=== PATIENT | female | born 1950 | race Caucasian/White ===

== ENCOUNTER 2019-01-24 13:46 | Outpatient (RCR) | payer MEDICARE, SELFPAY | END 2019-02-08 00:01 | LOC: WOUND 13:46 | PROVIDERS: Family Provider Family Medicine; Visit Provider Nurse Practitioner Family | DX: I87.2 Venous insufficiency (chronic) (peripheral) (principal); L97.822 Non-pressure chronic ulcer of other part of left lower leg with fat layer exposed; I96 Gangrene, not elsewhere classified; L85.3 Xerosis cutis | CPT/HCPCS: 11042; 87070; 87077; 87176; 87186 ×4; 87205; G0463 ==

== ENCOUNTER 2019-02-17 08:31 | Outpatient (CLI) | payer MEDICARE, SELFPAY ==
--- NOTE | 2019-02-17 08:40 | MM_ITS ---
WS: [id number] SCREENING DIGITAL MAMMOGRAM WITH CAD HISTORY: SCREENING COMPARISON: 05/07/2016 and 08/25/2007 Bilateral CC and MLO views submitted. Computer aided detection analyzed. Breast composition: The breasts are almost entirely fatty. No suspicious masses, microcalcifications or architectural distortion. MM/[place] [id number] IMPRESSION: BI-RADS: 1-Negative FOLLOW UP: 1 Year Follow-up
== END 2019-02-17 08:32 | disposition home or self-care (01) ==
LOC: RADSHAW 08:36
PROVIDERS: Family Provider Family Medicine; PCP Family Medicine; Visit Provider Family Medicine
DX: Z12.31 Encounter for screening mammogram for malignant neoplasm of breast (principal)
CPT/HCPCS: 77067

== ENCOUNTER 2019-02-23 08:41 | Outpatient (RCR) | payer MEDICARE, SELFPAY | END 2019-03-11 23:59 | disposition home or self-care (01) | LOC: WOUND 08:41 | PROVIDERS: Family Provider Family Medicine; PCP Family Medicine; Visit Provider Nurse Practitioner Family | DX: I87.2 Venous insufficiency (chronic) (peripheral) (principal); L97.822 Non-pressure chronic ulcer of other part of left lower leg with fat layer exposed | CPT/HCPCS: 99212; 99214; G0463 ==

== ENCOUNTER 2020-08-01 08:28 | Outpatient (CLI) | payer MEDICARE, SELFPAY | END 2020-08-01 08:29 | disposition home or self-care (01) | PROVIDERS: Family Provider Family Medicine; PCP Family Medicine; Visit Provider Thoracic Surgery (Cardiothoracic Vascular Surgery) | DX: L97.812 Non-pressure chronic ulcer of other part of right lower leg with fat layer exposed (principal); L97.822 Non-pressure chronic ulcer of other part of left lower leg with fat layer exposed | CPT/HCPCS: 11042; 11045; G0463 ==

== ENCOUNTER 2020-08-08 10:26 | Outpatient (CLI) | payer MEDICARE, SELFPAY | END 2020-08-08 10:27 | disposition home or self-care (01) | LOC: WOUND 10:27 | PROVIDERS: Family Provider Family Medicine; PCP Family Medicine; Visit Provider Thoracic Surgery (Cardiothoracic Vascular Surgery) | DX: L97.812 Non-pressure chronic ulcer of other part of right lower leg with fat layer exposed (principal); L97.822 Non-pressure chronic ulcer of other part of left lower leg with fat layer exposed | CPT/HCPCS: 11042; 11045 ==

== ENCOUNTER 2020-08-15 11:17 | Outpatient (CLI) | payer MEDICARE, SELFPAY | END 2020-08-15 11:18 | disposition home or self-care (01) | PROVIDERS: Family Provider Family Medicine; PCP Family Medicine; Visit Provider Nurse Practitioner Family | DX: L97.812 Non-pressure chronic ulcer of other part of right lower leg with fat layer exposed (principal); L97.822 Non-pressure chronic ulcer of other part of left lower leg with fat layer exposed | CPT/HCPCS: 11042; 11045 ==

== ENCOUNTER 2020-08-29 10:54 | Outpatient (CLI) | payer MEDICARE, SELFPAY | END 2020-08-29 10:55 | disposition home or self-care (01) | LOC: WOUND 10:55 | PROVIDERS: Family Provider Family Medicine; PCP Family Medicine; Visit Provider Thoracic Surgery (Cardiothoracic Vascular Surgery) | DX: L03.116 Cellulitis of left lower limb (principal); L03.115 Cellulitis of right lower limb | CPT/HCPCS: 97597 ==

== ENCOUNTER 2020-09-12 10:17 | Outpatient (CLI) | payer MEDICARE, SELFPAY | END 2020-09-12 10:18 | disposition home or self-care (01) | LOC: WOUND 10:21 | PROVIDERS: Family Provider Family Medicine; PCP Family Medicine; Visit Provider Thoracic Surgery (Cardiothoracic Vascular Surgery) | DX: Z09 Encounter for follow-up examination after completed treatment for conditions other than malignant neoplasm (principal); Z87.891 Personal history of nicotine dependence | CPT/HCPCS: 99212 ==

== ENCOUNTER 2020-09-25 10:34 | Outpatient (CLI) | payer MEDICARE, SELFPAY | END 2020-09-25 10:35 | disposition home or self-care (01) | LOC: WOUND 10:35 | PROVIDERS: Family Provider Family Medicine; PCP Family Medicine; Visit Provider Thoracic Surgery (Cardiothoracic Vascular Surgery) | DX: I87.2 Venous insufficiency (chronic) (peripheral) (principal); L97.812 Non-pressure chronic ulcer of other part of right lower leg with fat layer exposed; Z87.891 Personal history of nicotine dependence | CPT/HCPCS: G0463 ==

== ENCOUNTER 2020-10-02 13:01 | Outpatient (CLI) | payer MEDICARE, SELFPAY | END 2020-10-02 13:02 | disposition home or self-care (01) | LOC: WOUND 13:03 | PROVIDERS: Family Provider Family Medicine; PCP Family Medicine; Visit Provider Nurse Practitioner Family | DX: I96 Gangrene, not elsewhere classified (principal); L97.812 Non-pressure chronic ulcer of other part of right lower leg with fat layer exposed; Z87.891 Personal history of nicotine dependence | CPT/HCPCS: 87070; 87077; 87186; G0463 ==

== ENCOUNTER 2020-10-09 13:45 | Outpatient (CLI) | payer MEDICARE, SELFPAY | END 2020-10-09 13:46 | disposition home or self-care (01) | LOC: WOUND 13:47 | PROVIDERS: Family Provider Family Medicine; PCP Family Medicine; Visit Provider Thoracic Surgery (Cardiothoracic Vascular Surgery) | DX: I87.2 Venous insufficiency (chronic) (peripheral) (principal); L97.812 Non-pressure chronic ulcer of other part of right lower leg with fat layer exposed; Z87.891 Personal history of nicotine dependence | CPT/HCPCS: 11042; 11045 ==

== ENCOUNTER 2020-10-16 13:45 | Outpatient (RCR) | payer MEDICARE, SELFPAY | END 2020-11-08 23:59 | disposition home or self-care (01) | LOC: WOUND 13:45 | PROVIDERS: Family Provider Family Medicine; PCP Family Medicine; Visit Provider Emergency Medicine | DX: I87.2 Venous insufficiency (chronic) (peripheral) (principal); L97.812 Non-pressure chronic ulcer of other part of right lower leg with fat layer exposed; Z87.891 Personal history of nicotine dependence | CPT/HCPCS: 11042 ==

== ENCOUNTER 2020-10-24 10:18 | Outpatient (CLI) | payer MEDICARE, SELFPAY | END 2020-10-24 10:19 | disposition home or self-care (01) | LOC: WOUND 10:19 | PROVIDERS: Family Provider Family Medicine; PCP Family Medicine; Visit Provider Nurse Practitioner Family | DX: Z09 Encounter for follow-up examination after completed treatment for conditions other than malignant neoplasm (principal); Z87.891 Personal history of nicotine dependence | CPT/HCPCS: 99212 ==

== ENCOUNTER → 2021-05-07 11:56 | Outpatient (BNVA) | payer MEDICARE, SELFPAY | PROVIDERS: Family Provider Family Medicine; PCP Family Medicine; Visit Provider Emergency Medicine | DX: I87.2 Venous insufficiency (chronic) (peripheral) (principal); L97.222 Non-pressure chronic ulcer of left calf with fat layer exposed; L97.212 Non-pressure chronic ulcer of right calf with fat layer exposed | CPT/HCPCS: 87070; 87077; 87176; 87186; 87205; 99202 ==

== ENCOUNTER → 2021-05-14 13:53 | Outpatient (BNVA) | payer MEDICARE, SELFPAY | PROVIDERS: Family Provider Family Medicine; PCP Family Medicine; Visit Provider Emergency Medicine | DX: I87.2 Venous insufficiency (chronic) (peripheral) (principal); I96 Gangrene, not elsewhere classified; L97.812 Non-pressure chronic ulcer of other part of right lower leg with fat layer exposed; L97.822 Non-pressure chronic ulcer of other part of left lower leg with fat layer exposed; L97.522 Non-pressure chronic ulcer of other part of left foot with fat layer exposed; Z87.891 Personal history of nicotine dependence | CPT/HCPCS: 11042; 11045 ==

== ENCOUNTER → 2021-05-21 13:51 | Outpatient (BNVA) | payer MEDICARE, SELFPAY | PROVIDERS: Family Provider Family Medicine; PCP Family Medicine; Visit Provider Emergency Medicine | DX: I87.2 Venous insufficiency (chronic) (peripheral) (principal); I96 Gangrene, not elsewhere classified; L97.822 Non-pressure chronic ulcer of other part of left lower leg with fat layer exposed; Z87.891 Personal history of nicotine dependence; L97.522 Non-pressure chronic ulcer of other part of left foot with fat layer exposed; Z09 Encounter for follow-up examination after completed treatment for conditions other than malignant neoplasm | CPT/HCPCS: 11042; 11045; 99212 ==

== ENCOUNTER 2021-05-30 09:13 | Outpatient (CLI) | payer OTHER, SELFPAY ==
--- NOTE | 2021-05-30 09:38 | XR_ITS ---
WS: [id number] Exam: XR foot LT min 3V* [id number] Date/Time of Exam: 05/30/2021 10:11 AM Reason For Exam: NON PRESSURE CHRONIC ULCER No acute fracture or dislocation. Marked soft tissue swelling along the dorsum of the forefoot and fi rst 4 digits. No sign of obvious bone destruction. Degenerative changes in the midfoot joints and the IP joints. Degenerative change at the first MP joint. Calcaneal spurs. No radiopaque soft tissue for eign bodies. XR/XR foot LT min 3V* [id number] IMPRESSION: 1. No obvious fracture or bone destruction. 2. Marked soft tissue swelling over the dorsum of the forefoot as well as the f irst 4 digits. Degenerative changes.
--- NOTE | 2021-05-30 09:38 | USCV_ITS ---
Kay Perez Age: 70 Gender: F : 1950 Exam Date: 05/30/2021 10:19 Ordering Phys: Padmini Persaud DO Technologist: Justin Morales Exam Location: [facility] – [place] Indication: HISTORY: PROCEDURES: FINDINGS: There is no evidence of RIGHT deep vein thrombosis. No evidence of superficial thrombosis in the RIGHT saphenous system. No evidence of reflux was noted in the RIGHT deep venous system. No venous reflux noted in the RIGHT greater saphenous vein. No venous reflux noted in the RIGHT small saphenous vein. There is no evidence of LEFT deep vein thrombosis. No evidence of superficial thrombosis in the LEFT saphenous system. No evidence of reflux was noted in the LEFT deep venous system. No venous reflux noted in the LEFT greater saphenous vein. No venous reflux noted in the LEFT small saphenous vein. The veins were found to be easily compressible with spontaneous blood flow. Non pulsatile flow pattern. CONCLUSIONS No evidence of DVT in the above-mentioned identifiable veins. No significant venous reflux either in the deep or in the superficial veins, based on the above findings. Dr Andrew Gonzalez MD [facility] (Electronically Signed) Final Date: 31 May 2021 09:22 S
== END 2021-05-30 09:14 | disposition home or self-care (01) ==
LOC: RAD 09:21
PROVIDERS: Family Provider Family Medicine; PCP Family Medicine; Visit Provider Emergency Medicine
DX: L97.222 Non-pressure chronic ulcer of left calf with fat layer exposed (principal); L97.212 Non-pressure chronic ulcer of right calf with fat layer exposed
CPT/HCPCS: 73630; 93970

== ENCOUNTER 2021-06-05 09:53 | Outpatient (CLI) | payer OTHER, SELFPAY ==
--- NOTE | 2021-06-05 10:02 | USCV_ITS ---
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 Abnormal resting HERNANDEZ and TBI on the left side, suggesting severe peripheral artery disease, possibly involving the infrapopliteal vessels. 2. Abnormal resting TBI on the right side, suggestive of mild to moderate peripheral artery disease. Dr Andrew Gonzalez MD [facility] (Electronically Signed) Final Date: 09 Jun 2021 21:24 S
== END 2021-06-05 09:54 | disposition home or self-care (01) ==
LOC: RAD 09:55
PROVIDERS: Family Provider Family Medicine; PCP Family Medicine; Visit Provider Emergency Medicine
DX: L97.222 Non-pressure chronic ulcer of left calf with fat layer exposed (principal); L97.212 Non-pressure chronic ulcer of right calf with fat layer exposed
CPT/HCPCS: 93923

== ENCOUNTER → 2021-07-16 08:18 | Outpatient (BNVA) | payer MEDICARE, SELFPAY | PROVIDERS: Family Provider Family Medicine; PCP Family Medicine; Visit Provider Nurse Practitioner Family | DX: I87.2 Venous insufficiency (chronic) (peripheral) (principal); L97.812 Non-pressure chronic ulcer of other part of right lower leg with fat layer exposed; I96 Gangrene, not elsewhere classified; L97.522 Non-pressure chronic ulcer of other part of left foot with fat layer exposed; L97.821 Non-pressure chronic ulcer of other part of left lower leg limited to breakdown of skin; L97.811 Non-pressure chronic ulcer of other part of right lower leg limited to breakdown of skin | CPT/HCPCS: 11042; A6197 ==

== ENCOUNTER 2021-07-27 18:44 | Inpatient (IN) | payer MEDICARE, SELFPAY ==
[2021-07-27 18:49] VITALS: BP 157/76; PULSE 82; RESP 22; TEMP 37.3; O2SAT 94; BMI 60.9
--- NOTE | 2021-07-27 20:08 | USR_ITS ---
PROCEDURE INFORMATION: Exam: US Duplex Right Lower Extremity Veins, Limited Exam date and time: 07/27/2021 8:28 PM Age: 71 years old Clinical indication: Pain; Edema, localized; Lower extremity, right; Leg, lower; Additional info: Swelling, redness rle TECHNIQUE: Imaging protocol: Real-time Duplex ultrasound of the Right Lower Extremity with 2-D elizabeth scale, color Doppler flow and spectral waveform analysis with image documentation. Limited exam was focused on the right lower extremity veins. COMPARISON: No relevant prior studies available. FINDINGS: Right deep veins: Unremarkable. The common femoral, femoral, proximal profunda femoral, popliteal, posterior tibial and peroneal veins are patent without thrombus. Normal Doppler waveforms. Normal compressibility and/or augmentation response. Right superficial veins: Unremarkable. Saphenofemoral junction is patent without thrombus. Soft tissues: Unremarkable. US/[place] [id number] IMPRESSION: No sonographic evidence of deep vein thrombosis.
--- NOTE | 2021-07-27 20:08 | XRR_ITS ---
PROCEDURE INFORMATION: Exam: XR Chest Exam date and time: 07/27/2021 9:06 PM Age: 71 years old Clinical indication: Fever and shortness of breath; Additional info: SOB fever TECHNIQUE: Imaging protocol: Radiologic exam of the chest. Views: 1 view. COMPARISON: CR Chest 1 [place] [id number] 08/13/2017 9:40 AM FINDINGS: Lungs: Streaky opacities at the lung bases, likely secondary to atelectasis and/or scarring. No consolidation. Pleural spaces: Unremarkable. No pleural effusion. No pneumothorax. Heart/Mediastinum: Mild cardiomegaly. Vasculature: Senescent changes of the aorta. Bones/joints: No acute osseous abnormality. Degenerative changes. XR/XR chest 1V portable [id number] IMPRESSION: No acute radiographic findings.
--- NOTE | 2021-07-27 20:10 | ECG_ITS ---
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 Measurements Intervals [place] Rate: 91 P: 63 IA: 137 QRS: -37 QRSD: 104 T: 70 QT: 342 QTc: 422 Interpretive Statements SINUS RHYTHM LEFT AXIS DEVIATION [QRS AXIS < -30] POSSIBLE ANTERIOR MYOCARDIAL INFARCTION , OF INDETERMINATE AGE [30 ms Q WAVE IN V3/V4, OR R < 0.2 mV IN V4] Compared to ECG 11/27/2016 10:56:16 Left-axis deviation now present Ventricular premature complex(es) no longer present Myocardial infarct finding still present Electronically Signed On 07-28-2021 13:01:51 CDT by Nneka Freedman M.D. [id number]
--- NOTE | 2021-07-27 20:12 | W.ED.GENADLT ---
HPI - General Adult General: Chief complaint: General Medical Stated complaint: Leg pain/weakness/SOB Time Seen by Provider: 07/27/21 19:43 Source: patient and family History of Present Illness: 71-year-old female with a history of vascular insufficiency to her left lower extremities and morbid obesity. She presents with several complaints. She notes that she has had increasing leg swelling, with pain particularly on the right greater than the left. She has chronic vascular insufficiency with weeping wounds to these areas. She is treated for chronic fungal infection. She also complains of cough, diarrhea, and vomiting with fever. This is been going on 3 to 4 days as well Onset (ago): day(s) Location: lower extremity Radiation: non-radiation Quality: burning and stabbing Pain Consistency: constant Associated symptoms: Reports cough, dyspnea, fevers/chills, nausea, rash, short of breath and vomiting; Deny chest pain or headache(s) Review of Systems Const: Reports: fever(s), chills and body aches ENMT: Reports: throat pain Card: Denies: chest pain Resp: Reports: dyspnea GI: Reports: abdominal pain, nausea, vomiting and diarrhea Skin/Breast: Reports: rash, skin tenderness and skin swelling Neuro: Denies: headache(s) Physical Exam Const: GENERAL APPEARANCE: cooperative, in distress, ill appearing and frail appearing NUTRITIONAL APPEARANCE: obese morbidly obese HENMT: COMMON NORMALS: normocephalic, atraumatic and Normal external nose present HEAD & SCALP: normocephalic and atraumatic NOSE: Normal external nose present and Normal nares present Eye: COMMON NORMALS: Equal, round and reactive pupils present and EOMs intact bilaterally PUPIL: Yes Equal, round and reactive pupils present Neck/C-Spine: GENERAL: Yes trachea midline Chest: CHEST: Yes Symmetrical chest wall rise Resp: COMMON NORMALS: normal respiratory effort, No use of accessory muscles and clear to auscultation bilaterally AUSCULTATION: clear to auscultation bilaterally Cardio: COMMON NORMALS: regular rate and regular rhythm RATE: regular rate RHYTHM: regular rhythm GI: COMMON NORMALS: Normal to inspection, nondistended, normoactive bowel sounds present, Soft to palpation and non-tender PALPATION: Yes Soft to palpation Extremity: NARRATIVE EXTREMITY EXAM: Right leg greater than left leg edema. Chronic skin changes related to vascular insufficiency. Beefy erythema to right leg that is circumferential, with significant weeping and discharge. It is significantly tender, and warm. Neuro: AALIYAH COMA SCALE: document GCS findings Aaliyah coma scale eye opening: Spontaneous Aaliyah coma scale verbal response: Orientated [place] coma scale motor response: Obey commands Aaliyah coma scale total score: 15 Psych: COMMON NORMALS: mental status grossly normal Skin: NARRATIVE SKIN EXAM: See above Course Consultations: Consultation #1: darby Vital Signs: Vital signs: Vital Signs Temperature 99.2 F 07/27/21 18:49 Pulse Rate 90 07/28/21 00:22 Respiratory Rate 24 H 07/28/21 00:22 Blood Pressure 121/55 07/28/21 00:22 Pulse Oximetry 94 07/28/21 00:22 MDM - General Adult Medical Decision Making 71-year-old female with beefy red cellulitis and weeping to the right lower extremity. DVT ultrasound is negative. Her white blood cell count is 23.5. Her lactate is only 2. Creatinine 1.3. There was some concern over the possibility of gangrene/necrotizing fasciitis. CT reveals no gas in the soft tissues though. Her CRP is significantly elevated. She was given vancomycin after blood cultures here. She will require admission. She has been evaluated by hospitalist in the ER. Lab Data : 07/27/21 20:00 07/27/21 20:00 Radiology Impressions Chest X-Ray 07/27/21 20:08 IMPRESSION: No acute radiographic findings. Venous Duplex 07/27/21 20:08 IMPRESSION: No sonographic evidence of deep vein thrombosis. Femur CT 07/27/21 22:33 IMPRESSION: 1. Cellulitis changes of the right thigh. 2. Right inguinal and right pelvic sidewall reactive lymphadenopathy. Lower Extremity CT 07/27/21 22:33 IMPRESSION: Diffuse cellulitis changes. Laboratory Results WBC 23.5 10^3/uL (4.0-10.0) H 07/27/21 20:00 RBC 4.70 10^6/uL (4.1-5.3) 07/27/21 20:00 Hgb 13.1 g/dL (11.5-15.3) 07/27/21 20:00 Hct 40.3 % (37.0-47.0) 07/27/21 20:00 MCV 85.7 fl (81-99) 07/27/21 20:00 MCH 27.9 pg (28.0-34.0) L 07/27/21 20:00 MCHC 32.5 g/dL (30.0-36.0) 07/27/21 20:00 RDW 15.3 % (12.1-15.1) H 07/27/21 20:00 Plt Count 275 10^3/cmm (130-400) 07/27/21 20:00 MPV 10.4 fL (7.4-10.4) 07/27/21 20:00 Neut % (Auto) 78.4 % 07/27/21 20:00 Lymph % (Auto) 11.8 % 07/27/21 20:00 [place] % (Auto) 7.2 % 07/27/21 20:00 Eos % (Auto) 0.1 % 07/27/21 20:00 Baso % (Auto) 0.3 % 07/27/21 20:00 Neut # (Auto) 18.43 10^3/uL (1.8-7.7) H 07/27/21 20:00 Lymph # (Auto) 2.8 10^3/uL (0.8-4.8) 07/27/21 20:00 [place] # (Auto) 1.7 10^3/uL (0.2-0.9) H 07/27/21 20:00 Eos # (Auto) 0.0 10^3/uL (0.0-0.8) 07/27/21 20:00 Baso # (Auto) 0.1 10^3/uL (0.0-0.1) 07/27/21 20:00 Nucleated RBC % (auto) 0 % 07/27/21 20:00 Nucleated RBCs # 0.0 /100WBC 07/27/21 20:00 ESR 33 mm/hr (0-15) H 07/27/21 20:00 Sodium 133 mmol/L (136-145) L 07/27/21 20:00 Potassium 3.7 mmol/L (3.5-5.1) 07/27/21 20:00 Chloride 94 mmol/L (98-107) L 07/27/21 20:00 Carbon Dioxide 22 mmol/L (22-29) 07/27/21 20:00 Anion Gap 20.7 (5-19) H 07/27/21 20:00 BUN 34 mg/dL (8-23) H 07/27/21 20:00 Creatinine 1.3 mg/dL (0.5-0.9) H 07/27/21 20:00 GFR Calculation Not Reportable 07/27/21 20:00 Glucose 118 mg/dL (65-115) H 07/27/21 20:00 Calculated Osmolality 285 mOsm/kg (285-295) 07/27/21 20:00 Lactate 2.0 mmol/L (0.5-2.2) 07/27/21 20:30 Calcium 8.9 mg/dL (8.5-10.5) 07/27/21 20:00 Total Bilirubin 0.7 mg/dL (0.15-1.2) 07/27/21 20:00 AST 22 U/L (0-32) 07/27/21 20:00 ALT 19 U/L (0-33) 07/27/21 20:00 Alkaline Phosphatase 102 IU/L (35-105) 07/27/21 20:00 Creatine Kinase 104 U/L (26-192) 07/27/21 20:00 C-Reactive Protein 333.5 mg/L (0.0-4.9) H 07/27/21 20:00 NT-Pro-B Natriuret Pep 6040 pg/mL (0-125) H 07/27/21 20:00 Total Protein 7.5 g/dL (6.6-8.7) 07/27/21 20:00 Albumin 3.3 g/dL (3.5-5.2) L 07/27/21 20:00 Globulin 4.2 g/dL (1.3-4.6) 07/27/21 20:00 SARS-CoV-2 Ag (Rapid) Negative (Negative) 07/27/21 20:10 Discharge Plan Discharge Patient Disposition: Admitted As Inpatient Clinical Impression: Cellulitis Condition: Fair Prescriptions: No Action miconazole nitrate [Antifungal Cream (miconazole)] 2 % cream 1 applic topical BID Qty: 28 3RF fluconazole [Diflucan] 150 mg tablet 150 mg PO DAILY Qty: 18 0RF Rx Instructions: 1 tab po qd for 3 days (Wed thru Thu) for 6 weeks Referrals: Salvador,Pepper M, MD [Primary Care Provider] - Coding Level of Care Code ED Manne[employer] 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
[2021-07-27 20:27] LABS: Basophils # 0.1 10^3/uL (0.0-0.1); Basophils % 0.3 %; Eosinophils % 0.1 %; Hematocrit 40.3 % (37.0-47.0); Hemoglobin 13.1 g/dL (11.5-15.3); Lymphocytes # 2.8 10^3/uL (0.8-4.8); Lymphocytes % 11.8 %; Mean Corpuscular HGB Conc 32.5 g/dL (30.0-36.0); Mean Corpuscular Hemoglobin 27.9 pg (28.0-34.0); Mean Corpuscular Volume 85.7 fl (81-99); Mean Platelet Volume 10.4 fL (7.4-10.4); Monocytes # 1.7 10^3/uL (0.2-0.9); Monocytes % 7.2 %; Neutrophils # 18.43 10^3/uL (1.8-7.7); Neutrophils % 78.4 %; Nucleated Red Blood Cells % 0 %; Platelet Count 275 10^3/cmm (130-400); Red Cell Distribution Width 15.3 % (12.1-15.1); White Blood Count 23.5 10^3/uL (4.0-10.0)
[2021-07-27 20:30] VITALS: RESP 20
[2021-07-27] MEDS: ondansetron 2 mg/ML SDV 2 mL 4 MG IVP (20:30)
[2021-07-27] MEDS: morphine 4 mg/mL SDV 1 mL IVP (20:30)
[2021-07-27 21:04] LABS: Alanine Aminotransferase 19 U/L (0-33); Albumin Level 3.3 g/dL (3.5-5.2); Alkaline Phosphatase 102 IU/L (35-105); Anion Gap 20.7 (5-19); Aspartate Amino Transferase 22 U/L (0-32); Blood Urea Nitrogen 34 mg/dL (8-23); C Reactive Protein 333.5 mg/L (0.0-4.9); Calcium 8.9 mg/dL (8.5-10.5); Carbon Dioxide 22 mmol/L (22-29); Chloride 94 mmol/L (98-107); Creatine Phosphokinase 104 U/L (26-192); Globulin 4.2 g/dL (1.3-4.6); Glucose 118 mg/dL (65-115); NT Pro B Type Natriuretic Pept 6040 pg/mL (0-125); Osmolality Calculated 285 mOsm/kg (285-295); Potassium 3.7 mmol/L (3.5-5.1); Sodium 133 mmol/L (136-145); Total Bilirubin 0.7 mg/dL (0.15-1.2); Total Protein 7.5 g/dL (6.6-8.7)
[2021-07-27 21:15] LABS: Erythrocyte Sedimentation Rate 33 mm/hr (0-15)
[2021-07-27 21:22] VITALS: BP 140/65; PULSE 93; RESP 24; O2SAT 96
[2021-07-27 21:39] LABS: SARS Covid-2 Antigen Negative (Negative)
--- NOTE | 2021-07-27 22:33 | CTR_ITS ---
PROCEDURE INFORMATION: Exam: CT Right Lower Extremity Without Contrast; Lower Leg Exam date and time: 07/27/2021 11:04 PM Age: 71 years old Clinical indication: Edema; No, it is generalized; Patient HX: Weeping, swollen, scaling skin; Additional info: Pain, swelling rle TECHNIQUE: Imaging protocol: CT of the Right lower extremity without contrast was performed. Exam focused on the lower leg. Radiation optimization: All CT scans at this facility use at least one of these dose optimization techniques: automated exposure control; mA and/or kV adjustment per patient size (includes targeted exams where dose is matched to clinical indication); or iterative reconstruction. COMPARISON: [place] [id number] 07/27/2021 8:28 PM RADIATION DOSE METRICS: Total DLP (mGy-cm): 892.88 FINDINGS: Bones/joints: No fractures. No aggressive osteolytic bone lesion. Negative for acute periosteal bone reaction changes. Soft tissues: Diffuse soft tissue edema changes. Extensive skin thickening. Negative for soft tissue gas. No focal organized fluid collection. CT/CT lower leg RT wo con* [id number] IMPRESSION: Diffuse cellulitis changes.
--- NOTE | 2021-07-27 22:33 | CTR_ITS ---
PROCEDURE INFORMATION: Exam: CT Right Lower Extremity Without Contrast; Thigh Exam date and time: 07/27/2021 11:00 PM Age: 71 years old Clinical indication: Edema; No, it is generalized; Patient HX: Weeping, swollen and scaling of lower ext; Additional info: Swelling, pain rle TECHNIQUE: Imaging protocol: CT of the Right lower extremity without contrast was performed. Exam focused on the thigh. Radiation optimization: All CT scans at this facility use at least one of these dose optimization techniques: automated exposure control; mA and/or kV adjustment per patient size (includes targeted exams where dose is matched to clinical indication); or iterative reconstruction. 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 No acute fracture or dislocation. No aggressive osteolytic lesion. Soft tissues: Broad area of skin thickening of the anterior and medial proximal right thigh. Generalized subcutaneous soft tissue edema changes. Focal skin blister of the medial distal thigh. No soft tissue gas. Myofascial planes are unremarkable other than generalized muscular atrophy. Lymph nodes: Right inguinal lymphadenopathy. Right pelvic sidewall lymphadenopathy. Largest individual right distal inguinal lymph node measures 3.8 cm long axis by 2.[address]/CT femur RT wo con* [id number] IMPRESSION: 1. Cellulitis changes of the right thigh. 2. Right inguinal and right pelvic sidewall reactive lymphadenopathy.
[2021-07-27 22:35] VITALS: BP 124/76; PULSE 94; RESP 22; O2SAT 95
[2021-07-27] MEDS: vancomycin 1,250 MG/250 ML PIGGYBACK 250 MG IV (22:35)
[2021-07-28] VITALS (8 sets, daily range): BP systolic 108–134; BP diastolic 55–84; PULSE 78–90; RESP 17–24; TEMP 36.3–36.7; O2SAT 93–96
--- NOTE | 2021-07-28 02:11 | P.HP_ITS ---
Providers/Chief Complaint Admitting Physician: Cynthia Irizarry MD Primary Care Provider: Goes to [facility] Chief Complaint: Leg pain/weakness/sob History of Present Illness Kay Perez is a 71 year old female with longstanding history of lymphedema and lower extremity wounds. She has been followed at the wound care clinic off and on over time. Most recently she started going to the wound care clinic again at the end of April or the beginning of May this year. She has had bilateral lower extremity wounds necessitating management. The left lower extremity has been worse than the right lower extremity throughout the course of her treatment thus far. She has been on a few different courses of antibiotics including Bactrim and clindamycin and was ultimately also started on Diflucan for a fungal component. Most recent wound care note I have available is from July 16. At that time she was continuing the Diflucan and was switched to Derm alginate from Hydrofera Blue with lymphedema wraps being changed every other day rather than daily. She was also using Dry-Peter between her toes. She says she was doing okay at that point but then this past weekend she just started feeling sick. She had subjective fevers, nausea but no vomiting. She lost her appetite and quit eating. She also began having some loose stools and noted that she was having decreased urine output. Her daughter told her that she was delirious at times with the fever. Her fever broke after a couple of days but subsequent to this she began to have swelling in her right lower extremity. Over the last 2 to 3 days the size of the right lower extremity has about doubled that of the left lower extremity extending all the way up to her groin. At baseline the right lower extremity is always a bit larger than the left lower extremity but this is beyond what she has experienced before. The leg started oozing fluid a few days ago around the time it started swelling. The skin has become progressively more raw and hurting. It has gotten to the point that it is almost continuously dripping serous fluid on the floor. Because of this and the continued malaise she came to the emergency room for evaluation. She denies any trauma including any skin trauma related to wound care treatments left on too long or used inappropriately. No one else in the household has been sick. Mrs. Perez did have arterial Dopplers done within the past 2 months that showed probable severe peripheral artery disease on the left lower extremity and moderate disease on the right lower extremity. She has been referred to cardiology for consideration of options for intervention but has not yet had that appointment as it is scheduled for August 15. Review of Systems Const: Reports: fever(s), chills, body aches, change in appetite, fatigue and malaise ENMT: Reports: dry mouth; Denies: throat pain or nasal congestion Card: Reports: edema, swelling of feet/ankles, lightheadedness, dyspnea on exertion, orthopnea and leg pain with exertion; Denies: chest pain or palpitations Resp: Reports: dyspnea, productive cough and non-productive cough GI: Reports: nausea and diarrhea; Denies: abdominal pain, vomiting, constipation, hematochezia or melena : Reports: oliguria; Denies: dysuria, urinary frequency or hematuria Musc: Reports: extremity pain Skin/Breast: Reports: rash, erythema, skin pain, skin tenderness, skin swelling, sores, changes in skin color and other (Skin findings to the left foot are not new and are in fact improved) Neuro: Denies: headache(s) or frequent falls Petar/Lymph: Reports: other (but has had bleeing of the right leg this week from wounds); Denies: easy bruising or easy bleeding Medications/Allergies Home Medications Medication Instructions Recorded Confirmed Last Taken Type irbesartan 150 mg tablet 150 mg PO DAILY 07/28/21 07/28/21 07/27/21 08:00 History levothyroxine 25 mcg tablet 25 mcg PO DAILY 07/28/21 07/28/21 07/27/21 08:00 History Allergies Allergy/AdvReac Type Severity Reaction Status Date / Time amlodipine Allergy Unknown Unknown Verified 07/27/21 21:46 isosorbide Allergy Unknown Unknown Verified 07/27/21 22:25 cephalexin [From Keflex] Allergy ALGY-Hives Verified 07/27/21 18:52 PFSH Acute PFSH: Medical History (Updated 07/28/21 @ 07:32 by Cynthia Irizarry MD) Angina of effort Told that she had angina in her 30s but it resolved and has not been a recurrent problem BMI 60.0-69.9, adult 4 para 4 Hypothyroidism Lymphedema Peripheral arterial disease Surgical History (Updated 07/28/21 @ 06:59 by Cynthia Irizarry MD) History of hysterectomy Family History (Updated 07/28/21 @ 07:00 by Cynthia Irizarry MD) Grandfather CAD (coronary artery disease) Grandmother Stroke Father Alcoholism Social History (Updated 07/28/21 @ 07:00 by Cynthia Irizarry MD) Smoking and tobacco status: never smoked Alcohol intake: never Substance/Drug Use: never Household members: family Other PFS information: Supplemental [facility] Information: No known sleep apnea, no history of blood clots Vitals/I&O/Wt Last Vital Signs Temp 99.2 F 07/27/21 18:49 Pulse 90 07/28/21 00:22 Resp 24 H 07/28/21 00:22 BP 121/55 07/28/21 00:22 Pulse Ox 94 07/28/21 00:22 Weight last 48 hrs Weight 166.015 kg Physical Exam Narrative: Constitutional: Awake and alert, looks uncomfortable and like she does not feel well but able to provide history and facilitate position changes HEENT: Normocephalic, atraumatic, conjunctive a mildly injected, nasopharynx is clear, oropharynx with moist membranes Neck: Large but supple Respiratory: Clear to auscultation bilaterally no wheezes noted Cardiovascular: Regular rhythm, distant heart sounds Abdomen: Soft, obese, positive bowel sounds, nontender : Normal external genitalia, skin folds with only mild erythema more so on the left than the right Extremities: Lymphedema noted to both lower extremities. Currently right lower extremity is almost double the diameter of the left lower extremity. The skin from below the knee to the ankle is almost denuded and areas with moist weeping leon red skin covered in smaller regions of purulence underlying a thin layer of skin. In the posterior calf area there are 3 areas of ecchymotic appearance coinciding with where the cath might of been touching furniture. Skin architecture appears intact around these ecchymoses but the skin color is concerning. Erythema extends beyond the knee up to the top of the thigh not involving the actual groin itself. It does not cross the intertriginous area. Leg is much more erythematous medially and on the inner surface of the upper right thigh there is purulence below the skin surface. Skin is tender to touch and weeping so much that there is a continuous drip onto the floor of serous fluid. Smaller punctate areas of bright red blood are noted throughout the leg. Erythema and swelling extends to the foot and the toes. There is some yellow crusting also noted. This yellow crusting is also prominent on the left foot and much thicker. No weeping is appreciated to the left lower extremity though there is erythema and more notable chronic stasis changes. Chronic stasis changes not notable to the right lower extremity due to the acute findings. Skin: Other than findings noted to the extremities, patient's skin is dry. No erythema under the breast. She has erythema to the sacral area with 1 small region that is blanchable. There is a small mole about 1 cm in diameter on the right side. Neuro: Speech clear, face symmetric, moves all extremities, gait not assessed Psych: Normal affect Data : 07/27/21 20:00 07/27/21 20:00 Other Labs: Radiology Impressions Chest X-Ray 07/27/21 20:08 IMPRESSION: No acute radiographic findings. Venous Duplex 07/27/21 20:08 IMPRESSION: No sonographic evidence of deep vein thrombosis. Femur CT 07/27/21 22:33 IMPRESSION: 1. Cellulitis changes of the right thigh. 2. Right inguinal and right pelvic sidewall reactive lymphadenopathy. Lower Extremity CT 07/27/21 22:33 IMPRESSION: Diffuse cellulitis changes. Laboratory Results WBC 23.5 10^3/uL (4.0-10.0) H 07/27/21 20:00 RBC 4.70 10^6/uL (4.1-5.3) 07/27/21 20:00 Hgb 13.1 g/dL (11.5-15.3) 07/27/21 20:00 Hct 40.3 % (37.0-47.0) 07/27/21 20:00 MCV 85.7 fl (81-99) 07/27/21 20:00 MCH 27.9 pg (28.0-34.0) L 07/27/21 20:00 MCHC 32.5 g/dL (30.0-36.0) 07/27/21 20:00 RDW 15.3 % (12.1-15.1) H 07/27/21 20:00 Plt Count 275 10^3/cmm (130-400) 07/27/21 20:00 MPV 10.4 fL (7.4-10.4) 07/27/21 20:00 Neut % (Auto) 78.4 % 07/27/21 20:00 Lymph % (Auto) 11.8 % 07/27/21 20:00 [place] % (Auto) 7.2 % 07/27/21 20:00 Eos % (Auto) 0.1 % 07/27/21 20:00 Baso % (Auto) 0.3 % 07/27/21 20:00 Neut # (Auto) 18.43 10^3/uL (1.8-7.7) H 07/27/21 20:00 Lymph # (Auto) 2.8 10^3/uL (0.8-4.8) 07/27/21 20:00 [place] # (Auto) 1.7 10^3/uL (0.2-0.9) H 07/27/21 20:00 Eos # (Auto) 0.0 10^3/uL (0.0-0.8) 07/27/21 20:00 Baso # (Auto) 0.1 10^3/uL (0.0-0.1) 07/27/21 20:00 Nucleated RBC % (auto) 0 % 07/27/21 20:00 Nucleated RBCs # 0.0 /100WBC 07/27/21 20:00 ESR 33 mm/hr (0-15) H 07/27/21 20:00 Sodium 133 mmol/L (136-145) L 07/27/21 20:00 Potassium 3.7 mmol/L (3.5-5.1) 07/27/21 20:00 Chloride 94 mmol/L (98-107) L 07/27/21 20:00 Carbon Dioxide 22 mmol/L (22-29) 07/27/21 20:00 Anion Gap 20.7 (5-19) H 07/27/21 20:00 BUN 34 mg/dL (8-23) H 07/27/21 20:00 Creatinine 1.3 mg/dL (0.5-0.9) H 07/27/21 20:00 GFR Calculation Not Reportable 07/27/21 20:00 Glucose 118 mg/dL (65-115) H 07/27/21 20:00 Calculated Osmolality 285 mOsm/kg (285-295) 07/27/21 20:00 Lactate 2.0 mmol/L (0.5-2.2) 07/27/21 20:30 Calcium 8.9 mg/dL (8.5-10.5) 07/27/21 20:00 Total Bilirubin 0.7 mg/dL (0.15-1.2) 07/27/21 20:00 AST 22 U/L (0-32) 07/27/21 20:00 ALT 19 U/L (0-33) 07/27/21 20:00 Alkaline Phosphatase 102 IU/L (35-105) 07/27/21 20:00 Creatine Kinase 104 U/L (26-192) 07/27/21 20:00 C-Reactive Protein 333.5 mg/L (0.0-4.9) H 07/27/21 20:00 NT-Pro-B Natriuret Pep 6040 pg/mL (0-125) H 07/27/21 20:00 Total Protein 7.5 g/dL (6.6-8.7) 07/27/21 20:00 Albumin 3.3 g/dL (3.5-5.2) L 07/27/21 20:00 Globulin 4.2 g/dL (1.3-4.6) 07/27/21 20:00 SARS-CoV-2 Ag (Rapid) Negative (Negative) 07/27/21 20:10 Micro: Microbiology 07/27/21 20:30 Blood Culture - Preliminary Blood SPECIMEN COLLECTED 07/27/21 20:30 Blood Culture - Preliminary Blood SPECIMEN COLLECTED Other data: Arterial Dopplers Bilateral Lower Extremity 06/05/2021 FINDINGS ?Abnormal resting HERNANDEZ on the left side ?Supranormal resting HERNANDEZ on the right side ?Diminished resting TBI bilaterally, 0.48 on the right side and ?0.47 on the left side ?PVR waveforms showing loss of dicrotic notch bilaterally ?CONCLUSIONS ?1.? Abnormal resting HERNANDEZ and TBI on the left side, suggesting ?severe peripheral artery disease, possibly involving the ?infrapopliteal vessels. ?2.? Abnormal resting TBI on the right side, suggestive of mild ?to moderate peripheral artery disease. A&P Assessment and plan (1) Cellulitis: Right lower extremity Chronic lymphedema and stasis changes known but usually confined to below the knee. Current wounds are the worst that patient has ever experienced with erythema and edema extending to the groin. Reported rapid progression of edema, weeping wounds and erythema over the last couple of days. CT of the right lower extremity without contrast does not show any areas of gas formation Wbc 23,000 CRP 335 ESR 33 Lactic acid 2.0 Reports subjective fevers, afebrile here and stable vital signs Not currently meeting sepsis criteria but based on examination and history at very high risk of rapid clinical decline from her wounds in addition to having a limb threat with known PAD and extent of visibly compromised tissue Status: Acute Qualifiers: Site of cellulitis: extremity Site of cellulitis of extremity: lower extremity Laterality: right Qualified Code(s): L03.115 - Cellulitis of right lower limb (2) Lymphedema: Status: Chronic (3) Peripheral arterial disease: Status: Chronic (4) Hypothyroidism: Status: Chronic Qualifiers: Hypothyroidism type: acquired Qualified Code(s): E03.9 - Hypothyroidism, unspecified (5) BMI 60.0-69.9, adult: Status: Chronic Plan Nausea and diarrhea in a patient who has had several courses of antibiotics lately, concerning for possibility of C. difficile infection present on admission Blood sugar without a history of diabetes Inpatient admission Wound culture from 2 most prominent areas of right lower extremity Blood cultures have been collected Vancomycin and Levaquin Patient with cephalosporin allergy with urticaria Add Diflucan IV, has been on orally 3 days a week for couple of weeks Elevate extremity - patient does not do well trying to elevate her leg but explained to her importance of elevating the leg to facilitate wound healing and in a worse case scenario even trying to save her leg Bariatric bed and chair to facilitate patient compliance with extremity elevation Rodriguez catheter placement to assist with wound healing particularly for visibly purulent areas that are right near the groin IV diuresis monitoring volume response and renal function closely If does not have rapid response to IV antibiotics, elevation and diuresis, may require surgical debridement Had arterial Doppler of the lower extremities a couple of months ago demonstrating moderate disease on the right lower extremity and severe disease in the left lower extremity Venous Doppler of the right lower extremity this evening does not show evidence of DVT Probiotics Stool for C. difficile Pepcid for GI prophylaxis Lovenox for DVT prophylaxis monitoring for increased bleeding to the leg Stool softeners as needed Pain control We will repeat CRP to ensure downward trend Hold home irbesartan to minimize potential impact on blood pressures and renal function in the setting of known infection and need for diuresis Continue home levothyroxine Check TSH Check hemoglobin A1c Supportive care otherwise Findings, concerns and plans were discussed with patient and she was given an opportunity to ask questions Expect will probably be here for several days receiving IV antibiotics, wound care and close monitoring. Anticipate at discharge possibility for placement versus return home with home health. Will need continued wound care after discharge. Full code as per discussion with patient Attestations Medical Necessity Statement*: Anticipated stay greater than two midnights with extensive and potentially limb threatening acute cellulitis to the right lower extremity. Patient with known moderate to severe peripheral arterial disease, lymphedema and BMI greater than 60 as contributing factors. Plans are as indicated. Coding Level of Care Code Acute Handyperson for [facility] Diagnoses Cellulitis L03.115 Site of cellulitis: extremity Site of cellulitis of extremity: lower extremity Laterality: right Lymphedema I89.0 Peripheral arterial disease I73.9 Hypothyroidism E03.9 Hypothyroidism type: acquired BMI 60.0-69.9, adult Z68.44
[2021-07-28 04:28] LABS: Add Urine Microscopic? YES; Bilirubin Urine 1+ (Negative); Blood Urine Neg (Negative); Glucose Urine UA Norm (Normal); Ketones Urine Negative (Negative); Leukocyte Esterase Urine Negative (Negative); Nitrate Urine Negative (Negative); Protein Urine 1+ (Negative); Urine Appearance Hazy (CLEAR); Urine Color Yellow (Yellow); Urobilinogen Urine 1 mg/dL (Negative); pH Urine 5 (5-7)
[2021-07-28 04:29] LABS: RBC Urine 0-4 /hpf (0-2); Squamous Epithelial Cell Urine 15-25 /hpf (0-5); WBC Urine 0-4 /hpf (0-5)
[2021-07-28 04:30] LABS: Add Urine Culture? No; Amorphous Sediment Urine TRACE /hpf; Bacteria Urine TRACE /hpf; Coarse Granular Casts Urine 0-4 /lpf; Mucus Urine 2+ /hpf
--- NOTE | 2021-07-28 06:02 | PC.PHAR ---
Pharmacokinetic dosing service Date: 07/28/21 Time: 0600 Objective: Patient: Kay Perez Floor: 267-1 Age: 71 yo Serum creatinine: 1.3 mg/dL Height: 65.0 Inches Weight (kg): 166.015 Diagnosis: Relevant medical/social history: Cultures and sensitivities: Other labs: Assessment: IBW (kg): 57.00 Dosing wt(kg): 100.6 Estimated Creatinine clearance (ml/min): 35.2 CRCL method: Cockcroft and Gault using ibw(default). Drug selected: Vancomycin Loading dose (mg): 0 Vd (liters): 90.5 (factor used: 0.9 L/kg) Chris (hr-1): 0.034 Half life (hrs): 20.39 Recommended dose: 1500 mg Interval: 24 hrs Infusion time (hrs): 1.5 Predicted peak (mcg/mL): 29.0 Predicted trough (mcg/mL): 13.49 Adjusted body weight was selected for vancomycin dosing. To switch back, select the total body weight option above. Renal function is stable [ ] /unstable [ ] Recommendations: Give Vancomycin 1500 mg q 24 hrs with an expected Cpeak of 29.0 mcg/ml and an expected Ctrough of 13.49 mcg/ml Renal dosing of other antibiotics (review renal dosing of other medications and list guidelines here): Thank you for the consult, will continue to follow. Signature: Alejandra Sanches [facility]
[2021-07-28] MEDS: HYDROcodone-acetaminophen 5-325 mg Tablet 1 TAB PO ×2 (06:10→17:52)
[2021-07-28] MEDS: FUROsemide 10 mg/mL SDV 4mL 40 MG IVP (06:12)
[2021-07-28] MEDS: enoxaparin 40 mg/0.4 mL Syringe SUBCUT (06:12)
[2021-07-28] MEDS: levofloxacin-dextrose 5 % 750 MG/150 ML PREMIX 100 MG IV (06:22)
[2021-07-28 07:16] LABS: Basophils # 0.1 10^3/uL (0.0-0.1); Basophils % 0.4 %; Hematocrit 34.2 % (37.0-47.0); Hemoglobin 11.2 g/dL (11.5-15.3); Lymphocytes # 1.8 10^3/uL (0.8-4.8); Lymphocytes % 7.8 %; Mean Corpuscular HGB Conc 32.7 g/dL (30.0-36.0); Mean Corpuscular Hemoglobin 28.1 pg (28.0-34.0); Mean Corpuscular Volume 85.9 fl (81-99); Mean Platelet Volume 9.8 fL (7.4-10.4); Monocytes # 1.5 10^3/uL (0.2-0.9); Monocytes % 6.5 %; Neutrophils # 19.09 10^3/uL (1.8-7.7); Neutrophils % 83.9 %; Nucleated Red Blood Cells % 0 %; Platelet Count 211 10^3/cmm (130-400); Red Blood Count 3.98 10^6/uL (4.1-5.3); Red Cell Distribution Width 15.4 % (12.1-15.1); White Blood Count 22.8 10^3/uL (4.0-10.0)
[2021-07-28 07:40] LABS: INR 1.39 (0.8-1.2)
[2021-07-28 07:41] LABS: Partial Thromboplastin Time 31.2 SECONDS (23.9-36.7)
[2021-07-28 07:43] LABS: Blood Urea Nitrogen 42 mg/dL (8-23); Carbon Dioxide 23 mmol/L (22-29); Chloride 96 mmol/L (98-107); Creatinine Clr Calc Pharmacy 36.8986; Glucose 158 mg/dL (65-115); Osmolality Calculated 286 mOsm/kg (285-295); Phosphorus 3.9 mg/dL (2.5-4.5); Sodium 131 mmol/L (136-145); Thyroid Stimulating Hormone 3.92 uIU/mL (0.27-4.20)
[2021-07-28 08:14] LABS: Anion Gap 16.6 (5-19); Potassium 4.6 mmol/L (3.5-5.1)
[2021-07-28 08:15] LABS: Estmated Average Glucose 117; Hemoglobin A1C 5.7 % (4.0-6.0)
[2021-07-28] MEDS: levothyroxine 25 mcg Tablet PO (08:29)
[2021-07-28] MEDS: fluconazole premix 200 MG/100 ML PREMIX 100 MG IV (08:29)
[2021-07-28] MEDS: potassium chloride ER 20 mEq Tablet PO (08:29)
[2021-07-28] MEDS: docusate sodium 100 mg Capsule PO (08:29)
[2021-07-28] MEDS: lactobacillus 1 Tablet 1 TAB PO ×2 (08:29→17:51)
[2021-07-28] MEDS: acetaminophen 325 mg Tablet 650 MG PO (08:31)
[2021-07-28] MEDS: famotidine 20 mg Tablet PO ×2 (08:38→17:51)
--- NOTE | 2021-07-28 08:39 | USCV_ITS ---
Kay Perez Age: 71 Gender: F : 1950 Exam Date: 07/28/2021 09:50 Ordering Phys: Blayne Camacho MD Technologist: Alfonso Ackerman Exam Location: [facility] Indication: cellulitis RIGHT LEFT Brachial 130.00 mmHg Brachial 130.00 mmHg Pressure (mmHg) Waveform Pressure (mmHg) Waveform 130.00 FOOTBALL SCOUT 130.00 135.00 DPA 130.00 1.09 Ankle/Brachial Index 1.09 FINDINGS Resting HERNANDEZ 1.09 bilaterally CONCLUSIONS 1. Normal resting ABIs bilaterally No significant arterial obstruction based on the above findings Dr Andrew Gonzalez MD [facility] (Electronically Signed) Final Date: 30 July 2021 07:36 S
[2021-07-28] MEDS: ondansetron 2 mg/ML SDV 2 mL 4 MG IVP (13:15)
--- NOTE | 2021-07-28 14:07 | PM.PN ---
Subjective Subjective: Patient was seen this morning, she does not as she lives at home, with her 3 grandchildren, with her daughter, she normally can ambulate, she is normally seen by wound care, she tells me that she is start develop increased right lower extremity swelling, with weeping, no fevers Vitals/I&O/Wt Last Vital Signs Temp 97.8 F 07/28/21 12:00 Pulse 78 07/28/21 12:00 Resp 17 07/28/21 12:00 BP 109/56 07/28/21 12:00 Pulse Ox 94 07/28/21 12:00 07/27/21 07/28/21 07/28/21 22:59 06:59 14:59 Intake Total 250 / 250 590 / 590 Balance 250 / 250 590 / 590 Weight last 48 hrs Weight 155.809 kg Weight 166.015 kg Weight 166.015 kg Physical Exam Const: COMMON NORMALS: no acute distress and patient oriented x3 Resp: COMMON NORMALS: normal respiratory effort, No retractions, No use of accessory muscles and clear to auscultation bilaterally AUSCULTATION: clear to auscultation bilaterally Cardio: COMMON NORMALS: regular rate, regular rhythm, S1 normal heart sound present and S2 normal heart sound present RATE: regular rate RHYTHM: regular rhythm HEART SOUNDS: S1 normal heart sound present and S2 normal heart sound present GI: COMMON NORMALS: Normal to inspection, nondistended, normoactive bowel sounds present, Soft to palpation and non-tender PALPATION: Yes Soft to palpation Extremity: NARRATIVE EXTREMITY EXAM: Bilateral lower extremity, 2+ pitting edema Right lower extremity, weeping excoriations Right lower extremity, erythema extending up to mid paulino , Open excoriations superficial right lower extremity, at the level of the paulino Neuro: COMMON NORMALS: patient oriented x3 Psych: COMMON NORMALS: mental status grossly normal Urinary Catheter Management: Rodriguez: Cath Placed During This Visit: yes Reason for Continuing Indwelling Catheter: Acute Urinary Retention or Obstruction Urinary Catheter Date of Insertion: 07/28/21 Urinary Catheter Time of Insertion: 04:05 Data : 07/28/21 07:01 07/28/21 07:01 Micro: Microbiology 07/28/21 04:13 Gram Stain - Final Leg - #1 07/28/21 04:13 Gram Stain - Final Leg - Right 07/27/21 20:30 Blood Culture - Preliminary Blood SPECIMEN COLLECTED 07/27/21 20:30 Blood Culture - Preliminary Blood SPECIMEN COLLECTED A&P Assessment and plan (1) Cellulitis: Right lower extremity Chronic lymphedema and stasis changes known but usually confined to below the knee. Current wounds are the worst that patient has ever experienced with erythema and edema extending to the groin. Reported rapid progression of edema, weeping wounds and erythema over the last couple of days. CT of the right lower extremity without contrast does not show any areas of gas formation Wbc 23,000 CRP 335 ESR 33 Lactic acid 2.0 Reports subjective fevers, afebrile here and stable vital signs Not currently meeting sepsis criteria but based on examination and history at very high risk of rapid clinical decline from her wounds in addition to having a limb threat with known PAD and extent of visibly compromised tissue Status: Acute Qualifiers: Laterality: right Site of cellulitis: extremity Site of cellulitis of extremity: lower extremity Qualified Code(s): L03.115 - Cellulitis of right lower limb (2) Lymphedema: Status: Chronic (3) Peripheral arterial disease: Status: Chronic (4) Hypothyroidism: Status: Chronic Qualifiers: Hypothyroidism type: acquired Qualified Code(s): E03.9 - Hypothyroidism, unspecified (5) BMI 60.0-69.9, adult: Status: Chronic Plan Nausea and diarrhea in a patient who has had several courses of antibiotics lately, concerning for possibility of C. difficile infection present on admission Blood sugar without a history of diabetes Inpatient admission Wound culture from 2 most prominent areas of right lower extremity Blood cultures have been collected Vancomycin and Primaxin Add Diflucan IV, has been on orally 3 days a week for couple of weeks Elevate extremity - patient does not do well trying to elevate her leg but explained to her importance of elevating the leg to facilitate wound healing and in a worse case scenario even trying to save her leg Bariatric bed and chair to facilitate patient compliance with extremity elevation Rodriguez catheter placement to assist with wound healing particularly for visibly purulent areas that are right near the groin IV diuresis monitoring volume response and renal function closely If does not have rapid response to IV antibiotics, elevation and diuresis, may require surgical debridement Had arterial Doppler of the lower extremities a couple of months ago demonstrating moderate disease on the right lower extremity and severe disease in the left lower extremity, will do arterial ultrasound Venous Doppler of the right lower extremity this evening does not show evidence of DVT Probiotics Stool for C. difficile Pepcid for GI prophylaxis Lovenox for DVT prophylaxis monitoring for increased bleeding to the leg Stool softeners as needed Pain control We will repeat CRP to ensure downward trend Hold home irbesartan to minimize potential impact on blood pressures and renal function in the setting of known infection and need for diuresis Continue home levothyroxine Check TSH Check hemoglobin A1c Supportive care otherwise Findings, concerns and plans were discussed with patient and she was given an opportunity to ask questions Expect will probably be here for several days receiving IV antibiotics, wound care and close monitoring. Anticipate at discharge possibility for placement versus return home with home health. Will need continued wound care after discharge. Full code as per discussion with patient Attestations Medical Necessity Statement*: Patient requires health causation for lower extremity cellulitis, fluid overload, Coding Level of Care Code Acute [facility] [employer] [facility] Diagnoses Cellulitis L03.115 Laterality: right Site of cellulitis: extremity Site of cellulitis of extremity: lower extremity Lymphedema I89.0 Peripheral arterial disease I73.9 Hypothyroidism E03.9 Hypothyroidism type: acquired BMI 60.0-69.9, adult Z68.44
[2021-07-28] MEDS: nystatin powder 15 gm Btl 1 APPLIC TOPICAL (17:51)
[2021-07-28] MEDS: sennosides 8.6 mg Tablet 17.2 MG PO (20:33)
[2021-07-29] VITALS: BP 118/78; PULSE 77; RESP 18; TEMP 36.6; O2SAT 93
[2021-07-29 04:00] VITALS: BP 126/74; PULSE 73; RESP 19; TEMP 36.8; O2SAT 95
[2021-07-29] MEDS: enoxaparin 40 mg/0.4 mL Syringe SUBCUT (05:33)
[2021-07-29 06:15] LABS: Basophils # 0.1 10^3/uL (0.0-0.1); Basophils % 0.3 %; Eosinophils # 0.3 10^3/uL (0.0-0.8); Eosinophils % 1.4 %; Hematocrit 31.8 % (37.0-47.0); Hemoglobin 10.5 g/dL (11.5-15.3); Lymphocytes # 1.9 10^3/uL (0.8-4.8); Lymphocytes % 9.7 %; Mean Corpuscular Hemoglobin 28.2 pg (28.0-34.0); Mean Corpuscular Volume 85.5 fl (81-99); Mean Platelet Volume 9.7 fL (7.4-10.4); Monocytes # 0.9 10^3/uL (0.2-0.9); Monocytes % 4.8 %; Neutrophils # 15.84 10^3/uL (1.8-7.7); Neutrophils % 82.9 %; Nucleated Red Blood Cells % 0 %; Platelet Count 207 10^3/cmm (130-400); Red Blood Count 3.72 10^6/uL (4.1-5.3); Red Cell Distribution Width 15.5 % (12.1-15.1); White Blood Count 19.1 10^3/uL (4.0-10.0)
[2021-07-29 06:37] LABS: NT Pro B Type Natriuretic Pept 1779 pg/mL (0-125); Procalcitonin 2.34 ng/mL (0-0.5)
[2021-07-29 06:48] LABS: Anion Gap 15.1 (5-19); Blood Urea Nitrogen 52 mg/dL (8-23); C Reactive Protein 298.9 mg/L (0.0-4.9); Calcium 7.7 mg/dL (8.5-10.5); Carbon Dioxide 22 mmol/L (22-29); Chloride 100 mmol/L (98-107); Glucose 93 mg/dL (65-115); Osmolality Calculated 290 mOsm/kg (285-295); Potassium 4.1 mmol/L (3.5-5.1); Sodium 133 mmol/L (136-145)
[2021-07-29 06:56] LABS: Creatine Phosphokinase 885 U/L (26-192)
[2021-07-29 07:38] VITALS: BP 128/87; PULSE 82; RESP 18; TEMP 36.9; O2SAT 94
[2021-07-29] MEDS: levothyroxine 25 mcg Tablet PO (08:43)
[2021-07-29] MEDS: lactobacillus 1 Tablet 1 TAB PO ×2 (08:43→17:44)
[2021-07-29] MEDS: famotidine 20 mg Tablet PO ×2 (08:43→17:44)
[2021-07-29] MEDS: potassium chloride ER 20 mEq Tablet PO (08:43)
[2021-07-29] MEDS: docusate sodium 100 mg Capsule PO ×2 (08:43→17:44)
[2021-07-29] MEDS: nystatin powder 15 gm Btl 1 APPLIC TOPICAL ×2 (08:43→17:44)
[2021-07-29] MEDS: fluconazole premix 200 MG/100 ML PREMIX 100 MG IV (08:44)
[2021-07-29] MEDS: acetaminophen 325 mg Tablet 650 MG PO (08:44)
--- NOTE | 2021-07-29 11:18 | PC.CHAP ---
Pastoral Care Encounter/Spiritual Assessment Type of Contact [] Declined chart picker visit [] Patient/Family/Request visit [] Outpatient visit [] Follow-up visit [] Physician referral [] Code/Alert [x] Routine visit [] Staff referral [] Actively dying [] Patient sleeping [] Family support [] [] Out of room [] Palliative care [] [] Receiving care in room [] Pre-surgical visit [] Trauma [] Long length of stay [] ICU visit [] Other: Relational/Emotional Strength [x] Patient feels connected with others/family/visitors/staff [] Distress [] Loneliness/isolation [] Abandonment Spirituality of Patient [x] Person of Renetta [] Attends Spiritism of their Renetta [x] Believes in Prayer [] Reads Bible or Voodoo materials [] There are Spiritual issues to be addressed Registered Dietician Interventions [x] Prayer [x] Active listening [x] Non-anxious presence [] Spiritual/emotional support [] Crisis/trauma care [x] Spiritual counseling [] Bereavement support [] Provided bereavement packet [x] Provided Bible/devotional materials [] Provided toy/stuffed animal, coloring book to patient or family member [] Provided Communion [] Anointing/[place] [] Salvation [x] Completed spiritual assessment [] Other: Impact on Illness or Injury [] Angry [] Fearful [] Anxious [] Often cries [] Exhaustion [] Unable to work [] Unable to attend nondenominational [] Unable to walk/stand [] Unable to read [] Unable to drive [] Unable to eat/drink [] Unable to sleep [] Unable to be with family [] Patient intubated [] Other: Summary Time spent with patient 15 min
[2021-07-29 11:49] VITALS: BP 157/52; PULSE 82; RESP 18; TEMP 36.8; O2SAT 94
--- NOTE | 2021-07-29 14:05 | P.CONIM_ITS ---
Providers/Reason For Consult Consulting Physician/Specialty*: Mino Cano MD Reason for Consult*: Cellulitis of the right lower extremity with pustules Requesting Physician: Dr. Camacho Attending Physician: Blayne Camacho MD Primary Care Provider: Pepper Franco MD History of Present Illness History of Present Illness Ms. Kay Perez is a pleasant 71 year old female with history of chronic lower extremity wounds, has been followed up on at the wound care center. Patient was admitted to the hospitalist service yesterday as she has not been feeling well. As patient continued to have weakness and malaise was evaluated in the emergency department. Previous Doppler arterial studies were done back in June 30 and showed 1.? Abnormal resting HERNANDEZ and TBI on the left side, suggesting ?severe peripheral artery disease, possibly involving the ?infrapopliteal vessels. ?2.? Abnormal resting TBI on the right side, suggestive of mild ?to moderate peripheral artery disease. Venous duplex was done recently of the left and right lower extremities and showed no evidence of deep vein thrombosis. Lower extremity CT of the right leg showed diffuse cellulitic changes General surgery was consulted for further evaluation of lower extremity wounds Review of Systems General: Reports: 10 or more systems reviewed and unremarkable except in HPI and below Medications/Allergies Home Medications Medication Instructions Recorded Confirmed Last Taken Type irbesartan 150 mg tablet 150 mg PO DAILY 07/28/21 07/28/21 07/27/21 08:00 History levothyroxine 25 mcg tablet 25 mcg PO DAILY 07/28/21 07/28/21 07/27/21 08:00 History Allergies Allergy/AdvReac Type Severity Reaction Status Date / Time amlodipine Allergy Unknown Unknown Verified 07/29/21 16:56 isosorbide Allergy Unknown Unknown Verified 07/29/21 16:56 cephalexin [From Keflex] Allergy ALGY-Hives Verified 07/29/21 16:56 Current Medications Generic Name Dose Route Start Last Admin Trade Name Freq PRN Reason Stop Dose Admin Acetaminophen 650 mg 07/28/21 05:40 07/29/21 08:44 Acetaminophen 325 Mg Tablet PO 650 mg Q6H PRN Administration Mild/Mod Pain Or Temp >/= 101 Hydrocodone Bitart/Acetaminophen 1 tab 07/28/21 05:40 07/28/21 17:52 Hydrocodone-Acetaminophen 5-325 Mg Tablet PO 1 tab Q4H PRN Administration MODERATE TO SEVERE PAIN Docusate Sodium 100 mg 07/28/21 09:00 07/29/21 08:43 Docusate Sodium 100 Mg Capsule PO 100 mg BID NUNO Administration Enoxaparin Sodium 40 mg 07/28/21 06:00 07/29/21 05:33 Enoxaparin 40 Mg/0.4 Ml Syringe SUBCUT 40 mg Q24H NUNO Administration Famotidine 20 mg 07/28/21 09:00 07/29/21 08:43 Famotidine 20 Mg Tablet PO 20 mg BID NUNO Administration Furosemide 40 mg 07/28/21 06:00 07/28/21 06:12 Furosemide 10 Mg/Ml Sdv 4ml IVP 40 mg Q12H NUNO Administration Fluconazole 200 mg in 100 mls @ 100 mls/hr 07/28/21 08:00 07/29/21 10:08 Diflucan Premix IV Infused Q24H NUNO Infusion Vancomycin HCl 1,500 mg/ 250 mls @ 166.667 mls/hr 07/28/21 23:00 07/28/21 23:56 Sodium Chloride IV Infused Q24H NUNO Infusion Imipenem/Cilastatin Sodium 250 100 mls @ 200 mls/hr 07/28/21 12:00 07/29/21 13:52 mg/ Sodium Chloride IV Infused Q6H NUNO Infusion Lactobacillus Acidophilus 1 tab 07/28/21 09:00 07/29/21 08:43 Lactobacillus 1 Tablet PO 1 tab BID NUNO Administration Levothyroxine Sodium 25 mcg 07/28/21 09:00 07/29/21 08:43 Levothyroxine 25 Mcg Tablet PO 25 mcg DAILY NUNO Administration Nystatin 1 applic 07/28/21 18:00 07/29/21 08:43 Nystatin Powder 15 Gm Btl TOPICAL 1 applic BID NUNO Administration Ondansetron HCl 4 mg 07/28/21 05:40 07/28/21 13:15 Ondansetron 2 Mg/Ml Sdv 2 Ml IVP 4 mg Q8H PRN Administration vomiting, or N/V if npo Potassium Chloride 20 meq 07/28/21 09:00 07/29/21 08:43 Potassium Chloride Er 20 Meq Tablet PO 20 meq DAILY NUNO Administration Senna 17.2 mg 07/28/21 21:00 07/28/21 20:33 Sennosides 8.6 Mg Tablet PO 17.2 mg BEDTIME NUNO Administration PFSH Acute PFSH: Medical History Angina of effort Told that she had angina in her 30s but it resolved and has not been a recur rent problem BMI 60.0-69.9, adult 4 para 4 Hypothyroidism Lymphedema Peripheral arterial disease Surgical History History of hysterectomy Family History Grandfather CAD (coronary artery disease) Grandmother Stroke Father Alcoholism Social History Smoking and tobacco status: never smoked Alcohol intake: never Household members: family Vitals/I&O/Wt Last Vital Signs Temp 98.2 F 07/29/21 11:49 Pulse 82 07/29/21 11:49 Resp 18 07/29/21 11:49 BP 157/52 07/29/21 11:49 Pulse Ox 94 07/29/21 11:49 07/28/21 07/29/21 07/29/21 22:59 06:59 14:59 Intake Total 940 / 1530 450 / 1980 560 / 560 Output Total 250 / 250 450 / 700 Balance 690 / 1280 0 / 1280 560 / 560 Weight last 48 hrs Weight 345 lb 11.2 oz Weight 343 lb 8 oz Weight 366 lb Weight 366 lb Physical Exam Narrative: Patient is conscious alert oriented X3 No apparent distress BMI 57.5 Head and neck examination PERRLA no masses no cervical lymphadenopathy no jaundice Cardiac examination audible S1-S2 no murmurs no gallops no arrhythmias Chest is clear bilateral,abscence of Rhonchi or wheezes,no surgical emphysema Abdomen nontender nondistended soft no organomegaly guarding or rigidity/no signs of peritonitis Morbidly obese Presence of cellulitic changes of the right lower extremity. Right is more than the left Intact distal pulsation Presence of infected vesicles/pustules of the right lower extremity particularly on the chin and right heel Urinary Catheter Management: Rodriguez: Cath Placed During This Visit: yes Reason for Continuing Indwelling Catheter: Acute Urinary Retention or Obstruction Urinary Catheter Date of Insertion: 07/28/21 Urinary Catheter Time of Insertion: 04:05 Data : 07/29/21 06:00 07/29/21 06:00 Micro: Microbiology 07/27/21 20:30 Blood Culture - Preliminary Blood NEGATIVE TO DATE 07/27/21 20:30 Blood Culture - Preliminary Blood NEGATIVE TO DATE 07/28/21 04:13 Gram Stain - Final Leg - #1 07/28/21 04:13 Gram Stain - Final Leg - Right A&P Assessment and plan (1) Pustules determined by examination: After history taking physical examination and reviewing the chart and images with my personal interpretation. Patient will require debridement of right lower extremity wounds in the OR under anesthesia. Patient understands the potential risks, benefits, alternatives and indications and may require future surgical interventions. Informed consent per chart Assurance and education All questions have been answered and all concerns have been addressed to patient's satisfaction. Status: Acute Consult Attestations Medical Necessity Statement: Per admitting service Coding Level of Care Code Acute Air Control/Anti Air Warfare Officer for [facility] Diagnoses Pustules determined by examination L08.9
--- NOTE | 2021-07-29 14:07 | PM.PN ---
Subjective Subjective: Patient was seen this morning her daughter is at bedside, she tells me that normally she ambulates at home, she tells me that she does feel better, no fevers, no chills, no nausea, no vomiting she feels that her leg is getting better, the swelling is improving Vitals/I&O/Wt Last Vital Signs Temp 98.2 F 07/29/21 11:49 Pulse 82 07/29/21 11:49 Resp 18 07/29/21 11:49 BP 157/52 07/29/21 11:49 Pulse Ox 94 07/29/21 11:49 07/28/21 07/29/21 07/29/21 22:59 06:59 14:59 Intake Total 940 / 1530 450 / 1980 560 / 560 Output Total 250 / 250 450 / 700 Balance 690 / 1280 0 / 1280 560 / 560 Weight last 48 hrs Weight 156.807 kg Weight 155.809 kg Weight 166.015 kg Weight 166.015 kg Physical Exam Const: COMMON NORMALS: no acute distress and patient oriented x3 Resp: COMMON NORMALS: normal respiratory effort, No retractions, No use of accessory muscles and clear to auscultation bilaterally AUSCULTATION: clear to auscultation bilaterally Cardio: COMMON NORMALS: regular rate, regular rhythm, S1 normal heart sound present and S2 normal heart sound present RATE: regular rate RHYTHM: regular rhythm HEART SOUNDS: S1 normal heart sound present and S2 normal heart sound present GI: COMMON NORMALS: Normal to inspection, nondistended, normoactive bowel sounds present, Soft to palpation and non-tender PALPATION: Yes Soft to palpation Extremity: NARRATIVE EXTREMITY EXAM: Right lower extremity, extending to forefoot -Has multiple open excoriations, -Right heel -Right lateral paulino -Has 1+ pitting edema Neuro: COMMON NORMALS: patient oriented x3 Psych: COMMON NORMALS: mental status grossly normal Urinary Catheter Management: Rodriguez: Cath Placed During This Visit: yes Reason for Continuing Indwelling Catheter: Acute Urinary Retention or Obstruction Urinary Catheter Date of Insertion: 07/28/21 Urinary Catheter Time of Insertion: 04:05 Data : 07/29/21 06:00 07/29/21 06:00 Micro: Microbiology 07/27/21 20:30 Blood Culture - Preliminary Blood NEGATIVE TO DATE 07/27/21 20:30 Blood Culture - Preliminary Blood NEGATIVE TO DATE 07/28/21 04:13 Gram Stain - Final Leg - #1 07/28/21 04:13 Gram Stain - Final Leg - Right A&P Assessment and plan (1) Cellulitis: Right lower extremity Chronic lymphedema and stasis changes known but usually confined to below the knee. Current wounds are the worst that patient has ever experienced with erythema and edema extending to the groin. Reported rapid progression of edema, weeping wounds and erythema over the last couple of days. CT of the right lower extremity without contrast does not show any areas of gas formation Wbc 23,000 CRP 335 ESR 33 Lactic acid 2.0 Reports subjective fevers, afebrile here and stable vital signs Not currently meeting sepsis criteria but based on examination and history at very high risk of rapid clinical decline from her wounds in addition to having a limb threat with known PAD and extent of visibly compromised tissue Status: Acute Qualifiers: Laterality: right Site of cellulitis: extremity Site of cellulitis of extremity: lower extremity Qualified Code(s): L03.115 - Cellulitis of right lower limb (2) Lymphedema: Status: Chronic (3) Peripheral arterial disease: Status: Chronic (4) Hypothyroidism: Status: Chronic Qualifiers: Hypothyroidism type: acquired Qualified Code(s): E03.9 - Hypothyroidism, unspecified (5) BMI 60.0-69.9, adult: Status: Chronic Plan Nausea and diarrhea in a patient who has had several courses of antibiotics lately, concerning for possibility of C. difficile infection present on admission Blood sugar without a history of diabetes Inpatient admission Wound culture from 2 most prominent areas of right lower extremity Blood cultures have been collected Vancomycin and Primaxin Add Diflucan IV, has been on orally 3 days a week for couple of weeks Elevate extremity - patient does not do well trying to elevate her leg but explained to her importance of elevating the leg to facilitate wound healing and in a worse case scenario even trying to save her leg Bariatric bed and chair to facilitate patient compliance with extremity elevation Given patient's morbid obesity, dependent edema, I think she would benefit from a hospital bed and a bedside commode Rodriguez catheter placement to assist with wound healing particularly for visibly purulent areas that are right near the groin Hold diuresis for now, creatinine 2.1 If does not have rapid response to IV antibiotics, elevation and diuresis, consult surgery for possible surgical debridement Had arterial Doppler of the lower extremities a couple of months ago demonstrating moderate disease on the right lower extremity and severe disease in the left lower extremity, will do arterial ultrasound Venous Doppler of the right lower extremity this evening does not show evidence of DVT Probiotics Stool for C. difficile Pepcid for GI prophylaxis Lovenox for DVT prophylaxis monitoring for increased bleeding to the leg Stool softeners as needed Pain control We will repeat CRP to ensure downward trend Hold home irbesartan to minimize potential impact on blood pressures and renal function in the setting of known infection and need for diuresis Continue home levothyroxine Check TSH 3.92 Check hemoglobin A1c 5.7 Supportive care otherwise Findings, concerns and plans were discussed with patient and she was given an opportunity to ask questions Expect will probably be here for several days receiving IV antibiotics, wound care and close monitoring. Anticipate at discharge possibility for placement versus return home with home health. Will need continued wound care after discharge. Full code as per discussion with patient Attestations Medical Necessity Statement*: Patient requires hospitalization patient requires hospitalization, right lower extremity cellulitis Coding Level of Care Code Acute Environmental Monitoring Technician for A[facility] Diagnoses Cellulitis L03.115 Laterality: right Site of cellulitis: extremity Site of cellulitis of extremity: lower extremity Lymphedema I89.0 Peripheral arterial disease I73.9 Hypothyroidism E03.9 Hypothyroidism type: acquired BMI 60.0-69.9, adult Z68.44
[2021-07-29 15:39] VITALS: BP 116/49; PULSE 82; RESP 16; TEMP 36.8; O2SAT 96
[2021-07-29] MEDS: HYDROcodone-acetaminophen 5-325 mg Tablet 1 TAB PO (17:45)
[2021-07-29 20:00] VITALS: BP 96/59; PULSE 77; RESP 17; TEMP 36.8; O2SAT 97
[2021-07-29] MEDS: sennosides 8.6 mg Tablet 17.2 MG PO (21:11)
[2021-07-30] VITALS (15 sets, daily range): BP systolic 98–152; BP diastolic 51–78; PULSE 72–118; RESP 16–22; TEMP 36.4–37.3; O2SAT 90–98
[2021-07-30] MEDS: enoxaparin 40 mg/0.4 mL Syringe SUBCUT (06:04)
[2021-07-30 07:52] LABS: Lactate (Lactic Acid level) 0.9 mmol/L (0.5-2.2)
[2021-07-30 07:56] LABS: NT Pro B Type Natriuretic Pept 1484 pg/mL (0-125); Procalcitonin 1.21 ng/mL (0-0.5)
[2021-07-30 08:31] LABS: Creatine Phosphokinase 337 U/L (26-192)
[2021-07-30 08:32] LABS: Phosphorus 3.9 mg/dL (2.5-4.5)
[2021-07-30] MEDS: fluconazole premix 200 MG/100 ML PREMIX 100 MG IV (08:43)
[2021-07-30] MEDS: nystatin powder 15 gm Btl 1 APPLIC TOPICAL ×2 (08:49→17:29)
--- NOTE | 2021-07-30 09:04 | PC.NURSE ---
Patient leaving for surgery
--- NOTE | 2021-07-30 09:15 | P.PN_ITS ---
Subjective Subjective: Patient overall is about the same Ankle-brachial index was done on 07/28/2021 report comes back; Normal resting ABIs bilaterally ?No significant arterial obstruction based on the above findings Medications: Reviewed: Yes Vitals/I&O/Wt Last Vital Signs Temp 97.7 F 07/30/21 08:00 Pulse 72 07/30/21 08:00 Resp 18 07/30/21 08:00 BP 144/74 07/30/21 08:00 Pulse Ox 91 07/30/21 08:00 07/29/21 07/30/21 07/30/21 22:59 06:59 14:59 Intake Total 700 / 1260 350 / 1610 100 / 100 Output Total 1150 / 1150 900 / 2050 Balance -450 / 110 -550 / -440 100 / 100 Weight last 48 hrs Weight 346 lb 3.2 oz Weight 345 lb 11.2 oz Physical Exam Narrative: Patient is conscious alert oriented X3 No apparent distress BMI 57.6 Head and neck examination PERRLA no masses no cervical lymphadenopathy no jaundice Stable right lower extremity exam Urinary Catheter Management: Rodriguez: Cath Placed During This Visit: yes Reason for Continuing Indwelling Catheter: Acute Urinary Retention or Obstruction Urinary Catheter Date of Insertion: 07/28/21 Urinary Catheter Time of Insertion: 04:05 Data : 07/29/21 06:00 07/29/21 06:00 Micro: Microbiology 07/28/21 04:13 Gram Stain - Final Leg - #1 Wound Culture - Preliminary Gram Negative Rods Gram Negative Rods#2 07/28/21 04:13 Gram Stain - Final Leg - Right A&P Assessment and plan (1) Pustules determined by examination: After history taking physical examination and reviewing the chart and images with my personal interpretation. Patient will require debridement of right lower extremity wounds in the OR under anesthesia. Patient understands the potential risks, benefits, alternatives and indications and may require future surgical interventions. Informed consent per chart Assurance and education All questions have been answered and all concerns have been addressed to patient's satisfaction. Status: Acute Attestations Medical Necessity Statement*: Per admitting service Coding Level of Care Code Acute Sales And Marketing Coordinator for [facility] [employer] Diagnoses Pustules determined by examination L08.9
[2021-07-30] MEDS: sodium chloride 0.9% 1,000 ML 30 ML IV (09:52)
[2021-07-30] MEDS: acetaminophen 1,000 MG/100 ML PIGGYBACK 400 MG IV (09:52)
--- NOTE | 2021-07-30 10:07 | ANES.PREANE2 ---
Pre-Anesthetic Assessment Height/Weight: Height 1.65 m Weight 157.034 kg Temp Pulse Resp BP Pulse Ox 99.2 F 75 18 136/57 93 07/30/21 09:29 07/30/21 09:29 07/30/21 09:29 07/30/21 09:29 07/30/21 09:29 Preop Diagnosis: Right lower extremity pustules Operation Date: 07/30/21 10:25 Proposed Procedures p debridement right lower extremity wounds(Right) - Mino Cano MD Familial anesthetic complications: None Was Beta Rosie taken within 24 hours: N/A Was Clonidine taken within 24 hours: N/A Last intake: Intake Last Liquid Date 07/29/21 Last Liquid Time 22:00 Last Solid Date 07/29/21 Last Solid Time 17:00 Social No alcohol and No tobacco Exam alert, oriented x 3, clear to auscultation bilaterally and regular rate & rhythm Airway Submandibular: within normal limits Cervical ROM: within normal limits Mallampati: Class II Dentition: chipped and false (uppers) Comments: Comments: poor lower dentition CV/HEM Coronary Artery Disease and Peripheral Vascular Disease Chronic Renal Insufficiency Metabolic Morbid Obesity and Thyroid Disease Anesthetic Plan ASA status: 3 Anesthesia: MAC Medications/Allergies Home Medications Medication Instructions Recorded Confirmed Last Taken Type irbesartan 150 mg tablet 150 mg PO DAILY 07/28/21 07/28/21 07/27/21 08:00 History levothyroxine 25 mcg tablet 25 mcg PO DAILY 07/28/21 07/28/21 07/27/21 08:00 History Allergies Allergy/AdvReac Type Severity Reaction Status Date / Time amlodipine Allergy Unknown Unknown Verified 07/29/21 16:56 isosorbide Allergy Unknown Unknown Verified 07/29/21 16:56 cephalexin [From Keflex] Allergy ALGY-Hives Verified 07/29/21 16:56 Current Medications Generic Name Dose Route Start Last Admin Trade Name Freq PRN Reason Stop Dose Admin Acetaminophen 650 mg 07/28/21 05:40 07/29/21 08:44 Acetaminophen 325 Mg Tablet PO 650 mg Q6H PRN Administration Mild/Mod Pain Or Temp >/= 101 Hydrocodone Bitart/Acetaminophen 1 tab 07/28/21 05:40 07/29/21 17:45 Hydrocodone-Acetaminophen 5-325 Mg Tablet PO 1 tab Q4H PRN Administration MODERATE TO SEVERE PAIN Docusate Sodium 100 mg 07/28/21 09:00 07/30/21 08:49 Docusate Sodium 100 Mg Capsule PO Not Given BID NUNO Enoxaparin Sodium 40 mg 07/28/21 06:00 07/30/21 06:04 Enoxaparin 40 Mg/0.4 Ml Syringe SUBCUT 40 mg Q24H NUNO Administration Famotidine 20 mg 07/28/21 09:00 07/30/21 08:49 Famotidine 20 Mg Tablet PO Not Given BID NUNO Furosemide 40 mg 07/28/21 06:00 07/28/21 06:12 Furosemide 10 Mg/Ml Sdv 4ml IVP 40 mg Q12H NUNO Administration Fluconazole 200 mg in 100 mls @ 100 mls/hr 07/28/21 08:00 07/30/21 08:43 Diflucan Premix IV 100 mls/hr Q24H NUNO Administration Vancomycin HCl 1,500 mg/ 250 mls @ 166.667 mls/hr 07/28/21 23:00 07/30/21 00:04 Sodium Chloride IV Infused Q24H NUNO Infusion Imipenem/Cilastatin Sodium 250 100 mls @ 200 mls/hr 07/28/21 12:00 07/30/21 07:00 mg/ Sodium Chloride IV Infused Q6H NUNO Infusion Sodium Chloride 1,000 mls @ 30 mls/hr 07/30/21 09:45 07/30/21 09:52 Sodium Chloride 0.9% IV 07/31/21 09:44 30 mls/hr .Q24H NUNO Administration Lactobacillus Acidophilus 1 tab 07/28/21 09:00 07/30/21 08:49 Lactobacillus 1 Tablet PO Not Given BID NUNO Levothyroxine Sodium 25 mcg 07/28/21 09:00 07/30/21 08:49 Levothyroxine 25 Mcg Tablet PO Not Given DAILY NUNO Nystatin 1 applic 07/28/21 18:00 07/30/21 08:49 Nystatin Powder 15 Gm Btl TOPICAL 1 applic BID NUNO Administration Ondansetron HCl 4 mg 07/28/21 05:40 07/28/21 13:15 Ondansetron 2 Mg/Ml Sdv 2 Ml IVP 4 mg Q8H PRN Administration vomiting, or N/V if npo Potassium Chloride 20 meq 07/28/21 09:00 07/30/21 09:01 Potassium Chloride Er 20 Meq Tablet PO Not Given DAILY NUNO Senna 17.2 mg 07/28/21 21:00 07/29/21 21:11 Sennosides 8.6 Mg Tablet PO 17.2 mg BEDTIME NUNO Administration [facility] Anesthesia Medical History Angina of effort Told that she had angina in her 30s but it resolved and has not been a recurrent problem BMI 60.0-69.9, adult 4 para 4 Hypothyroidism Lymphedema Peripheral arterial disease Surgical History History of hysterectomy Family History Grandfather CAD (coronary artery disease) Grandmother Stroke Father Alcoholism Social History Smoking and tobacco status: never smoked Alcohol intake: never Household members: family Supplemental [facility] Information No known sleep apnea, no history of blood clots Data Anesthesia : 07/29/21 06:00 07/29/21 06:00 Short CBC 07/29/21 Range/Units 06:00 WBC 19.1 H (4.0-10.0) 10^3/uL Hgb 10.5 L (11.5-15.3) g/dL Hct 31.8 L (37.0-47.0) % MCV 85.5 (81-99) fl Plt Count 207 (130-400) 10^3/cmm Neut % (Auto) 82.9 % Neut # (Auto) 15.84 H (1.8-7.7) 10^3/uL BMP 07/29/21 06:00 Sodium 133 L Potassium 4.1 Chloride 100 Carbon Dioxide 22 BUN 52 H Creatinine 2.0 H Glucose 93 Calcium 7.7 L Cardiac Enzymes 07/29/21 07/30/21 Range/Units 06:00 06:55 Creatine Kinase 885 H* 337 H* (26-192) U/L NT-Pro-B Natriuret Pep 1779 H 1484 H (0-125) pg/mL Coags 07/29/21 06:00 C-Reactive Protein 298.9 H Microbiology 07/28/21 04:13 Gram Stain - Final Leg - #1 Wound Culture - Preliminary Gram Negative Rods Gram Negative Rods#2 07/28/21 04:13 Gram Stain - Final Leg - Right Cardiac Studies: No Data to Display
--- NOTE | 2021-07-30 11:47 | PM.OP ---
Operative Report Date of procedure: July 30, 2021 Pre-op diagnosis: Preop Diagnosis Right lower extremity pustules Post-op diagnosis: same Procedure done: Sharp and excisional debridement of right lower extremity wounds Surgeon: Mino Cano MD Ambulatory Nurse: Surgical fernanda Ewing and Giovanny Allen nursing Toshia Anesthesia: MAC (COMMUNICATIONS INTERN Gorge Tripp and COMMUNICATIONS INTERN student Bubba) Estimated blood loss (mL): 5 Procedure: After identifying the patient holding area, the right lower extremity was marked before the procedure by myself, patient was then taken to the operative suite, was placed in supine position, patient was already on therapy at IV antibiotics,IV propofol was infused by the anesthesia provider, prep and drape of the wound region of the right lower extremity was done under the usual sterile technique. Time-out was done verifying the patient's name/date of /planned procedure and destination after the procedure, all were in agreement.Started by excising the unhealthy necrotic indurated tissues of the wound and infected blisters located on the right heel and the lateral and posterior aspect of the right leg. incision was created at the skin level and went all the way down to the dermal layer and fatty component wound was excised including unhealthy tissues. Sharp debridement was then achieved. Wound measurement of right heel region; Pre Debridement measurements; 11 x 6 x 0.1 Post-debridement measurement; 12 x 7 x 0.2 Right leg region wound Pre-debridement measurement 28 x 18 cm by point 1 cm Postdebridement measurements 30 x 20 cm x 0.3 Irrigation of the wound was done with warm saline using 3 L of pulse of followed by appropriate hemostasis, Xeroform was applied followed by Kerlix, ABDs, and Papo wraps Patient tolerated the procedure well, count of instruments, needles and sponges were completed at the end of the procedure. Patient was then taken to the recovery area in stable condition. I was present for the whole entire procedure.
--- NOTE | 2021-07-30 12:03 | PC.NURSE ---
Patient back from OR. Patient had debridement to her left lower leg
--- NOTE | 2021-07-30 12:33 | PC.OT ---
OT reviewed patient chart. Patient was in surgery for debridement at this time. Will attempt OT evaluation at later time. Dany Padilla OTR/L
--- NOTE | 2021-07-30 14:19 | ANE.PACU2 ---
Inpatient post-anesthesia follow up: Airway intact: Yes Vital signs: Temperature 98.0 F Pulse Rate 78 Respiratory Rate 16 Blood Pressure 113/73 Pulse Oximetry 94 Oxygen Delivery Me thod Room Air Oxygen Flow Rate 6 Fraction of Inspir ed Oxygen Hydration adequate: Yes Nausea and vomiting: No Pain level: 2 Mental status: Baseline
[2021-07-30] MEDS: HYDROcodone-acetaminophen 5-325 mg Tablet 1 TAB PO (15:53)
[2021-07-30] MEDS: docusate sodium 100 mg Capsule PO (17:27)
[2021-07-30] MEDS: famotidine 20 mg Tablet PO (17:27)
[2021-07-30] MEDS: lactobacillus 1 Tablet 1 TAB PO (17:27)
[2021-07-30] MEDS: FUROsemide 10 mg/mL SDV 4mL 40 MG IVP (17:29)
--- NOTE | 2021-07-30 20:28 | PM.PN ---
Subjective Subjective: She is doing well after debridement. Discussed with her results of the culture, including MRSA, Pseudomonas, Citrobacter. Considered antibiotic options. Unfortunately it appears that although we can give an oral medication for MRSA, he otherwise need to consider placement of midline catheter for completion of IV therapy for the remaining organisms. Vitals/I&O/Wt Last Vital Signs Temp 99.1 F 07/30/21 20:00 Pulse 76 07/30/21 20:00 Resp 18 07/30/21 20:00 BP 138/73 07/30/21 20:00 Pulse Ox 94 07/30/21 20:00 07/30/21 07/30/21 07/30/21 06:59 14:59 22:59 Intake Total 350 / 1610 1299 / 1299 100 / 1399 Output Total 900 / 2050 5 / 5 Balance -550 / -440 1294 / 1294 100 / 1394 Weight last 48 hrs Weight 157.034 kg Weight 156.807 kg Physical Exam Const: COMMON NORMALS: alert GENERAL APPEARANCE: cooperative NUTRITIONAL APPEARANCE: obese morbidly obese ORIENTATION/CONSCIOUSNESS: Yes awake HENMT: COMMON NORMALS: normocephalic, EAC's normal, Normal external nose present and moist oral mucous membranes HEAD & SCALP: normocephalic NOSE: Normal external nose present EXTERNAL AUDITORY CANAL: EAC's normal Neck/C-Spine: COMMON NORMALS: no meningeal signs Chest: CHEST: Yes Symmetrical chest wall rise Resp: COMMON NORMALS: clear to auscultation bilaterally AUSCULTATION: clear to auscultation bilaterally Cardio: COMMON NORMALS: regular rate, regular rhythm and No murmurs present (Cardio) RATE: regular rate RHYTHM: regular rhythm GI: COMMON NORMALS: Normal to inspection, nondistended, normoactive bowel sounds present, Soft to palpation and non-tender PALPATION: Yes Soft to palpation Extremity: OTHER: BL venous stasis changes Neuro: COMMON NORMALS: moves all extremities SENSORIUM/ORIENTATION: Yes alert MENINGEAL SIGNS: Yes no meningeal signs Psych: COMMON NORMALS: mental status grossly normal Skin: COMMON NORMALS: no wounds RASHES: no rashes OTHER: RLE in fresh post-op dressing. LLE dry large scales lower paulino, L foot. No erythema. Urinary Catheter Management: Rodriguez: Cath Placed During This Visit: yes Reason for Continuing Indwelling Catheter: Required Immobilization for Trauma or Surgery or Anesthesia Urinary Catheter Date of Insertion: 07/28/21 Urinary Catheter Time of Insertion: 04:05 Data : 07/29/21 06:00 07/29/21 06:00 Micro: Microbiology 07/28/21 04:13 Gram Stain - Final Leg - #1 Wound Culture - Preliminary Pseudomonas aeruginosa Citrobacter Freundii Complex Methicillin Resis Staph Aureus Enterococcus species 07/28/21 04:13 Gram Stain - Final Leg - Right Wound Culture - Preliminary Methicillin Resis Staph Aureus Pseudomonas aeruginosa Citrobacter Freundii Complex A&P Assessment and plan (1) Cellulitis: S/p debridement today. Will need follow-up with wound care clinic. Discussed with results of culture, with MRSA, Pseudomonas but also Citrobacter growing with multiple resistances. However, does appear to be sensitive to aztreonam. We will switch over. Infractured likely be able to use aztreonam IM. Right lower extremity Chronic lymphedema and stasis changes known but usually confined to below the knee. Current wounds are the worst that patient has ever experienced with erythema and edema extending to the groin. Reported rapid progression of edema, weeping wounds and erythema over the last couple of days. CT of the right lower extremity without contrast does not show any areas of gas formation Continue IV diuretics for now. Status: Acute Qualifiers: Laterality: right Site of cellulitis: extremity Site of cellulitis of extremity: lower extremity Qualified Code(s): L03.115 - Cellulitis of right lower limb (2) Lymphedema: Status: Chronic (3) Peripheral arterial disease: Status: Chronic (4) Hypothyroidism: Status: Chronic Qualifiers: Hypothyroidism type: acquired Qualified Code(s): E03.9 - Hypothyroidism, unspecified (5) BMI 60.0-69.9, adult: Status: Chronic Plan Nausea and diarrhea in a patient who has had several courses of antibiotics lately, concerning for possibility of C. difficile infection present on admission. C. difficile not collected. Blood sugar without a history of diabetes, hemoglobin A1c 5.7 Attestations Medical Necessity Statement*: Continue admission for assessment and management of lower extremity cellulitis, wounds, multidrug-resistant infection, disposition planning and arrangements. Coding Level of Care Code Acute Medical Laboratory Assistant for [facility] Diagnoses Cellulitis L03.115 Laterality: right Site of cellulitis: extremity Site of cellulitis of extremity: lower extremity Lymphedema I89.0 Peripheral arterial disease I73.9 Hypothyroidism E03.9 Hypothyroidism type: acquired BMI 60.0-69.9, adult Z68.44
[2021-07-30] MEDS: sennosides 8.6 mg Tablet 17.2 MG PO (20:43)
[2021-07-30 22:06] LABS: Vancomycin Trough 13.9 ug/mL (10-15)
[2021-07-31 04:00] VITALS: BP 154/65; PULSE 76; RESP 18; TEMP 36.8; O2SAT 94
[2021-07-31] MEDS: enoxaparin 40 mg/0.4 mL Syringe SUBCUT (06:02)
[2021-07-31 06:11] LABS: Basophils # 0.1 10^3/uL (0.0-0.1); Basophils % 0.3 %; Eosinophils # 0.2 10^3/uL (0.0-0.8); Eosinophils % 1.4 %; Hematocrit 32.4 % (37.0-47.0); Hemoglobin 10.6 g/dL (11.5-15.3); Lymphocytes # 2.2 10^3/uL (0.8-4.8); Lymphocytes % 14.2 %; Mean Corpuscular HGB Conc 32.7 g/dL (30.0-36.0); Mean Corpuscular Volume 85.7 fl (81-99); Mean Platelet Volume 9.4 fL (7.4-10.4); Monocytes # 1.2 10^3/uL (0.2-0.9); Monocytes % 7.6 %; Neutrophils # 11.69 10^3/uL (1.8-7.7); Neutrophils % 75.2 %; Nucleated Red Blood Cells % 0 %; Platelet Count 283 10^3/cmm (130-400); Red Blood Count 3.78 10^6/uL (4.1-5.3); Red Cell Distribution Width 15.7 % (12.1-15.1); White Blood Count 15.6 10^3/uL (4.0-10.0)
[2021-07-31] MEDS: FUROsemide 10 mg/mL SDV 4mL 40 MG IVP (06:16)
[2021-07-31 06:28] LABS: Lactate (Lactic Acid level) 0.8 mmol/L (0.5-2.2)
[2021-07-31 06:39] LABS: NT Pro B Type Natriuretic Pept 3460 pg/mL (0-125); Procalcitonin 0.59 ng/mL (0-0.5)
[2021-07-31 06:49] LABS: Blood Urea Nitrogen 29 mg/dL (8-23); Calcium 7.9 mg/dL (8.5-10.5); Carbon Dioxide 24 mmol/L (22-29); Chloride 101 mmol/L (98-107); Creatine Phosphokinase 127 U/L (26-192); Glucose 104 mg/dL (65-115); Osmolality Calculated 282 mOsm/kg (285-295); Phosphorus 3.3 mg/dL (2.5-4.5); Sodium 133 mmol/L (136-145)
[2021-07-31 07:18] LABS: Anion Gap 12.7 (5-19); Potassium 4.7 mmol/L (3.5-5.1)
[2021-07-31 07:37] LABS: Glucose Point of Care 125 mg/dL (70-110)
[2021-07-31 08:00] VITALS: BP 137/55; PULSE 76; RESP 18; TEMP 36.7; O2SAT 92
[2021-07-31 08:29] LABS: Glucose Point of Care 128 mg/dL (70-110)
[2021-07-31] MEDS: fluconazole premix 200 MG/100 ML PREMIX 100 MG IV (09:08)
[2021-07-31] MEDS: docusate sodium 100 mg Capsule PO (09:09)
[2021-07-31] MEDS: potassium chloride ER 20 mEq Tablet PO (09:09)
[2021-07-31] MEDS: lactobacillus 1 Tablet 1 TAB PO (09:09)
[2021-07-31] MEDS: nystatin powder 15 gm Btl 1 APPLIC TOPICAL (09:09)
[2021-07-31] MEDS: famotidine 20 mg Tablet PO (09:09)
[2021-07-31] MEDS: levothyroxine 25 mcg Tablet PO (09:09)
[2021-07-31 12:00] VITALS: BP 121/55; PULSE 73; RESP 18; TEMP 36.6; O2SAT 94
[2021-07-31] MEDS: HYDROcodone-acetaminophen 5-325 mg Tablet 1 TAB PO (13:40)
--- NOTE | 2021-07-31 15:45 | P.DS_ITS ---
Discharge Providers Date of Admission: 07/28/21 03:00 Date of Discharge: July 31, 2021 Attending Provider at Admission: Cynthia Irizarry MD Attending Provider at Discharge: Reggie Church Primary Care Provider: Pepper Franco MD Diagnoses at Discharge Discharge Diagnosis (1) Cellulitis: Status: Acute Qualifiers: Laterality: right Site of cellulitis: extremity Site of cellulitis of extremity: lower extremity Qualified Code(s): L03.115 - Cellulitis of right lower limb (2) Lymphedema: Status: Chronic (3) Peripheral arterial disease: Status: Chronic (4) Hypothyroidism: Status: Chronic Qualifiers: Hypothyroidism type: acquired Qualified Code(s): E03.9 - Hypothyroidism, unspecified (5) BMI 60.0-69.9, adult: Status: Chronic Reason for Visit Reason for Visit: Leg pain/weakness/sob Hospital Course Hospital Course Pleasant 71-year-old lady with morbid obesity, chronic right lower extremity edema, stasis, ulcerations, following with wound care clinic, presented after not feeling well, on admission with leukocytosis, tachycardia, sepsis, right lower extremity cellulitis on right paulino, right heel wounds with purulence, treated in the hospital with vancomycin, Primaxin. Received diuretic due to low er extremity edema. Wound cultures obtained, growing MRSA, Pseudomonas, Citrobacter, resistant to multiple antibiotics. Underwent sharp and excisional debridement of right lower extremity. She will complete antibiotic course with linezolid, as well as IM aztreonam for the MDRO infection. She is to continue dressing changes and follow-up with care clinic. With abnormal HERNANDEZ and TBI, suggestion of peripheral arterial disease as well, she states she is also in process of arrangement for follow-up regarding peripheral arterial disease. Presentation with some nausea and diarrhea, stool studies have been requested, but without recurrence, have not been collected. Physical Exam Const: COMMON NORMALS: alert GENERAL APPEARANCE: cooperative NUTRITIONAL APPEARANCE: obese morbidly obese ORIENTATION/CONSCIOUSNESS: Yes awake HENMT: COMMON NORMALS: normocephalic, EAC's normal, Normal external nose present and moist oral mucous membranes HEAD & SCALP: normocephalic NOSE: Normal external nose present EXTERNAL AUDITORY CANAL: EAC's normal Neck/C-Spine: COMMON NORMALS: no meningeal signs Chest: CHEST: Yes Symmetrical chest wall rise Resp: COMMON NORMALS: clear to auscultation bilaterally AUSCULTATION: clear to auscultation bilaterally Cardio: COMMON NORMALS: regular rate, regular rhythm and No murmurs present (Cardio) RATE: regular rate RHYTHM: regular rhythm GI: COMMON NORMALS: Normal to inspection, nondistended, normoactive bowel sounds present, Soft to palpation and non-tender PALPATION: Yes Soft to palpation Extremity: OTHER: BL venous stasis changes Neuro: COMMON NORMALS: moves all extremities SENSORIUM/ORIENTATION: Yes alert MENINGEAL SIGNS: Yes no meningeal signs Psych: COMMON NORMALS: mental status grossly normal Skin: COMMON NORMALS: no wounds RASHES: no rashes OTHER: RLE stent in place, no bleeding or oozing. Decreasing swelling. No extension of erythema distally or proximally. LLE dry large scales lower paulino, L foot. No erythema. Urinary Catheter Management: Rodriguez: Cath Placed During This Visit: yes Reason for Continuing Indwelling Catheter: Acute Urinary Retention or Obstruction Urinary Catheter Date of Insertion: 07/28/21 Urinary Catheter Time of Insertion: 04:05 Discharge Data Studies Completed and Pending Completed Studies During Hospitalization Category Date Time Status CT femur RT wo con* [id number] Urgent Cat Scan 07/27/21 22:[address] lower leg RT wo con* [id number] Urgent Cat Scan 07/27/21 22:33 Completed XR chest 1V portable [id number] Urgent Exams 07/27/21 20:08 Completed CV ankle brachial index [id number] Routine Ultrasound 07/28/21 08:39 Completed US venous duplex lower extremity RT [CV venous duplex Ultrasound 07/27/21 20:[place] [id number]] Urgent Pending at discharge Category Date Time Status Basic Metabolic Panel AM LABS Lab 08/01/21 04:00 Ordered Basic Metabolic Panel AM LABS Lab 08/02/21 04:00 Ordered Blood Culture Stat Lab 07/27/21 20:30 Results Clostridioides Difficile PCR Routine Lab 07/28/21 06:29 Ordered Complete Blood Count w/Auto AM LABS Lab 08/01/21 04:00 Ordered Complete Blood Count w/Auto AM LABS Lab 08/02/21 04:00 Ordered Radiology Impressions Chest X-Ray 07/27/21 20:08 IMPRESSION: No acute radiographic findings. Venous Duplex 07/27/21 20:08 IMPRESSION: No sonographic evidence of deep vein thrombosis. Femur CT 07/27/21 22:33 IMPRESSION: 1. Cellulitis changes of the right thigh. 2. Right inguinal and right pelvic sidewall reactive lymphadenopathy. Lower Extremity CT 07/27/21 22:33 IMPRESSION: Diffuse cellulitis changes. Laboratory Results WBC 15.6 10^3/uL (4.0-10.0) H 07/31/21 06:05 RBC 3.78 10^6/uL (4.1-5.3) L 07/31/21 06:05 Hgb 10.6 g/dL (11.5-15.3) L 07/31/21 06:05 Hct 32.4 % (37.0-47.0) L 07/31/21 06:05 MCV 85.7 fl (81-99) 07/31/21 06:05 MCH 28.0 pg (28.0-34.0) 07/31/21 06:05 MCHC 32.7 g/dL (30.0-36.0) 07/31/21 06:05 RDW 15.7 % (12.1-15.1) H 07/31/21 06:05 Plt Count 283 10^3/cmm (130-400) 07/31/21 06:05 MPV 9.4 fL (7.4-10.4) 07/31/21 06:05 Neut % (Auto) 75.2 % 07/31/21 06:05 Lymph % (Auto) 14.2 % 07/31/21 06:05 [place] % (Auto) 7.6 % 07/31/21 06:05 Eos % (Auto) 1.4 % 07/31/21 06:05 Baso % (Auto) 0.3 % 07/31/21 06:05 Neut # (Auto) 11.69 10^3/uL (1.8-7.7) H 07/31/21 06:05 Lymph # (Auto) 2.2 10^3/uL (0.8-4.8) 07/31/21 06:05 [place] # (Auto) 1.2 10^3/uL (0.2-0.9) H 07/31/21 06:05 Eos # (Auto) 0.2 10^3/uL (0.0-0.8) 07/31/21 06:05 Baso # (Auto) 0.1 10^3/uL (0.0-0.1) 07/31/21 06:05 Nucleated RBC % (auto) 0 % 07/31/21 06:05 Nucleated RBCs # 0.0 /100WBC 07/31/21 06:05 ESR 33 mm/hr (0-15) H 07/27/21 20:00 PT 17.40 SECONDS (12.1-14.9) H 07/28/21 07:01 INR 1.39 (0.8-1.2) H 07/28/21 07:01 APTT 31.2 SECONDS (23.9-36.7) 07/28/21 07:01 Sodium 133 mmol/L (136-145) L 07/31/21 06:05 Potassium 4.7 mmol/L (3.5-5.1) 07/31/21 06:05 Chloride 101 mmol/L (98-107) 07/31/21 06:05 Carbon Dioxide 24 mmol/L (22-29) 07/31/21 06:05 Anion Gap 12.7 (5-19) 07/31/21 06:05 BUN 29 mg/dL (8-23) H 07/31/21 06:05 Creatinine 0.9 mg/dL (0.5-0.9) 07/31/21 06:05 GFR Calculation Not Reportable 07/31/21 06:05 Glucose 104 mg/dL (65-115) 07/31/21 06:05 POC Glucose 128 mg/dL (70-110) H 07/31/21 08:12 Estimat Average Glucose 117 07/28/21 07:01 Hemoglobin A1c 5.7 % (4.0-6.0) 07/28/21 07:01 Calculated Osmolality 282 mOsm/kg (285-295) L 07/31/21 06:05 Lactate 0.8 mmol/L (0.5-2.2) 07/31/21 06:05 Calcium 7.9 mg/dL (8.5-10.5) L 07/31/21 06:05 Phosphorus 3.3 mg/dL (2.5-4.5) 07/31/21 06:05 Magnesium 2.0 mg/dL (1.7-2.3) 07/28/21 07:01 Total Bilirubin 0.7 mg/dL (0.15-1.2) 07/27/21 20:00 AST 22 U/L (0-32) 07/27/21 20:00 ALT 19 U/L (0-33) 07/27/21 20:00 Alkaline Phosphatase 102 IU/L (35-105) 07/27/21 20:00 Creatine Kinase 127 U/L (26-192) 07/31/21 06:05 C-Reactive Protein 298.9 mg/L (0.0-4.9) H 07/29/21 06:00 NT-Pro-B Natriuret Pep 3460 pg/mL (0-125) H 07/31/21 06:05 Total Protein 7.5 g/dL (6.6-8.7) 07/27/21 20:00 Albumin 3.3 g/dL (3.5-5.2) L 07/27/21 20:00 Globulin 4.2 g/dL (1.3-4.6) 07/27/21 20:00 Procalcitonin 0.59 ng/mL (0-0.5) H 07/31/21 06:05 TSH 3.92 uIU/mL (0.27-4.20) 07/28/21 07:01 Urine Color Yellow (Yellow) 07/28/21 04:13 Urine Appearance Hazy (CLEAR) A 07/28/21 04:13 Urine pH 5 (5-7) 07/28/21 04:13 Ur Specific [place] 1.020 (1.005-1.030) 07/28/21 04:13 Urine Protein 1+ (Negative) H 07/28/21 04:13 Urine Glucose (UA) Norm (Normal) 07/28/21 04:13 Urine Ketones Negative (Negative) 07/28/21 04:13 Urine Blood Neg (Negative) 07/28/21 04:13 Urine Nitrate Negative (Negative) 07/28/21 04:13 Urine Bilirubin 1+ (Negative) H 07/28/21 04:13 Urine Urobilinogen 1 mg/dL (Negative) H 07/28/21 04:13 Ur Leukocyte Esterase Negative (Negative) 07/28/21 04:13 Urine RBC 0-4 /hpf (0-2) H 07/28/21 04:13 Urine WBC 0-4 /hpf (0-5) H 07/28/21 04:13 Ur Squamous Epith Cells 15-25 /hpf (0-5) H 07/28/21 04:13 Amorphous Sediment Trace /hpf 07/28/21 04:13 Urine Bacteria Trace /hpf (NONE) 07/28/21 04:13 Coarse Granular Casts 0-4 /lpf H 07/28/21 04:13 Urine Mucus 2+ /hpf 07/28/21 04:13 Vancomycin Trough 13.9 ug/mL (10-15) 07/30/21 21:37 SARS-CoV-2 Ag (Rapid) Negative (Negative) 07/27/21 20:10 Vitals Last Vital Signs Temp 97.9 F 07/31/21 12:00 Pulse 73 07/31/21 12:00 Resp 18 07/31/21 12:00 BP 121/55 07/31/21 12:00 Pulse Ox 94 07/31/21 12:00 Discharge Plan Discharge Patient Disposition: Home Condition: Stable Prescriptions: New Nystop 100,000 unit/gram Powder 1 applic topical BID 14 Days Qty: 30 0RF linezolid 600 mg tablet 600 mg PO BID 7 Days Qty: 14 0RF aztreonam 1 gram recon soln 1 g IM Q12H 6 Days Qty: 12 0RF Continued levothyroxine 25 mcg tablet 25 mcg PO DAILY 0RF irbesartan 150 mg tablet 150 mg PO DAILY 0RF Discharge Orders: Discharge Order (Routine); Ordered 07/31/21 Ordered By: Reggie Church Referrals: Wound Care [Provider Group] - 08/06/21 2:45 pm (Wound care appointment August 06 at 2:45. [phone]) Pepper Franco MD [Primary Care Provider] - 08/05/21 11:00 am (Appointment will be with Dr. Flynn) Discharge Diet: Cardiac Discharge Activity: Increase activity as tolerated and As per PT/OT instructions Patient Instructions: Nystatin (On the skin), Aztreonam (By injection), Linezolid (By mouth), MRSA, Cellulitis (GEN), How to Give an Intramuscular Injection (GEN) Activity Restrictions/Additional Instructions: Continue wound care: Application of Xeroform daily on the denuded area of the skin followed by Jacy Costa and Papo wrap. Follow up with wound care clinic. Discharge Attestations Time Spent in Discharge Care*: greater than 30 min Quality Metrics Clinical Quality Measures [ No reported AMI, CVA or VTE this stay] Coding Level of Care Code Acute Chg FW PR note Diagnoses Cellulitis L03.115 Laterality: right Site of cellulitis: extremity Site of cellulitis of extremity: lower extremity Lymphedema I89.0 Peripheral arterial disease I73.9 Hypothyroidism E03.9 Hypothyroidism type: acquired BMI 60.0-69.9, adult Z68.44
--- NOTE | 2021-07-31 15:56 | PC.SOCIAL ---
IMM update IMM updated with patient. Copy Pg 2 provided. Initialled, dated, timed, and placed in chart.
[2021-07-31 16:00] VITALS: BP 124/52; PULSE 70; RESP 16; TEMP 36.7; O2SAT 92
[2021-07-31 21:27] LABS: Glucose Point of Care 124 mg/dL (70-110)
== END 2021-07-31 18:11 | disposition home or self-care (01) | DRG 571 ==
LOC: ER 07-28 02:35 → MEDSURG 07-28 04:15
PROVIDERS: Family Medicine; Surgery; Admitting Provider Hospitalist; Emergency Provider Emergency Medicine; PCP Family Medicine; Visit Provider Internal Medicine
PROC: 0JBN0ZZ Excision of Right Lower Leg Subcutaneous Tissue and Fascia, Open Approach (ICD-10-PCS; principal; 2021-07-30 10:25)
DX: L03.115 Cellulitis of right lower limb (principal); Z16.30 Resistance to unspecified antimicrobial drugs; Z68.44 Body mass index [BMI] 60.0-69.9, adult; E66.01 Morbid (severe) obesity due to excess calories; E03.9 Hypothyroidism, unspecified; I73.9 Peripheral vascular disease, unspecified; B95.62 Methicillin resistant Staphylococcus aureus infection as the cause of diseases classified elsewhere; B96.5 Pseudomonas (aeruginosa) (mallei) (pseudomallei) as the cause of diseases classified elsewhere
CPT/HCPCS: 36415; 36416; 51702; 71045; 73700; 80048; 80053; 80202; 81001; 82550; 82962; 83036; 83605; 83735; 83880; 84100; 84145; 84443; 85025; 85610; 85651; 85730; 86140; 87040; 87070; 87075; 87077; 87186; 87205; 87426; 93005; 93922; 93971; 96365; 96372; 96375; 97116; 97162; 97167; 97530; 99285; J0743; J1450; J1650; J1940; J1956; J2270; J2405; J2704; J3010; J3370; J3490; J7030; J7050

== ENCOUNTER → 2021-08-06 14:28 | Outpatient (BNVA) | payer MEDICARE, SELFPAY | PROVIDERS: PCP Family Medicine; Visit Provider Nurse Practitioner Family | DX: I96 Gangrene, not elsewhere classified (principal); I87.2 Venous insufficiency (chronic) (peripheral); L97.822 Non-pressure chronic ulcer of other part of left lower leg with fat layer exposed; Z09 Encounter for follow-up examination after completed treatment for conditions other than malignant neoplasm; L97.811 Non-pressure chronic ulcer of other part of right lower leg limited to breakdown of skin | CPT/HCPCS: 97597 ==

== ENCOUNTER → 2021-08-15 14:00 | Outpatient (BNVA) | payer MEDICARE, SELFPAY | PROVIDERS: PCP Family Medicine; Visit Provider Internal Medicine | DX: I73.9 Peripheral vascular disease, unspecified (principal); I89.0 Lymphedema, not elsewhere classified | CPT/HCPCS: 99204 ==

== ENCOUNTER 2021-08-19 11:02 | Outpatient (CLI) | payer MEDICARE, SELFPAY ==
--- NOTE | 2021-08-19 11:45 | USCV_ITS ---
Kay Perez Age: 71 Gender: F : 1950 Exam Date: 08/19/2021 11:49 Ordering Phys: Eduardo Flynn MD Technologist: Allie Maciel Exam Location: [facility] [place] Indication: EDEMA, SOB BP: 116 / 70 HR: 75 Rhythm: Sinus Technical Quality: Fair MEASUREMENTS (Male / Female) Normal Values 2D ECHO LV Diastolic Diameter PLAX 4.3 cm 4.2 - 5.9 / 3.9 - 5.3 cm LV Systolic Diameter PLAX 2.9 cm IVS Diastolic Thickness 1.2 cm 0.6 - 1.0 / 0.6 - 0.9 cm IVS Systolic Thickness 1.6 cm LVPW Diastolic Thickness 1.9 cm 0.6 - 1.0 / 0.6 - 0.9 cm LVPW Systolic Thickness 2.7 cm LV Ejection Fraction 2D Teich 63.6 % LV Ejection Fraction MOD 2C 52.1 % LV Ejection Fraction 2C AL 51.0 % LA Diameter 3.8 cm LA Width 4.8 cm LA Height 5.6 cm RA Width 3.9 cm RA Height 5.5 cm IVC Diameter 1.9 cm M-MODE MV E Point Septal Separation 1.1 cm DOPPLER AV Peak Velocity 152.0 cm/s LVOT Peak Velocity 78.0 cm/s MV Peak Velocity 81.0 cm/s MV Area PHT 3.7 cm squared Mitral E to A Ratio 1.1 MV E' Velocity 52.0 cm/s Mitral E to MV E' Ratio 9.9 Mitral E to LV E' Lateral Ratio 9.9 Mitral E to LV E' Septal Ratio 9.9 TR Peak Velocity 227.0 cm/s TR Peak Gradient 20.6 mmHg Right Atrial Pressure 3.0 mmHg Pulmonary Artery Systolic Pressu 23.6 mmHg PV Peak Velocity 114.0 cm/s RV Acceleration Time 0.1 s FINDINGS Left Ventricle Technically limited quality echocardiogram because of poor ultrasonic windows. Grossly LV systolic function is normal. Regional wall motion abnormalities cannot be assessed because of poor ultrasonic windows. Right Ventricle Grossly normal in size and function Right Atrium Not well-visualized Left Atrium Dilated Mitral Valve Grossly normal Aortic Valve Grossly normal. No significant stenosis Tricuspid Valve Trace tricuspid regurgitation. Insufficient TR jet to calculate RVSP. Pulmonic Valve Not visualized Pericardium Grossly normal Aorta Grossly normal IVC CONCLUSIONS Technically limited quality echocardiogram because of ultrasonic windows. Grossly LV systolic function is normal. Regional wall motion abnormalities cannot be assessed because of poor ultrasonic windows Left atrial enlargement Trace tricuspid regurgitation Accurate comparison with prior echocardiogram from 2013 cannot be done because of poor ultrasonic windows Riki Yuan MD (Electronically Signed) Final Date: 31 August 2021 23:28 S
== END 2021-08-19 11:03 | disposition home or self-care (01) ==
LOC: RAD 11:02
PROVIDERS: PCP Family Medicine; Visit Provider Family Medicine
DX: R60.9 Edema, unspecified (principal); D64.9 Anemia, unspecified
CPT/HCPCS: 93306

== ENCOUNTER → 2021-08-20 10:34 | Outpatient (BNVA) | payer MEDICARE, SELFPAY | PROVIDERS: PCP Family Medicine; Visit Provider Nurse Practitioner Family | DX: I87.2 Venous insufficiency (chronic) (peripheral) (principal); L97.812 Non-pressure chronic ulcer of other part of right lower leg with fat layer exposed; L97.811 Non-pressure chronic ulcer of other part of right lower leg limited to breakdown of skin; I89.0 Lymphedema, not elsewhere classified | CPT/HCPCS: 11042 ==

== ENCOUNTER → 2021-08-27 09:05 | Outpatient (BNVA) | payer MEDICARE, SELFPAY | PROVIDERS: PCP Family Medicine; Visit Provider Nurse Practitioner Family | DX: Z09 Encounter for follow-up examination after completed treatment for conditions other than malignant neoplasm (principal) | CPT/HCPCS: 99212 ==

== ENCOUNTER 2021-10-08 11:05 | Outpatient (CLI) | payer MEDICARE, SELFPAY ==
--- NOTE | 2021-10-08 12:00 | CT_ITS ---
WS: [id number] CT ANGIOGRAPHY OF THE ABDOMINAL AORTA WITH RUNOFF TO THE ANKLES HISTORY: Peripheral arterial disease TECHNIQUE: Arterial injection is performed during imaging to evaluate the aorta and runoff vessels to the ankles. MIP and volume rendering imaging has also been performed. All images are reviewed. All C T scans at [facility] use at least one of these dose optimization techniques: automated exposu re control; mA and/or kV adjustment per patient size (includes targeted exams where dose is matched t o clinical indication); or iterative reconstruction. Contrast: Omnipaque 350; 95 mL IV. DLP: 4761.21 mGy.cm COMPARISON: None available. This examination is nondiagnostic for lower extremity arteries due to body habitus. Unable to bolus t rack due to body habitus. Abdominal aorta: Mild atherosclerotic disease throughout the aorta. No occlusion. No aneurysm. Origin of the celiac axis and SMA are patent. RIGHT lower extremity arterial system: Very mild atherosclerotic changes within the RIGHT common, int ernal and external iliac arteries with no occlusions. Beginning at the level of the femoral artery an d SFA the opacification of the arteries becomes limited. Scattered intimal thickening throughout the SFA. LEFT lower extremity just system: Atherosclerotic plaque continues into the LEFT common, external and internal iliac arteries. Poor opacification of the arteries. Limited opacification of the femoral ar sonia and the SFA. There is scattered plaque throughout the SFA. Otherwise very poor evaluation of the arteries throughout the lower extremities. Cannot exclude a sig nificant stenosis or occlusions. 3 mm nodule at the RIGHT lung base. Heart size is normal. Low-attenuation 3.3 x 4.2 cm mass adjacent to the RIGHT atrium is probably a pericardial cyst. Liver, gallbladder and spleen are negative. No pa ncreatic mass. No adrenal mass. Small retroperitoneal lymph nodes. Aortocaval lymph node measures 14 mm short axis diameter. There ar e numerous the additional iliac chain lymph nodes. Larger lymph nodes begin along the distal RIGHT il iac chain measuring up to 17 mm. Distal RIGHT external iliac chain lymph node measures 28 mm. Smaller inguinal lymph nodes greatest on the RIGHT. Larger lymph node along the superior medial RIGHT femur measures 17 mm. No GI tract obstruction. No acute inflammatory process. Prior hysterectomy. Reconstructed images of the bones are very limited. Diffuse soft tissue edema surrounding the lower extremities greater below the knees. This is darryl spring CT/CT angio abd aorta runof [id number] IMPRESSION: 1. Very limited evaluation of the lower extremity arterial system due to body habitus and difficulty following the bolus. 2. Mild atherosclerotic plaque within the aorta with extension through the com mon iliac arteries and the superficial femoral arteries. Cannot exclude occlusi ons or thromboses on this examination. 3. Numerous but only mildly enlarged retroperitoneal, pelvic and RIGHT inguina l lymph nodes. These all may be reactive. Could be a response to a cellulitis o r infection of the RIGHT lower extremity. These may be reactive but early neopl astic change is not excluded. There are no additional masses or visceral organ abnormality identified. 4. Pericardial cyst. 5. Indeterminate 3 mm nodule RIGHT lung base.
[2021-10-08 12:21] LABS: Blood Urea Nitrogen 14 mg/dL (8-23)
== END 2021-10-08 11:06 | disposition home or self-care (01) ==
PROVIDERS: PCP Family Medicine; Visit Provider Internal Medicine
DX: I73.9 Peripheral vascular disease, unspecified (principal); R91.1 Solitary pulmonary nodule; Q24.8 Other specified congenital malformations of heart; I70.0 Atherosclerosis of aorta
CPT/HCPCS: 75635; 82565; 84520; Q9967

== ENCOUNTER 2021-11-08 09:05 | Inpatient (IN) | payer MEDICARE, SELFPAY ==
[2021-11-08] VITALS (10 sets, daily range): BP systolic 155–205; BP diastolic 65–129; PULSE 74–101; RESP 16–24; TEMP 36.6–36.9; O2SAT 92–98; BMI 60.0
--- NOTE | 2021-11-08 09:42 | ED_ITS ---
HPI - COVID General: Chief Complaint: Shortness of Breath/Dyspnea Stated Complaint: COVID +/ SOB Time Seen by Provider: 11/08/21 09:11 Source: patient Mode of arrival: EMS Triage information: Has fever, cough or shortness of breath . Exposure to COVID + person last 14 days History of Present Illness: 71-year-old female presents to the emergency room with complaints of shortness of breath. Around 5 to 6 days ago she was exposed to COVID by her daughter who tested positive she tested positive earlier today at a local clinic was noted to have O2 sats in the lower 80s and EMS was called she was given nebulizer in route and is now satting in the upper 90s on 4 L by nasal cannula she normally does not use oxygen. MD complaint: known COVID positive Prior covid testing: yes, results known Prior testing date: 11/08/21 COVID 19 common symptoms: positive fever(s), chills, cough, non-productive cough, dyspnea, fatigue, body aches, headache(s), nasal congestion, nausea and vomiting COVID 19 other sytmptoms: positive pleuritic pain and requiring oxygen; negative chest pain Pertinent comorbid conditions: hypertension and obesity Treatment prior to arrival: none COVID Results: SARS-CoV-2 Antigen (Rapid) Negative (Negative) 07/27/21 20:10 Review of Systems Const: Reports: fever(s), chills, body aches, fatigue and malaise ENMT: Reports: nasal congestion Card: Denies: chest pain, edema, dyspnea on exertion or orthopnea Resp: Reports: dyspnea and non-productive cough GI: Reports: nausea and vomiting : Denies: flank pain, difficulty voiding, dysuria, urinary frequency or urinary urgency Skin/Breast: Denies: rash or pruritus Neuro: Reports: headache(s) PFSH ED PFSH: Medical History Angina of effort Told that she had angina in her 30s but it resolved and has not been a recurrent problem BMI 60.0-69.9, adult 4 para 4 Hypertension Hypothyroidism Lymphedema Obesity Peripheral arterial disease Surgical History History of hysterectomy Family History Grandfather CAD (coronary artery disease) Grandmother Stroke Father Alcoholism Social History Smoking and tobacco status: former smoker Alcohol intake: never Household members: family Physical Exam Const: GENERAL APPEARANCE: cooperative ORIENTATION/CONSCIOUSNESS: Yes awake, Yes oriented to person, Yes oriented to place and Yes oriented to time HENMT: COMMON NORMALS: normocephalic, atraumatic, hearing grossly normal bilaterally, external ears normal, EAC's normal, TM's normal bilaterally, Normal nasal mucous membranes and turbinates present, moist oral mucous membranes and oropharynx normal HEAD & SCALP: normocephalic and atraumatic NOSE: Normal nasal mucous membranes and turbinates present EXTERNAL EAR: Yes external ears normal EXTERNAL AUDITORY CANAL: EAC's normal TYMPANIC MEMBRANE: TM's normal bilaterally Eye: COMMON NORMALS: Equal, round and reactive pupils present, EOMs intact bilaterally, conjunctivae normal and no scleral icterus CONJUNCTIVA: Yes conjunctivae normal PUPIL: Yes Equal, round and reactive pupils present Neck/C-Spine: COMMON NORMALS: full ROM, no lymphadenopathy, supple and no JVD Resp: COMMON NORMALS: normal respiratory effort, No retractions, No use of accessory muscles and clear to auscultation bilaterally AUSCULTATION: clear to auscultation bilaterally Cardio: COMMON NORMALS: no JVD, regular rate, regular rhythm and No murmurs present (Cardio) RATE: regular rate RHYTHM: regular rhythm GI: COMMON NORMALS: Soft to palpation and No hepatosplenomegaly present AUSCULTATION: Yes normoactive bowel sounds PALPATION: Yes Soft to palpation, No Tenderness to palpation present (GI), No Guarding due to palpation present (GI) and Yes No hepatosplenomegaly present Extremity: COMMON NORMALS: normal to inspection, capillary refill normal, no clubbing, cyanosis or edema, no calf tenderness and no pedal edema Neuro: SENSORIUM/ORIENTATION: Yes oriented to person, Yes oriented to place and Yes oriented to time Skin: COMMON NORMALS: no rashes or lesions noted GENERAL SKIN EXAM: no rashes or lesions noted Course Vital Signs: Vital signs: Vital Signs Temperature 98.1 F 11/12/21 17:31 Pulse Rate 65 11/12/21 17:31 Respiratory Rate 17 11/12/21 17:31 Blood Pressure 158/62 11/12/21 17:31 Pulse Oximetry 92 11/12/21 17:31 Oxygen Delivery Me thod 11/12/21 11:40 Oxygen Flow Rate 1.5 11/12/21 08:00 MDM - COVID Medical Decision Making COVID-positive with a 4 L oxygen requirement. Will admit discussed with hospitalist orders written Medical Records I reviewed the patient's medical records. Lab Data I reviewed the patient's lab results. : 11/12/21 04:17 11/12/21 04:17 Radiology Impressions Chest X-Ray 11/08/21 12:22 IMPRESSION: 1. Mild groundglass infiltrate in the right base suspicious for pneumonia. 2. Mild cardiac enlargement unchanged. Chest CTA 11/11/21 12:33 IMPRESSION: 1. No evidence of pulmonary embolus. 2. Slight subsegmental atelectasis in the lung bases. 3. No focal pneumonia or pleural fluid. 4. Cardiomegaly with small RIGHT cardiophrenic angle pericardial cyst. 5. Small esophageal hiatal hernia. Laboratory Results WBC 4.0 10^3/uL (4.0-10.0) 11/09/21 05:07 RBC 3.69 10^6/uL (4.1-5.3) L 11/09/21 05:07 Hgb 10.2 g/dL (11.5-15.3) L 11/09/21 05:07 Hct 34.2 % (37.0-47.0) L 11/09/21 05:07 MCV 92.7 fl (81-99) 11/09/21 05:07 MCH 27.6 pg (28.0-34.0) L 11/09/21 05:07 MCHC 29.8 g/dL (30.0-36.0) L 11/09/21 05:07 RDW 15.0 % (12.1-15.1) 11/09/21 05:07 Plt Count 136 10^3/cmm (130-400) 11/09/21 05:07 MPV 9.8 fL (7.4-10.4) 11/09/21 05:07 Neut % (Auto) 49.2 % 11/09/21 05:07 Lymph % (Auto) 30.4 % 11/09/21 05:07 [place] % (Auto) 19.8 % 11/09/21 05:07 Eos % (Auto) 0.0 % 11/09/21 05:07 Baso % (Auto) 0.3 % 11/09/21 05:07 Neut # (Auto) 1.96 10^3/uL (1.8-7.7) 11/09/21 05:07 Lymph # (Auto) 1.2 10^3/uL (0.8-4.8) 11/09/21 05:07 [place] # (Auto) 0.8 10^3/uL (0.2-0.9) 11/09/21 05:07 Eos # (Auto) 0.0 10^3/uL (0.0-0.8) 11/09/21 05:07 Baso # (Auto) 0.0 10^3/uL (0.0-0.1) 11/09/21 05:07 Nucleated RBC % (auto) 0 % 11/09/21 05:07 Nucleated RBCs # 0.0 /100WBC 11/09/21 05:07 D-Dimer 0.95 ug/mIFEU (0-0.59) H 11/09/21 12:49 Specimen Type Arterial 11/08/21 09:30 Sample Site Radial, right 11/08/21 09:30 ABG pH 7.42 (7.35-7.45) 11/08/21 09:30 ABG pCO2 40.6 mmHg (35-45) 11/08/21 09:30 ABG pO2 121.0 mmHg (80.0-100.0) H 11/08/21 09:30 ABG HCO3 26.1 mmol/L (22-26) H 11/08/21 09:30 ABG O2 Saturation 99.8 11/08/21 09:30 ABG Base Excess 1.4 mmol/L (-2.0-2.0) 11/08/21 09:30 Karan Test Pos 11/08/21 09:30 A-a O2 Gradient 11.1 mmHg (5-10) H 11/08/21 09:30 Hematocrit 34.9 % (37-47) L 11/08/21 09:30 Hgb O2 Saturation 97.4 % (95-100) 11/08/21 09:30 Carboxyhemoglobin 1.7 %THgb (0.4-20.1) 11/08/21 09:30 Methemoglobin 0.7 % (0.4-1.5) 11/08/21 09:30 Total Hemoglobin 11.4 g/dL (12-16) L 11/08/21 09:30 Sodium 140.0 mmol/L (131-143) 11/08/21 09:30 Potassium 3.5 mmol/L (3.5-5.0) 11/08/21 09:30 Glucose 98.0 mg/dL (70-115) 11/08/21 09:30 Ionized Calcium 1.1 mmol/L (1.1-1.4) 11/08/21 09:30 O2 Delivery Device Nc 11/08/21 09:30 O2 Liters/Min 4.0 % 11/08/21 09:30 FiO2 36.0 % 11/08/21 09:30 Silk Screen Etcher ID Gd 11/08/21 09:30 Sodium 138 mmol/L (136-145) 11/09/21 05:07 Potassium 3.2 mmol/L (3.5-5.1) L 11/09/21 05:07 Chloride 100 mmol/L (98-107) 11/09/21 05:07 Carbon Dioxide 25 mmol/L (22-29) 11/09/21 05:07 Anion Gap 16.2 (5-19) 11/09/21 05:07 BUN 17 mg/dL (8-23) 11/09/21 05:07 Creatinine 0.9 mg/dL (0.5-0.9) 11/09/21 05:07 GFR Calculation Not Reportable 11/09/21 05:07 Glucose 120 mg/dL (65-115) H 11/09/21 05:07 Calculated Osmolality 289 mOsm/kg (285-295) 11/09/21 05:07 Calcium 8.4 mg/dL (8.5-10.5) L 11/09/21 05:07 Magnesium 1.8 mg/dL (1.7-2.3) 11/09/21 05:07 Total Bilirubin 0.3 mg/dL (0.15-1.2) 11/09/21 05:07 AST 13 U/L (0-32) 11/09/21 05:07 ALT 7 U/L (0-33) 11/09/21 05:07 Alkaline Phosphatase 54 U/L (35-105) 11/09/21 05:07 Troponin T Gen 5 ng/L 23 ng/L (0-10) H 11/08/21 09:50 C-Reactive Protein 69.5 mg/L (0.0-4.9) H 11/09/21 05:07 NT-Pro-B Natriuret Pep 8062 pg/mL (0-125) H 11/08/21 09:50 Total Protein 6.8 g/dL (6.6-8.7) 11/09/21 05:07 Albumin 3.0 g/dL (3.5-5.2) L 11/09/21 05:07 Globulin 3.8 g/dL (1.3-4.6) 11/09/21 05:07 Procalcitonin 0.08 ng/mL (0-0.5) 11/08/21 09:50 Urine Color Yellow (Yellow) 11/08/21 22:30 Urine Appearance Clear (CLEAR) 11/08/21 22:30 Urine pH 5.0 (5-7) 11/08/21 22:30 Ur Specific [place] 1.020 (1.005-1.030) 11/08/21 22:30 Urine Protein Negative (Negative) 11/08/21 22:30 Urine Glucose (UA) Negative (Normal) 11/08/21 22:30 Urine Ketones Negative (Negative) 11/08/21 22:30 Urine Blood Negative (Negative) 11/08/21 22:30 Urine Nitrate Positive 11/08/21 22:30 Urine Bilirubin Negative (Negative) 11/08/21 22:30 Urine Urobilinogen 0.2 mg/dL (Negative) 11/08/21 22:30 Ur Leukocyte Esterase 1+ (Negative) A 11/08/21 22:30 Urine RBC 0-4 /hpf (0-2) H 11/08/21 22:30 Urine WBC 25-40 /hpf (0-5) H 11/08/21 22:30 Ur Squamous Epith Cells 5-10 /hpf (0-5) H 11/08/21 22:30 Amorphous Sediment Not Reportable 11/08/21 22:30 Urine Bacteria 4+ /hpf (NONE) H 11/08/21 22:30 SARS-CoV-2 Antigen (Rapid) Negative (Negative) 07/27/21 20:10 Discharge Plan Discharge Patient Disposition: Admitted As Inpatient Admit Provider: Kian Mtz Clinical Impression: COVID-19 Condition: Stable Discharge Diet: Cardiac Discharge Activity: Resume usual activity Coding Level of Care Code ED Monitoring Coordinator for Alyse Espinosa
--- NOTE | 2021-11-08 09:43 | ECG_ITS ---
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 Measurements Intervals [place] Rate: 84 P: 67 TN: 146 QRS: -38 QRSD: 100 T: 57 QT: 373 QTc: 442 Interpretive Statements SINUS RHYTHM WITH OCCASIONAL VENTRICULAR PREMATURE COMPLEXES LEFT AXIS DEVIATION [QRS AXIS < -30] POSSIBLE ANTERIOR MYOCARDIAL INFARCTION , PROBABLY OLD [30 ms Q WAVE IN V3/V4, OR R < 0.2 mV IN V4] INTERPRETATION BASED ON A DEFAULT AGE OF 40 YEARS Compared to ECG 07/27/2021 19:11:01 Ventricular premature complex(es) now present Myocardial infarct finding still present Electronically Signed On 11-08-2021 19:07:04 CDT by Andrew Gonzalez M.D. [id number]
[2021-11-08 09:48] LABS: ABG PCO2 40.6 mmHg (35-45); ABG PH Result 7.42 (7.35-7.45); Alveolar-Arterial Oxygen Gradi 11.1 mmHg (5-10); Arterial Blood Gas Hematocrit 34.9 % (37-47); Base Excess ABG 1.4 mmol/L (-2.0-2.0); Blood Gas Allen Test Pos; Blood Gas Operator Identificat GD; Blood Gas Sample Site Radial, right; Blood Gas Sample Type Arterial; Carboxyhemoglobin 1.7 %THgb (0.4-20.1); HCO3 ABG 26.1 mmol/L (22-26); HGB O2 Sat 97.4 % (95-100); Ionized Calcium Level - ABG 1.1 mmol/L (1.1-1.4); Methemoglobin 0.7 % (0.4-1.5); Oxygen Device NC; Oxygen Saturation ABG 99.8; Potassium Level - ABG 3.5 mmol/L (3.5-5.0); Total Hemoglobin 11.4 g/dL (12-16)
[2021-11-08 10:12] LABS: Basophils % 0.5 %; Eosinophils % 0.2 %; Hematocrit 37.6 % (37.0-47.0); Hemoglobin 11.3 g/dL (11.5-15.3); Lymphocytes % 24.9 %; Mean Corpuscular HGB Conc 30.1 g/dL (30.0-36.0); Mean Corpuscular Hemoglobin 27.7 pg (28.0-34.0); Mean Corpuscular Volume 92.2 fl (81-99); Mean Platelet Volume 9.1 fL (7.4-10.4); Monocytes # 0.6 10^3/uL (0.2-0.9); Monocytes % 14.2 %; Nucleated Red Blood Cells % 0 %; Platelet Count 131 10^3/cmm (130-400); Red Blood Count 4.08 10^6/uL (4.1-5.3)
[2021-11-08 10:27] LABS: D Dimer 1.32 ug/mIFEU (0-0.59)
[2021-11-08] MEDS: dexamethasone 10 mg/mL INJ 6 MG IVP (10:33)
[2021-11-08 10:44] LABS: Alanine Aminotransferase 8 U/L (0-33); Albumin Level 3.5 g/dL (3.5-5.2); Alkaline Phosphatase 65 U/L (35-105); Anion Gap 12.9 (5-19); Aspartate Amino Transferase 14 U/L (0-32); Blood Urea Nitrogen 12 mg/dL (8-23); Calcium 8.6 mg/dL (8.5-10.5); Carbon Dioxide 28 mmol/L (22-29); Chloride 102 mmol/L (98-107); Globulin 4.1 g/dL (1.3-4.6); Glucose 97 mg/dL (65-115); Osmolality Calculated 288 mOsm/kg (285-295); Potassium 3.9 mmol/L (3.5-5.1); Sodium 139 mmol/L (136-145); Total Bilirubin 0.5 mg/dL (0.15-1.2); Total Protein 7.6 g/dL (6.6-8.7)
[2021-11-08 10:51] LABS: Procalcitonin 0.08 ng/mL (0-0.5)
--- NOTE | 2021-11-08 11:09 | USCV_ITS ---
Kay Perez Age: 71 Gender: F : 1950 Exam Date: 11/08/2021 11:33 Ordering Phys: Kian Mtz MD Technologist: LORY Exam Location: [facility] [place] Indication: ELEVAT D DIMER HISTORY: Lower extremity swelling. PROCEDURES: Venous duplex imaging was performed in bilateral lower extremities. The following venous structures were evaluated: common femoral vein, profunda vein, proximal portion of the greater saphenous vein, superficial femoral vein, and the popliteal vein. FINDINGS: No evidence of DVT seen in any vessel visualized at this time. Examination was technically limited due to body habitus. Bilat. PTV and Peroneal V not seen due to bandages CONCLUSIONS No DVT bilateral lower extremities. Limited exam due to body habitus and bandages. Dr. Yesi Krishnan DO (Electronically Signed) Final Date: 08 November 2021 12:00 S
[2021-11-08] MEDS: remdesivir 200 MG in sodium chloride 0.9% (100 ml) 60 ML 100 MG IV (11:14)
--- NOTE | 2021-11-08 11:18 | PM.HP ---
Providers/Chief Complaint Primary Care Provider: Eduardo Flynn MD Chief Complaint: COVID +/ SOB History of Present Illness Kay Perez is a 71 year old female presenting to the emergency department via her primary care provider's office. She has been ill for the last 2 days with wheezing, cough, headache, chills. No documented fever. She had recently been exposed to her daughter with COVID 5 to 6 days ago. Upon arriving at her primary care provider's office her oxygen level was found to be low. She had a rapid test positive for COVID. She denies any nausea, or vomiting. She did have chest discomfort, that seem to be pleuritic in quality recently but this was 5 days ago. She states it went away over several hours. She denies any blood in her stool, black or tarry stools, severe reflux. She does report significant wheezing, whenever she exerts herself. This predates her illness with COVID. Review of Systems General: Reports: 10 or more systems reviewed and unremarkable except in HPI and below Const: Reports: chills, fatigue and malaise; Denies: fever(s) Eyes: Denies: change in vision ENMT: Reports: nasal congestion Card: Reports: chest pain Resp: Reports: dyspnea, non-productive cough and wheezing GI: Denies: abdominal pain : Denies: flank pain Musc: Denies: neck pain Skin/Breast: Denies: rash Neuro: Reports: headache(s) Psych: Denies: anxiety or depression Endo: Denies: polyuria Petar/Lymph: Denies: easy bruising All/Imm: Denies: urticaria Medications/Allergies Home Medications Medication Instructions Recorded Confirmed Last Taken Type irbesartan 150 mg tablet 150 mg PO DAILY 07/28/21 11/08/21 08/02/21 History levothyroxine 25 mcg tablet 25 mcg PO DAILY 07/28/21 11/08/21 08/02/21 History gentamicin 0.1 % topical ointment 1 applic topical BID #30 grams 08/06/21 11/08/21 Unknown Rx paroxetine HCl 10 mg tablet 10 mg PO DAILY 11/08/21 11/08/21 Unknown History Allergies Allergy/AdvReac Type Severity Reaction Status Date / Time amlodipine Allergy Unknown Unknown Verified 11/08/21 10:01 isosorbide Allergy Unknown Unknown Verified 11/08/21 10:01 cephalexin [From Keflex] Allergy ALGY-Hives Verified 11/08/21 10:01 PFSH Acute PFSH: Medical History (Updated 11/08/21 @ 12:25 by Kian Mtz MD) Angina of effort Told that she had angina in her 30s but it resolved and has not been a recurrent problem BMI 60.0-69.9, adult 4 para 4 Hypertension Hypothyroidism Lymphedema Obesity Peripheral arterial disease Surgical History History of hysterectomy Family History Grandfather CAD (coronary artery disease) Grandmother Stroke Father Alcoholism Social History Smoking and tobacco status: former smoker Alcohol intake: never Household members: family Vitals/I&O/Wt Last Vital Signs Temp 98.4 F 11/08/21 09:05 Pulse 90 11/08/21 09:05 Resp 24 H 11/08/21 09:05 BP 205/129 11/08/21 09:05 Pulse Ox 98 11/08/21 09:05 O2 Del Method 11/08/21 09:05 O2 Flow Rate 4 11/08/21 09:05 Weight last 48 hrs Weight 158.757 kg Physical Exam Narrative: General exam demonstrates a white female, with mild respiratory distress with increased work of breathing and tachypnea with audible wheezing HEENT: Atraumatic and normocephalic. Pupils equally round. Oropharynx clear. Neck is supple no lymphadenopathy or thyromegaly Cardiovascular regular rate and rhythm without murmur Lungs bilateral expiratory wheezes. Abdomen is soft nontender positive bowel sounds. No obvious organomegaly. Obese. exam deferred Extremities no cyanosis clubbing. Lymphedema/edema is noted bilaterally at least 2+. Skin no rash Neuro no obvious focal deficits. Data : 11/08/21 09:50 11/08/21 09:50 Other Labs: Dimer is 1.32 ABG on 4 L demonstrated a pH of 7.42, PCO2 40, PO2 of 121. While I was in the room I was able to wean down her oxygen requirement to 1 L, but with this saturation was only 93%. Attempts to wean this off were met with an oxygen saturation less than 90. LFTs are normal CRP 61 Troponin level is ordered and pending Procalcitonin level 0.08 Calcium 8.6 Blood cultures were collected I have ordered a CTA of the chest considering her elevated dimer and prior history of chest pain. She cannot lie flat currently. We will arrange for chest x-ray. Await lower extremity venous duplex. Repeat dimer tomorrow. Maintain on Lovenox 40 mg subcu every 12 hours currently. As patient improves could consider CTA later or VQ scan. EKG demonstrates sinus rhythm, left axis deviation, 1 PVC, poor R wave progression Previous echocardiogram August was difficult to interpret, but appeared to have grossly normal systolic function. Micro: Microbiology 11/08/21 10:00 Blood Culture - Preliminary Blood SPECIMEN COLLECTED 11/08/21 09:50 Blood Culture - Preliminary Blood SPECIMEN COLLECTED A&P Assessment and plan (1) COVID: Patient has had symptoms for 2 days. She tested positive for COVID today. She is requiring oxygen, 4 L on arrival to the emergency department but 1 to 2 L currently. Placed on remdesivir Placed on dexamethasone CRP, dimer tomorrow Avoid over hydrating. Lasix 40 mg IV x1 Check BNP, troponin Lovenox for DVT prophylaxis 40 mg every 12 hours Incentive spirometry, Acapella (2) Hypoxia: Titrate oxygen as tolerated (3) Wheezing: She has pre-existing history of wheezing with exertion Dexamethasone as noted for COVID DuoNeb every 4 hours Budesonide twice daily (4) Chest pain: Check troponin, BNP Note recent echo was done, EF grossly normal but difficult study As dimer is elevated checking venous duplex. I think pulmonary embolism is not likely but will repeat dimer tomorrow. She was not able to lay flat for CTA. We will follow clinically if this needs reordered as patient improves or VQ scan is needed Plan Multiple other medical problems as outlined in past medical history Full code Lovenox will suffice for DVT prophylaxis Pepcid for GI prophylaxis Attestations Medical Necessity Statement*: Will need greater than 2 midnight stay for evaluation and treatment of Covid 19 pneumonia with hypoxia. 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
[2021-11-08 11:28] LABS: C Reactive Protein 61.7 mg/L (0.0-4.9)
--- NOTE | 2021-11-08 12:22 | XR_ITS ---
WS: [id number] Exam: XR chest 1V portable [id number] Date/Time of Exam: 11/08/2021 12:22 PM Reason For Exam: dyspnea, wheezing Comparison 07/27/2021. Mild groundglass infiltrates seen in the right base suspicious for pneumonia. Remaining lung [place] a re clear. Mild cardiac enlargement unchanged. No pleural effusions. The mediastinum is normal in cont our. Regional bony structures are intact. XR/XR chest 1V portable [id number] IMPRESSION: 1. Mild groundglass infiltrate in the right base suspicious for pneumonia. 2. Mild cardiac enlargement unchanged.
[2021-11-08] MEDS: FUROsemide 10 mg/mL SDV 4mL 40 MG IVP (12:44)
[2021-11-08 12:53] LABS: Troponin T (5th) Once 23 ng/L (0-10)
[2021-11-08 13:02] LABS: NT Pro B Type Natriuretic Pept 8062 pg/mL (0-125)
[2021-11-08] MEDS: enoxaparin 40 mg/0.4 mL Syringe SUBCUT (14:47)
[2021-11-08] MEDS: famotidine 20 mg Tablet PO (17:49)
[2021-11-08] MEDS: budesonide 0.5 mg/2 mL Neb INHALATION (21:28)
[2021-11-08] MEDS: ipratropium-albuterol 3 mL Neb INHALATION (21:28)
[2021-11-08 22:45] LABS: Bilirubin Urine Negative (Negative); Blood Urine Negative (Negative); Glucose Urine UA Negative (Normal); Ketones Urine Negative (Negative); Leukocyte Esterase Urine 1+ (Negative); Nitrate Urine Positive; Protein Urine Negative (Negative); Urine Appearance Clear (CLEAR); Urine Color Yellow (Yellow); Urobilinogen Urine 0.2 mg/dL (Negative)
[2021-11-08 23:02] LABS: Add Urine Microscopic? YES
[2021-11-08 23:03] LABS: Add Urine Culture? Yes; Bacteria Urine 4+ /hpf; RBC Urine 0-4 /hpf (0-2); WBC Urine 25-40 /hpf (0-5)
[2021-11-09] VITALS (13 sets, daily range): BP systolic 132–163; BP diastolic 67–76; PULSE 68–82; RESP 15–22; TEMP 36.4–36.8; O2SAT 94–97
[2021-11-09] MEDS: FUROsemide 10 mg/mL SDV 4mL 40 MG IVP ×2 (00:06→13:35)
[2021-11-09] MEDS: ipratropium-albuterol 3 mL Neb INHALATION ×6 (00:53→20:31)
[2021-11-09] MEDS: enoxaparin 40 mg/0.4 mL Syringe SUBCUT ×2 (02:56→15:01)
[2021-11-09 05:45] LABS: Basophils % 0.3 %; Hematocrit 34.2 % (37.0-47.0); Hemoglobin 10.2 g/dL (11.5-15.3); Lymphocytes # 1.2 10^3/uL (0.8-4.8); Lymphocytes % 30.4 %; Mean Corpuscular HGB Conc 29.8 g/dL (30.0-36.0); Mean Corpuscular Hemoglobin 27.6 pg (28.0-34.0); Mean Corpuscular Volume 92.7 fl (81-99); Mean Platelet Volume 9.8 fL (7.4-10.4); Monocytes # 0.8 10^3/uL (0.2-0.9); Monocytes % 19.8 %; Neutrophils # 1.96 10^3/uL (1.8-7.7); Neutrophils % 49.2 %; Nucleated Red Blood Cells % 0 %; Platelet Count 136 10^3/cmm (130-400); Red Blood Count 3.69 10^6/uL (4.1-5.3)
[2021-11-09 06:06] LABS: Alanine Aminotransferase 7 U/L (0-33); Alkaline Phosphatase 54 U/L (35-105); Anion Gap 16.2 (5-19); Aspartate Amino Transferase 13 U/L (0-32); Blood Urea Nitrogen 17 mg/dL (8-23); C Reactive Protein 69.5 mg/L (0.0-4.9); Calcium 8.4 mg/dL (8.5-10.5); Carbon Dioxide 25 mmol/L (22-29); Chloride 100 mmol/L (98-107); Globulin 3.8 g/dL (1.3-4.6); Glucose 120 mg/dL (65-115); Magnesium 1.8 mg/dL (1.7-2.3); Osmolality Calculated 289 mOsm/kg (285-295); Potassium 3.2 mmol/L (3.5-5.1); Sodium 138 mmol/L (136-145); Total Bilirubin 0.3 mg/dL (0.15-1.2); Total Protein 6.8 g/dL (6.6-8.7)
[2021-11-09] MEDS: remdesivir 100 MG in sodium chloride 0.9% (100 ml) 80 ML IV (07:04)
[2021-11-09] MEDS: budesonide 0.5 mg/2 mL Neb INHALATION ×2 (08:02→20:31)
[2021-11-09] MEDS: ciprofloxacin 500 mg Tablet PO ×2 (10:07→21:13)
[2021-11-09] MEDS: famotidine 20 mg Tablet PO ×2 (10:07→21:13)
[2021-11-09] MEDS: levothyroxine 25 mcg Tablet PO (10:08)
[2021-11-09] MEDS: losartan 50 mg Tablet PO (10:08)
[2021-11-09] MEDS: PARoxetine 20 mg Tablet 10 MG PO (10:08)
[2021-11-09] MEDS: dexamethasone 10 mg/mL INJ 6 MG IVP (10:09)
[2021-11-09 13:21] LABS: D Dimer 0.95 ug/mIFEU (0-0.59)
[2021-11-09] MEDS: fluticasone nasal spray 16gm Btl 2 SPRAY NASAL (14:58)
[2021-11-09] MEDS: guaiFENesin-dextromethorphan UDC 10 mL PO (14:59)
--- NOTE | 2021-11-09 15:53 | PM.PN ---
Subjective Subjective: She has been having cough, feels her sinuses are acting up as well, feels congested, with nasal drainage. Having difficulty laying back. Still cannot lay back needing to have head of bed up to sitting/at most semireclined position. Vitals/I&O/Wt Last Vital Signs Temp 98.1 F 11/09/21 15:11 Pulse 77 11/09/21 15:26 Resp 16 11/09/21 15:26 BP 159/72 11/09/21 15:11 Pulse Ox 96 11/09/21 15:26 O2 Del Method 11/09/21 15:26 O2 Flow Rate 2 11/09/21 15:26 11/09/21 11/09/21 11/09/21 06:59 14:59 22:59 Intake Total 600 / 1250 1420 / 1420 Output Total 1700 / 1700 2600 / 2600 Balance -1100 / -450 1420 / 1420 -2600 / -1180 Weight last 48 hrs Weight 161.343 kg Weight 162.471 kg Weight 158.757 kg Physical Exam Narrative: Sitting up in bed Const: COMMON NORMALS: patient oriented x3 and alert GENERAL APPEARANCE: cooperative NUTRITIONAL APPEARANCE: obese morbidly obese ORIENTATION/CONSCIOUSNESS: Yes awake OTHER: Nasal voice HENMT: COMMON NORMALS: oropharynx normal Neck/C-Spine: COMMON NORMALS: no JVD Resp: COMMON NORMALS: normal respiratory effort AUSCULTATION: diminished lung sounds Cardio: COMMON NORMALS: no JVD, regular rhythm, S1 normal heart sound present, S2 normal heart sound present and No murmurs present (Cardio) RHYTHM: regular rhythm HEART SOUNDS: S1 normal heart sound present and S2 normal heart sound present GI: COMMON NORMALS: Normal to inspection, nondistended, normoactive bowel sounds present, Soft to palpation and non-tender PALPATION: Yes Soft to palpation Extremity: COMMON NORMALS: no joint enlargement GENERAL: Yes edema (3+) OTHER: Compression wraps Neuro: COMMON NORMALS: patient oriented x3 and moves all extremities SENSORIUM/ORIENTATION: Yes alert Skin: COMMON NORMALS: no rashes or lesions noted GENERAL SKIN EXAM: no rashes or lesions noted Urinary Catheter Management: Rodriguez: Cath Placed During This Visit: no Reason for Continuing Indwelling Catheter: Accurate Measurement of Urinary Output in Critically Ill Patients Data : 11/09/21 05:07 11/09/21 05:07 Micro: Microbiology 11/08/21 10:00 Blood Culture - Preliminary Blood NEGATIVE TO DATE 11/08/21 09:50 Blood Culture - Preliminary Blood A&P Assessment and plan (1) Orthopnea: Severe orthopnea, suspect decompensated diastolic congestive heart failure, with significant lower extremity edema. True EF unknown, grossly normal systolic function on TTE in August 2021. Technically very limited study without other details. Noted left atrial enlargement. Trace TVR. Continue diuresis. Monitor I&O. Oxygen support. (2) Wheezing: Acute bronchitis, reactive airways with COVID-19 infection. She is very uncomfortable, easily dyspneic. Unable to lay back, limited functionally with dyspnea. Continue Decadron, scheduled nebs. Inhaled steroid. Add antitussives. Decongestant. (3) COVID: Continue Decadron, remdesivir Patient has had symptoms for 2 days prior to admit. Hypoxia showing some gradual improvement. Elevated D-dimer. Continue Lovenox VT prophylaxis. Could not lie down for CTA with severe orthopnea. Continue Lasix. Add antitussive, decongestant. Incentive spirometry, Acapella (4) Hypoxia: Titrate oxygen as tolerated (5) Chest pain: Check troponin, BNP Note recent echo was done, EF grossly normal but difficult study As dimer is elevated checking venous duplex. Venous duplex without DVT although limited due to body habitus. Could not lie down for CTA. Continues on prophylactic Lovenox. D-dimer does appear to be decreasing. (6) UTI (urinary tract infection): Ciprofloxacin. Follow-up urine culture. Plan Multiple other medical problems as outlined in past medical history Attestations Medical Necessity Statement*: Continue admission for management of severe COVID-19 suspected decompensated diastolic congestive heart failure, bronchitis, UTI. 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
[2021-11-09 16:10] LABS: Bacillus cereus group Not Detected (NOT DETECT); Bacillus subtillis group Not Detected (NOT DETECT); Corynebacterium Not Detected (NOT DETECT); Cutibacterium acnes (P.acnes) Not Detected (NOT DETECT); Enterococcus Not Detected (NOT DETECT); Enterococcus faecalis Not Detected (NOT DETECT); Enterococcus faecium Not Detected (NOT DETECT); Lactobacillus species Not Detected (NOT DETECT); Listeria Not Detected (NOT DETECT); Listeria monocytogenes Not Detected (NOT DETECT); Micrococcus Not Detected (NOT DETECT); Pan Candida Not Detected (NOT DETECT); Pan Gram-Negative Not Detected (NOT DETECT); Staphylococcus epidermidis Detected (NOT DETECT); Staphylococcus lugdunensis Not Detected (NOT DETECT); Staphylococcus species Detected (NOT DETECT); Streptococcus agalactiae Not Detected (NOT DETECT); Streptococcus anginosus group Not Detected (NOT DETECT); Streptococcus pneumoniae Not Detected (NOT DETECT); Streptococcus pyogenes Not Detected (NOT DETECT); Streptococcus species Not Detected (NOT DETECT); mecA Detected (NOT DETECT); mecC Not Detected (NOT DETECT)
[2021-11-10] VITALS (14 sets, daily range): BP systolic 146–174; BP diastolic 54–74; PULSE 68–82; RESP 15–23; TEMP 36.5–36.8; O2SAT 15–99
[2021-11-10] MEDS: ipratropium-albuterol 3 mL Neb INHALATION ×6 (00:11→20:21)
[2021-11-10] MEDS: FUROsemide 10 mg/mL SDV 4mL 40 MG IVP ×2 (00:25→13:30)
[2021-11-10] MEDS: guaiFENesin-dextromethorphan UDC 10 mL PO (00:37)
[2021-11-10] MEDS: enoxaparin 40 mg/0.4 mL Syringe SUBCUT ×2 (03:15→15:13)
[2021-11-10 04:23] LABS: Basophils % 0.2 %; Hematocrit 32.7 % (37.0-47.0); Hemoglobin 10.1 g/dL (11.5-15.3); Lymphocytes # 1.4 10^3/uL (0.8-4.8); Lymphocytes % 28.2 %; Mean Corpuscular HGB Conc 30.9 g/dL (30.0-36.0); Mean Corpuscular Hemoglobin 28.1 pg (28.0-34.0); Mean Corpuscular Volume 90.8 fl (81-99); Mean Platelet Volume 9.7 fL (7.4-10.4); Monocytes # 0.6 10^3/uL (0.2-0.9); Monocytes % 12.2 %; Neutrophils # 2.92 10^3/uL (1.8-7.7); Neutrophils % 59.2 %; Nucleated Red Blood Cells % 0 %; Platelet Count 154 10^3/cmm (130-400); White Blood Count 4.9 10^3/uL (4.0-10.0)
[2021-11-10 04:37] LABS: D Dimer 1.02 ug/mIFEU (0-0.59)
[2021-11-10 04:50] LABS: Alanine Aminotransferase 8 U/L (0-33); Albumin Level 3.3 g/dL (3.5-5.2); Alkaline Phosphatase 50 U/L (35-105); Anion Gap 14.9 (5-19); Aspartate Amino Transferase 14 U/L (0-32); Blood Urea Nitrogen 21 mg/dL (8-23); Calcium 8.3 mg/dL (8.5-10.5); Carbon Dioxide 30 mmol/L (22-29); Chloride 103 mmol/L (98-107); Globulin 3.4 g/dL (1.3-4.6); Glucose 125 mg/dL (65-115); Osmolality Calculated 302 mOsm/kg (285-295); Potassium 3.9 mmol/L (3.5-5.1); Sodium 144 mmol/L (136-145); Total Bilirubin 0.3 mg/dL (0.15-1.2); Total Protein 6.7 g/dL (6.6-8.7)
[2021-11-10] MEDS: remdesivir 100 MG in sodium chloride 0.9% (100 ml) 80 ML IV (06:00)
[2021-11-10] MEDS: budesonide 0.5 mg/2 mL Neb INHALATION ×2 (08:09→20:20)
[2021-11-10] MEDS: dexamethasone 10 mg/mL INJ 6 MG IVP (09:53)
[2021-11-10] MEDS: famotidine 20 mg Tablet PO ×2 (09:55→17:51)
[2021-11-10] MEDS: PARoxetine 20 mg Tablet 10 MG PO (09:55)
[2021-11-10] MEDS: levothyroxine 25 mcg Tablet PO (09:55)
[2021-11-10] MEDS: ciprofloxacin 500 mg Tablet PO ×2 (09:58→21:21)
[2021-11-10] MEDS: losartan 50 mg Tablet PO (09:58)
--- NOTE | 2021-11-10 15:42 | P.PN_ITS ---
Subjective Subjective: She still gets easily dyspneic, coughs, sinuses slightly better, but still congested, running. Lower extremity edema improving. Still cannot lie flat. No vomiting. Vitals/I&O/Wt Last Vital Signs Temp 98.3 F 11/10/21 12:27 Pulse 72 11/10/21 15:40 Resp 16 11/10/21 15:34 BP 160/70 11/10/21 12:27 Pulse Ox 96 11/10/21 15:34 O2 Del Method 11/10/21 15:34 O2 Flow Rate 1.5 11/10/21 15:34 11/10/21 11/10/21 11/10/21 06:59 14:59 22:59 Intake Total 360 / 360 Balance 360 / 360 Weight last 48 hrs Weight 161.343 kg Physical Exam Narrative: Sitting up in bed Const: COMMON NORMALS: patient oriented x3 and alert GENERAL APPEARANCE: cooperative and ill appearing NUTRITIONAL APPEARANCE: obese morbidly obese ORIENTATION/CONSCIOUSNESS: Yes awake OTHER: Nasal voice, coughing, sneezing. HENMT: COMMON NORMALS: oropharynx normal Neck/C-Spine: COMMON NORMALS: no JVD Resp: AUSCULTATION: wheezes and diminished lung sounds Cardio: COMMON NORMALS: no JVD, regular rhythm, S1 normal heart sound present, S2 normal heart sound present and No murmurs present (Cardio) RHYTHM: regular rhythm HEART SOUNDS: S1 normal heart sound present and S2 normal heart sound present GI: COMMON NORMALS: Normal to inspection, nondistended, normoactive bowel sounds present, Soft to palpation and non-tender PALPATION: Yes Soft to palpation Extremity: COMMON NORMALS: no joint enlargement GENERAL: Yes edema (Improving edema, not as tense. Currently down to 2+.) OTHER: Compression wraps Neuro: COMMON NORMALS: patient oriented x3 and moves all extremities SENSORIUM/ORIENTATION: Yes alert Skin: COMMON NORMALS: no rashes or lesions noted GENERAL SKIN EXAM: no rashes or lesions noted Urinary Catheter Management: Rodriguez: Cath Placed During This Visit: no Reason for Continuing Indwelling Catheter: Other Data : 11/10/21 04:10 11/10/21 04:10 Micro: Microbiology 11/08/21 09:50 Blood Culture - Preliminary Blood 11/08/21 22:30 Urine Culture - Preliminary Urine,Clean Catch Gram Negative Rods A&P Assessment and plan (1) Orthopnea: Still significant orthopnea, although lower extremity edema appears to be improving. She is in negative balance, producing good amount of urine. Still cannot lie down flat for CTA. Continue IV diuretics, I&O monitoring, monitor weights. Severe orthopnea, suspect decompensated diastolic congestive heart failure, with significant lower extremity edema. True EF unknown, grossly normal systolic function on TTE in August 2021. Technically very limited study without other details. Noted left atrial enlargement. Trace TVR. Continue diuresis. Monitor I&O. Oxygen support. (2) Wheezing: Improving. Acute bronchitis, reactive airways with COVID-19 infection. She is v miracle uncomfortable, easily dyspneic. Unable to lay back, limited functionally with dyspnea. Continue Decadron, scheduled nebs. Inhaled steroid. Add antitussives. Decongestant. (3) COVID: Continue Decadron, remdesivir Patient has had symptoms for 2 days prior to admit. Hypoxia showing some gradual improvement. Elevated D-dimer. Continue Lovenox VT prophylaxis. Could not lie down for CTA with severe orthopnea. Continue Lasix. Add antitussive, decongestant. Incentive spirometry, Acapella (4) Hypoxia: Titrate oxygen as tolerated (5) Chest pain: Check troponin, BNP Note recent echo was done, EF grossly normal but difficult study As dimer is elevated checking venous duplex. Venous duplex without DVT although limited due to body habitus. Could not lie down for CTA. Continues on prophylactic Lovenox. D-dimer does appear to be decreasing. (6) UTI (urinary tract infection): Ciprofloxacin. Follow-up urine culture. So far neuro gram-negative rods. Plan Multiple other medical problems as outlined in past medical history Attestations Medical Necessity Statement*: Continue admission for assessment of management of acute diastolic CHF, severe COVID-19, bronchitis, UTI. Coding Level of Care Code Acute Tray Filler for [facility] Diagnoses Orthopnea R06.01 Wheezing R06.2 COVID U07.1 Hypoxia R09.02 Chest pain R07.9 UTI (urinary tract infection) N39.0
[2021-11-11] VITALS (19 sets, daily range): BP systolic 145–181; BP diastolic 69–84; PULSE 65–94; RESP 16–20; TEMP 36.5–36.8; O2SAT 90–98
[2021-11-11] MEDS: FUROsemide 10 mg/mL SDV 4mL 40 MG IVP ×3 (00:05→23:32)
[2021-11-11] MEDS: ipratropium-albuterol 3 mL Neb INHALATION ×6 (00:26→20:27)
[2021-11-11 02:20] LABS: Basophils % 0.2 %; Hematocrit 35.4 % (37.0-47.0); Hemoglobin 10.6 g/dL (11.5-15.3); Lymphocytes # 1.7 10^3/uL (0.8-4.8); Lymphocytes % 30.6 %; Mean Corpuscular HGB Conc 29.9 g/dL (30.0-36.0); Mean Corpuscular Hemoglobin 27.4 pg (28.0-34.0); Mean Corpuscular Volume 91.5 fl (81-99); Mean Platelet Volume 9.7 fL (7.4-10.4); Monocytes # 0.6 10^3/uL (0.2-0.9); Monocytes % 10.9 %; Neutrophils % 57.9 %; Nucleated Red Blood Cells % 0 %; Platelet Count 165 10^3/cmm (130-400); Red Blood Count 3.87 10^6/uL (4.1-5.3); Red Cell Distribution Width 15.1 % (12.1-15.1); White Blood Count 5.7 10^3/uL (4.0-10.0)
[2021-11-11 02:40] LABS: Alanine Aminotransferase 9 U/L (0-33); Albumin Level 3.3 g/dL (3.5-5.2); Alkaline Phosphatase 55 U/L (35-105); Anion Gap 14.9 (5-19); Aspartate Amino Transferase 16 U/L (0-32); Blood Urea Nitrogen 28 mg/dL (8-23); Calcium 8.4 mg/dL (8.5-10.5); Carbon Dioxide 30 mmol/L (22-29); Chloride 100 mmol/L (98-107); Globulin 3.8 g/dL (1.3-4.6); Glucose 162 mg/dL (65-115); Magnesium 1.7 mg/dL (1.7-2.3); Osmolality Calculated 301 mOsm/kg (285-295); Potassium 3.9 mmol/L (3.5-5.1); Sodium 141 mmol/L (136-145); Total Bilirubin 0.2 mg/dL (0.15-1.2); Total Protein 7.1 g/dL (6.6-8.7)
[2021-11-11] MEDS: enoxaparin 40 mg/0.4 mL Syringe SUBCUT ×2 (02:53→16:08)
[2021-11-11] MEDS: remdesivir 100 MG in sodium chloride 0.9% (100 ml) 80 ML IV (05:21)
[2021-11-11] MEDS: budesonide 0.5 mg/2 mL Neb INHALATION ×2 (08:17→20:27)
[2021-11-11] MEDS: PARoxetine 20 mg Tablet 10 MG PO (09:27)
[2021-11-11] MEDS: levothyroxine 25 mcg Tablet PO (09:29)
[2021-11-11] MEDS: ciprofloxacin 500 mg Tablet PO ×2 (09:29→21:11)
[2021-11-11] MEDS: famotidine 20 mg Tablet PO ×2 (09:30→17:59)
[2021-11-11] MEDS: losartan 50 mg Tablet PO (09:30)
[2021-11-11] MEDS: dexamethasone 10 mg/mL INJ 6 MG IVP (09:30)
--- NOTE | 2021-11-11 12:33 | CT_ITS ---
WS: [id number] CTA OF THE CHEST WITH PULMONARY EMBOLISM PROTOCOL TECHNIQUE: High-resolution contrast enhanced CTA of the chest with coronal and sagittal reformatted i mages with pulmonary embolism protocol. MIP images are also reviewed. CLINICAL INFORMATION: sob COMPARISON: None. DLP: 521.[address] scans at [facility] use at least one of these dose optimization techniques: automated e xposure control; mA and/or kV adjustment per patient size (includes targeted exams where dose is matc hed to clinical indication); or iterative reconstruction. FINDINGS: Proximal main pulmonary arteries are normal. Segmental and subsegmental pulmonary arteries appear pat ent. No evidence of pulmonary embolus. Moderate chronic emphysematous changes. No focal consolidation. Slight subsegmental atelectasis in th e lung bases. Cardiomegaly. Pericardial cyst. Pericardial cyst measures 3.7 x 3.3 cm along the RIGHT cardiophrenic angle. Mild thoracic kyphosis. Anterior hypertrophic changes thoracic spine. Small esophageal hiatal hernia. No axillary lymphadenopathy. Adrenal glands are normal. Fatty atrophy of the pancreas. CT/CT angio chest PE protcl [id number] IMPRESSION: 1. No evidence of pulmonary embolus. 2. Slight subsegmental atelectasis in the lung bases. 3. No focal pneumonia or pleural fluid. 4. Cardiomegaly with small RIGHT cardiophrenic angle pericardial cyst. 5. Small esophageal hiatal hernia.
--- NOTE | 2021-11-11 13:54 | P.PN_ITS ---
Subjective Subjective: Patient was seen this morning, she sitting up in a chair, she tells me she feels a lot better, still having a cough, she thinks that she can lie down for the CT of the chest that we have ordered, overall she does feel better, currently on room air, Vitals/I&O/Wt Last Vital Signs Temp 98.3 F 11/11/21 12:00 Pulse 71 11/11/21 12:00 Resp 18 11/11/21 11:22 BP 173/84 11/11/21 12:00 Pulse Ox 91 11/11/21 12:00 O2 Del Method 11/11/21 12:00 O2 Flow Rate 1.5 11/10/21 21:00 11/10/21 11/11/21 11/11/21 22:59 06:59 14:59 Intake Total 440 / 1140 1030 / 2170 236 / 236 Output Total 3900 / 3900 Balance 440 / 1140 -2870 / -1730 236 / 236 Weight last 48 hrs Weight 1562.626 kg Physical Exam Const: COMMON NORMALS: no acute distress and patient oriented x3 Resp: COMMON NORMALS: normal respiratory effort, No retractions, No use of accessory muscles and clear to auscultation bilaterally AUSCULTATION: clear to auscultation bilaterally Cardio: COMMON NORMALS: regular rate, regular rhythm, S1 normal heart sound present and S2 normal heart sound present RATE: regular rate RHYTHM: regular rhythm HEART SOUNDS: S1 normal heart sound present and S2 normal heart sound present GI: COMMON NORMALS: Normal to inspection, nondistended, normoactive bowel sounds present and non-tender Extremity: NARRATIVE EXTREMITY EXAM: 1+ pitting edema Neuro: COMMON NORMALS: patient oriented x3 Psych: COMMON NORMALS: mental status grossly normal Urinary Catheter Management: Rodriguez: Cath Placed During This Visit: yes Reason for Continuing Indwelling Catheter: Accurate Measurement of Urinary Output in Critically Ill Patients Urinary Catheter Date of Insertion: 12/08/21 Urinary Catheter Time of Insertion: 20:30 Data : 11/11/21 02:01 11/11/21 02:01 Micro: Microbiology 11/08/21 09:50 Blood Culture - Preliminary Blood A&P Assessment and plan (1) Orthopnea: Orthopnea resolving, although lower extremity edema appears to be improving. She is in negative balance, producing good amount of urine. Still cannot lie down flat for CTA. Continue IV diuretics, I&O monitoring, monitor weights. Severe orthopnea, suspect decompensated diastolic congestive heart failure, with significant lower extremity edema. True EF unknown, grossly normal systolic function on TTE in August 2021. Technically very limited study without other details. Noted left atrial enlargement. Trace TVR. Continue diuresis. Monitor I&O. Oxygen support. (2) Wheezing: Improving. Acute bronchitis, reactive airways with COVID-19 infection. She is very uncomfortable, easily dyspneic. Unable to lay back, limited functionally with dyspnea. Continue Decadron, scheduled nebs. Inhaled steroid. Add antitussives. Decongestant. (3) COVID: Continue Decadron, remdesivir Patient has had symptoms for 2 days prior to admit. Hypoxia showing some gradual improvement. Elevated D-dimer. Continue Lovenox VT prophylaxis. Plan on CT angiogram today continue Lasix. Add antitussive, decongestant. Incentive spirometry, Acapella (4) Hypoxia: Titrate oxygen as tolerated (5) Chest pain: Check troponin, BNP Note recent echo was done, EF grossly normal but difficult study As dimer is elevated checking venous duplex. Venous duplex without DVT although limited due to body habitus. Could not lie down for CTA. Continues on prophylactic Lovenox. D-dimer does appear to be decreasing. (6) UTI (urinary tract infection): Ciprofloxacin. Follow-up urine culture. So far neuro gram-negative rods. Plan Multiple other medical problems as outlined in past medical history Attestations Medical Necessity Statement*: Patient requires hospitalization for COVID-19, pyelonephritis edema, fluid overload Coding Level of Care Code Acute Patient Care Manager for [facility] Fwd Diagnoses Orthopnea R06.01 Wheezing R06.2 COVID U07.1 Hypoxia R09.02 Chest pain R07.9 UTI (urinary tract infection) N39.0
[2021-11-11] MEDS: iohexol 350 mg/mL 100 mL Btl IV (15:36)
[2021-11-11] MEDS: magnesium sulfate premix 4 GM/100 ML PREMIX IV (16:11)
[2021-11-12] VITALS (8 sets, daily range): BP systolic 147–162; BP diastolic 62–72; PULSE 63–84; RESP 16–19; TEMP 36.6–36.7; O2SAT 92–95
[2021-11-12] MEDS: ipratropium-albuterol 3 mL Neb INHALATION ×2 (00:01→08:18)
[2021-11-12] MEDS: enoxaparin 40 mg/0.4 mL Syringe SUBCUT (02:36)
[2021-11-12 05:06] LABS: Basophils % 0.2 %; Hematocrit 34.6 % (37.0-47.0); Hemoglobin 10.3 g/dL (11.5-15.3); Lymphocytes # 2.4 10^3/uL (0.8-4.8); Lymphocytes % 37.6 %; Mean Corpuscular HGB Conc 29.8 g/dL (30.0-36.0); Mean Corpuscular Hemoglobin 27.2 pg (28.0-34.0); Mean Corpuscular Volume 91.3 fl (81-99); Mean Platelet Volume 9.7 fL (7.4-10.4); Monocytes # 0.7 10^3/uL (0.2-0.9); Monocytes % 10.4 %; Neutrophils # 3.22 10^3/uL (1.8-7.7); Neutrophils % 51.3 %; Nucleated Red Blood Cells % 0 %; Platelet Count 177 10^3/cmm (130-400); Red Blood Count 3.79 10^6/uL (4.1-5.3); White Blood Count 6.3 10^3/uL (4.0-10.0)
[2021-11-12 05:15] LABS: D Dimer 1.06 ug/mIFEU (0-0.59)
[2021-11-12 05:26] LABS: Alanine Aminotransferase 16 U/L (0-33); Albumin Level 3.7 g/dL (3.5-5.2); Alkaline Phosphatase 52 U/L (35-105); Anion Gap 13.5 (5-19); Aspartate Amino Transferase 22 U/L (0-32); Blood Urea Nitrogen 28 mg/dL (8-23); C Reactive Protein 17.1 mg/L (0.0-4.9); Calcium 8.4 mg/dL (8.5-10.5); Carbon Dioxide 34 mmol/L (22-29); Chloride 97 mmol/L (98-107); Globulin 2.9 g/dL (1.3-4.6); Glucose 151 mg/dL (65-115); Magnesium 2.1 mg/dL (1.7-2.3); Osmolality Calculated 300 mOsm/kg (285-295); Potassium 3.5 mmol/L (3.5-5.1); Sodium 141 mmol/L (136-145); Total Bilirubin 0.2 mg/dL (0.15-1.2); Total Protein 6.6 g/dL (6.6-8.7)
[2021-11-12] MEDS: remdesivir 100 MG in sodium chloride 0.9% (100 ml) 80 ML IV (05:39)
[2021-11-12] MEDS: budesonide 0.5 mg/2 mL Neb INHALATION (08:18)
[2021-11-12] MEDS: levothyroxine 25 mcg Tablet PO (10:20)
[2021-11-12] MEDS: losartan 50 mg Tablet PO (10:20)
[2021-11-12] MEDS: famotidine 20 mg Tablet PO (10:21)
[2021-11-12] MEDS: PARoxetine 20 mg Tablet 10 MG PO (10:21)
[2021-11-12] MEDS: dexamethasone 10 mg/mL INJ 6 MG IVP (10:22)
[2021-11-12] MEDS: ciprofloxacin 500 mg Tablet PO (10:25)
--- NOTE | 2021-11-12 12:26 | P.DS_ITS ---
Discharge Providers Date of Admission: 11/09/21 16:03 Date of Discharge: November 12, 2021 Attending Provider at Admission: Kian Mtz MD Attending Provider at Discharge: Blayne Camacho MD Primary Care Provider: Eduardo Flynn MD Diagnoses at Discharge Discharge Diagnosis (1) Orthopnea: Status: Acute (2) Wheezing: Status: Acute (3) COVID: Status: Acute (4) Hypoxia: Status: Acute (5) Chest pain: Status: Acute (6) UTI (urinary tract infection): Status: Acute Reason for Visit Reason for Visit: COVID +/ SOB Hospital Course Hospital Course This is a 71-year-old female with a past medical history of obesity, hypothyroidism, hypertension who presents to [facility] due to shortness of breath, lower extremity edema Patient was admitted to [facility] for COVID-19 pneumonia, with fluid overload, likely diastolic CHF, with bilateral extremity edema. She also was found to have UTI. She received remdesivir therapy steroid therapy nebulizer therapy, antibiotic therapy, and diuretic therapy during her hospitalization. She was diuresed over 8 L, clinically improved, onto room air, ambulatory without any significant symptomatology. For COVID-19 pneumonia, she clinically improved, to room air, discharged on albuterol, Advair. In terms of her hypercoagulability prophylaxis, she did not have any evidence of DVT or PE on imaging. However given her obesity, she is at increased risk of hypercoagulability events, after discussing the risks and benefits of anticoagulation, after shared decision-making, decision was made to hold off on anticoagulation for the time being. She was agreeable to aspirin 81 mg once daily, advised to continue to remain ambulatory and monitor for symptoms of hypercoagulability events and if so go to the emergency room. Continue to self isolate, socially distance, facemask, handwashing, for at least 21 days from symptom onset For fluid overload, discharged on Lasix 40 mg once daily with potassium replacement therapy. She is also to follow-up with cardiology as outpatient follow-up with primary care provider for recheck kidney function in 1 week. Patient was advised if she develops further lower extremity edema or shortness of breath, she can increase her Lasix to 40 twice daily with potassium 10 mg twice daily for 3 days, to hopefully prevent readmission, however if she continues to have lower extremity edema and shortness of breath to come back to the emergency room. Try to limit fluid intake between 1 to 2 L. UTI discharged on Cipro for 2 remaining days Physical Exam Const: COMMON NORMALS: no acute distress and patient oriented x3 Resp: COMMON NORMALS: normal respiratory effort, No retractions, No use of accessory muscles and clear to auscultation bilaterally AUSCULTATION: clear to auscultation bilaterally Cardio: COMMON NORMALS: regular rate, regular rhythm, S1 normal heart sound present and S2 normal heart sound present RATE: regular rate RHYTHM: r egular rhythm HEART SOUNDS: S1 normal heart sound present and S2 normal heart sound present GI: COMMON NORMALS: Normal to inspection, nondistended, normoactive bowel sounds present and non-tender Extremity: COMMON NORMALS: no pedal edema Neuro: COMMON NORMALS: patient oriented x3 Psych: COMMON NORMALS: mental status grossly normal Urinary Catheter Management: Rodriguez: Cath Placed During This Visit: yes Reason for Continuing Indwelling Catheter: Other Urinary Catheter Date of Insertion: 12/08/21 Urinary Catheter Time of Insertion: 20:30 Discharge Data Studies Completed and Pending Completed Studies During Hospitalization Category Date Time Status CT angio chest PE protcl [id number] Routine Cat Scan 11/11/21 12:33 Completed XR chest 1V portable [id number] Stat Exams 11/08/21 12:22 Completed US venous duplex lower extremity bilat [CV venous Ultrasound 11/08/21 11:09 [place] [id number]] Routine Pending at discharge Category Date Time Status Blood Culture Stat Lab 11/08/21 10:00 Results Blood Culture Stat Lab 11/12/21 09:20 Results C Reactive Protein AM LABS Lab 11/13/21 04:00 Ordered C Reactive Protein AM LABS Lab 11/14/21 04:00 Ordered Magnesium AM LABS Lab 11/13/21 04:00 Ordered Magnesium AM LABS Lab 11/14/21 04:00 Ordered Radiology Impressions Chest X-Ray 11/08/21 12:22 IMPRESSION: 1. Mild groundglass infiltrate in the right base suspicious for pneumonia. 2. Mild cardiac enlargement unchanged. Chest CTA 11/11/21 12:33 IMPRESSION: 1. No evidence of pulmonary embolus. 2. Slight subsegmental atelectasis in the lung bases. 3. No focal pneumonia or pleural fluid. 4. Cardiomegaly with small RIGHT cardiophrenic angle pericardial cyst. 5. Small esophageal hiatal hernia. Laboratory Results WBC 6.3 10^3/uL (4.0-10.0) 11/12/21 04:17 RBC 3.79 10^6/uL (4.1-5.3) L 11/12/21 04:17 Hgb 10.3 g/dL (11.5-15.3) L 11/12/21 04:17 Hct 34.6 % (37.0-47.0) L 11/12/21 04:17 MCV 91.3 fl (81-99) 11/12/21 04:17 MCH 27.2 pg (28.0-34.0) L 11/12/21 04:17 MCHC 29.8 g/dL (30.0-36.0) L 11/12/21 04:17 RDW 15.0 % (12.1-15.1) 11/12/21 04:17 Plt Count 177 10^3/cmm (130-400) 11/12/21 04:17 MPV 9.7 fL (7.4-10.4) 11/12/21 04:17 Neut % (Auto) 51.3 % 11/12/21 04:17 Lymph % (Auto) 37.6 % 11/12/21 04:17 [place] % (Auto) 10.4 % 11/12/21 04:17 Eos % (Auto) 0.0 % 11/12/21 04:17 Baso % (Auto) 0.2 % 11/12/21 04:17 Neut # (Auto) 3.22 10^3/uL (1.8-7.7) 11/12/21 04:17 Lymph # (Auto) 2.4 10^3/uL (0.8-4.8) 11/12/21 04:17 [place] # (Auto) 0.7 10^3/uL (0.2-0.9) 11/12/21 04:17 Eos # (Auto) 0.0 10^3/uL (0.0-0.8) 11/12/21 04:17 Baso # (Auto) 0.0 10^3/uL (0.0-0.1) 11/12/21 04:17 Nucleated RBC % (auto) 0 % 11/12/21 04:17 Nucleated RBCs # 0.0 /100WBC 11/12/21 04:17 D-Dimer 1.06 ug/mIFEU (0-0.59) H 11/12/21 04:17 Specimen Type Arterial 11/08/21 09:30 Sample Site Radial, right 11/08/21 09:30 ABG pH 7.42 (7.35-7.45) 11/08/21 09:30 ABG pCO2 40.6 mmHg (35-45) 11/08/21 09:30 ABG pO2 121.0 mmHg (80.0-100.0) H 11/08/21 09:30 ABG HCO3 26.1 mmol/L (22-26) H 11/08/21 09:30 ABG O2 Saturation 99.8 11/08/21 09:30 ABG Base Excess 1.4 mmol/L (-2.0-2.0) 11/08/21 09:30 Karan Test Pos 11/08/21 09:30 A-a O2 Gradient 11.1 mmHg (5-10) H 11/08/21 09:30 Hematocrit 34.9 % (37-47) L 11/08/21 09:30 Hgb O2 Saturation 97.4 % (95-100) 11/08/21 09:30 Carboxyhemoglobin 1.7 %THgb (0.4-20.1) 11/08/21 09:30 Methemoglobin 0.7 % (0.4-1.5) 11/08/21 09:30 Total Hemoglobin 11.4 g/dL (12-16) L 11/08/21 09:30 Sodium 140.0 mmol/L (131-143) 11/08/21 09:30 Potassium 3.5 mmol/L (3.5-5.0) 11/08/21 09:30 Glucose 98.0 mg/dL (70-115) 11/08/21 09:30 Ionized Calcium 1.1 mmol/L (1.1-1.4) 11/08/21 09:30 O2 Delivery Device Nc 11/08/21 09:30 O2 Liters/Min 4.0 % 11/08/21 09:30 FiO2 36.0 % 11/08/21 09:30 [employer] Grader ID Gd 11/08/21 09:30 Sodium 141 mmol/L (136-145) 11/12/21 04:17 Potassium 3.5 mmol/L (3.5-5.1) 11/12/21 04:17 Chloride 97 mmol/L (98-107) L 11/12/21 04:17 Carbon Dioxide 34 mmol/L (22-29) H 11/12/21 04:17 Anion Gap 13.5 (5-19) 11/12/21 04:17 BUN 28 mg/dL (8-23) H 11/12/21 04:17 Creatinine 1.0 mg/dL (0.5-0.9) H 11/12/21 04:17 GFR Calculation Not Reportable 11/12/21 04:17 Glucose 151 mg/dL (65-115) H 11/12/21 04:17 Calculated Osmolality 300 mOsm/kg (285-295) H 11/12/21 04:17 Calcium 8.4 mg/dL (8.5-10.5) L 11/12/21 04:17 Magnesium 2.1 mg/dL (1.7-2.3) 11/12/21 04:17 Total Bilirubin 0.2 mg/dL (0.15-1.2) 11/12/21 04:17 AST 22 U/L (0-32) 11/12/21 04:17 ALT 16 U/L (0-33) 11/12/21 04:17 Alkaline Phosphatase 52 U/L (35-105) 11/12/21 04:17 Troponin T Gen 5 ng/L 23 ng/L (0-10) H 11/08/21 09:50 C-Reactive Protein 17.1 mg/L (0.0-4.9) H 11/12/21 04:17 NT-Pro-B Natriuret Pep 8062 pg/mL (0-125) H 11/08/21 09:50 Total Protein 6.6 g/dL (6.6-8.7) 11/12/21 04:17 Albumin 3.7 g/dL (3.5-5.2) 11/12/21 04:17 Globulin 2.9 g/dL (1.3-4.6) 11/12/21 04:17 Procalcitonin 0.08 ng/mL (0-0.5) 11/08/21 09:50 Urine Color Yellow (Yellow) 11/08/21 22:30 Urine Appearance Clear (CLEAR) 11/08/21 22:30 Urine pH 5.0 (5-7) 11/08/21 22:30 Ur Specific [place] 1.020 (1.005-1.030) 11/08/21 22:30 Urine Protein Negative (Negative) 11/08/21 22:30 Urine Glucose (UA) Negative (Normal) 11/08/21 22:30 Urine Ketones Negative (Negative) 11/08/21 22:30 Urine Blood Negative (Negative) 11/08/21 22:30 Urine Nitrate Positive 11/08/21 22:30 Urine Bilirubin Negative (Negative) 11/08/21 22: Urine Urobilinogen 0.2 mg/dL (Negative) 11/08/21 22:30 Ur Leukocyte Esterase 1+ (Negative) A 11/08/21 22:30 Urine RBC 0-4 /hpf (0-2) H 11/08/21 22:30 Urine WBC 25-40 /hpf (0-5) H 11/08/21 22:30 Ur Squamous Epith Cells 5-10 /hpf (0-5) H 11/08/21 22:30 Amorphous Sediment Not Reportable 11/08/21 22: Urine Bacteria 4+ /hpf (NONE) H 11/08/21 22:30 Vitals Last Vital Signs Temp 98.1 F 11/12/21 11:40 Pulse 65 11/12/21 11:40 Resp 17 11/12/21 11:40 BP 158/62 11/12/21 11:40 Pulse Ox 92 11/12/21 11:40 O2 Del Method 11/12/21 11:40 O2 Flow Rate 1.5 11/10/21 21:00 Discharge Plan Discharge Patient Disposition: Home Condition: Stable Prescriptions: New ciprofloxacin HCl 500 mg Tablet 500 mg PO BID@0900,2100 2 Days Qty: 4 0RF potassium chloride [Klor-Con 10] 10 mEq tablet extended release 10 meq PO DAILY 30 Days Qty: 30 0RF albuterol sulfate 90 mcg/actuation HFA aerosol inhaler 1 inh inhalation Q6H PRN (Reason: shortness of breath or wheezing) Qty: 8.5 0RF benzonatate 100 mg capsule 100 mg PO TID PRN (Reason: cough) 7 Days Qty: 21 0RF fluticasone propion-salmeterol [Advair Diskus] 100-50 mcg/dose blister with device 1 inh inhalation BID Qty: 60 0RF furosemide [Lasix] 40 mg tablet 40 mg PO DAILY 30 Days Qty: 30 0RF aspirin 81 mg capsule 81 mg PO DAILY 30 Days Qty: 30 0RF Continued gentamicin 0.1 % ointment 1 applic topical BID Qty: 30 0RF paroxetine HCl 10 mg Tablet 10 mg PO DAILY levothyroxine 25 mcg tablet 25 mcg PO DAILY irbesartan 150 mg tablet 150 mg PO DAILY Discharge Orders: Discharge Order (Routine); Ordered 11/12/21 Ordered By: Blayne Camacho Referrals: Eduardo Flynn MD [Primary Care Provider] - Nneka Freedman MD [Physician] - 6 Weeks ([facility]) Discharge Diet: Cardiac Discharge Activity: Resume usual activity Patient Instructions: Opioid Safety Activity Restrictions/Additional Instructions: - For your COVID-19 pneumonia, continue to self isolate, socially distance, facemask, hand wash -You are at increased risk of developing blood clots, please continue to ambulate, if you develop calf pain or calf swelling or sudden onset shortness of breath or bloody cough go to the emergency room -Follow-up with your primary care provider in 1 week -Take Lasix as prescribed 40 mg once daily with potassium -If you develop worsening shortness of breath or lower extremity swelling you can increase Lasix 40 mg twice daily for 3 days with potassium replacement 10 mEq p.o. twice daily, but if you continue to feel shortness of breath go to the emergency room or see primary care -Take antibiotics for UTI Discharge Attestations Time Spent in Discharge Care*: less than 30 min Quality Metrics Clinical Quality Measures [ No reported AMI, CVA or VTE this stay] Coding Level of Care Code Acute Chg FW DC note Diagnoses Orthopnea R06.01 Wheezing R06.2 COVID U07.1 Hypoxia R09.02 Chest pain R07.9 UTI (urinary tract infection) N39.0
[2021-11-12] MEDS: FUROsemide 10 mg/mL SDV 4mL 40 MG IVP (13:15)
--- NOTE | 2021-11-12 17:30 | PC.NURSE ---
Discussed discharge with patient along with follow up appointments and new medications. Verbalized understanding
== END 2021-11-12 15:30 | disposition home or self-care (01) | DRG 177 ==
LOC: ER 09:45 → MEDSURG 14:56
PROVIDERS: Internal Medicine; Admitting Provider Internal Medicine; Emergency Provider Family Medicine; PCP Family Medicine; Visit Provider Family Medicine
DX: U07.1 COVID-19 (principal); I50.33 Acute on chronic diastolic (congestive) heart failure; J12.82 Pneumonia due to coronavirus disease 2019; N39.0 Urinary tract infection, site not specified; Z68.43 Body mass index [BMI] 50.0-59.9, adult; B96.20 Unspecified Escherichia coli [E. coli] as the cause of diseases classified elsewhere; E66.9 Obesity, unspecified; I11.0 Hypertensive heart disease with heart failure; E03.9 Hypothyroidism, unspecified; I73.9 Peripheral vascular disease, unspecified; Z87.891 Personal history of nicotine dependence; J20.9 Acute bronchitis, unspecified
CPT/HCPCS: 36415; 36600; 51702; 71045; 71275; 80051; 80053; 81001; 82330; 82805; 83735; 83880; 84145; 84484; 85025; 85378; 86140; 87040; 87077; 87086; 87150; 87186; 87205; 93005; 93970; 94640; 96365; 96372; 96375; 99285; G0378; J1100; J1650; J1940; J3475; J7626; Q9967

== ENCOUNTER 2021-12-30 12:19 | Outpatient (CLI) | payer MEDICARE, SELFPAY ==
--- NOTE | 2021-12-30 13:12 | MM_ITS ---
WS: [id number] BILATERAL 3D TOMOSYNTHESIS DIGITAL SCREENING MAMMOGRAPHY WITH CAD CLINICAL INFORMATION: SCREENING HISTORY: Screening mammogram. No current complaints. COMPARISON: February 17, 2019 TECHNIQUE: Bilateral CC and MLO views. FINDINGS: Scattered fibroglandular densities bilaterally. No suspicious focal mass, asymmetry, calcifications, or architectural distortion. No evidence of malignancy. MM/[place] [id number] IMPRESSION: BI-RADS: 1-Negative FOLLOW UP: 1 Year Follow-up Recommend return to annual screening mammography.
== END 2021-12-30 12:20 | disposition home or self-care (01) ==
LOC: RAD 12:19
PROVIDERS: PCP Family Medicine; Visit Provider Family Medicine
DX: Z12.31 Encounter for screening mammogram for malignant neoplasm of breast (principal)
CPT/HCPCS: 77063; 77067

== ENCOUNTER → 2022-01-15 13:49 | Outpatient (BNVA) | payer MEDICARE, SELFPAY | PROVIDERS: PCP Family Medicine; Visit Provider Thoracic Surgery (Cardiothoracic Vascular Surgery) | DX: I96 Gangrene, not elsewhere classified (principal); L97.522 Non-pressure chronic ulcer of other part of left foot with fat layer exposed; I87.2 Venous insufficiency (chronic) (peripheral); L97.822 Non-pressure chronic ulcer of other part of left lower leg with fat layer exposed | CPT/HCPCS: 97597; 99213; A6212 ×2 ==

== ENCOUNTER → 2022-01-22 14:30 | Outpatient (BNVA) | payer MEDICARE, SELFPAY | PROVIDERS: PCP Family Medicine; Visit Provider Thoracic Surgery (Cardiothoracic Vascular Surgery) | DX: Z09 Encounter for follow-up examination after completed treatment for conditions other than malignant neoplasm (principal); I96 Gangrene, not elsewhere classified; I89.0 Lymphedema, not elsewhere classified; L97.822 Non-pressure chronic ulcer of other part of left lower leg with fat layer exposed | CPT/HCPCS: 11042; A6252 ==

== ENCOUNTER → 2022-01-24 08:06 | Outpatient (BNVA) | payer MEDICARE, SELFPAY | PROVIDERS: PCP Family Medicine; Visit Provider Surgery | DX: L97.822 Non-pressure chronic ulcer of other part of left lower leg with fat layer exposed (principal) | CPT/HCPCS: 29581; A6252 ==

== ENCOUNTER → 2022-01-29 13:12 | Outpatient (BNVA) | payer MEDICARE, SELFPAY | PROVIDERS: PCP Family Medicine; Visit Provider Thoracic Surgery (Cardiothoracic Vascular Surgery) | DX: I89.0 Lymphedema, not elsewhere classified (principal); L97.822 Non-pressure chronic ulcer of other part of left lower leg with fat layer exposed | CPT/HCPCS: 97597; A6252 ==

== ENCOUNTER → 2022-02-05 13:35 | Outpatient (BNVA) | payer MEDICARE, SELFPAY | PROVIDERS: PCP Family Medicine; Visit Provider Surgery | DX: I89.0 Lymphedema, not elsewhere classified (principal); L97.822 Non-pressure chronic ulcer of other part of left lower leg with fat layer exposed | CPT/HCPCS: 11042; A6252 ==

== ENCOUNTER → 2022-02-12 14:35 | Outpatient (BNVA) | payer MEDICARE, SELFPAY | PROVIDERS: PCP Family Medicine; Visit Provider Thoracic Surgery (Cardiothoracic Vascular Surgery) | DX: I89.0 Lymphedema, not elsewhere classified (principal); L97.822 Non-pressure chronic ulcer of other part of left lower leg with fat layer exposed | CPT/HCPCS: 11042; A6021; A6253 ==

== ENCOUNTER → 2022-02-14 11:10 | Outpatient (BNVA) | payer MEDICARE, SELFPAY | PROVIDERS: PCP Family Medicine; Visit Provider Internal Medicine | DX: I73.9 Peripheral vascular disease, unspecified (principal); I89.0 Lymphedema, not elsewhere classified; I10 Essential (primary) hypertension; Z87.891 Personal history of nicotine dependence | CPT/HCPCS: 99214 ==

== ENCOUNTER → 2022-02-19 16:17 | Outpatient (BNVA) | payer MEDICARE, SELFPAY | PROVIDERS: PCP Family Medicine; Visit Provider Thoracic Surgery (Cardiothoracic Vascular Surgery) | DX: I89.0 Lymphedema, not elsewhere classified (principal); I96 Gangrene, not elsewhere classified; L97.822 Non-pressure chronic ulcer of other part of left lower leg with fat layer exposed | CPT/HCPCS: 11042; 97597; A6021; A6252 ==

== ENCOUNTER → 2022-02-26 15:49 | Outpatient (BNVA) | payer MEDICARE, SELFPAY | PROVIDERS: PCP Family Medicine; Visit Provider Thoracic Surgery (Cardiothoracic Vascular Surgery) | DX: I89.0 Lymphedema, not elsewhere classified (principal); I87.2 Venous insufficiency (chronic) (peripheral); L97.822 Non-pressure chronic ulcer of other part of left lower leg with fat layer exposed | CPT/HCPCS: 11042; 11045; 97597; A6252 ==

== ENCOUNTER → 2022-03-07 15:38 | Outpatient (BNVA) | payer MEDICARE, SELFPAY | PROVIDERS: PCP Family Medicine; Visit Provider Thoracic Surgery (Cardiothoracic Vascular Surgery) | DX: I89.0 Lymphedema, not elsewhere classified (principal); I87.2 Venous insufficiency (chronic) (peripheral); I96 Gangrene, not elsewhere classified; L97.822 Non-pressure chronic ulcer of other part of left lower leg with fat layer exposed | CPT/HCPCS: 97597; 97598; A6252 ==

== ENCOUNTER → 2022-03-14 15:04 | Outpatient (BNVA) | payer MEDICARE, SELFPAY | PROVIDERS: PCP Family Medicine; Visit Provider Thoracic Surgery (Cardiothoracic Vascular Surgery) | DX: I89.0 Lymphedema, not elsewhere classified (principal); I87.2 Venous insufficiency (chronic) (peripheral); L97.822 Non-pressure chronic ulcer of other part of left lower leg with fat layer exposed | CPT/HCPCS: 11042; 11045; 97597; A6021 ==

== ENCOUNTER → 2022-03-21 14:55 | Outpatient (BNVA) | payer MEDICARE, SELFPAY | PROVIDERS: PCP Family Medicine; Visit Provider Thoracic Surgery (Cardiothoracic Vascular Surgery) | DX: I96 Gangrene, not elsewhere classified (principal); I87.2 Venous insufficiency (chronic) (peripheral); L97.822 Non-pressure chronic ulcer of other part of left lower leg with fat layer exposed; Z09 Encounter for follow-up examination after completed treatment for conditions other than malignant neoplasm | CPT/HCPCS: 97597; A6021 ==

== ENCOUNTER → 2022-03-28 14:46 | Outpatient (BNVA) | payer MEDICARE, SELFPAY | PROVIDERS: PCP Family Medicine; Visit Provider Thoracic Surgery (Cardiothoracic Vascular Surgery) | DX: I96 Gangrene, not elsewhere classified (principal); I87.2 Venous insufficiency (chronic) (peripheral); L97.822 Non-pressure chronic ulcer of other part of left lower leg with fat layer exposed; L89.892 Pressure ulcer of other site, stage 2 | CPT/HCPCS: 97597; 97598; A6021; A6253 ==

== ENCOUNTER → 2022-03-31 16:28 | Outpatient (BNVA) | payer MEDICARE, SELFPAY | PROVIDERS: PCP Family Medicine; Visit Provider Thoracic Surgery (Cardiothoracic Vascular Surgery) | DX: I96 Gangrene, not elsewhere classified (principal); I87.2 Venous insufficiency (chronic) (peripheral); L97.822 Non-pressure chronic ulcer of other part of left lower leg with fat layer exposed; L89.892 Pressure ulcer of other site, stage 2 | CPT/HCPCS: 29581; A6021; A6252 ==

== ENCOUNTER → 2022-04-04 16:29 | Outpatient (BNVA) | payer MEDICARE, SELFPAY | PROVIDERS: PCP Family Medicine; Visit Provider Thoracic Surgery (Cardiothoracic Vascular Surgery) | DX: I96 Gangrene, not elsewhere classified (principal); I87.2 Venous insufficiency (chronic) (peripheral); L97.822 Non-pressure chronic ulcer of other part of left lower leg with fat layer exposed; L89.892 Pressure ulcer of other site, stage 2 | CPT/HCPCS: 97597; 97598; A6021 ==

== ENCOUNTER → 2022-04-18 15:54 | Outpatient (BNVA) | payer SELFPAY | PROVIDERS: PCP Family Medicine; Visit Provider Thoracic Surgery (Cardiothoracic Vascular Surgery) | DX: I96 Gangrene, not elsewhere classified (principal); I87.2 Venous insufficiency (chronic) (peripheral); L97.822 Non-pressure chronic ulcer of other part of left lower leg with fat layer exposed; L89.892 Pressure ulcer of other site, stage 2 | CPT/HCPCS: 97597; 97598; A6251; A6252 ==

== ENCOUNTER → 2022-04-21 17:02 | Outpatient (BNVA) | payer MEDICARE, SELFPAY | PROVIDERS: PCP Family Medicine; Visit Provider Thoracic Surgery (Cardiothoracic Vascular Surgery) | DX: I96 Gangrene, not elsewhere classified (principal); I87.2 Venous insufficiency (chronic) (peripheral); L89.892 Pressure ulcer of other site, stage 2; L97.822 Non-pressure chronic ulcer of other part of left lower leg with fat layer exposed | CPT/HCPCS: 29581; A6252 ==

== ENCOUNTER → 2022-04-25 15:47 | Outpatient (BNVA) | payer MEDICARE, SELFPAY | PROVIDERS: PCP Family Medicine; Visit Provider Nurse Practitioner Family | DX: I87.2 Venous insufficiency (chronic) (peripheral) (principal); I96 Gangrene, not elsewhere classified; L97.822 Non-pressure chronic ulcer of other part of left lower leg with fat layer exposed; L89.892 Pressure ulcer of other site, stage 2 | CPT/HCPCS: 97597; 97598; A6252; A6253 ==

== ENCOUNTER → 2022-05-02 15:02 | Outpatient (BNVA) | payer MEDICARE, SELFPAY | PROVIDERS: PCP Family Medicine; Visit Provider Nurse Practitioner Family | DX: I96 Gangrene, not elsewhere classified (principal); I87.2 Venous insufficiency (chronic) (peripheral); L97.822 Non-pressure chronic ulcer of other part of left lower leg with fat layer exposed; L89.892 Pressure ulcer of other site, stage 2 | CPT/HCPCS: 97597; 97598; A6252; A6253 ==

== ENCOUNTER → 2022-05-08 15:05 | Outpatient (BNVA) | payer MEDICARE, SELFPAY | PROVIDERS: PCP Family Medicine; Visit Provider Nurse Practitioner Family | DX: I96 Gangrene, not elsewhere classified (principal); I87.2 Venous insufficiency (chronic) (peripheral); L97.822 Non-pressure chronic ulcer of other part of left lower leg with fat layer exposed; L89.892 Pressure ulcer of other site, stage 2 | CPT/HCPCS: 11042; 97597; 97598; A6252; A6253 ==

== ENCOUNTER → 2022-05-12 14:50 | Outpatient (BNVA) | payer MEDICARE, SELFPAY | PROVIDERS: PCP Family Medicine; Visit Provider Thoracic Surgery (Cardiothoracic Vascular Surgery) | DX: I96 Gangrene, not elsewhere classified (principal); I87.2 Venous insufficiency (chronic) (peripheral); L97.822 Non-pressure chronic ulcer of other part of left lower leg with fat layer exposed; L89.892 Pressure ulcer of other site, stage 2 | CPT/HCPCS: 29581; A6210; A6252 ==

== ENCOUNTER → 2022-05-15 14:10 | Outpatient (BNVA) | payer MEDICARE, SELFPAY | PROVIDERS: PCP Family Medicine; Visit Provider Nurse Practitioner Family | DX: I96 Gangrene, not elsewhere classified (principal); I87.2 Venous insufficiency (chronic) (peripheral); L97.822 Non-pressure chronic ulcer of other part of left lower leg with fat layer exposed; L89.892 Pressure ulcer of other site, stage 2 | CPT/HCPCS: 97597; 97598; A6210; A6252; A6253 ==

== ENCOUNTER → 2022-05-22 13:55 | Outpatient (BNVA) | payer MEDICARE, SELFPAY | PROVIDERS: PCP Family Medicine; Visit Provider Nurse Practitioner Family | DX: I96 Gangrene, not elsewhere classified (principal); I87.2 Venous insufficiency (chronic) (peripheral); L97.822 Non-pressure chronic ulcer of other part of left lower leg with fat layer exposed; L89.892 Pressure ulcer of other site, stage 2; Z09 Encounter for follow-up examination after completed treatment for conditions other than malignant neoplasm | CPT/HCPCS: 97597; 97598; A6210; A6252; A6253 ==

== ENCOUNTER → 2022-05-29 13:49 | Outpatient (BNVA) | payer MEDICARE, SELFPAY | PROVIDERS: PCP Family Medicine; Visit Provider Nurse Practitioner Family | DX: I96 Gangrene, not elsewhere classified (principal); I87.2 Venous insufficiency (chronic) (peripheral); L97.822 Non-pressure chronic ulcer of other part of left lower leg with fat layer exposed; L89.892 Pressure ulcer of other site, stage 2 | CPT/HCPCS: 97597; 97598; A6210; A6252; A6253 ==

== ENCOUNTER → 2022-06-05 10:15 | Outpatient (BNVA) | payer MEDICARE, SELFPAY | PROVIDERS: PCP Family Medicine; Visit Provider Nurse Practitioner Family | DX: I96 Gangrene, not elsewhere classified (principal); I87.2 Venous insufficiency (chronic) (peripheral); L97.822 Non-pressure chronic ulcer of other part of left lower leg with fat layer exposed; L89.892 Pressure ulcer of other site, stage 2 | CPT/HCPCS: 97597; 97598; A6210; A6252; A6253 ==

== ENCOUNTER → 2022-06-12 10:08 | Outpatient (BNVA) | payer MEDICARE, SELFPAY | PROVIDERS: PCP Family Medicine; Visit Provider Nurse Practitioner Family | DX: I87.2 Venous insufficiency (chronic) (peripheral) (principal); L97.822 Non-pressure chronic ulcer of other part of left lower leg with fat layer exposed; L89.892 Pressure ulcer of other site, stage 2; L97.322 Non-pressure chronic ulcer of left ankle with fat layer exposed | CPT/HCPCS: 97597; 97598; A6210; A6252 ==

== ENCOUNTER → 2022-06-19 09:01 | Outpatient (BNVA) | payer MEDICARE, SELFPAY | PROVIDERS: PCP Family Medicine; Visit Provider Nurse Practitioner Family | DX: I96 Gangrene, not elsewhere classified (principal); L89.892 Pressure ulcer of other site, stage 2; L89.891 Pressure ulcer of other site, stage 1; L89.522 Pressure ulcer of left ankle, stage 2 | CPT/HCPCS: 97597; 97598; A6210; A6253 ==

== ENCOUNTER → 2022-06-26 08:56 | Outpatient (BNVA) | payer MEDICARE, SELFPAY | PROVIDERS: PCP Family Medicine; Visit Provider Nurse Practitioner Family | DX: I87.2 Venous insufficiency (chronic) (peripheral) (principal); L97.821 Non-pressure chronic ulcer of other part of left lower leg limited to breakdown of skin | CPT/HCPCS: 97597; A6210; A6253 ==

== ENCOUNTER → 2022-07-03 09:53 | Outpatient (BNVA) | payer MEDICARE, SELFPAY | PROVIDERS: PCP Family Medicine; Visit Provider Nurse Practitioner Family | DX: I87.2 Venous insufficiency (chronic) (peripheral) (principal); I96 Gangrene, not elsewhere classified; L97.822 Non-pressure chronic ulcer of other part of left lower leg with fat layer exposed | CPT/HCPCS: 97597; A6210 ==

== ENCOUNTER → 2022-07-10 12:51 | Outpatient (BNVA) | payer MEDICARE, SELFPAY | PROVIDERS: PCP Family Medicine; Visit Provider Nurse Practitioner Family | DX: I87.2 Venous insufficiency (chronic) (peripheral) (principal); L97.822 Non-pressure chronic ulcer of other part of left lower leg with fat layer exposed | CPT/HCPCS: 97597; A6210 ==

== ENCOUNTER → 2022-07-22 16:02 | Outpatient (BNVA) | payer MEDICARE, SELFPAY | PROVIDERS: PCP Family Medicine; Visit Provider Nurse Practitioner Family | DX: I96 Gangrene, not elsewhere classified (principal); I87.2 Venous insufficiency (chronic) (peripheral); L97.822 Non-pressure chronic ulcer of other part of left lower leg with fat layer exposed; L97.812 Non-pressure chronic ulcer of other part of right lower leg with fat layer exposed | CPT/HCPCS: 97597; A6210; A6212 ==

== ENCOUNTER → 2022-07-29 14:54 | Outpatient (BNVA) | payer MEDICARE, SELFPAY | PROVIDERS: PCP Family Medicine; Visit Provider Nurse Practitioner Family | DX: I96 Gangrene, not elsewhere classified (principal); I87.2 Venous insufficiency (chronic) (peripheral); L97.822 Non-pressure chronic ulcer of other part of left lower leg with fat layer exposed; L97.812 Non-pressure chronic ulcer of other part of right lower leg with fat layer exposed | CPT/HCPCS: 97597; A6210; A6213 ==

== ENCOUNTER → 2022-08-05 15:40 | Outpatient (BNVA) | payer MEDICARE, SELFPAY | PROVIDERS: PCP Family Medicine; Visit Provider Nurse Practitioner Family | DX: Z09 Encounter for follow-up examination after completed treatment for conditions other than malignant neoplasm (principal) | CPT/HCPCS: 99212 ==

== ENCOUNTER → 2022-11-24 11:02 | Outpatient (BNVA) | payer MEDICARE, SELFPAY | PROVIDERS: PCP Family Medicine; Visit Provider Nurse Practitioner Family | DX: I10 Essential (primary) hypertension (principal); I73.9 Peripheral vascular disease, unspecified; Z87.891 Personal history of nicotine dependence | CPT/HCPCS: 99213 ==

== ENCOUNTER → 2023-08-25 13:00 | Outpatient (BNVA) | payer MEDICARE, SELFPAY | PROVIDERS: PCP Family Medicine; Visit Provider Internal Medicine | DX: I73.9 Peripheral vascular disease, unspecified (principal); I89.0 Lymphedema, not elsewhere classified; I10 Essential (primary) hypertension; Z87.891 Personal history of nicotine dependence | CPT/HCPCS: 99214 ==

== ENCOUNTER → 2024-01-27 13:10 | Outpatient (BNVA) | payer MEDICARE, SELFPAY | PROVIDERS: PCP Family Medicine; Visit Provider Thoracic Surgery (Cardiothoracic Vascular Surgery) | DX: I96 Gangrene, not elsewhere classified (principal); L97.821 Non-pressure chronic ulcer of other part of left lower leg limited to breakdown of skin; L97.811 Non-pressure chronic ulcer of other part of right lower leg limited to breakdown of skin; L97.512 Non-pressure chronic ulcer of other part of right foot with fat layer exposed; I89.0 Lymphedema, not elsewhere classified; L03.115 Cellulitis of right lower limb; L03.116 Cellulitis of left lower limb | CPT/HCPCS: 11042; 97597; 97598; 99213 ==

== ENCOUNTER 2024-02-16 15:55 | Inpatient (IN) | payer MEDICARE, SELFPAY ==
[2024-02-16] VITALS (9 sets, daily range): BP systolic 106–118; BP diastolic 39–53; PULSE 52–104; RESP 18–22; TEMP 36.7; O2SAT 95–100; BMI 58.3
--- NOTE | 2024-02-16 17:38 | XRR_ITS ---
PROCEDURE INFORMATION: Exam: XR Left Tibia and Fibula Exam date and time: 02/16/2024 5:41 PM Age: 73 years old Clinical indication: Condition or disease; Other: Cellulitis; Additional info: Extensive cellulitis TECHNIQUE: Imaging protocol: Radiologic exam of the left tibia and fibula. Views: 2 views. COMPARISON: CT angio abd aorta runof [id number] 10/08/2021 12:08 PM FINDINGS: Bones/joints: No evidence of acute osseous erosion, fracture or subluxation. Tibia and fibula are intact. Soft tissues: Marked diffuse soft tissue edema with soft tissue ulceration of the volar and lateral aspect of the mid left lower extremity. XR/XR tibia fibula LT 2V [id number] IMPRESSION: 1. Marked diffuse soft tissue edema with soft tissue ulceration of the volar and lateral aspect of the mid left lower extremity. 2. Tibia and fibula are intact.
--- NOTE | 2024-02-16 17:40 | ED_ITS ---
HPI - Extremity Problem 2 General: Chief complaint: Extremity Problem,Nontraumatic Stated complaint: dr varela Time Seen by Provider: 02/16/24 16:28 Source: patient and family Mode of arrival: wheelchair Limitations: no limitations History of Present Illness: Patient is a 73-year-old female with past medical history of morbid obesity, peripheral artery disease, as well as hypertension presenting to the emergency department with bilateral lower extremity wounds, left worse than right. Patient referred by wound care, she did seen there for general wound care due to chronic ulcerated lesions, they have gotten severely worse recently, the left has started draining purulence copiously and has become more edematous. Patient denies being diabetic. She states she recently voluntarily stopped taking antibiotic due to how they were making her feel. She denies any fevers, but states overall she does feel more ill. She is not having any nausea vomiting diarrhea, abdominal pain, or other symptoms to indicate systemic illness. She uses a wheelchair, does not ambulate. She states she has been dealing with these lesions for years, they have specifically gotten worse over the past few weeks. MD Complaint: extremity pain and extremity swelling Onset (ago): year(s) Pain Consistency: constant Location: left, right and lower extremity Quality: sharp and constant Radiation: proximal Relieving factors: nothing Exacerbating factors: weight bearing and palpation Associated symptoms: Deny chest pain, fever(s) or rash Related Data Home Medications Medication Instructions Recorded Confirmed irbesartan 150 mg tablet 150 mg PO DAILY 07/28/21 08/25/23 levothyroxine 25 mcg tablet 25 mcg PO DAILY 07/28/21 08/25/23 paroxetine HCl 10 mg tablet 10 mg PO DAILY 11/08/21 08/25/23 furosemide 40 mg tablet (Lasix) 40 mg PO DAILY 02/14/22 08/25/23 potassium chloride 10 mEq 10 meq PO DAILY 11/24/22 08/25/23 capsule,extended release Previous Rx's Medication Instructions Recorded albuterol sulfate 90 mcg/actuation 1 inh inhalation Q6H PRN shortness 11/12/21 aerosol inhaler of breath or wheezing #8.5 grams Allergies Allergy/AdvReac Type Severity Reaction Status Date / Time amlodipine Allergy Unknown Unknown Verified 02/16/24 16:08 isosorbide Allergy Unknown Unknown Verified 02/16/24 16:08 cephalexin [From Keflex] Allergy ALGY-Hives Verified 02/16/24 16:08 Review of Systems 2 General: Reports: 10 or more systems reviewed and unremarkable except in HPI and below Const: Reports: malaise; Denies: fever(s) or chills Card: Denies: chest pain Resp: Denies: dyspnea GI: Denies: abdominal pain, nausea, vomiting or diarrhea Musc: Reports: extremity pain and extremity swelling; Denies: joint pain or joint swelling Skin/Breast: Reports: erythema, skin pain, skin tenderness, changing lesions, non-healing lesions and lesions; Denies: rash Neuro: Denies: headache(s) PFSH ED 2 PFSH: Medical History Obesity Hypertension 4 para 4 Angina of effort Told that she had angina in her 30s but it resolved and has not been a recurrent problem Hypothyroidism Peripheral arterial disease Lymphedema BMI 60.0-69.9, adult Surgical History History of hysterectomy Family History Grandfather CAD (coronary artery disease) Grandmother Stroke Father Alcoholism Social History Smoking and tobacco/nicotine status: former use of tobacco/nicotine Alcohol intake: never Substance/Drug Use: never Household members: family Physical Exam 2 Const: COMMON NORMALS: patient oriented x3, no limitations, alert and well nourished NUTRITIONAL APPEARANCE: obese morbidly obese OTHER: Appears uncomfortable secondary to pain HENMT: COMMON NORMALS: normocephalic and atraumatic HEAD & SCALP: n ormocephalic and atraumatic Neck/C-Spine: COMMON NORMALS: full ROM, no lymphadenopathy, supple and no meningeal signs Resp: COMMON NORMALS: normal respiratory effort, No use of accessory muscles and clear to auscultation bilaterally AUSCULTATION: clear to auscultation bilaterally Cardio: COMMON NORMALS: regular rate and regular rhythm RATE: regular rate RHYTHM: regular rhythm Extremity: NARRATIVE EXTREMITY EXAM: Bilateral lower extremities are edematous, left worse than right. There is severe amount of erythema and purulent drainage to the left lower extremity. This involves the distal half of the paulino and extends down into the foot. Erythema does not go past the knee joint. Severe diffuse tenderness to palpation. Cannot palpate pulses secondary to her swelling. Very foul odor noted. Her right lower extremity appears edematous with more chronic lesions, though there is a new ulcerating lesion to the dorsum of the foot. I again pulses are difficult to palpate secondary to body habitus. Neuro: COMMON NORMALS: patient oriented x3, moves all extremities, no focal motor deficits and no sensory deficits noted SENSORIUM/ORIENTATION: Yes alert MENINGEAL SIGNS: Yes no meningeal signs Skin: NARRATIVE SKIN EXAM: See extremity exam. Course 2 Vital Signs: Vital signs: Vital Signs Temperature 98.1 F 02/16/24 16:05 Pulse Rate 52 L 02/16/24 16:05 Respiratory Rate 22 H 02/16/24 18:27 Blood Pressure 106/53 02/16/24 16:05 Pulse Oximetry 96 02/16/24 18:27 Oxygen Delivery Me thod Room Air 02/16/24 16:05 MDM - Extremity (Nontraumatic) Medical Decision Making This patient is a 20+ year history of lymphedema and has been seeing wound care for chronic cellulitis/ulcerations. Was referred by wound care here due to her left lower extremity being severely diffusely erythematous below the knee, as well as having purulence. On exam very foul odor noted along with the redness and drainage of pus. Also evidence of some granulation tissue. Started her on an IV with some fluids and Rocephin. Labs were obtained, unremarkable white count or lactic CRP was mildly elevated at 80. Wound culture obtained, blood cultures obtained. Has not been running fevers, just had been feeling sick. Initially x-ray obtained showing marked soft tissue edema, no signs of an osteomyelitis. CT ordered at this time to rule out any necrotizing fasciitis, she has no history of diabetes I do not suspect this finding. She recently was on Levaquin but stated that she stopped this because of how it made her feel. Spoke with hospitalist, Dr Yoon, who agrees to admit the patient to medicine for IV antibiotics pending that surgery can debride this if need be. Spoke with Dr. Melissa, states this may best be served with her outpatient wound care doctor for debridement, though he can debride in the hospital if need be. Will rule out necrotizing fasciitis with a CT, admit to medicine for IV antibiotics. Lab Data 02/16/24 18:20 02/16/24 18:51 Radiology Impressions Tibia/Fibula X-Ray 02/16/24 17:38 IMPRESSION: 1. Marked diffuse soft tissue edema with soft tissue ulceration of the volar and lateral aspect of the mid left lower extremity. 2. Tibia and fibula are intact. Laboratory Results WBC 10.42 10^3/uL (3.29-11.43) 02/16/24 18:20 RBC 4.65 10^6/uL (3.85-5.65) 02/16/24 18:20 Hgb 12.40 g/dL (11.27-16.99) 02/16/24 18:20 Hct 40.3 % (36-47) 02/16/24 18:20 MCV 86.7 fl (85-98) 02/16/24 18:20 MCH 26.7 pg (27-33) L 02/16/24 18:20 MCHC 30.8 g/dL (30-55) 02/16/24 18:20 RDW 15.2 % (12.1-15.1) H 02/16/24 18:20 Plt Count 325 10^3/cmm (157-399) 02/16/24 18:20 MPV 9.0 fL (7.4-10.4) 02/16/24 18:20 Neut % (Auto) 62.0 % 02/16/24 18:20 Lymph % (Auto) 24.2 % 02/16/24 18:20 [place] % (Auto) 11.5 % 02/16/24 18:20 Eos % (Auto) 1.2 % 02/16/24 18:20 Baso % (Auto) 0.7 % 02/16/24 18:20 Neut # (Auto) 6.47 10^3/uL (1.8-7.7) 02/16/24 18:20 Lymph # (Auto) 2.5 10^3/uL (0.8-4.8) 02/16/24 18:20 [place] # (Auto) 1.2 10^3/uL (0.2-0.9) H 02/16/24 18:20 Eos # (Auto) 0.1 10^3/uL (0.0-0.8) 02/16/24 18:20 Baso # (Auto) 0.1 10^3/uL (0.0-0.1) 02/16/24 18:20 Nucleated RBC % (auto) 0 % 02/16/24 18:20 Nucleated RBCs # 0.0 /100WBC 02/16/24 18:20 ESR 33 mm/hr (0-15) H 02/16/24 18:20 Sodium 137 mmol/L (136-145) 02/16/24 18:51 Potassium 5.1 mmol/L (3.5-5.1) 02/16/24 18:51 Chloride 104 mmol/L (98-107) 02/16/24 18:51 Carbon Dioxide 23 mmol/L (22-29) 02/16/24 18:51 Anion Gap 15.1 (5-19) 02/16/24 18:51 BUN 35 mg/dL (8-23) H 02/16/24 18:51 Creatinine 1.4 mg/dL (0.5-0.9) H 02/16/24 18:51 GFR Calculation Not Reportable 02/16/24 18:51 Glucose 106 mg/dL (65-115) 02/16/24 18:51 Calculated Osmolality 292 mOsm/kg (285-295) 02/16/24 18:51 Lactic Acid 1.5 mmol/L (0.5-2.2) 02/16/24 18:20 Calcium 8.8 mg/dL (8.5-10.5) 02/16/24 18:51 Total Bilirubin 0.3 mg/dL (0.15-1.2) 02/16/24 18:51 AST 27 U/L (0-32) 02/16/24 18:51 ALT 15 U/L (0-33) 02/16/24 18:51 Alkaline Phosphatase 75 U/L (35-105) 02/16/24 18:51 C-Reactive Protein 80.2 mg/L (0.0-4.9) H 02/16/24 18:51 Total Protein 7.5 g/dL (6.6-8.7) 02/16/24 18:51 Albumin 3.3 g/dL (3.5-5.2) L 02/16/24 18:51 Globulin 4.2 g/dL (1.3-4.6) 02/16/24 18:51 All radiology interpretation(s) finalized by discharge Discharge Plan Discharge Patient Disposition: Admitted As Inpatient Clinical Impression: Cellulitis of left lower extremity Condition: Stable Coding Level of Care Code ED Hospital Receiving Clerk for Alyse Espinosa
[2024-02-16] MEDS: HYDROmorphone 1 mg/mL INJ 1 mL IVP (18:27)
[2024-02-16] MEDS: sodium chloride 0.9% 1,000 ML 999 ML IV (18:27)
[2024-02-16 18:33] LABS: Basophils # 0.1 10^3/uL (0.0-0.1); Basophils % 0.7 %; Eosinophils # 0.1 10^3/uL (0.0-0.8); Eosinophils % 1.2 %; Hematocrit 40.3 % (36-47); Lymphocytes # 2.5 10^3/uL (0.8-4.8); Lymphocytes % 24.2 %; Mean Corpuscular HGB Conc 30.8 g/dL (30-55); Mean Corpuscular Hemoglobin 26.7 pg (27-33); Mean Corpuscular Volume 86.7 fl (85-98); Monocytes # 1.2 10^3/uL (0.2-0.9); Monocytes % 11.5 %; Neutrophils # 6.47 10^3/uL (1.8-7.7); Nucleated Red Blood Cells % 0 %; Platelet Count 325 10^3/cmm (157-399); Red Blood Count 4.65 10^6/uL (3.85-5.65); Red Cell Distribution Width 15.2 % (12.1-15.1); White Blood Count 10.42 10^3/uL (3.29-11.43)
[2024-02-16 18:39] LABS: Erythrocyte Sedimentation Rate 33 mm/hr (0-15)
[2024-02-16 18:48] LABS: Lactic Sepsis W/Reflex 1.5 mmol/L (0.5-2.2)
[2024-02-16 19:33] LABS: Alanine Aminotransferase 15 U/L (0-33); Albumin Level 3.3 g/dL (3.5-5.2); Alkaline Phosphatase 75 U/L (35-105); Anion Gap 15.1 (5-19); Aspartate Amino Transferase 27 U/L (0-32); Blood Urea Nitrogen 35 mg/dL (8-23); C Reactive Protein 80.2 mg/L (0.0-4.9); Calcium 8.8 mg/dL (8.5-10.5); Carbon Dioxide 23 mmol/L (22-29); Chloride 104 mmol/L (98-107); Creatinine Clr Calc Pharmacy 52.5984; Globulin 4.2 g/dL (1.3-4.6); Glucose 106 mg/dL (65-115); Osmolality Calculated 292 mOsm/kg (285-295); Potassium 5.1 mmol/L (3.5-5.1); Sodium 137 mmol/L (136-145); Total Bilirubin 0.3 mg/dL (0.15-1.2); Total Protein 7.5 g/dL (6.6-8.7)
--- NOTE | 2024-02-16 19:42 | CTR_ITS ---
PROCEDURE INFORMATION: Exam: CTA Abdominal Aorta and Bilateral Lower Extremities (Run-off) With Contrast Exam date and time: 02/16/2024 9:57 PM Age: 73 years old Clinical indication: Other: Swellin edema; Additional info: Left lower extremity pain and swelling TECHNIQUE: Imaging protocol: Computed tomographic angiography of the of the abdominal aorta, pelvis and bilateral lower extremities with contrast. 3D rendering (Not supervised by radiologist): MIP and/or 3D reconstructed images were created by the technologist. Radiation optimization: All CT scans at this facility use at least one of these dose optimization techniques: automated exposure control; mA and/or kV adjustment per patient size (includes targeted exams where dose is matched to clinical indication); or iterative reconstruction. Contrast material: OMNI 350; Contrast volume: 150 ml; Contrast route: INTRAVENOUS (IV); COMPARISON: CT angio abd aorta runof [id number] 10/08/2021 12:08 PM RADIATION DOSE METRICS: Total DLP (mGy-cm): 3465.86 FINDINGS: Aorta: Scattered calcific plaque involves the abdominal aorta. The abdominal aorta is free of aneurysm and dissection. Celiac trunk and mesenteric arteries: The celiac trunk is widely patent. The proximal mesenteric arteries are widely patent. Renal arteries: The renal arteries are widely patent. Right iliac arteries: No occlusion or significant stenosis. Right femoral/popliteal arteries: The right common femoral, superficial femoral and popliteal arteries are widely patent. Right infrapopliteal arteries: Evaluation of the right lower extremity runoff vessels is compromised by venous contamination. Suspected single-vessel runoff on the right via the posterior tibial artery. Left iliac arteries: No occlusion or significant stenosis. Left femoral/popliteal arteries: The left common femoral, superficial femoral and popliteal arteries are widely patent. Left infrapopliteal arteries: Evaluation of the left lower extremity runoff vessels is compromised by venous contamination. Suspected two-vessel runoff on the left via the anterior tibial and posterior tibial arteries. Liver: No mass. Gallbladder and biliary ducts: Unremarkable. No calcified stones. No ductal dilation. Pancreas: Unremarkable. No mass. No ductal dilation. Spleen: Normal. No splenomegaly. Adrenal glands: Normal. No mass. Kidneys and ureters: Normal. No mass. Stomach and bowel: Unremarkable. No obstruction. No mucosal thickening. Appendix: No evidence of appendicitis. Urinary bladder: Unremarkable. No mass. Reproductive: The uterus is surgically absent. Intraperitoneal space: Unremarkable. No free air. No significant fluid collection. Lymph nodes: Mildly enlarged retroperitoneal lymph nodes present. The largest measures 1.5 cm in short axis along the right iliac chain. Etiology not discerned on this study. Bones/joints: No acute fracture. No dislocation. Degenerative changes involve the bilateral hips and knees. Soft tissues: There is markedly abnormal skin thickening and inflammation involving the lateral left leg. No organized fluid collection. Other findings: This examination is severely limited by patient body habitus causing quantum mottle. And venous contamination. [place] [id number] IMPRESSION: 1. Limited examination secondary to patient body habitus causing quantum mottle and venous contamination. 2. Atherosclerosis without significant aortoiliac occlusive disease. 3. No hemodynamically significant stenosis above the knee. Suspected single-vessel runoff on the right and two-vessel runoff on the left. 4. Abnormal eccentric edema and skin thickening involving the left lateral leg. No underlying acute bony abnormality organized fluid collection.
--- NOTE | 2024-02-16 19:42 | P.HP_ITS ---
Providers/Chief Complaint 2 Primary Care Provider: Eduardo Flynn MD Chief Complaint: referal History of Present Illness Kay Perez is a 73 year old female with chronic history of lymphedema, venous's dermatitis, lost to follow-up with wound care for at least a year recently started going to wound care clinic was sent to our hospital for evaluation of left leg wound. Patient is stating that her wound of left leg started with a blister which has gotten worse to the point now it is oozing and saturating her dressing in a few hours, she has not noticed any vomiting, fever, shortness of breath or chest pain, she is not diabetic, not endorsing rigors chills or fever. She was put on Levaquin outpatient. Patient is stating that despite her high BMI and debilitating conditions she is fairly active uses a walker for ambulation. She is compliant with her medications, does not smoke or drink alcohol. Her left leg pictures were sent to the surgeon before admission, he will evaluate the patient in the morning, we are requesting CTA lower extremity however on clinical exam there is no sign of acute limb ischemia she does have necrotic tissue and purulent cellulitis Review of Systems 2 Const: Reports: fever(s) and chills Eyes: Denies: change in vision Card: Denies: chest pain Resp: Denies: dyspnea Skin/Breast: Reports: rash, pruritus, erythema, skin tenderness, skin swelling, sores, new lesions and changing lesions Medications/Allergies Home Medications Medication Instructions Recorded Confirmed Last Taken Type irbesartan 150 mg tablet 150 mg PO DAILY 07/28/21 08/25/23 08/02/21 History levothyroxine 25 mcg tablet 25 mcg PO DAILY 07/28/21 08/25/23 08/02/21 History paroxetine HCl 10 mg tablet 10 mg PO DAILY 11/08/21 08/25/23 Unknown History albuterol sulfate 90 mcg/actuation 1 inh inhalation Q6H PRN shortness 11/12/21 08/25/23 Unknown Rx aerosol inhaler of breath or wheezing #8.5 grams furosemide 40 mg tablet (Lasix) 40 mg PO DAILY 02/14/22 08/25/23 Unknown History potassium chloride 10 mEq 10 meq PO DAILY 11/24/22 08/25/23 Unknown History capsule,extended release Allergies Allergy/AdvReac Type Severity Reaction Status Date / Time amlodipine Allergy Unknown Unknown Verified 02/16/24 16:08 isosorbide Allergy Unknown Unknown Verified 02/16/24 16:08 cephalexin [From Keflex] Allergy ALGY-Hives Verified 02/16/24 16:08 PFSH Acute 2 PFSH: Medical History Obesity Hypertension 4 para 4 Angina of effort Told that she had angina in her 30s but it resolved and has not been a recurrent problem Hypothyroidism Peripheral arterial disease Lymphedema BMI 60.0-69.9, adult Surgical History History of hysterectomy Family History Grandfather CAD (coronary artery disease) Grandmother Stroke Father Alcoholism Social History Smoking and tobacco/nicotine status: former use of tobacco/nicotine Alcohol intake: never Substance/Drug Use: never Household members: family Vitals/I&O/Wt Last Vital Signs Temp 98.1 F 02/16/24 16:05 Pulse 52 L 02/16/24 16:05 Resp 22 H 02/16/24 18:27 BP 106/53 02/16/24 16:05 Pulse Ox 96 02/16/24 18:27 O2 Del Method Room Air 02/16/24 16:05 Weight last 48 hrs Weight 154.221 kg Physical Exam 2 Narrative: Morbidly obese female Currently on room air Hemodynamic stable Distended abdomen Abdominal pannus Lower extremity lymphedema Dry skin Left leg with necrotic tissue, circumferential cellulitis, I do not see any sign of acute limb ischemia or vascular compromise Purulent cellulitis Skin maceration, cellulitis extending from ankle to her knee S1, S2 Nonfocal neuroexam Data 02/16/24 18:20 02/16/24 18:51 Micro: Microbiology 02/16/24 18:51 Blood Culture - Preliminary Blood SPECIMEN COLLECTED 02/16/24 18:20 Blood Culture - Preliminary Blood SPECIMEN COLLECTED A&P Assessment and plan (1) Wet gangrene: (2) Cellulitis: (3) Hypertension: (4) Peripheral arterial disease: (5) Lymphedema: (6) KELSEY (acute kidney injury): Plan Purulent cellulitis left leg with underlying lymphedema Will request CT chest lower extremity with contrast Clinically does not have signs of necrotizing fasciitis Start vancomycin and Zosyn Patient is not diabetic Check A1c level N.p.o. after midnight General surgery consulted for debridement Will keep her wound open She will need extensive debridement, washout Check CRP and ESR Does not smoke or drink alcohol Uses a walker at home Peripheral arterial disease Previous workup showed aorta with runoff 2021 mild atherosclerotic plaque within the aorta with extension through the common iliac arteries and the superficial femoral arteries. Numerous but only mildly enlarged retroperitoneal, pelvic and RIGHT inguinal lymph nodes. These all may be reactive. Could be a response to a cellulitis or infection of the RIGHT lower extremity. Unremarkable HERNANDEZ 2021 Nausea with 1 episode of emesis: Patient started vomiting after getting Dilaudid which could be the side effect however she does have history of hiatal hernia KELSEY: Likely related to use of irbesartan Patient not endorsing signs of UTI No vomiting at home N.p.o. after midnight Can start IV fluid hydration in the morning DVT prophylaxis heparin Dr. Melissa consulted from the ER Check D-dimer to rule out thromboembolic disease Patient uses a walker to ambulate at home Attestations 2 Medical Necessity Statement*: More than 2 midnights anticipated Diagnoses Wet gangrene I96 Cellulitis L03.90 Hypertension I10 Peripheral arterial disease I73.9 Lymphedema I89.0 KELSEY (acute kidney injury) N17.9
[2024-02-16] MEDS: ondansetron 2 mg/ML SDV 2 mL 8 MG IVP (19:47)
--- NOTE | 2024-02-16 20:33 | PHA.VACGOAL ---
Vancomycin Goal - Goal Vancomycin Goal:: 10-15 mg/L Vancomycin Indication:: SSTI - Therapy Current therapy:: Pip/Tazo Day of therpy:: Day []of [] . Actual body weight (kg): 340 lb - Data Labs: WBC 10.42 10^3/uL (3.29-11.43) 02/16/24 18:20 RBC 4.65 10^6/uL (3.85-5.65) 02/16/24 18:20 Hgb 12.40 g/dL (11.27-16.99) 02/16/24 18:20 Hct 40.3 % (36-47) 02/16/24 18:20 MCV 86.7 fl (85-98) 02/16/24 18:20 MCH 26.7 pg (27-33) L 02/16/24 18:20 MCHC 30.8 g/dL (30-55) 02/16/24 18:20 RDW 15.2 % (12.1-15.1) H 02/16/24 18:20 Sodium 137 mmol/L (136-145) 02/16/24 18:51 Potassium 5.1 mmol/L (3.5-5.1) 02/16/24 18:51 Chloride 104 mmol/L (98-107) 02/16/24 18:51 Carbon Dioxide 23 mmol/L (22-29) 02/16/24 18:51 Anion Gap 15.1 (5-19) 02/16/24 18:51 BUN 35 mg/dL (8-23) H 02/16/24 18:51 Creatinine 1.4 mg/dL (0.5-0.9) H 02/16/24 18:51 GFR Calculation Not Reportable 02/16/24 18:51 Last dialysis session:: N/A Treatment plan:: new consult Regimen:: LOADING DOSE 2500 MG ONCE PER DOSING PROTOCOL MAINTENANCE DOSE 1250 MG Q12H Follow up:: WILL CONTINUE TO MONITOR AND FOLLOW UP DAILY
[2024-02-16 20:55] LABS: Estmated Average Glucose 126
[2024-02-16] MEDS: iohexol 350 mg/mL 500 mL Btl (per mL) IV (22:00)
[2024-02-16] MEDS: cefTRIAXone 1,000 mg SDV 1000 MG IVP (22:39)
[2024-02-16] MEDS: heparin 5,000 unit/mL INJ 1 mL 5000 UNIT SUBCUT (23:23)
[2024-02-16] MEDS: morphine IR 15 mg Tablet PO (23:51)
[2024-02-17] VITALS (22 sets, daily range): BP systolic 94–134; BP diastolic 44–76; PULSE 79–121; RESP 15–19; TEMP 36.3–37.1; O2SAT 90–98
[2024-02-17] MEDS: piperacillin-tazobactam 3.375 GM in sodium chloride 0.9% (plus) 50 ML IV ×3 (02:16→17:22)
--- NOTE | 2024-02-17 07:58 | P.CONIM_ITS ---
Providers/Reason For Consult 2 Consulting Physician/Specialty*: Dr. Melissa general surgery Reason for Consult*: Bilateral lower extremity chronic wound Attending Physician: Blayne Camacho MD Primary Care Provider: Eduardo Flynn MD History of Present Illness History of Present Illness Kay Perez is a 73 year old female whom surgery was consulted for bilateral chronic wounds. Patient used to follow-up with Dr. Quiroz in the wound care clinic. She improved significantly and stopped following up with wound care clinic. Patient is known to have venous stasis and lymphedema. Patient is obese and has chronic wounds with portions that are open. She is being treated also for cellulitis. No fevers. No white count. Medications/Allergies Home Medications Medication Instructions Recorded Confirmed Last Taken Type irbesartan 150 mg tablet 150 mg PO DAILY 07/28/21 02/16/24 02/14/24 History levothyroxine 25 mcg tablet 25 mcg PO DAILY 07/28/21 02/16/24 02/14/24 History paroxetine HCl 10 mg tablet 10 mg PO DAILY 11/08/21 02/16/24 02/14/24 History albuterol sulfate 90 mcg/actuation 1 inh inhalation Q6H PRN shortness 11/12/21 02/16/24 Unknown Rx aerosol inhaler of breath or wheezing #8.5 grams furosemide 40 mg tablet (Lasix) 40 mg PO DAILY 02/14/22 02/16/24 02/14/24 History potassium chloride 10 mEq 10 meq PO DAILY 11/24/22 02/16/24 02/14/24 History capsule,extended release Allergies Allergy/AdvReac Type Severity Reaction Status Date / Time amlodipine Allergy Unknown Unknown Verified 02/16/24 16:08 isosorbide Allergy Unknown Unknown Verified 02/16/24 16:08 cephalexin [From Keflex] Allergy ALGY-Hives Verified 02/16/24 16:08 Current Medications Generic Name Dose Route Start Last Admin Trade Name Freq PRN Reason Stop Dose Admin Heparin Sodium (Porcine) 5,000 unit 02/16/24 19:45 02/16/24 23:23 Heparin 5,000 Unit/Ml Inj 1 Ml SUBCUT 5,000 unit Q12H NUNO Administration Piperacillin Sod/Tazobactam 50 mls @ 12.5 mls/hr 02/16/24 20:00 02/17/24 06:21 Sod 3.375 gm/ Sodium Chloride IV Infused Q8H NUNO Infusion Morphine Sulfate 15 mg 02/16/24 19:43 02/16/24 23:51 Morphine Ir 15 Mg Tablet PO 15 mg Q6H PRN Administration MODERATE PAIN PFSH Acute 2 PFSH: Medical History Obesity Hypertension 4 para 4 Angina of effort Told that she had angina in her 30s but it resolved and has not been a recurrent problem Hypothyroidism Peripheral arterial disease Lymphedema BMI 60.0-69.9, adult Surgical History History of hysterectomy Family History Grandfather CAD (coronary artery disease) Grandmother Stroke Father Alcoholism Social History Smoking and tobacco/nicotine status: former use of tobacco/nicotine Alcohol intake: never Substance/Drug Use: never Household members: family Vitals/I&O/Wt Last Vital Signs Temp 97.8 F 02/17/24 04:00 Pulse 93 02/17/24 04:00 Resp 19 H 02/17/24 04:00 BP 120/63 02/17/24 04:00 Pulse Ox 97 02/17/24 04:00 O2 Del Method Room Air 02/17/24 04:00 02/16/24 02/17/24 02/17/24 22:59 06:59 14:59 Intake Total 1000 / 1000 550 / 1550 Balance 1000 / 1000 550 / 1550 Weight last 48 hrs Weight 323 lb 1.6 oz Weight 325 lb 6 oz Weight 340 lb Physical Exam 2 Narrative: Chest: Unlabored breathing room air. No lymphadenopathy. Heart: Regular rate and rhythm. Abdomen: Soft, nontender, nondistended. No masses or lymphadenopathy. Obese Bilateral lower extremity wounds with portions that are open. Chronic lymphedema and venous stasis. Data 02/17/24 08:53 02/17/24 08:53 Micro: Microbiology 02/16/24 18:51 Blood Culture - Preliminary Blood SPECIMEN COLLECTED 02/16/24 18:20 Blood Culture - Preliminary Blood SPECIMEN COLLECTED A&P Assessment and plan (1) Cellulitis: (2) Lymphedema: Plan 73-year-old female who presents with bilateral lower extremity chronic wounds and cellulitis. Being treated for cellulitis. Will take to OR for debridement of wounds. Patient ultimately needs Unna boots which are done as outpatient in wound care clinic. Coding Level of Care Code 24705 Diagnoses Cellulitis L03.90 Lymphedema I89.0 Time Spent (min) 30
[2024-02-17 09:02] LABS: Basophils # 0.1 10^3/uL (0.0-0.1); Basophils % 0.7 %; Eosinophils # 0.1 10^3/uL (0.0-0.8); Eosinophils % 1.8 %; Hematocrit 35.2 % (36-47); Lymphocytes % 26.2 %; Mean Corpuscular HGB Conc 30.4 g/dL (30-55); Mean Corpuscular Hemoglobin 27.3 pg (27-33); Mean Corpuscular Volume 89.8 fl (85-98); Mean Platelet Volume 8.5 fL (7.4-10.4); Monocytes # 1.1 10^3/uL (0.2-0.9); Monocytes % 14.9 %; Neutrophils # 4.28 10^3/uL (1.8-7.7); Neutrophils % 56.1 %; Nucleated Red Blood Cells % 0 %; Platelet Count 224 10^3/cmm (157-399); Red Blood Count 3.92 10^6/uL (3.85-5.65); Red Cell Distribution Width 15.5 % (12.1-15.1); White Blood Count 7.63 10^3/uL (3.29-11.43)
[2024-02-17 09:18] LABS: Anion Gap 15.7 (5-19); Blood Urea Nitrogen 33 mg/dL (8-23); C Reactive Protein 113.2 mg/L (0.0-4.9); Calcium 8.3 mg/dL (8.5-10.5); Carbon Dioxide 23 mmol/L (22-29); Chloride 104 mmol/L (98-107); Creatinine Clr Calc Pharmacy 54.8068; Glucose 94 mg/dL (65-115); Magnesium 1.9 mg/dL (1.7-2.3); Osmolality Calculated 293 mOsm/kg (285-295); Potassium 4.7 mmol/L (3.5-5.1); Sodium 138 mmol/L (136-145)
[2024-02-17] MEDS: ipratropium-albuterol 3 mL Neb INHALATION (09:29)
[2024-02-17] MEDS: FUROsemide 40 mg Tablet PO (09:32)
[2024-02-17] MEDS: heparin 5,000 unit/mL INJ 1 mL 5000 UNIT SUBCUT ×2 (09:32→20:10)
[2024-02-17] MEDS: sennosides-docusate Tablet 1 TAB PO (09:32)
[2024-02-17] MEDS: levothyroxine 25 mcg Tablet PO (09:32)
[2024-02-17] MEDS: vancomycin 1,250 MG/250 ML PIGGYBACK 166.67 MG IV (09:33)
--- NOTE | 2024-02-17 12:58 | P.ANESASSM_ITS ---
Pre-Anesthetic Assessment Height/Weight: Height 1.63 m Weight 146.556 kg Temp Pulse Resp BP Pulse Ox O2 Del Method 97.8 F 121 H 17 122/67 98 Room Air 02/17/24 12:00 02/17/24 12:00 02/17/24 12:00 02/17/24 12:00 02/17/24 12:00 02/17/24 12:00 Operation Date: 02/17/24 13:40 Proposed Procedures p Debridement-Bilateral lower extremities(Bilateral) - Kenneth Melissa MD Familial anesthetic complications: none Was Beta Rosie taken within 24 hours: N/A Was Clonidine taken within 24 hours: N/A Social No alcohol and No tobacco Exam alert, oriented x 3, clear to auscultation bilaterally and regular rate & rhythm Airway Submandibular: within normal limits Cervical ROM: within normal limits Mallampati: Class II Dentition: chipped CV/HEM Hypertension and Peripheral Vascular Disease Lymphedema Chronic Renal Insufficiency Metabolic Morbid Obesity and Thyroid Disease Anesthetic Plan ASA status: 3 Anesthesia: Choice Medications/Allergies Home Medications Medication Instructions Recorded Confirmed Last Taken Type irbesartan 150 mg tablet 150 mg PO DAILY 07/28/21 02/16/24 02/14/24 History levothyroxine 25 mcg tablet 25 mcg PO DAILY 07/28/21 02/16/24 02/14/24 History paroxetine HCl 10 mg tablet 10 mg PO DAILY 11/08/21 02/16/24 02/14/24 History albuterol sulfate 90 mcg/actuation 1 inh inhalation Q6H PRN shortness 11/12/21 02/16/24 Unknown Rx aerosol inhaler of breath or wheezing #8.5 grams furosemide 40 mg tablet (Lasix) 40 mg PO DAILY 02/14/22 02/16/24 02/14/24 History potassium chloride 10 mEq 10 meq PO DAILY 11/24/22 02/16/24 02/14/24 History capsule,extended release Allergies Allergy/AdvReac Type Severity Reaction Status Date / Time amlodipine Allergy Unknown Unknown Verified 02/16/24 16:08 isosorbide Allergy Unknown Unknown Verified 02/16/24 16:08 cephalexin [From Keflex] Allergy ALGY-Hives Verified 02/16/24 16:08 Current Medications Generic Name Dose Route Start Last Admin Trade Name Freq PRN Reason Stop Dose Admin Albuterol/Ipratropium 3 ml 02/16/24 19:43 02/17/24 09:29 Ipratropium-Albuterol 3 Ml Neb INHALATION 3 ml Q6H PRN Administration SHORTNESS OF BREATH Furosemide 40 mg 02/17/24 09:00 02/17/24 09:32 Furosemide 40 Mg Tablet PO 40 mg DAILY NUNO Administration Heparin Sodium (Porcine) 5,000 unit 02/16/24 19:45 02/17/24 09:32 Heparin 5,000 Unit/Ml Inj 1 Ml SUBCUT 5,000 unit Q12H NUNO Administration Piperacillin Sod/Tazobactam 50 mls @ 12.5 mls/hr 02/16/24 20:00 02/17/24 11:20 Sod 3.375 gm/ Sodium Chloride IV 12.5 mls/hr Q8H NUNO Administration Vancomycin HCl 1,250 mg in 250 mls @ 166.667 mls/hr 02/17/24 09:00 02/17/24 11:22 Vancocin IV Infused Q12H NUNO Infusion Levothyroxine Sodium 25 mcg 02/17/24 09:00 02/17/24 09:32 Levothyroxine 25 Mcg Tablet PO 25 mcg DAILY NUNO Administration Morphine Sulfate 15 mg 02/16/24 19:43 02/16/24 23:51 Morphine Ir 15 Mg Tablet PO 15 mg Q6H PRN Administration MODERATE PAIN Senna/Docusate Sodium 1 tab 02/17/24 09:00 02/17/24 09:32 Sennosides-Docusate Tablet PO 1 tab DAILY NUNO Administration PFSH Anesthesia Medical History Obesity Hypertension 4 para 4 Angina of effort Told that she had angina in her 30s but it resolved and has not been a recurrent problem Hypothyroidism Peripheral arterial disease Lymphedema BMI 60.0-69.9, adult Surgical History History of hysterectomy Family History Grandfather CAD (coronary artery disease) Grandmother Stroke Father Alcoholism Social History Smoking and tobacco/nicotine status: former use of tobacco/nicotine Alcohol intake: never Substance/Drug Use: never Household members: family Data Anesthesia 02/17/24 08:53 02/17/24 08:53 Short CBC 02/16/24 02/17/24 Range/Units 18:20 08:53 WBC 10.42 7.63 (3.29-11.43) 10^3/uL Hgb 12.40 10.70 L (11.27-16.99) g/dL Hct 40.3 35.2 L (36-47) % MCV 86.7 89.8 (85-98) fl Plt Count 325 224 D (157-399) 10^3/cmm Neut % (Auto) 62.0 56.1 % Neut # (Auto) 6.47 4.28 (1.8-7.7) 10^3/uL BMP 02/16/24 02/16/24 02/17/24 18:20 18:51 08:53 Sodium Cancelled 137 138 Potassium Cancelled 5.1 4.7 Chloride Cancelled 104 104 Carbon Dioxide Cancelled 23 23 BUN Cancelled 35 H 33 H Creatinine Cancelled 1.4 H 1.3 H Glucose Cancelled 106 94 Calcium Cancelled 8.8 8.3 L Liver Function 02/16/24 02/16/24 Range/Units 18:20 18:51 Total Bilirubin Cancelled 0.3 AST Cancelled 27 ALT Cancelled 15 Alkaline Phosphatase Cancelled 75 Albumin Cancelled 3.3 L Coags 02/16/24 02/16/24 02/17/24 18:20 18:51 08:53 ESR 33 H C-Reactive Protein Cancelled 80.2 H 113.2 H Microbiology 02/16/24 18:38 Gram Stain - Final Leg - Left Wound Culture - Preliminary Gram Negative Rods 02/16/24 18:51 Blood Culture - Preliminary Blood SPECIMEN COLLECTED 02/16/24 18:20 Blood Culture - Preliminary Blood SPECIMEN COLLECTED Cardiac Studies: 2 Echocardiogram 08/19/21
[2024-02-17] MEDS: sodium chloride 0.9% 1,000 ML 30 ML IV (13:28)
--- NOTE | 2024-02-17 13:53 | PM.OP ---
Operative Report Date of procedure: February 17, 2024 Pre-op diagnosis: Lymphedema Post-op diagnosis: same Post-op findings: Circumferential left lower extremity chronic wound secondary to lymphedema and venous stasis. Area debrided is 350 cm? deepest layer dermis. Right lower extremity with a posterior chronic wound 32 cm? debrided down to dermis. Procedure done: Bilateral lower extremity chronic wounds debridement down to dermis. Total area of 382 cm?. Implants: N/A Specimens removed/disposition: N/A Pathology: none sent Surgeon: Kenneth Melissa MD Shingle Trimmer: N/A Anesthesia: MAC Estimated blood loss (mL): 40 Complications: N/A Findings: Circumferential left lower extremity chronic wound secondary to lymphedema and venous stasis. Area debrided is 350 cm? deepest layer dermis. Right lower extremity with a posterior chronic wound 32 cm? debrided down to dermis. Condition: stable Disposition: floor Brief History: 73-year-old female known to wound clinic for bilateral lower extremity chronic wounds secondary to lymphedema and chronic venous stasis. Patient admitted with cellulitis. Discussed risk and benefits and patient agreed to proceed with bilateral lower extremity debridement. Procedure: Patient was brought into the operative room table she was laid supine. MAC was induced. Schedule antibiotics were administered. Bilateral lower extremities were prepped and draped in usual sterile fashion using Betadine. On the left lower extremity patient has a circumferential chronic wound of approximately 350 cm? which were debrided sharply using a 10 blade down to dermis. I was able to obtain a healthy wound base. I then proceeded to debride the right lower extremity wound on the posterior aspect. 32 cm? of chronic wound base debrided sharply using a 10 blade down to dermis. Total area of debridement was 382 cm?. I then achieved adequate hemostasis. I applied Santyl and dressed bilateral lower extremities with Kerlix and an Papo wrap. The patient woke up without any complications and was transferred to PACU.
[2024-02-17] MEDS: collagenase oint 30 gm 50 APPLIC TOPICAL (13:56)
--- NOTE | 2024-02-17 14:32 | ANE.PACU2 ---
Inpatient post-anesthesia follow up: Airway intact: Yes Vital signs: Temperature 97.5 F Pulse Rate 93 Respiratory Rate 16 Blood Pressure 94/58 Pulse Oximetry 94 Oxygen Delivery Me thod Room Air Oxygen Flow Rate Fraction of Inspir ed Oxygen Hydration adequate: Yes Nausea and vomiting: No Pain level: 2 Mental status: Baseline
[2024-02-17] MEDS: ondansetron 2 mg/ML SDV 2 mL 4 MG IVP (14:44)
--- NOTE | 2024-02-17 15:36 | P.PN_ITS ---
Subjective 2 Subjective: Patient tells me that she lives at home, with her daughter, she typically can ambulate with a walker she says recently she has been only ambulating a few feet she was driving, she tells that her daughter helps her around the home, she had a fall a few months ago, denies any fevers, no chills Vitals/I&O/Wt Last Vital Signs Temp 97.7 F 02/17/24 14:40 Pulse 92 02/17/24 14:40 Resp 15 02/17/24 14:40 BP 106/63 02/17/24 14:40 Pulse Ox 93 02/17/24 14:40 O2 Del Method Room Air 02/17/24 14:40 02/17/24 02/17/24 02/17/24 06:59 14:59 22:59 Intake Total 550 / 1550 360 / 360 Output Total 2 / 2 Balance 550 / 1550 358 / 358 Weight last 48 hrs Weight 146.556 kg Weight 147.588 kg Weight 154.221 kg Physical Exam 2 Const: COMMON NORMALS: no acute distress and patient oriented x3 Resp: COMMON NORMALS: normal respiratory effort, No retractions, No use of accessory muscles and clear to auscultation bilaterally AUSCULTATION: clear to auscultation bilaterally Cardio: COMMON NORMALS: regular rate, regular rhythm, S1 normal heart sound present and S2 normal heart sound present RATE: regular rate RHYTHM: r egular rhythm HEART SOUNDS: S1 normal heart sound present and S2 normal heart sound present GI: COMMON NORMALS: Normal to inspection, nondistended, normoactive bowel sounds present and non-tender Extremity: OTHER: Bilateral lower extremity, multiple open wounds, lymphedema, 1+ pitting edema Neuro: COMMON NORMALS: patient oriented x3 Psych: COMMON NORMALS: mental status grossly normal Data 02/17/24 08:53 02/17/24 08:53 Micro: Microbiology 02/16/24 18:38 Gram Stain - Final Leg - Left Wound Culture - Preliminary Gram Negative Rods 02/16/24 18:51 Blood Culture - Preliminary Blood SPECIMEN COLLECTED 02/16/24 18:20 Blood Culture - Preliminary Blood SPECIMEN COLLECTED A&P Assessment and plan (1) Wet gangrene: (2) Cellulitis: (3) Hypertension: (4) Peripheral arterial disease: (5) Lymphedema: (6) KELSEY (acute kidney injury): Plan Purulent cellulitis left leg with underlying lymphedema Continue vancomycin Continue Zosyn Plan for surgical debridement today Continue dressing changes PT OT Peripheral arterial disease Previous workup showed aorta with runoff 2021 mild atherosclerotic plaque within the aorta with extension through the common iliac arteries and the superficial femoral arteries. Numerous but only mildly enlarged retroperitoneal, pelvic and RIGHT inguinal lymph nodes. These all may be reactive. Could be a response to a cellulitis or infection of the RIGHT lower extremity. Unremarkable HERNANDEZ 2021 KELSEY: Likely related to use of irbesartan Patient not endorsing signs of UTI No vomiting at home N.p.o. DVT prophylaxis heparin Dr. Melissa consulted from the ER Patient uses a walker to ambulate at home Attestations 2 Medical Necessity Statement*: Patient requires hospitalization for purulent cellulitis of the left leg with underlying lymphedema required IV antibiotics, debridement Diagnoses Wet gangrene I96 Cellulitis L03.90 Hypertension I10 Peripheral arterial disease I73.9 Lymphedema I89.0 KELSEY (acute kidney injury) N17.9
[2024-02-17] MEDS: vancomycin 1,250 MG/250 ML PIGGYBACK 250 MG IV (20:25)
[2024-02-18] VITALS (8 sets, daily range): BP systolic 107–153; BP diastolic 53–73; PULSE 74–88; RESP 16–18; TEMP 36.7–37.2; O2SAT 92–95
[2024-02-18] MEDS: piperacillin-tazobactam 3.375 GM in sodium chloride 0.9% (plus) 50 ML IV ×3 (01:18→17:29)
[2024-02-18 05:41] LABS: Basophils % 0.2 %; Hematocrit 30.5 % (36-47); Lymphocytes # 1.2 10^3/uL (0.8-4.8); Lymphocytes % 17.8 %; Mean Corpuscular HGB Conc 29.2 g/dL (30-55); Mean Corpuscular Hemoglobin 26.6 pg (27-33); Mean Corpuscular Volume 91.3 fl (85-98); Mean Platelet Volume 9.1 fL (7.4-10.4); Monocytes # 0.5 10^3/uL (0.2-0.9); Monocytes % 8.1 %; Neutrophils # 4.84 10^3/uL (1.8-7.7); Neutrophils % 73.6 %; Nucleated Red Blood Cells % 0 %; Platelet Count 209 10^3/cmm (157-399); Red Blood Count 3.34 10^6/uL (3.85-5.65); Red Cell Distribution Width 15.8 % (12.1-15.1); White Blood Count 6.57 10^3/uL (3.29-11.43)
[2024-02-18 06:08] LABS: Alanine Aminotransferase 18 U/L (0-33); Albumin Level 2.4 g/dL (3.5-5.2); Alkaline Phosphatase 68 U/L (35-105); Anion Gap 15.7 (5-19); Aspartate Amino Transferase 36 U/L (0-32); Blood Urea Nitrogen 34 mg/dL (8-23); Calcium 7.9 mg/dL (8.5-10.5); Carbon Dioxide 20 mmol/L (22-29); Chloride 108 mmol/L (98-107); Creatinine Clr Calc Pharmacy 47.6405; Globulin 3.2 g/dL (1.3-4.6); Glucose 151 mg/dL (65-115); Osmolality Calculated 299 mOsm/kg (285-295); Phosphorus 4.1 mg/dL (2.5-4.5); Potassium 4.7 mmol/L (3.5-5.1); Sodium 139 mmol/L (136-145); Total Bilirubin 0.2 mg/dL (0.15-1.2); Total Protein 5.6 g/dL (6.6-8.7)
[2024-02-18 06:51] LABS: NT Pro B Type Natriuretic Pept 4833 pg/mL (0-125); Procalcitonin 0.17 ng/mL (0-0.5)
[2024-02-18] MEDS: FUROsemide 40 mg Tablet PO (09:22)
[2024-02-18] MEDS: levothyroxine 25 mcg Tablet PO (09:22)
[2024-02-18] MEDS: sennosides-docusate Tablet 1 TAB PO (09:22)
[2024-02-18] MEDS: heparin 5,000 unit/mL INJ 1 mL 5000 UNIT SUBCUT ×2 (09:22→20:26)
[2024-02-18] MEDS: PARoxetine 20 mg Tablet 10 MG PO (09:23)
[2024-02-18] MEDS: vancomycin 1,250 MG/250 ML PIGGYBACK 166.67 MG IV (09:23)
[2024-02-18 12:29] LABS: Basophils % 0.1 %; Eosinophils % 0.1 %; Hematocrit 29.9 % (36-47); Lymphocytes # 1.5 10^3/uL (0.8-4.8); Lymphocytes % 18.4 %; Mean Corpuscular HGB Conc 30.4 g/dL (30-55); Mean Corpuscular Hemoglobin 26.6 pg (27-33); Mean Corpuscular Volume 87.4 fl (85-98); Monocytes # 0.7 10^3/uL (0.2-0.9); Monocytes % 8.8 %; Neutrophils # 5.85 10^3/uL (1.8-7.7); Neutrophils % 72.1 %; Nucleated Red Blood Cells % 0 %; Platelet Count 202 10^3/cmm (157-399); Red Blood Count 3.42 10^6/uL (3.85-5.65); Red Cell Distribution Width 15.8 % (12.1-15.1); White Blood Count 8.11 10^3/uL (3.29-11.43)
[2024-02-18 12:46] LABS: Alanine Aminotransferase 19 U/L (0-33); Albumin Level 2.4 g/dL (3.5-5.2); Alkaline Phosphatase 65 U/L (35-105); Anion Gap 16.3 (5-19); Aspartate Amino Transferase 44 U/L (0-32); Blood Urea Nitrogen 35 mg/dL (8-23); Calcium 7.7 mg/dL (8.5-10.5); Carbon Dioxide 19 mmol/L (22-29); Chloride 108 mmol/L (98-107); Creatinine Clr Calc Pharmacy 51.0434; Globulin 3.2 g/dL (1.3-4.6); Glucose 142 mg/dL (65-115); Osmolality Calculated 298 mOsm/kg (285-295); Potassium 4.3 mmol/L (3.5-5.1); Sodium 139 mmol/L (136-145); Total Bilirubin 0.2 mg/dL (0.15-1.2); Total Protein 5.6 g/dL (6.6-8.7)
[2024-02-18] MEDS: morphine IR 15 mg Tablet PO (13:39)
--- NOTE | 2024-02-18 14:34 | P.PN_ITS ---
Subjective 2 Subjective: Pain under control Dressings clean Vitals/I&O/Wt Last Vital Signs Temp 98.4 F 02/18/24 11:53 Pulse 78 02/18/24 11:53 Resp 18 02/18/24 13:39 BP 107/53 02/18/24 11:53 Pulse Ox 94 02/18/24 11:53 O2 Del Method Room Air 02/18/24 11:53 02/17/24 02/18/24 02/18/24 22:59 06:59 14:59 Intake Total 860 / 1220 1290 / 2510 730 / 730 Balance 860 / 1218 1290 / 2508 730 / 730 Weight last 48 hrs Weight 324 lb 9.6 oz Weight 323 lb 1.6 oz Weight 325 lb 6 oz Weight 340 lb Physical Exam 2 Narrative: Chest: Unlabored breathing room air. No lymphadenopathy. Heart: Regular rate and rhythm. Abdomen: Soft, nontender, nondistended. No masses or lymphadenopathy. Bilateral lower extremities dressings are clean. Nursing is waiting for Santyl to do dressing changes. Data 02/18/24 12:22 02/18/24 12:22 Micro: Microbiology 02/16/24 18:38 Gram Stain - Final Leg - Left Wound Culture - Preliminary Gram Negative Rods Gram Negative Rods#2 02/16/24 18:51 Blood Culture - Preliminary Blood NEGATIVE TO DATE 02/16/24 18:20 Blood Culture - Preliminary Blood NEGATIVE TO DATE A&P Assessment and plan (1) Cellulitis: Plan 73-year-old female who presented with cellulitis and bilateral lower extremity chronic wounds secondary to lymphedema. Debrided wounds yesterday. Recommend daily dressing changes. Apply Santyl to open wounds dressed with Kerlix and Papo wrap's. Patient needs close follow-up with wound care. Attestations 2 Medical Necessity Statement*: N/A Coding Level of Care Code 03902 Diagnoses Cellulitis L03.90 Time Spent (min) 30
[2024-02-18] MEDS: collagenase oint 30 gm 1 APPLIC TOPICAL (15:36)
--- NOTE | 2024-02-18 16:52 | P.PN_ITS ---
Subjective 2 Subjective: Patient was seen this morning, she complains of bilateral lower extremity pain, no fevers, chills, no cough Vitals/I&O/Wt Last Vital Signs Temp 98.1 F 02/18/24 15:54 Pulse 88 02/18/24 15:54 Resp 17 02/18/24 15:54 BP 153/70 02/18/24 15:54 Pulse Ox 92 02/18/24 15:54 O2 Del Method Room Air 02/18/24 15:54 02/18/24 02/18/24 02/18/24 06:59 14:59 22:59 Intake Total 1290 / 2510 730 / 730 50 / 780 Balance 1290 / 2508 730 / 730 50 / 780 Weight last 48 hrs Weight 147.236 kg Weight 146.556 kg Weight 147.588 kg Physical Exam 2 Const: COMMON NORMALS: no acute distress and patient oriented x3 Resp: COMMON NORMALS: normal respiratory effort, No retractions, No use of accessory muscles and clear to auscultation bilaterally AUSCULTATION: clear to auscultation bilaterally Cardio: COMMON NORMALS: regular rate, regular rhythm, S1 normal heart sound present and S2 normal heart sound present RATE: regular rate RHYTHM: r egular rhythm HEART SOUNDS: S1 normal heart sound present and S2 normal heart sound present GI: COMMON NORMALS: Normal to inspection, nondistended, normoactive bowel sounds present and non-tender OTHER: Morbidly obese abdomen Extremity: OTHER: 1+ edema, bilateral extremities wrapped Neuro: COMMON NORMALS: patient oriented x3 Psych: COMMON NORMALS: mental status grossly normal Data 02/18/24 12:22 02/18/24 12:22 Micro: Microbiology 02/16/24 18:38 Gram Stain - Final Leg - Left Wound Culture - Preliminary Gram Negative Rods Gram Negative Rods#2 02/16/24 18:51 Blood Culture - Preliminary Blood NEGATIVE TO DATE 02/16/24 18:20 Blood Culture - Preliminary Blood NEGATIVE TO DATE A&P Assessment and plan (1) Wet gangrene: (2) Cellulitis: (3) Hypertension: (4) Peripheral arterial disease: (5) Lymphedema: (6) KELSEY (acute kidney injury): Plan Purulent cellulitis left leg with underlying lymphedema Status post debridement by Dr. Melissa Continue vancomycin Continue Zosyn Follow wound cultures Continue dressing changes PT OT Peripheral arterial disease Previous workup showed aorta with runoff 2021 mild atherosclerotic plaque within the aorta with extension through the common iliac arteries and the superficial femoral arteries. Numerous but only mildly enlarged retroperitoneal, pelvic and RIGHT inguinal lymph nodes. These all may be reactive. Could be a response to a cellulitis or infection of the RIGHT lower extremity. Unremarkable HERNANDEZ 2021 KELSEY: Likely related to use of irbesartan Patient not endorsing signs of UTI No vomiting at home 1+ pitting edema, creatinine is up to 1.5, continue p.o. Lasix monitor creatinine this afternoon KELSEY, monitor Acute anemia, repeat CBC this afternoon . DVT prophylaxis heparin Dr. Melissa consulted from the ER Patient uses a walker to ambulate at home Attestations 2 Medical Necessity Statement*: Patient requires hospitalization for cellulitis bilateral lower extremity with edema Diagnoses Wet gangrene I96 Cellulitis L03.90 Hypertension I10 Peripheral arterial disease I73.9 Lymphedema I89.0 KELSEY (acute kidney injury) N17.9
[2024-02-18 20:41] LABS: Vancomycin Trough 34.1 ug/mL (10-15)
--- NOTE | 2024-02-18 20:41 | PC.NURSE ---
Vanc Trough: Pt's vanc trough is 34.1. Alfonso from pharmacy called this nurse and said to hold pt's 2100 dose and he would adjust the dose for the 0900 admin on 02/18.
[2024-02-19] VITALS (7 sets, daily range): BP systolic 120–162; BP diastolic 51–66; PULSE 47–88; RESP 16–18; TEMP 36.7–36.9; O2SAT 92–95
[2024-02-19] MEDS: piperacillin-tazobactam 3.375 GM in sodium chloride 0.9% (plus) 50 ML IV (01:02)
[2024-02-19 04:58] LABS: Basophils # 0.1 10^3/uL (0.0-0.1); Basophils % 0.8 %; Eosinophils # 0.1 10^3/uL (0.0-0.8); Hematocrit 30.4 % (36-47); Lymphocytes # 2.1 10^3/uL (0.8-4.8); Lymphocytes % 35.3 %; Mean Corpuscular HGB Conc 30.3 g/dL (30-55); Mean Corpuscular Hemoglobin 27.5 pg (27-33); Monocytes # 0.7 10^3/uL (0.2-0.9); Monocytes % 11.4 %; Neutrophils # 2.99 10^3/uL (1.8-7.7); Neutrophils % 50.2 %; Nucleated Red Blood Cells % 0 %; Platelet Count 198 10^3/cmm (157-399); Red Blood Count 3.34 10^6/uL (3.85-5.65); Red Cell Distribution Width 15.9 % (12.1-15.1); White Blood Count 5.97 10^3/uL (3.29-11.43)
[2024-02-19 05:28] LABS: Alanine Aminotransferase 22 U/L (0-33); Albumin Level 2.4 g/dL (3.5-5.2); Alkaline Phosphatase 68 U/L (35-105); Anion Gap 15.3 (5-19); Aspartate Amino Transferase 51 U/L (0-32); Blood Urea Nitrogen 32 mg/dL (8-23); Calcium 7.9 mg/dL (8.5-10.5); Carbon Dioxide 21 mmol/L (22-29); Chloride 110 mmol/L (98-107); Globulin 3.3 g/dL (1.3-4.6); Glucose 104 mg/dL (65-115); Osmolality Calculated 301 mOsm/kg (285-295); Potassium 4.3 mmol/L (3.5-5.1); Sodium 142 mmol/L (136-145); Total Bilirubin 0.2 mg/dL (0.15-1.2); Total Protein 5.7 g/dL (6.6-8.7)
[2024-02-19 05:33] LABS: Vancomycin Random 22.9 ug/mL (20.0-40.0)
[2024-02-19 05:34] LABS: NT Pro B Type Natriuretic Pept 5158 pg/mL (0-125)
[2024-02-19] MEDS: levothyroxine 25 mcg Tablet PO (08:08)
[2024-02-19] MEDS: sennosides-docusate Tablet 1 TAB PO (08:08)
[2024-02-19] MEDS: vancomycin 1,750 MG/350 ML PIGGYBACK 175 MG IV (08:08)
[2024-02-19] MEDS: heparin 5,000 unit/mL INJ 1 mL 5000 UNIT SUBCUT ×2 (08:08→19:39)
[2024-02-19] MEDS: FUROsemide 40 mg Tablet PO (08:08)
[2024-02-19] MEDS: PARoxetine 20 mg Tablet 10 MG PO (08:09)
[2024-02-19] MEDS: ciprofloxacin 500 mg Tablet PO (09:44)
[2024-02-19] MEDS: doxycycline 100 mg Tablet PO (09:44)
[2024-02-19] MEDS: morphine IR 15 mg Tablet PO (09:52)
[2024-02-19] MEDS: pantoprazole 40 mg SDV IVP ×2 (11:24→22:04)
[2024-02-19] MEDS: collagenase oint 30 gm 1 APPLIC TOPICAL (11:28)
--- NOTE | 2024-02-19 12:31 | PC.SOCIAL ---
IMM Update pg 2 of IMM Updated and reviewed w/ patient. Copy provided and copy dated, initialed and placed in chart.
[2024-02-19] MEDS: oxyCODONE 5 mg IR Tab/Cap PO (12:47)
--- NOTE | 2024-02-19 17:08 | P.PN_ITS ---
Subjective 2 Subjective: Patient was seen this morning, she tells me that the morphine makes her nauseous, denies any fevers, no chills, Vitals/I&O/Wt Last Vital Signs Temp 98.1 F 02/19/24 15:56 Pulse 81 02/19/24 15:56 Resp 17 02/19/24 15:56 BP 130/51 02/19/24 15:56 Pulse Ox 93 02/19/24 15:56 O2 Del Method Room Air 02/19/24 15:56 02/19/24 02/19/24 02/19/24 06:59 14:59 22:59 Intake Total 290 / 1360 765.833 / 765.833 Balance 290 / 1360 765.833 / 765.833 Weight last 48 hrs Weight 150.275 kg Weight 147.236 kg Physical Exam 2 Const: COMMON NORMALS: no acute distress and patient oriented x3 Resp: COMMON NORMALS: normal respiratory effort, No retractions, No use of accessory muscles and clear to auscultation bilaterally AUSCULTATION: clear to auscultation bilaterally Cardio: COMMON NORMALS: regular rate, regular rhythm, S1 normal heart sound present and S2 normal heart sound present RATE: regular rate RHYTHM: r egular rhythm HEART SOUNDS: S1 normal heart sound present and S2 normal heart sound present GI: COMMON NORMALS: Normal to inspection, nondistended, normoactive bowel sounds present and non-tender Extremity: COMMON NORMALS: no pedal edema NARRATIVE EXTREMITY EXAM: Bilateral lower extremities wrapped Neuro: COMMON NORMALS: patient oriented x3 Psych: COMMON NORMALS: mental status grossly normal Data 02/19/24 04:46 02/19/24 04:46 Micro: Microbiology 02/16/24 18:38 Gram Stain - Final Leg - Left Wound Culture - Final Citrobacter murliniae Providencia rettgeri Staphylococcus aureus A&P Assessment and plan (1) Wet gangrene: (2) Cellulitis: (3) Hypertension: (4) Peripheral arterial disease: (5) Lymphedema: (6) KELSEY (acute kidney injury): Plan Purulent cellulitis left leg with underlying lymphedema Status post debridement by Dr. Melissa Escalate off IV antibiotics to p.o. Bactrim Follow wound cultures Continue dressing changes PT OT Peripheral arterial disease Previous workup showed aorta with runoff 2021 mild atherosclerotic plaque within the aorta with extension through the common iliac arteries and the superficial femoral arteries. Numerous but only mildly enlarged retroperitoneal, pelvic and RIGHT inguinal lymph nodes. These all may be reactive. Could be a response to a cellulitis or infection of the RIGHT lower extremity. Unremarkable HERNANDEZ 2021 KELSEY: Likely related to use of irbesartan Patient not endorsing signs of UTI No vomiting at home 1+ pitting edema, creatinine is up to 1.5, continue p.o. Lasix monitor creatinine this afternoon KELSEY, monitor Acute anemia, repeat CBC this afternoon Deconditioning, requiring PT OT DVT prophylaxis heparin Dr. Melissa consulted from the ER Patient uses a walker to ambulate at home Attestations 2 Medical Necessity Statement*: Patient requires hospitalization for purulent cellulitis bilateral extremities status post debridement Diagnoses Wet gangrene I96 Cellulitis L03.90 Hypertension I10 Peripheral arterial disease I73.9 Lymphedema I89.0 KELSEY (acute kidney injury) N17.9
[2024-02-19] MEDS: sulfamethoxazole-trimeth DS 160-800 mg Tablet 1 TAB PO (18:17)
[2024-02-19] MEDS: calcium carbonate 500 mg Chew Tablet PO (18:18)
[2024-02-19] MEDS: ondansetron 2 mg/ML SDV 2 mL 4 MG IVP (18:18)
[2024-02-20] VITALS (8 sets, daily range): BP systolic 121–156; BP diastolic 55–74; PULSE 40–72; RESP 16–18; TEMP 36.6–37.2; O2SAT 91–98
[2024-02-20 04:05] LABS: Basophils # 0.1 10^3/uL (0.0-0.1); Basophils % 0.9 %; Eosinophils # 0.2 10^3/uL (0.0-0.8); Eosinophils % 3.5 %; Hematocrit 31.3 % (36-47); Lymphocytes # 2.1 10^3/uL (0.8-4.8); Lymphocytes % 37.4 %; Mean Corpuscular HGB Conc 29.7 g/dL (30-55); Monocytes # 0.6 10^3/uL (0.2-0.9); Monocytes % 10.6 %; Neutrophils # 2.68 10^3/uL (1.8-7.7); Neutrophils % 47.2 %; Nucleated Red Blood Cells % 0 %; Platelet Count 202 10^3/cmm (157-399); Red Blood Count 3.44 10^6/uL (3.85-5.65); White Blood Count 5.67 10^3/uL (3.29-11.43)
[2024-02-20 04:19] LABS: Alanine Aminotransferase 20 U/L (0-33); Albumin Level 2.6 g/dL (3.5-5.2); Alkaline Phosphatase 59 U/L (35-105); Anion Gap 16.2 (5-19); Aspartate Amino Transferase 37 U/L (0-32); Blood Urea Nitrogen 27 mg/dL (8-23); Calcium 7.6 mg/dL (8.5-10.5); Carbon Dioxide 24 mmol/L (22-29); Chloride 107 mmol/L (98-107); Globulin 2.5 g/dL (1.3-4.6); Glucose 83 mg/dL (65-115); Osmolality Calculated 300 mOsm/kg (285-295); Potassium 4.2 mmol/L (3.5-5.1); Sodium 143 mmol/L (136-145); Total Bilirubin 0.2 mg/dL (0.15-1.2); Total Protein 5.1 g/dL (6.6-8.7)
[2024-02-20 04:31] LABS: NT Pro B Type Natriuretic Pept 6076 pg/mL (0-125)
[2024-02-20] MEDS: PARoxetine 20 mg Tablet 10 MG PO (08:29)
[2024-02-20] MEDS: levothyroxine 25 mcg Tablet PO (08:29)
[2024-02-20] MEDS: sulfamethoxazole-trimeth DS 160-800 mg Tablet 1 TAB PO ×2 (08:29→17:02)
[2024-02-20] MEDS: heparin 5,000 unit/mL INJ 1 mL 5000 UNIT SUBCUT ×2 (08:29→21:09)
[2024-02-20] MEDS: FUROsemide 40 mg Tablet PO (08:29)
[2024-02-20] MEDS: collagenase oint 30 gm 1 APPLIC TOPICAL (08:30)
[2024-02-20] MEDS: pantoprazole 40 mg SDV IVP ×2 (10:03→21:08)
[2024-02-20] MEDS: metOLazone 5 MG Tablet PO (10:03)
[2024-02-20] MEDS: potassium chloride ER 20 mEq Tablet PO (10:03)
--- NOTE | 2024-02-20 15:17 | P.PN_ITS ---
Subjective 2 Subjective: Patient was seen this morning, she denies any fevers, no chills, no cough her pain is more under control no nausea with the oxycodone, her tightness of her legs has improved, discussed increasing diuresis as her BNP is elevated, has increased lower extremity edema Vitals/I&O/Wt Last Vital Signs Temp 97.8 F 02/20/24 13:15 Pulse 40 L 02/20/24 13:15 Resp 18 02/20/24 13:15 BP 123/58 02/20/24 13:15 Pulse Ox 94 02/20/24 13:15 O2 Del Method Room Air 02/20/24 13:15 02/20/24 02/20/24 02/20/24 06:59 14:59 22:59 Intake Total 960 / 960 Balance 960 / 960 Weight last 48 hrs Weight 149.232 kg Weight 150.275 kg Physical Exam 2 Const: COMMON NORMALS: no acute distress and patient oriented x3 Resp: COMMON NORMALS: normal respiratory effort, No retractions, No use of accessory muscles and clear to auscultation bilaterally AUSCULTATION: clear to auscultation bilaterally Cardio: COMMON NORMALS: regular rate, regular rhythm, S1 normal heart sound present and S2 normal heart sound present RATE: regular rate RHYTHM: r egular rhythm HEART SOUNDS: S1 normal heart sound present and S2 normal heart sound present GI: COMMON NORMALS: Normal to inspection, nondistended, normoactive bowel sounds present and non-tender Extremity: NARRATIVE EXTREMITY EXAM: 1+ edema bilateral extremities, bilatera l lower extremities wrapped Neuro: COMMON NORMALS: patient oriented x3 Psych: COMMON NORMALS: mental status grossly normal Data 02/20/24 03:20 02/20/24 03:20 Micro: Microbiology 02/16/24 18:38 Gram Stain - Final Leg - Left Wound Culture - Final Citrobacter murliniae Providencia rettgeri Staphylococcus aureus A&P Assessment and plan (1) Wet gangrene: (2) Cellulitis: (3) Hypertension: (4) Peripheral arterial disease: (5) Lymphedema: (6) KELSEY (acute kidney injury): Plan Purulent cellulitis left leg with underlying lymphedema Status post debridement by Dr. Melissa De-escalate off IV antibiotics to p.o. Bactrim Follow wound cultures Continue dressing changes PT OT Bilateral extremity edema, has received 40 of p.o. Lasix with metolazone, 1 dose IV Lasix this evening Peripheral arterial disease Previous workup showed aorta with runoff 2021 mild atherosclerotic plaque within the aorta with extension through the common iliac arteries and the superficial femoral arteries. Numerous but only mildly enlarged retroperitoneal, pelvic and RIGHT inguinal lymph nodes. These all may be reactive. Could be a response to a cellulitis or infection of the RIGHT lower extremity. Unremarkable HERNANDEZ 2021 KELSEY: Resolving Patient not endorsing signs of UTI No vomiting at home KELSEY, monitor Acute anemia, monitor Deconditioning, requiring PT OT, placement to halfway facility DVT prophylaxis heparin Dr. Melissa consulted from the ER Patient uses a walker to ambulate at home Attestations 2 Medical Necessity Statement*: Patient requires hospitalization for fluid overload, lower extreme edema requiring IV Lasix Diagnoses Wet gangrene I96 Cellulitis L03.90 Hypertension I10 Peripheral arterial disease I73.9 Lymphedema I89.0 KELSEY (acute kidney injury) N17.9
[2024-02-20] MEDS: FUROsemide 10 mg/mL SDV 4mL 40 MG IVP (17:02)
[2024-02-20] MEDS: oxyCODONE 5 mg IR Tab/Cap PO (21:09)
[2024-02-21] VITALS (7 sets, daily range): BP systolic 116–173; BP diastolic 50–81; PULSE 51–96; RESP 16–18; TEMP 36.8–37.2; O2SAT 91–97
[2024-02-21 05:54] LABS: Basophils % 0.6 %; Eosinophils # 0.2 10^3/uL (0.0-0.8); Hematocrit 30.8 % (36-47); Lymphocytes # 1.6 10^3/uL (0.8-4.8); Lymphocytes % 25.8 %; Mean Corpuscular HGB Conc 30.8 g/dL (30-55); Mean Corpuscular Hemoglobin 27.5 pg (27-33); Monocytes # 0.6 10^3/uL (0.2-0.9); Monocytes % 9.2 %; Neutrophils # 3.84 10^3/uL (1.8-7.7); Neutrophils % 60.9 %; Nucleated Red Blood Cells % 0 %; Platelet Count 180 10^3/cmm (157-399); Red Blood Count 3.46 10^6/uL (3.85-5.65); Red Cell Distribution Width 15.9 % (12.1-15.1); White Blood Count 6.31 10^3/uL (3.29-11.43)
[2024-02-21 06:14] LABS: Alanine Aminotransferase 23 U/L (0-33); Albumin Level 2.4 g/dL (3.5-5.2); Alkaline Phosphatase 65 U/L (35-105); Anion Gap 13.7 (5-19); Aspartate Amino Transferase 28 U/L (0-32); Blood Urea Nitrogen 25 mg/dL (8-23); Carbon Dioxide 23 mmol/L (22-29); Chloride 107 mmol/L (98-107); Creatinine Clr Calc Pharmacy 47.5558; Glucose 86 mg/dL (65-115); Osmolality Calculated 294 mOsm/kg (285-295); Potassium 3.7 mmol/L (3.5-5.1); Sodium 140 mmol/L (136-145); Total Bilirubin 0.2 mg/dL (0.15-1.2); Total Protein 5.4 g/dL (6.6-8.7)
[2024-02-21] MEDS: sulfamethoxazole-trimeth DS 160-800 mg Tablet 1 TAB PO ×2 (09:28→18:42)
[2024-02-21] MEDS: levothyroxine 25 mcg Tablet PO (09:28)
[2024-02-21] MEDS: PARoxetine 20 mg Tablet 10 MG PO (09:28)
[2024-02-21] MEDS: heparin 5,000 unit/mL INJ 1 mL 5000 UNIT SUBCUT ×2 (09:28→21:07)
[2024-02-21] MEDS: collagenase oint 30 gm 1 APPLIC TOPICAL (09:29)
[2024-02-21] MEDS: FUROsemide 10 mg/mL SDV 4mL 40 MG IVP ×2 (09:37→15:59)
[2024-02-21] MEDS: potassium chloride ER 20 mEq Tablet 40 MEQ PO (09:37)
[2024-02-21 10:02] LABS: NT Pro B Type Natriuretic Pept 9667 pg/mL (0-125)
[2024-02-21] MEDS: pantoprazole DR 40 mg Tablet PO ×2 (10:24→21:07)
--- NOTE | 2024-02-21 15:19 | P.PN_ITS ---
Subjective 2 Subjective: Patient was seen this morning, she tells her that she is breathing better, her edema is improving, discussed continuing diuresis today, will give her Lasix twice twice daily as she received yesterday, Vitals/I&O/Wt Last Vital Signs Temp 98.2 F 02/21/24 12:00 Pulse 72 02/21/24 12:00 Resp 17 02/21/24 12:00 BP 158/81 02/21/24 12:00 Pulse Ox 97 02/21/24 12:00 O2 Del Method Room Air 02/21/24 12:00 02/21/24 02/21/24 02/21/24 06:59 14:59 22:59 Intake Total 240 / 1680 500 / 500 Balance 240 / 1680 500 / 500 Weight last 48 hrs Weight 146.828 kg Weight 149.232 kg Physical Exam 2 Const: COMMON NORMALS: no acute distress and patient oriented x3 Resp: COMMON NORMALS: normal respiratory effort, No retractions, No use of accessory muscles and clear to auscultation bilaterally AUSCULTATION: clear to auscultation bilaterally Cardio: COMMON NORMALS: regular rate, regular rhythm, S1 normal heart sound present and S2 normal heart sound present RATE: regular rate RHYTHM: r egular rhythm HEART SOUNDS: S1 normal heart sound present and S2 normal heart sound present GI: COMMON NORMALS: Normal to inspection, nondistended, normoactive bowel sounds present and non-tender Extremity: NARRATIVE EXTREMITY EXAM: 1+ pitting edema, bilateral extremities wrapped Neuro: COMMON NORMALS: patient oriented x3 Psych: COMMON NORMALS: mental status grossly normal Data 02/21/24 05:38 02/21/24 05:38 A&P Assessment and plan (1) Wet gangrene: (2) Cellulitis: (3) Hypertension: (4) Peripheral arterial disease: (5) Lymphedema: (6) KELSEY (acute kidney injury): (7) CHF exacerbation: Plan Purulent cellulitis left leg with underlying lymphedema Status post debridement by Dr. Melissa De-escalate off IV antibiotics to p.o. Bactrim Follow wound cultures Continue dressing changes PT OT CHF exacerbation, diastolic, BNP 9000, 1+ pitting edema, bilateral extremity edema, continue Lasix 40 IV twice daily Peripheral arterial disease Previous workup showed aorta with runoff 2021 mild atherosclerotic plaque within the aorta with extension through the common iliac arteries and the superficial femoral arteries. Numerous but only mildly enlarged retroperitoneal, pelvic and RIGHT inguinal lymph nodes. These all may be reactive. Could be a response to a cellulitis or infection of the RIGHT lower extremity. Unremarkable HERNANDEZ 2021 KELSEY: Resolving Patient not endorsing signs of UTI No vomiting at home KELSEY, monitor Acute anemia, monitor Deconditioning, requiring PT OT, [facility] DVT prophylaxis heparin Dr. Melissa consulted from the ER Patient uses a walker to ambulate at home Attestations 2 Medical Necessity Statement*: Patient requires hospitalization for CHF exacerbation, requiring IV diuresis Diagnoses Wet gangrene I96 Cellulitis L03.90 Hypertension I10 Peripheral arterial disease I73.9 Lymphedema I89.0 KELSEY (acute kidney injury) N17.9 CHF exacerbation I50.9
[2024-02-22] VITALS (7 sets, daily range): BP systolic 127–153; BP diastolic 51–80; PULSE 57–98; RESP 17–18; TEMP 36.7–37.1; O2SAT 92–97
[2024-02-22 05:12] LABS: Basophils # 0.1 10^3/uL (0.0-0.1); Basophils % 0.7 %; Eosinophils # 0.2 10^3/uL (0.0-0.8); Eosinophils % 3.1 %; Hematocrit 33.7 % (36-47); Lymphocytes # 1.8 10^3/uL (0.8-4.8); Lymphocytes % 24.4 %; Mean Corpuscular HGB Conc 28.8 g/dL (30-55); Mean Corpuscular Hemoglobin 27.1 pg (27-33); Mean Corpuscular Volume 94.1 fl (85-98); Monocytes # 0.7 10^3/uL (0.2-0.9); Monocytes % 9.1 %; Neutrophils # 4.47 10^3/uL (1.8-7.7); Neutrophils % 62.4 %; Nucleated Red Blood Cells % 0 %; Platelet Count 188 10^3/cmm (157-399); Red Blood Count 3.58 10^6/uL (3.85-5.65); Red Cell Distribution Width 15.7 % (12.1-15.1); White Blood Count 7.16 10^3/uL (3.29-11.43)
[2024-02-22 05:37] LABS: Alanine Aminotransferase 20 U/L (0-33); Albumin Level 2.3 g/dL (3.5-5.2); Alkaline Phosphatase 60 U/L (35-105); Anion Gap 14.5 (5-19); Aspartate Amino Transferase 20 U/L (0-32); Blood Urea Nitrogen 23 mg/dL (8-23); Calcium 7.9 mg/dL (8.5-10.5); Carbon Dioxide 22 mmol/L (22-29); Chloride 104 mmol/L (98-107); Creatinine Clr Calc Pharmacy 44.5658; Globulin 3.3 g/dL (1.3-4.6); Glucose 92 mg/dL (65-115); Osmolality Calculated 287 mOsm/kg (285-295); Potassium 3.5 mmol/L (3.5-5.1); Sodium 137 mmol/L (136-145); Total Bilirubin 0.2 mg/dL (0.15-1.2); Total Protein 5.6 g/dL (6.6-8.7)
[2024-02-22] MEDS: sennosides-docusate Tablet 1 TAB PO (08:28)
[2024-02-22] MEDS: PARoxetine 20 mg Tablet 10 MG PO (08:28)
[2024-02-22] MEDS: levothyroxine 25 mcg Tablet PO (08:29)
[2024-02-22] MEDS: heparin 5,000 unit/mL INJ 1 mL 5000 UNIT SUBCUT ×2 (08:29→21:42)
[2024-02-22] MEDS: potassium chloride ER 20 mEq Tablet PO (08:31)
[2024-02-22] MEDS: collagenase oint 30 gm 1 APPLIC TOPICAL (08:31)
[2024-02-22] MEDS: FUROsemide 40 mg Tablet PO (08:31)
[2024-02-22] MEDS: sulfamethoxazole-trimeth DS 160-800 mg Tablet 1 TAB PO ×2 (08:32→17:27)
[2024-02-22] MEDS: pantoprazole DR 40 mg Tablet PO ×2 (09:08→21:43)
--- NOTE | 2024-02-22 14:20 | P.PN_ITS ---
Subjective 2 Subjective: Patient was seen this morning, she is feeling better, her lower extremity edema is improving, no fevers, no chills, no nausea, no vomiting Vitals/I&O/Wt Last Vital Signs Temp 98.3 F 02/22/24 11:34 Pulse 58 L 02/22/24 11:34 Resp 17 02/22/24 11:34 BP 147/54 02/22/24 11:34 Pulse Ox 93 02/22/24 11:34 O2 Del Method Room Air 02/22/24 11:34 02/21/24 02/22/24 02/22/24 22:59 06:59 14:59 Intake Total 802 / 1302 360 / 1662 960 / 960 Balance 802 / 1302 360 / 1662 960 / 960 Weight last 48 hrs Weight 146.737 kg Weight 146.828 kg Physical Exam 2 Const: COMMON NORMALS: no acute distress and patient oriented x3 Resp: COMMON NORMALS: normal respiratory effort, No retractions, No use of accessory muscles and clear to auscultation bilaterally AUSCULTATION: clear to auscultation bilaterally Cardio: COMMON NORMALS: regular rate, regular rhythm, S1 normal heart sound present and S2 normal heart sound present RATE: regular rate RHYTHM: r egular rhythm HEART SOUNDS: S1 normal heart sound present and S2 normal heart sound present GI: COMMON NORMALS: Normal to inspection, nondistended, normoactive bowel sounds present and non-tender Extremity: COMMON NORMALS: no pedal edema Neuro: COMMON NORMALS: patient oriented x3 Psych: COMMON NORMALS: mental status grossly normal Data 02/22/24 05:04 02/22/24 05:04 Micro: Microbiology 02/16/24 18:51 Blood Culture - Final Blood NO GROWTH AFTER 5 DAYS 02/16/24 18:20 Blood Culture - Final Blood NO GROWTH AFTER 5 DAYS A&P Assessment and plan (1) Wet gangrene: (2) Cellulitis: (3) Hypertension: (4) Peripheral arterial disease: (5) Lymphedema: (6) KELSEY (acute kidney injury): (7) CHF exacerbation: Plan Purulent cellulitis left leg with underlying lymphedema Status post debridement by Dr. Melissa De-escalate off IV antibiotics to p.o. Bactrim Follow wound cultures Continue dressing changes PT OT CHF exacerbation, diastolic, BNP 9000, 1+ pitting edema, bilateral extremity edema, continue Lasix 40 IV twice daily Peripheral arterial disease Previous workup showed aorta with runoff 2021 mild atherosclerotic plaque within the aorta with extension through the common iliac arteries and the superficial femoral arteries. Numerous but only mildly enlarged retroperitoneal, pelvic and RIGHT inguinal lymph nodes. These all may be reactive. Could be a response to a cellulitis or infection of the RIGHT lower extremity. Unremarkable HERNANDEZ 2021 KELSEY: Resolving Patient not endorsing signs of UTI No vomiting at home KELSEY, monitor Acute anemia, monitor Deconditioning, requiring PT OT, placement to [facility] facility DVT prophylaxis heparin Dr. Melissa consulted from the ER Patient uses a walker to ambulate at home Attestations 2 Medical Necessity Statement*: Patient requires hospitalization for fluid overload requiring diuresis Diagnoses Wet gangrene I96 Cellulitis L03.90 Hypertension I10 Peripheral arterial disease I73.9 Lymphedema I89.0 KELSEY (acute kidney injury) N17.9 CHF exacerbation I50.9
[2024-02-22] MEDS: calcium carbonate 500 mg Chew Tablet PO (15:10)
[2024-02-23] VITALS (9 sets, daily range): BP systolic 133–179; BP diastolic 50–65; PULSE 55–94; RESP 17–20; TEMP 36.8–37; O2SAT 91–95
--- NOTE | 2024-02-23 01:25 | PC.NURSE ---
patient has open debridment to bilateral lower extremeties. all sites cleansed with saline and telfa and santil cream applied, then wrapped with curlex and mary bandage. all beds of wounds are pink and red, drainage yellowish color, has no odor or other signs of infection. patient tolerated well
[2024-02-23 06:12] LABS: Basophils % 0.5 %; Eosinophils # 0.3 10^3/uL (0.0-0.8); Eosinophils % 3.6 %; Hematocrit 31.5 % (36-47); Lymphocytes # 1.9 10^3/uL (0.8-4.8); Lymphocytes % 25.6 %; Mean Corpuscular HGB Conc 29.8 g/dL (30-55); Mean Corpuscular Hemoglobin 26.9 pg (27-33); Mean Platelet Volume 8.9 fL (7.4-10.4); Monocytes # 0.7 10^3/uL (0.2-0.9); Monocytes % 9.4 %; Neutrophils # 4.48 10^3/uL (1.8-7.7); Neutrophils % 60.6 %; Nucleated Red Blood Cells % 0 %; Platelet Count 188 10^3/cmm (157-399); Red Cell Distribution Width 16.2 % (12.1-15.1); White Blood Count 7.41 10^3/uL (3.29-11.43)
[2024-02-23 06:33] LABS: Alanine Aminotransferase 17 U/L (0-33); Albumin Level 2.3 g/dL (3.5-5.2); Alkaline Phosphatase 58 U/L (35-105); Anion Gap 12.7 (5-19); Aspartate Amino Transferase 18 U/L (0-32); Blood Urea Nitrogen 22 mg/dL (8-23); Carbon Dioxide 23 mmol/L (22-29); Chloride 104 mmol/L (98-107); Creatinine Clr Calc Pharmacy 44.5923; Globulin 3.2 g/dL (1.3-4.6); Glucose 91 mg/dL (65-115); Osmolality Calculated 285 mOsm/kg (285-295); Potassium 3.7 mmol/L (3.5-5.1); Sodium 136 mmol/L (136-145); Total Bilirubin 0.2 mg/dL (0.15-1.2); Total Protein 5.5 g/dL (6.6-8.7)
[2024-02-23] MEDS: sulfamethoxazole-trimeth DS 160-800 mg Tablet 1 TAB PO ×2 (09:17→17:11)
[2024-02-23] MEDS: pantoprazole DR 40 mg Tablet PO ×2 (09:18→21:20)
[2024-02-23] MEDS: sennosides-docusate Tablet 1 TAB PO (09:18)
[2024-02-23] MEDS: heparin 5,000 unit/mL INJ 1 mL 5000 UNIT SUBCUT ×2 (09:18→21:20)
[2024-02-23] MEDS: PARoxetine 20 mg Tablet 10 MG PO (09:18)
[2024-02-23] MEDS: levothyroxine 25 mcg Tablet PO (09:18)
[2024-02-23] MEDS: potassium chloride ER 20 mEq Tablet PO (09:18)
[2024-02-23] MEDS: FUROsemide 40 mg Tablet PO (09:18)
--- NOTE | 2024-02-23 11:07 | PM.DCS ---
Discharge Providers Date of Admission: 02/16/24 19:43 Date of Discharge: February 23, 2024 Attending Provider at Admission: Rasheeda Yoon MD Attending Provider at Discharge: Blayne Camacho MD Primary Care Provider: Eduardo Flynn MD Diagnoses at Discharge Discharge Diagnosis (1) Wet gangrene: Status: Acute (2) Cellulitis: Status: Acute (3) Hypertension: Status: Acute (4) Peripheral arterial disease: Status: Acute (5) Lymphedema: Status: Acute (6) KELSEY (acute kidney injury): Status: Acute (7) CHF exacerbation: Status: Acute Reason for Visit Reason for Visit: dr referal Discharge Data Studies Completed and Pending Completed Studies During Hospitalization Category Date Time Status CTA lower extremity bilateral [place] [id number]] Cat Scan 02/16/24 19:42 Completed Stat XR tibia fibula LT 2V [id number] Stat Exams 02/16/24 17:38 Completed Radiology Impressions Tibia/Fibula X-Ray 02/16/24 17:38 IMPRESSION: 1. Marked diffuse soft tissue edema with soft tissue ulceration of the volar and lateral aspect of the mid left lower extremity. 2. Tibia and fibula are intact. Lower Extremity CTA 02/16/24 19:42 IMPRESSION: 1. Limited examination secondary to patient body habitus causing quantum mottle and venous contamination. 2. Atherosclerosis without significant aortoiliac occlusive disease. 3. No hemodynamically significant stenosis above the knee. Suspected single-vessel runoff on the right and two-vessel runoff on the left. 4. Abnormal eccentric edema and skin thickening involving the left lateral leg. No underlying acute bony abnormality organized fluid collection. Laboratory Results WBC 7.41 10^3/uL (3.29-11.43) 02/23/24 05:35 RBC 3.50 10^6/uL (3.85-5.65) L 02/23/24 05:35 Hgb 9.40 g/dL (11.27-16.99) L 02/23/24 05:35 Hct 31.5 % (36-47) L 02/23/24 05:35 MCV 90.0 fl (85-98) 02/23/24 05:35 MCH 26.9 pg (27-33) L 02/23/24 05:35 MCHC 29.8 g/dL (30-55) L 02/23/24 05:35 RDW 16.2 % (12.1-15.1) H 02/23/24 05:35 Plt Count 188 10^3/cmm (157-399) 02/23/24 05:35 MPV 8.9 fL (7.4-10.4) 02/23/24 05:35 Neut % (Auto) 60.6 % 02/23/24 05:35 Lymph % (Auto) 25.6 % 02/23/24 05:35 Greenlee % (Auto) 9.4 % 02/23/24 05:35 Eos % (Auto) 3.6 % 02/23/24 05:35 Baso % (Auto) 0.5 % 02/23/24 05:35 Neut # (Auto) 4.48 10^3/uL (1.8-7.7) 02/23/24 05:35 Lymph # (Auto) 1.9 10^3/uL (0.8-4.8) 02/23/24 05:35 Greenlee # (Auto) 0.7 10^3/uL (0.2-0.9) 02/23/24 05:35 Eos # (Auto) 0.3 10^3/uL (0.0-0.8) 02/23/24 05:35 Baso # (Auto) 0.0 10^3/uL (0.0-0.1) 02/23/24 05:35 Nucleated RBC % (auto) 0 % 02/23/24 05:35 Nucleated RBCs # 0.0 /100WBC 02/23/24 05:35 ESR 33 mm/hr (0-15) H 02/16/24 18:20 Sodium 136 mmol/L (136-145) 02/23/24 05:35 Potassium 3.7 mmol/L (3.5-5.1) 02/23/24 05:35 Chloride 104 mmol/L (98-107) 02/23/24 05:35 Carbon Dioxide 23 mmol/L (22-29) 02/23/24 05:35 Anion Gap 12.7 (5-19) 02/23/24 05:35 BUN 22 mg/dL (8-23) 02/23/24 05:35 Creatinine 1.6 mg/dL (0.5-0.9) H 02/23/24 05:35 GFR Calculation Not Reportable 02/23/24 05:35 Glucose 91 mg/dL (65-115) 02/23/24 05:35 Estimat Average Glucose 126 02/16/24 18:20 Hemoglobin A1c 6.0 % (4.0-6.0) 02/16/24 18:20 Calculated Osmolality 285 mOsm/kg (285-295) 02/23/24 05:35 Lactic Acid 1.5 mmol/L (0.5-2.2) 02/16/24 18:20 Calcium 8.0 mg/dL (8.5-10.5) L 02/23/24 05:35 Phosphorus 4.1 mg/dL (2.5-4.5) 02/18/24 05:04 Magnesium 2.0 mg/dL (1.7-2.3) 02/18/24 05:04 Total Bilirubin 0.2 mg/dL (0.15-1.2) 02/23/24 05:35 AST 18 U/L (0-32) 02/23/24 05:35 ALT 17 U/L (0-33) 02/23/24 05:35 Alkaline Phosphatase 58 U/L (35-105) 02/23/24 05:35 C-Reactive Protein 144.0 mg/L (0.0-4.9) H 02/18/24 05:04 NT-Pro-B Natriuret Pep 9667 pg/mL (0-125) H 02/21/24 05:38 Total Protein 5.5 g/dL (6.6-8.7) L 02/23/24 05:35 Albumin 2.3 g/dL (3.5-5.2) L 02/23/24 05:35 Globulin 3.2 g/dL (1.3-4.6) 02/23/24 05:35 Procalcitonin 0.17 ng/mL (0-0.5) 02/18/24 05:04 Vancomycin Trough 34.1 ug/mL (10-15) H* 02/18/24 19:47 Random Vancomycin 22.9 ug/mL (20.0-40.0) 02/19/24 04:46 Vitals Last Vital Signs Temp 98.3 F 02/23/24 08:04 Pulse 55 L 02/23/24 08:04 Resp 18 02/23/24 08:04 BP 133/57 02/23/24 08:04 Pulse Ox 92 02/23/24 08:04 O2 Del Method Room Air 02/23/24 08:04 Discharge Plan Discharge Patient Disposition: Home Condition: Stable Prescriptions: New sulfamethoxazole-trimethoprim 800-160 mg Tablet 1 tab PO BID 5 Days Qty: 10 0RF potassium chloride [Klor-Con M20] 20 mEq Tablet,Er Particles/Crystals 20 meq PO DAILY 30 Days Qty: 30 0RF Continued furosemide [Lasix] 40 mg tablet 40 mg PO DAILY potassium chloride 10 mEq capsule, extended release 10 meq PO DAILY paroxetine HCl 10 mg Tablet 10 mg PO DAILY albuterol sulfate 90 mcg/actuation HFA aerosol inhaler 1 inh inhalation Q6H PRN (Reason: shortness of breath or wheezing) Qty: 8.5 0RF levothyroxine 25 mcg tablet 25 mcg PO DAILY Discontinued irbesartan 150 mg tablet 150 mg PO DAILY Discharge Orders: Discharge Order (Routine); Ordered 02/23/24 Ordered By: Blayne Camacho Referrals: Edurado Flynn MD [Primary Care Provider] - [facility], [Staff Physician] - 1 week Discharge Diet: Cardiac Discharge Activity: Resume usual activity Patient Instructions: Acute Wound Care (DC), Opioid Safety, Post Anesthesia Care Activity Restrictions/Additional Instructions: -take antibiotics for next 5 days -daily dressing changes, Apply Santyl to open wounds dressed with Kerlix and Papo wrap's. Coding Level of Care Code Acute Code for Chg Fwd Diagnoses Wet gangrene I96 Cellulitis L03.90 Hypertension I10 Peripheral arterial disease I73.9 Lymphedema I89.0 KELSEY (acute kidney injury) N17.9 CHF exacerbation I50.9
--- NOTE | 2024-02-23 15:05 | P.PN_ITS ---
Subjective 2 Subjective: Patient was seen this morning, denies any fevers, no chills, no cough, no abdominal pain, her edema is improving Vitals/I&O/Wt Last Vital Signs Temp 98.4 F 02/23/24 12:08 Pulse 78 02/23/24 12:08 Resp 17 02/23/24 12:08 BP 139/64 02/23/24 12:08 Pulse Ox 95 02/23/24 12:08 O2 Del Method Room Air 02/23/24 12:08 02/23/24 02/23/24 02/23/24 06:59 14:59 22:59 Intake Total 840 / 840 Balance 840 / 840 Weight last 48 hrs Weight 146.873 kg Weight 146.737 kg Physical Exam 2 Const: COMMON NORMALS: no acute distress and patient oriented x3 Resp: COMMON NORMALS: normal respiratory effort, No retractions, No use of accessory muscles and clear to auscultation bilaterally AUSCULTATION: clear to auscultation bilaterally Cardio: COMMON NORMALS: regular rate, regular rhythm, S1 normal heart sound present and S2 normal heart sound present RATE: regular rate RHYTHM: r egular rhythm HEART SOUNDS: S1 normal heart sound present and S2 normal heart sound present GI: COMMON NORMALS: Normal to inspection, nondistended, normoactive bowel sounds present and non-tender Extremity: COMMON NORMALS: no pedal edema NARRATIVE EXTREMITY EXAM: Lower extremity wrapped Neuro: COMMON NORMALS: patient oriented x3 Psych: COMMON NORMALS: mental status grossly normal Data 02/23/24 05:35 02/23/24 05:35 A&P Assessment and plan (1) Wet gangrene: (2) Cellulitis: (3) Hypertension: (4) Peripheral arterial disease: (5) Lymphedema: (6) KELSEY (acute kidney injury): (7) CHF exacerbation: Plan Purulent cellulitis left leg with underlying lymphedema Status post debridement by Dr. Melissa De-escalate off IV antibiotics to p.o. Bactrim Follow wound cultures Continue dressing changes PT OT CHF exacerbation, transition to p.o. Lasix Peripheral arterial disease Previous workup showed aorta with runoff 2021 mild atherosclerotic plaque within the aorta with extension through the common iliac arteries and the superficial femoral arteries. Numerous but only mildly enlarged retroperitoneal, pelvic and RIGHT inguinal lymph nodes. These all may be reactive. Could be a response to a cellulitis or infection of the RIGHT lower extremity. Unremarkable HERNANDEZ 2021 KELSEY: Resolving Patient not endorsing signs of UTI No vomiting at home KELSEY, monitor Acute anemia, monitor Deconditioning, requiring PT OT, placement to [facility] facility DVT prophylaxis heparin Dr. Melissa consulted from the ER Patient uses a walker to ambulate at home Attestations 2 Medical Necessity Statement*: Patient requires hospitalization for cellulitis, CHF, awaiting [facility] placement Diagnoses Wet gangrene I96 Cellulitis L03.90 Hypertension I10 Peripheral arterial disease I73.9 Lymphedema I89.0 KELSEY (acute kidney injury) N17.9 CHF exacerbation I50.9
[2024-02-23] MEDS: collagenase oint 30 gm 1 APPLIC TOPICAL (22:15)
[2024-02-23] MEDS: oxyCODONE 5 mg IR Tab/Cap PO (22:49)
[2024-02-24] VITALS (7 sets, daily range): BP systolic 125–149; BP diastolic 45–71; PULSE 42–74; RESP 15–19; TEMP 36.6–37.1; O2SAT 91–98
[2024-02-24] MEDS: sulfamethoxazole-trimeth DS 160-800 mg Tablet 1 TAB PO ×2 (08:18→16:56)
[2024-02-24] MEDS: sennosides-docusate Tablet 1 TAB PO (08:18)
[2024-02-24] MEDS: levothyroxine 25 mcg Tablet PO (08:18)
[2024-02-24] MEDS: potassium chloride ER 20 mEq Tablet PO (08:18)
[2024-02-24] MEDS: PARoxetine 20 mg Tablet 10 MG PO (08:18)
[2024-02-24] MEDS: FUROsemide 40 mg Tablet PO (08:18)
[2024-02-24] MEDS: collagenase oint 30 gm 1 APPLIC TOPICAL (08:19)
[2024-02-24] MEDS: pantoprazole DR 40 mg Tablet PO (08:19)
[2024-02-24] MEDS: heparin 5,000 unit/mL INJ 1 mL 5000 UNIT SUBCUT (08:19)
--- NOTE | 2024-02-24 13:07 | PC.OT ---
OT TREATMENT ATTEMPTED. PATIENT STATES THAT SHE HAS DONE A LOT OF THERAPY (PT) THIS MORNING AND THAT SHE IS VERY TIRED. REQUEST TO REST AT THIS TIME
--- NOTE | 2024-02-24 13:37 | P.PN_ITS ---
Subjective 2 Subjective: Patient was seen this morning, she is sitting up to the side of the chair, family members at bedside Vitals/I&O/Wt Last Vital Signs Temp 97.9 F 02/24/24 11:19 Pulse 50 L 02/24/24 11:19 Resp 17 02/24/24 11:19 BP 136/47 02/24/24 11:19 Pulse Ox 94 02/24/24 11:19 O2 Del Method Room Air 02/24/24 11:19 02/23/24 02/24/24 02/24/24 22:59 06:59 14:59 Intake Total 960 / 1800 240 / 2040 1440 / 1440 Balance 960 / 1800 240 / 2040 1440 / 1440 Weight last 48 hrs Weight 146.919 kg Weight 146.873 kg Physical Exam 2 Const: COMMON NORMALS: no acute distress and patient oriented x3 Resp: COMMON NORMALS: normal respiratory effort, No retractions, No use of accessory muscles and clear to auscultation bilaterally AUSCULTATION: clear to auscultation bilaterally Cardio: COMMON NORMALS: regular rate, regular rhythm, S1 normal heart sound present and S2 normal heart sound present RATE: regular rate RHYTHM: r egular rhythm HEART SOUNDS: S1 normal heart sound present and S2 normal heart sound present GI: COMMON NORMALS: Normal to inspection, nondistended, normoactive bowel sounds present and non-tender Extremity: COMMON NORMALS: no pedal edema NARRATIVE EXTREMITY EXAM: Bilateral lower extremities wrapped Neuro: COMMON NORMALS: patient oriented x3 Psych: COMMON NORMALS: mental status grossly normal Data 02/23/24 05:35 02/23/24 05:35 A&P Assessment and plan (1) Wet gangrene: (2) Cellulitis: (3) Hypertension: (4) Peripheral arterial disease: (5) Lymphedema: (6) KELSEY (acute kidney injury): (7) CHF exacerbation: Plan Purulent cellulitis left leg with underlying lymphedema Status post debridement by Dr. Melissa On p.o. Bactrim Follow wound cultures Continue dressing changes PT OT CHF exacerbation, transition to p.o. Lasix Peripheral arterial disease Previous workup showed aorta with runoff 2021 mild atherosclerotic plaque within the aorta with extension through the common iliac arteries and the superficial femoral arteries. Numerous but only mildly enlarged retroperitoneal, pelvic and RIGHT inguinal lymph nodes. These all may be reactive. Could be a response to a cellulitis or infection of the RIGHT lower extremity. Unremarkable HERNANDEZ 2021 KELSEY: Resolving Patient not endorsing signs of UTI No vomiting at home KELSEY, monitor Acute anemia, monitor Deconditioning, requiring PT OT, placement to [facility] facility DVT prophylaxis heparin Dr. Melissa consulted from the ER Patient uses a walker to ambulate at home Attestations 2 Medical Necessity Statement*: Patient requires hospitalization for cellulitis Diagnoses Wet gangrene I96 Cellulitis L03.90 Hypertension I10 Peripheral arterial disease I73.9 Lymphedema I89.0 KELSEY (acute kidney injury) N17.9 CHF exacerbation I50.9
--- NOTE | 2024-02-24 16:16 | PM.DCS ---
Discharge Providers Date of Admission: 02/16/24 19:43 Date of Discharge: February 24, 2024 Attending Provider at Admission: Rasheeda Yoon MD Attending Provider at Discharge: Blayne Camacho MD Primary Care Provider: Eduardo Flynn MD Diagnoses at Discharge Discharge Diagnosis (1) Wet gangrene: Status: Resolved (2) Cellulitis: Status: Resolved (3) Hypertension: Status: Acute (4) Peripheral arterial disease: Status: Acute (5) Lymphedema: Status: Acute (6) KELSEY (acute kidney injury): Status: Resolved (7) CHF exacerbation: Status: Resolved Reason for Visit Reason for Visit: dr varela Hospital Course Hospital Course This is a 73-year-old female with past medical history of venous stasis dermatitis, lymphedema, who presents to [facility] for bilateral extremity wounds Patient presented to [facility] for purulent cellulitis of bilateral lower extremities, requiring debridement, managed on IV antibiotics, discharged to long term facility on p.o. antibiotics, with daily wound care During hospitalization she had CHF exacerbation, requiring IV Lasix, discharged on p.o. Lasix For her peripheral arterial disease, follow-up with primary care as outpatient CT/CT angio [facility] [id number] IMPRESSION: 1. Limited examination secondary to patient body habitus causing quantum mottle and venous contamination. 2. Atherosclerosis without significant aortoiliac occlusive disease. 3. No hemodynamically significant stenosis above the knee. Suspected single-vessel runoff on the right and two-vessel runoff on the left. 4. Abnormal eccentric edema and skin thickening involving the left lateral leg. No underlying acute bony abnormality organized fluid collection. KELSEY on CKD, creatinine on discharge 1.6 monitor creatinine as outpatient Physical Exam Const: COMMON NORMALS: no acute distress and patient oriented x3 Resp: COMMON NORMALS: normal respiratory effort, No retractions, No use of accessory muscles and clear to auscultation bilaterally AUSCULTATION: clear to auscultation bilaterally Cardio: COMMON NORMALS: regular rate, regular rhythm, S1 normal heart sound present and S2 normal heart sound present RATE: regular rate RHYTHM: regular rhythm HEART SOUNDS: S1 normal heart sound present and S2 normal heart sound present GI: COMMON NORMALS: Normal to inspection, nondistended, normoactive bowel sounds present and non-tender Extremity: COMMON NORMALS: no pedal edema Neuro: COMMON NORMALS: patient oriented x3 Psych: COMMON NORMALS: mental status grossly normal Discharge Data Studies Completed and Pending Completed Studies During Hospitalization Category Date Time Status CTA lower extremity bilateral [[place] [id number]] Cat Scan 02/16/24 19:42 Completed Stat XR tibia fibula LT 2V [id number] Stat Exams 02/16/24 17:38 Completed Radiology Impressions Tibia/Fibula X-Ray 02/16/24 17:38 IMPRESSION: 1. Marked diffuse soft tissue edema with soft tissue ulceration of the volar and lateral aspect of the mid left lower extremity. 2. Tibia and fibula are intact. Lower Extremity CTA 02/16/24 19:42 IMPRESSION: 1. Limited examination secondary to patient body habitus causing quantum mottle and venous contamination. 2. Atherosclerosis without significant aortoiliac occlusive disease. 3. No hemodynamically significant stenosis above the knee. Suspected single-vessel runoff on the right and two-vessel runoff on the left. 4. Abnormal eccentric edema and skin thickening involving the left lateral leg. No underlying acute bony abnormality organized fluid collection. Laboratory Results WBC 7.41 10^3/uL (3.29-11.43) 02/23/24 05:35 RBC 3.50 10^6/uL (3.85-5.65) L 02/23/24 05:35 Hgb 9.40 g/dL (11.27-16.99) L 02/23/24 05:35 Hct 31.5 % (36-47) L 02/23/24 05:35 MCV 90.0 fl (85-98) 02/23/24 05:35 MCH 26.9 pg (27-33) L 02/23/24 05:35 MCHC 29.8 g/dL (30-55) L 02/23/24 05:35 RDW 16.2 % (12.1-15.1) H 02/23/24 05:35 Plt Count 188 10^3/cmm (157-399) 02/23/24 05:35 MPV 8.9 fL (7.4-10.4) 02/23/24 05:35 Neut % (Auto) 60.6 % 02/23/24 05:35 Lymph % (Auto) 25.6 % 02/23/24 05:35 [place] % (Auto) 9.4 % 02/23/24 05:35 Eos % (Auto) 3.6 % 02/23/24 05:35 Baso % (Auto) 0.5 % 02/23/24 05:35 Neut # (Auto) 4.48 10^3/uL (1.8-7.7) 02/23/24 05:35 Lymph # (Auto) 1.9 10^3/uL (0.8-4.8) 02/23/24 05:35 [place] # (Auto) 0.7 10^3/uL (0.2-0.9) 02/23/24 05:35 Eos # (Auto) 0.3 10^3/uL (0.0-0.8) 02/23/24 05:35 Baso # (Auto) 0.0 10^3/uL (0.0-0.1) 02/23/24 05:35 Nucleated RBC % (auto) 0 % 02/23/24 05:35 Nucleated RBCs # 0.0 /100WBC 02/23/24 05:35 ESR 33 mm/hr (0-15) H 02/16/24 18:20 Sodium 136 mmol/L (136-145) 02/23/24 05:35 Potassium 3.7 mmol/L (3.5-5.1) 02/23/24 05:35 Chloride 104 mmol/L (98-107) 02/23/24 05:35 Carbon Dioxide 23 mmol/L (22-29) 02/23/24 05:35 Anion Gap 12.7 (5-19) 02/23/24 05:35 BUN 22 mg/dL (8-23) 02/23/24 05:35 Creatinine 1.6 mg/dL (0.5-0.9) H 02/23/24 05:35 GFR Calculation Not Reportable 02/23/24 05:35 Glucose 91 mg/dL (65-115) 02/23/24 05:35 Estimat Average Glucose 126 02/16/24 18:20 Hemoglobin A1c 6.0 % (4.0-6.0) 02/16/24 18:20 Calculated Osmolality 285 mOsm/kg (285-295) 02/23/24 05:35 Lactic Acid 1.5 mmol/L (0.5-2.2) 02/16/24 18:20 Calcium 8.0 mg/dL (8.5-10.5) L 02/23/24 05:35 Phosphorus 4.1 mg/dL (2.5-4.5) 02/18/24 05:04 Magnesium 2.0 mg/dL (1.7-2.3) 02/18/24 05:04 Total Bilirubin 0.2 mg/dL (0.15-1.2) 02/23/24 05:35 AST 18 U/L (0-32) 02/23/24 05:35 ALT 17 U/L (0-33) 02/23/24 05:35 Alkaline Phosphatase 58 U/L (35-105) 02/23/24 05:35 C-Reactive Protein 144.0 mg/L (0.0-4.9) H 02/18/24 05:04 NT-Pro-B Natriuret Pep 9667 pg/mL (0-125) H 02/21/24 05:38 Total Protein 5.5 g/dL (6.6-8.7) L 02/23/24 05:35 Albumin 2.3 g/dL (3.5-5.2) L 02/23/24 05:35 Globulin 3.2 g/dL (1.3-4.6) 02/23/24 05:35 Procalcitonin 0.17 ng/mL (0-0.5) 02/18/24 05:04 Vancomycin Trough 34.1 ug/mL (10-15) H* 02/18/24 19:47 Random Vancomycin 22.9 ug/mL (20.0-40.0) 02/19/24 04:46 Vitals Last Vital Signs Temp 97.9 F 02/24/24 11:19 Pulse 50 L 02/24/24 11:19 Resp 17 02/24/24 11:19 BP 136/47 02/24/24 11:19 Pulse Ox 94 02/24/24 11:19 O2 Del Method Room Air 02/24/24 11:19 Discharge Plan Discharge Patient Disposition: Home Condition: Stable Prescriptions: New sulfamethoxazole-trimethoprim 800-160 mg Tablet 1 tab PO BID 5 Days Qty: 10 0RF potassium chloride [Klor-Con M20] 20 mEq Tablet,Er Particles/Crystals 20 meq PO DAILY 30 Days Qty: 30 0RF oxycodone 5 mg tablet 5 mg PO Q8H PRN (Reason: pain) 5 Days Qty: 15 0RF aspirin 81 mg tablet,delayed release (DR/EC) 81 mg PO DAILY 30 Days Qty: 30 0RF atorvastatin 40 mg tablet 40 mg PO DAILY 30 Days Qty: 30 0RF Continued furosemide [Lasix] 40 mg tablet 40 mg PO DAILY paroxetine HCl 10 mg Tablet 10 mg PO DAILY albuterol sulfate 90 mcg/actuation HFA aerosol inhaler 1 inh inhalation Q6H PRN (Reason: shortness of breath or wheezing) Qty: 8.5 0RF levothyroxine 25 mcg tablet 25 mcg PO DAILY Discontinued potassium chloride 10 mEq capsule, extended release 10 meq PO DAILY irbesartan 150 mg tablet 150 mg PO DAILY Discharge Orders: Discharge Order (Routine); Ordered 02/24/24 Ordered By: Blayne Camacho Referrals: Kenneth Melissa MD [Physician] - (We have notified your physician's clinic of the need for a follow-up appointment to be scheduled. If you have not heard from them within the next 2 business days, please call them directly. ) Eduardo Flynn MD [Primary Care Provider] - WOUND CARE CLINIC, [Staff Physician] - 1 week (We have notified your physician's clinic of the need for a follow-up appointment to be scheduled. If you have not heard from them within the next 2 business days, please call them directly. ) Discharge Diet: Cardiac Discharge Activity: Resume usual activity Patient Instructions: Sulfamethoxazole/Trimethoprim (By mouth), Potassium Chloride (By mouth), Acute Wound Care (DC), Opioid Safety, Post Anesthesia Care Activity Restrictions/Additional Instructions: -take antibiotics for next 5 days -daily dressing changes, Apply Santyl to open wounds dressed with Kerlix and Papo wrap's. -follow up with wound care clinic in 1 week -monitor closely -repeat bmp in 1 week Discharge Attestations Time Spent in Discharge Care*: greater than 30 min Quality Metrics Clinical Quality Measures [ No reported AMI, CVA or VTE this stay] Coding Level of Care Code 55530 Total time (in minutes) for Discharge: 45 Diagnoses Wet gangrene I96 Cellulitis L03.90 Hypertension I10 Peripheral arterial disease I73.9 Lymphedema I89.0 KELSEY (acute kidney injury) N17.9 CHF exacerbation I50.9
[2024-02-24] MEDS: oxyCODONE 5 mg IR Tab/Cap PO (16:57)
--- NOTE | 2024-02-24 17:24 | PC.NURSE ---
This nurse called report to ISMAEL Dunn at [facility] at 1724. Pt to be transported by daughter that will be here sometime after 1900 as she is currently at work.
--- NOTE | 2024-02-24 18:34 | PC.NURSE ---
At approximately 1820, this nurse with the help of TOM Pabon, removed previous wound dressings on bilateral lower extremities, cleaned wounds with sterile gauze and sterile water, applied santyl and non-adherent pads and then wrapped bilateral lower extremities with kerlix and mary wrap. Pt tolerated dressing change well with no complaints. This nurse also informed Kareenjulia that wound care would be performed tonight prior to pt transferring to their facility.
== END 2024-02-24 20:00 | disposition skilled nursing facility (03) | DRG 602 ==
LOC: ER 20:12 → MEDSURG 20:51
PROVIDERS: Student in an Organized Health Care Education/Training Program; Admitting Provider Internal Medicine; Emergency Provider Physician Assistant; PCP Family Medicine; Visit Provider Family Medicine
PROC: 0HBLXZZ Excision of Left Lower Leg Skin, External Approach (ICD-10-PCS; principal; 2024-02-17 13:30)
DX: L03.116 Cellulitis of left lower limb (principal); I50.33 Acute on chronic diastolic (congestive) heart failure; I96 Gangrene, not elsewhere classified; N17.9 Acute kidney failure, unspecified; Z68.43 Body mass index [BMI] 50.0-59.9, adult; L97.821 Non-pressure chronic ulcer of other part of left lower leg limited to breakdown of skin; L97.811 Non-pressure chronic ulcer of other part of right lower leg limited to breakdown of skin; L03.115 Cellulitis of right lower limb; I87.8 Other specified disorders of veins; I11.0 Hypertensive heart disease with heart failure; I73.9 Peripheral vascular disease, unspecified; R11.2 Nausea with vomiting, unspecified; E66.01 Morbid (severe) obesity due to excess calories; E03.9 Hypothyroidism, unspecified; D64.9 Anemia, unspecified; Z87.891 Personal history of nicotine dependence
CPT/HCPCS: 36415; 73590; 73706; 80048; 80053; 80202; 83036; 83605; 83735; 83880; 84100; 84145; 85025; 85651; 86140; 87040; 87070; 87075; 87077; 87186; 87205; 94640; 96365; 96366; 96372; 96375; 96376; 97110; 97116; 97161; 97167; 97530; 97535; 99214; 99285; J0696; J1100; J1171; J1644; J1940; J2405; J2470; J2543; J2704; J3010; J3370; J3372; J7030

== ENCOUNTER → 2024-03-02 08:30 | Outpatient (BNVA) | payer MEDICARE, SELFPAY | PROVIDERS: PCP Family Medicine; Visit Provider Thoracic Surgery (Cardiothoracic Vascular Surgery) | DX: I96 Gangrene, not elsewhere classified (principal); I89.0 Lymphedema, not elsewhere classified; L97.822 Non-pressure chronic ulcer of other part of left lower leg with fat layer exposed; L97.811 Non-pressure chronic ulcer of other part of right lower leg limited to breakdown of skin; L97.511 Non-pressure chronic ulcer of other part of right foot limited to breakdown of skin | CPT/HCPCS: 11042; 11045; 97597 ==

== ENCOUNTER → 2024-03-09 08:18 | Outpatient (BNVA) | payer MEDICARE, SELFPAY | PROVIDERS: PCP Family Medicine; Visit Provider Thoracic Surgery (Cardiothoracic Vascular Surgery) | DX: I96 Gangrene, not elsewhere classified (principal); I89.0 Lymphedema, not elsewhere classified; L97.811 Non-pressure chronic ulcer of other part of right lower leg limited to breakdown of skin; L97.511 Non-pressure chronic ulcer of other part of right foot limited to breakdown of skin; L97.821 Non-pressure chronic ulcer of other part of left lower leg limited to breakdown of skin; L03.116 Cellulitis of left lower limb; L03.115 Cellulitis of right lower limb; L03.031 Cellulitis of right toe | CPT/HCPCS: 97597; 97598 ==

== ENCOUNTER → 2024-03-16 09:43 | Outpatient (BNVA) | payer MEDICARE, SELFPAY | PROVIDERS: PCP Family Medicine; Visit Provider Thoracic Surgery (Cardiothoracic Vascular Surgery) | DX: I89.0 Lymphedema, not elsewhere classified (principal); I96 Gangrene, not elsewhere classified; L97.821 Non-pressure chronic ulcer of other part of left lower leg limited to breakdown of skin; L97.811 Non-pressure chronic ulcer of other part of right lower leg limited to breakdown of skin; L03.115 Cellulitis of right lower limb; L03.116 Cellulitis of left lower limb; Z09 Encounter for follow-up examination after completed treatment for conditions other than malignant neoplasm | CPT/HCPCS: 97597; 97598; A6253 ==

== ENCOUNTER → 2024-03-18 10:32 | Outpatient (BNVA) | payer MEDICARE, SELFPAY | PROVIDERS: PCP Family Medicine; Visit Provider Thoracic Surgery (Cardiothoracic Vascular Surgery) | DX: L03.116 Cellulitis of left lower limb (principal) | CPT/HCPCS: 29581; A6253 ==

== ENCOUNTER → 2024-03-23 10:19 | Outpatient (BNVA) | payer MEDICARE, SELFPAY | PROVIDERS: PCP Family Medicine; Visit Provider Thoracic Surgery (Cardiothoracic Vascular Surgery) | DX: I96 Gangrene, not elsewhere classified (principal); L97.821 Non-pressure chronic ulcer of other part of left lower leg limited to breakdown of skin; L97.811 Non-pressure chronic ulcer of other part of right lower leg limited to breakdown of skin; L03.115 Cellulitis of right lower limb; L03.116 Cellulitis of left lower limb | CPT/HCPCS: 97597; 97598; A6253 ==

== ENCOUNTER → 2024-03-28 13:09 | Outpatient (BNVA) | payer MEDICARE, SELFPAY | PROVIDERS: PCP Family Medicine; Visit Provider Thoracic Surgery (Cardiothoracic Vascular Surgery) | DX: I96 Gangrene, not elsewhere classified (principal); L97.821 Non-pressure chronic ulcer of other part of left lower leg limited to breakdown of skin; L97.811 Non-pressure chronic ulcer of other part of right lower leg limited to breakdown of skin; L03.116 Cellulitis of left lower limb; L03.115 Cellulitis of right lower limb | CPT/HCPCS: 97597; A6251; A6253 ==

== ENCOUNTER → 2024-03-31 15:31 | Outpatient (BNVA) | payer MEDICARE, SELFPAY | PROVIDERS: PCP Family Medicine; Visit Provider Thoracic Surgery (Cardiothoracic Vascular Surgery) | DX: I96 Gangrene, not elsewhere classified (principal); L97.811 Non-pressure chronic ulcer of other part of right lower leg limited to breakdown of skin; L03.115 Cellulitis of right lower limb | CPT/HCPCS: 29581; A6251 ==

== ENCOUNTER → 2024-04-04 10:11 | Outpatient (BNVA) | payer MEDICARE, SELFPAY | PROVIDERS: PCP Family Medicine; Visit Provider Thoracic Surgery (Cardiothoracic Vascular Surgery) | DX: I96 Gangrene, not elsewhere classified (principal); L97.821 Non-pressure chronic ulcer of other part of left lower leg limited to breakdown of skin; L97.811 Non-pressure chronic ulcer of other part of right lower leg limited to breakdown of skin; L03.115 Cellulitis of right lower limb; L03.116 Cellulitis of left lower limb | CPT/HCPCS: 97597; A6251 ==

== ENCOUNTER 2024-04-06 14:44 | Outpatient (CLI) | payer MEDICARE, SELFPAY ==
--- NOTE | 2024-04-06 | MM_ITS ---
WS: [id number] Bilateral screening 3D tomosynthesis digital mammogram, 04/06/2024 2:56 PM Clinical Data: ANNUAL SCREEN Comparison: 12/30/2021, 02/17/2019, 05/07/2016, 08/25/2007. Findings: No spiculated masses or clustered calcifications are seen. There are no secondary signs of carcinoma. MM/MM scr BI tomosynthesis [id number] Impression: Negative bilateral mammogram unchanged. Recommend annual screening mammograms. BIRADS: 1 - Negative. FOLLOW UP: 1 Year Follow-up DENSITY: There are scattered areas of fibroglandular density. The CAD card checker was used
== END 2024-04-06 14:45 | disposition home or self-care (01) ==
LOC: RAD 14:46
PROVIDERS: PCP Family Medicine; Visit Provider Nurse Practitioner Family
DX: Z12.31 Encounter for screening mammogram for malignant neoplasm of breast (principal); R92.323 Mammographic fibroglandular density, bilateral breasts
CPT/HCPCS: 77063; 77067

== ENCOUNTER → 2024-04-11 13:16 | Outpatient (BNVA) | payer MEDICARE, SELFPAY | PROVIDERS: PCP Family Medicine; Visit Provider Thoracic Surgery (Cardiothoracic Vascular Surgery) | DX: I96 Gangrene, not elsewhere classified (principal); L97.821 Non-pressure chronic ulcer of other part of left lower leg limited to breakdown of skin; L97.811 Non-pressure chronic ulcer of other part of right lower leg limited to breakdown of skin; G62.9 Polyneuropathy, unspecified | CPT/HCPCS: 97597; 97598 ==

== ENCOUNTER → 2024-04-18 13:51 | Outpatient (BNVA) | payer MEDICARE, SELFPAY | PROVIDERS: PCP Family Medicine; Visit Provider Thoracic Surgery (Cardiothoracic Vascular Surgery) | DX: I96 Gangrene, not elsewhere classified (principal); L97.821 Non-pressure chronic ulcer of other part of left lower leg limited to breakdown of skin; L97.811 Non-pressure chronic ulcer of other part of right lower leg limited to breakdown of skin; L03.115 Cellulitis of right lower limb; L03.116 Cellulitis of left lower limb; G62.9 Polyneuropathy, unspecified | CPT/HCPCS: 97597; 97598; A6212; A6252 ==

== ENCOUNTER → 2024-04-21 14:40 | Outpatient (BNVA) | payer MEDICARE, SELFPAY | PROVIDERS: PCP Family Medicine; Visit Provider Thoracic Surgery (Cardiothoracic Vascular Surgery) | DX: I96 Gangrene, not elsewhere classified (principal); L97.821 Non-pressure chronic ulcer of other part of left lower leg limited to breakdown of skin; L97.811 Non-pressure chronic ulcer of other part of right lower leg limited to breakdown of skin; G62.9 Polyneuropathy, unspecified | CPT/HCPCS: 29581; A6252 ==

== ENCOUNTER → 2024-04-25 14:02 | Outpatient (BNVA) | payer MEDICARE, SELFPAY | PROVIDERS: PCP Family Medicine; Visit Provider Thoracic Surgery (Cardiothoracic Vascular Surgery) | DX: L97.821 Non-pressure chronic ulcer of other part of left lower leg limited to breakdown of skin (principal); L03.116 Cellulitis of left lower limb; G62.9 Polyneuropathy, unspecified; Z09 Encounter for follow-up examination after completed treatment for conditions other than malignant neoplasm | CPT/HCPCS: 97597; A6253 ==

== ENCOUNTER → 2024-05-02 14:06 | Outpatient (BNVA) | payer MEDICARE, SELFPAY | PROVIDERS: PCP Family Medicine; Visit Provider Thoracic Surgery (Cardiothoracic Vascular Surgery) | DX: I96 Gangrene, not elsewhere classified (principal); I87.2 Venous insufficiency (chronic) (peripheral); L97.821 Non-pressure chronic ulcer of other part of left lower leg limited to breakdown of skin; L03.116 Cellulitis of left lower limb; G62.9 Polyneuropathy, unspecified | CPT/HCPCS: 97597; 97598; A6197 ==

== ENCOUNTER → 2024-05-09 13:47 | Outpatient (BNVA) | payer MEDICARE, SELFPAY | PROVIDERS: PCP Family Medicine; Visit Provider Thoracic Surgery (Cardiothoracic Vascular Surgery) | DX: I96 Gangrene, not elsewhere classified (principal); I89.0 Lymphedema, not elsewhere classified; L97.822 Non-pressure chronic ulcer of other part of left lower leg with fat layer exposed; L03.116 Cellulitis of left lower limb | CPT/HCPCS: 97597; 97598; A6197; A6252 ==

== ENCOUNTER → 2024-05-16 14:13 | Outpatient (BNVA) | payer MEDICARE, SELFPAY | PROVIDERS: PCP Family Medicine; Visit Provider Thoracic Surgery (Cardiothoracic Vascular Surgery) | DX: I96 Gangrene, not elsewhere classified (principal); I87.2 Venous insufficiency (chronic) (peripheral); L97.821 Non-pressure chronic ulcer of other part of left lower leg limited to breakdown of skin; G62.9 Polyneuropathy, unspecified | CPT/HCPCS: 97597; A6197; A6253 ==

== ENCOUNTER → 2024-05-23 13:47 | Outpatient (BNVA) | payer MEDICARE, SELFPAY | PROVIDERS: PCP Family Medicine | DX: Z09 Encounter for follow-up examination after completed treatment for conditions other than malignant neoplasm (principal); Z87.2 Personal history of diseases of the skin and subcutaneous tissue | CPT/HCPCS: 99212 ==

== ENCOUNTER → 2024-05-30 14:12 | Outpatient (BNVA) | payer MEDICARE, SELFPAY | PROVIDERS: PCP Family Medicine; Visit Provider Thoracic Surgery (Cardiothoracic Vascular Surgery) | DX: R23.8 Other skin changes (principal); Z09 Encounter for follow-up examination after completed treatment for conditions other than malignant neoplasm | CPT/HCPCS: 99212 ==

== ENCOUNTER → 2024-06-07 14:42 | Outpatient (BNVA) | payer MEDICARE, SELFPAY | PROVIDERS: PCP Family Medicine; Visit Provider Thoracic Surgery (Cardiothoracic Vascular Surgery) | DX: I96 Gangrene, not elsewhere classified (principal); I89.0 Lymphedema, not elsewhere classified; L97.821 Non-pressure chronic ulcer of other part of left lower leg limited to breakdown of skin | CPT/HCPCS: 97597; A6212 ==

== ENCOUNTER → 2024-06-14 11:03 | Outpatient (BNVA) | payer MEDICARE, SELFPAY | PROVIDERS: PCP Family Medicine; Referring Provider Nurse Practitioner Family; Visit Provider Nurse Practitioner Family | DX: L71.8 Other rosacea (principal); L82.1 Other seborrheic keratosis; L91.8 Other hypertrophic disorders of the skin; L81.4 Other melanin hyperpigmentation; L57.8 Other skin changes due to chronic exposure to nonionizing radiation; D22.39 Melanocytic nevi of other parts of face; L57.0 Actinic keratosis | CPT/HCPCS: 17000; 99204 ==

== ENCOUNTER → 2024-06-23 15:26 | Outpatient (BNVA) | payer MEDICARE, SELFPAY | PROVIDERS: PCP Family Medicine; Visit Provider Thoracic Surgery (Cardiothoracic Vascular Surgery) | DX: I89.0 Lymphedema, not elsewhere classified (principal); L97.821 Non-pressure chronic ulcer of other part of left lower leg limited to breakdown of skin | CPT/HCPCS: 97597 ==

== ENCOUNTER → 2024-06-27 14:57 | Outpatient (BNVA) | payer MEDICARE, SELFPAY | PROVIDERS: PCP Family Medicine; Visit Provider Thoracic Surgery (Cardiothoracic Vascular Surgery) | DX: I89.0 Lymphedema, not elsewhere classified (principal) | CPT/HCPCS: 29581 ==

== ENCOUNTER → 2024-07-01 08:52 | Outpatient (BNVA) | payer MEDICARE, SELFPAY | PROVIDERS: PCP Family Medicine; Visit Provider Thoracic Surgery (Cardiothoracic Vascular Surgery) | DX: Z09 Encounter for follow-up examination after completed treatment for conditions other than malignant neoplasm (principal); Z87.2 Personal history of diseases of the skin and subcutaneous tissue | CPT/HCPCS: 99212 ==

== ENCOUNTER 2024-08-05 09:31 | Outpatient (CLI) | payer OTHER, SELFPAY ==
--- NOTE | 2024-08-05 09:30 | USR_ITS ---
PROCEDURE INFORMATION: Exam: US Duplex Left Lower Extremity Veins, Limited Exam date and time: 08/05/2024 9:45 AM Age: 74 years old Clinical indication: Swelling (edema) of limb; Lower extremity, left; Additional info: I87.302 - chronic venous hypertension (idiopathic) withou. . . TECHNIQUE: Imaging protocol: Real-time duplex ultrasound of the left extremity with 2-D elizabeth scale, color Doppler flow and spectral waveform analysis including responses to compression and other maneuvers (when performed) with image documentation. Limited exam focused on the left lower extremity veins. COMPARISON: No relevant prior studies available. FINDINGS: Left deep veins: Unremarkable. The common femoral, femoral, proximal profunda femoral and popliteal veins are patent without thrombus. Normal Doppler waveforms. Normal compressibility and/or augmentation response. Superficial veins: Greater saphenous vein at the saphenofemoral junction is patent without thrombus. Venous reflux is noted here with a time of 0.74 seconds. Soft tissues: Unremarkable. US/CV pam dup insutony [facility] [id number] IMPRESSION: 1. No evidence of deep vein thrombosis. 2. No significant reflux involving the greater saphenous vein
== END 2024-08-05 09:32 | disposition home or self-care (01) ==
PROVIDERS: PCP Family Medicine; Visit Provider Thoracic Surgery (Cardiothoracic Vascular Surgery)
DX: I87.302 Chronic venous hypertension (idiopathic) without complications of left lower extremity (principal); R60.9 Edema, unspecified
CPT/HCPCS: 93971

== ENCOUNTER 2024-10-31 15:03 | Inpatient (IN) | payer MEDICARE, SELFPAY ==
[2024-10-31] VITALS (8 sets, daily range): BP systolic 170–176; BP diastolic 70–84; PULSE 77–91; RESP 17–23; TEMP 36.5; O2SAT 82–97
--- NOTE | 2024-10-31 15:12 | XR_ITS ---
WS: [id number] Exam: XR chest 1V portable [id number] Date/Time of Exam: 10/31/2024 3:20 PM Reason For Exam: Shortness of breath Comparison 11/08/2021. Chronic changes in the RIGHT lung base. No acute consolidated infiltrates are noted. Mild cardiac enlargement unchanged. No pleural effusion or pneumothorax. The mediastinum is normal in contour. Bony structures are intact. XR/XR chest 1V portable [id number] IMPRESSION: 1. No acute cardiopulmonary finding.
--- NOTE | 2024-10-31 15:12 | ECG_ITS ---
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 Measurements Intervals [place] Rate: 83 P: 14 [place]: 126 QRS: 81 QRSD: 116 T: -30 QT: 401 QTc: 473 Interpretive Statements SINUS RHYTHM WITH FREQUENT VENTRICULAR PREMATURE COMPLEXES POSSIBLE ANTERIOR MYOCARDIAL INFARCTION , PROBABLY OLD [30 ms Q WAVE IN V3/V4, OR R < 0.2 mV IN V4] ABNORMAL RHYTHM ECG Compared to ECG 11/08/2021 09:43:46 Left-axis deviation no longer present Myocardial infarct finding still present Electronically Signed On 10-31-2024 20:17:40 CDT by Andrwe Gonzalez M.D. [email or web address]
--- NOTE | 2024-10-31 15:24 | W.ED.SOB ---
HPI - SOB/Dyspnea General: Chief Complaint: Shortness of Breath/Dyspnea Stated Complaint: low O2, sob, urgent care sent Time Seen by Provider: 10/31/24 15:12 History of Present Illness: HPI Narrative: 74-year-old female with a history of thyroid disorder, obesity and hypertension who presents the emergency room from clinic with hypoxemia. She has been short of breath for couple of weeks. She has no formal diagnosis of COPD but had been given an inhaler which helped only minimally. She has not had increased lower extremity swelling. Particular in her feet. No cardiac history and no history of CHF. No known fevers. No chest pain. No altered mental status. Related Data Home Medications ?Medication ?Instructions ?Recorded ?Confirmed paroxetine HCl 10 mg tablet 20 mg PO DAILY 11/08/21 10/31/24 furosemide 40 mg tablet (Lasix) 20 mg PO DAILY 02/14/22 10/31/24 irbesartan 300 mg tablet 300 mg PO DAILY 09/29/24 10/31/24 levothyroxine 25 mcg tablet 75 mcg PO DAILY 09/29/24 10/31/24 potassium chloride 10 mEq 10 meq PO DAILY 09/29/24 10/31/24 tablet,extended release (Klor-Con) vit C 250 mg-vit E 90 mg-zinc 40 1 tab PO DAILY 09/29/24 10/31/24 mg-copper 1 [id number] capsule ([facility] AREDS-2) fluticasone propionate 50 1 spray intranasal PRN 10/31/24 10/31/24 mcg/actuation nasal spray,suspension metronidazole 0.75 % topical gel 1 applic topical BID roscea 10/31/24 10/31/24 Previous Rx's ?Medication ?Instructions ?Recorded albuterol sulfate 90 mcg/actuation 1 inh inhalation Q6H PRN shortness 11/12/21 aerosol inhaler of breath or wheezing #8.5 grams Allergies Allergy/AdvReac Type Severity Reaction Status Date / Time amlodipine Allergy Unknown Unknown Verified 09/29/24 13:43 isosorbide Allergy Unknown Unknown Verified 09/29/24 13:43 cephalexin (From Keflex) Allergy ALGY-Hives Verified 09/29/24 13:43 Review of Systems Narrative: Constitutional symptoms: Negative except as documented in HPI. Skin symptoms: Negative except as documented in HPI. Eye symptoms: Negative except as documented in HPI. ENMT symptoms: Negative except as documented in HPI. Respiratory symptoms: Negative except as documented in HPI. Cardiovascular symptoms: Negative except as documented in HPI. Gastrointestinal symptoms: Negative except as documented in HPI. Genitourinary symptoms: Negative except as documented in HPI. Musculoskeletal symptoms: Negative except as documented in HPI. Neurologic symptoms: Negative except as documented in HPI. Psychiatric symptoms: Negative except as documented in HPI. Endocrine symptoms: Negative except as documented in HPI. PFSH ED PFSH: Medical History (Updated 10/31/24 @ 18:47 by Blayne Camacho MD) Obesity Hypertension 4 para 4 Angina of effort Told that she had angina in her 30s but it resolved and has not been a recurrent problem Hypothyroidism Peripheral arterial disease Lymphedema BMI 60.0-69.9, adult Surgical History History of hysterectomy Family History Grandfather CAD (coronary artery disease) Grandmother Stroke Father Alcoholism Social History Smoking and tobacco/nicotine status: former use of tobacco/nicotine Alcohol intake: never Substance/Drug Use: never Household members: family Physical Exam Narrative: EXAM NARRATIVE: General: Alert, no acute distress. Skin: Warm, dry. Head: Normocephalic, atraumatic. Neck: Supple, trachea midline. Eye: Extraocular movements are intact. Ears, nose, mouth and throat: mucosa moist. Cardiovascular: Regular, Normal peripheral perfusion. Edema Respiratory: No obvious wheeze. Difficult to auscultate secondary to patient's body habitus. She does have significant tachypnea and increased work of breathing with just going from a wheelchair to the bed. Gastrointestinal: Soft, Nontender, Non distended Musculoskeletal: Normal ROM, no deformity. Neurological: Alert and oriented, No focal neurological deficit observed. Psychiatric: Cooperative, appropriate mood & affect. Course Vital Signs: Vital signs: Vital Signs Temperature 97.7 F 10/31/24 15:03 Pulse Rate 84 10/31/24 20:09 Respiratory Rate 23 H 10/31/24 20:09 Blood Pressure 174/70 10/31/24 20:09 Pulse Oximetry 94 10/31/24 20:09 Oxygen Delivery Me thod Nasal Cannula 10/31/24 20:09 Oxygen Flow Rate 4 10/31/24 20:09 MDM - SOB/Dyspnea Medical Decision Making Differential diagnosis for patient with shortness of breath includes but is not limited to and based on the above HPI, review of systems and physical exam: Pneumonia. Bronchitis. Asthma or COPD with acute exacerbation. Acute coronary syndrome / AK. Pulmonary embolism. Anxiety. Congestive heart failure. Viral infections including influenza and Covid-19. Atrial fibrillation. Anxiety. Pleural effusion. Pneumothorax. Orders placed to evaluate differential diagnosis based on the above differential, HPI and physical exam EKG: Time 1536. Rate 83 normal sinus rhythm, No ST-T changes, PVCs, normal OH & QRS intervals, This was reviewed and interpreted by myself the ER physician at 1540 Repeat EKG: Time 1819. Rate 91. Normal sinus rhythm, No ST-T changes, PVCs, normal [place] & QRS intervals, This was reviewed and interpreted by myself the ER physician at 1825. No significant changes from EKG done previously Chest x-ray: No acute process. No infiltrate. No pneumothorax. This was reviewed and interpreted by myself the emergency room physician. I also reviewed the radiology report. Lab Review: Laboratory results were reviewed and interpreted by myself the emergency room physician. No leukocytosis. No anemia. Renal function is improved to 18 and 1 from previous where her creatinine was 1.8. Sodium is elevated slightly at 146. proBNP is very elevated at 15,000. Flu COVID and RSV are negative. Liver enzymes are normal I reviewed the patient's medical record. 74-year-old female with a history of thyroid disorder, obesity and hypertension I reviewed the patient's note from clinic today. She is been feeling bad for about 2 weeks. Reexamination: Patient continues to require oxygen. She did not tolerate a CT angiogram as she could not lay flat. Blood pressure was elevated initially but she has not tolerated blood pressure cuff. No altered mental status. No focal motor deficits. She does have some erythema of her lower extremities and quite a bit of edema Consultation: I spoke with Dr. Camacho who is on-call for the hospitalist service who agrees to admission. Assessment and plan: Hypoxemia Congestive heart failure Edema ?80 mg IV Lasix in the emergency room. Still requiring 3 L nasal cannula. -I discussed the patient with the hospitalist on-call who is admitting the patient. - Discussed findings and plan with patient. Answered any questions. - All laboratory values were reviewed and interpreted personally by myself, the ER physician - All imaging was reviewed and interpreted personally by myself, the ER physician. - Evaluation and treatment of this problem were appropriate in the emergency setting Lab Data 10/31/24 16:17 10/31/24 16:17 Labs/Radiology: Radiology Impressions Chest X-Ray 10/31/24 15:12 IMPRESSION: 1. No acute cardiopulmonary finding. Laboratory Results WBC 5.98 10^3/uL (3.29-11.43) 10/31/24 16:17 RBC 3.86 10^6/uL (3.85-5.65) 10/31/24 16:17 Hgb 10.70 g/dL (11.27-16.99) L 10/31/24 16:17 Hct 36.0 % (36-47) 10/31/24 16:17 MCV 93.3 fl (85-98) 10/31/24 16:17 MCH 27.7 pg (27-33) 10/31/24 16:17 MCHC 29.7 g/dL (30-55) L 10/31/24 16:17 RDW 17.7 % (12.1-15.1) H 10/31/24 16:17 Plt Count 142 10^3/cmm (157-399) L 10/31/24 16:17 MPV 9.6 fL (7.4-10.4) 10/31/24 16:17 Neut % (Auto) 52.7 % 10/31/24 16:17 Lymph % (Auto) 33.3 % 10/31/24 16:17 [place] % (Auto) 11.4 % 10/31/24 16:17 Eos % (Auto) 1.7 % 10/31/24 16:17 Baso % (Auto) 0.7 % 10/31/24 16:17 Neut # (Auto) 3.16 10^3/uL (1.8-7.7) 10/31/24 16:17 Lymph # (Auto) 2.0 10^3/uL (0.8-4.8) 10/31/24 16:17 [place] # (Auto) 0.7 10^3/uL (0.2-0.9) 10/31/24 16:17 Eos # (Auto) 0.1 10^3/uL (0.0-0.8) 10/31/24 16:17 Baso # (Auto) 0.0 10^3/uL (0.0-0.1) 10/31/24 16:17 Nucleated RBC % (auto) 0 % 10/31/24 16:17 Nucleated RBCs # 0.0 /100WBC 10/31/24 16:17 Specimen Type Arterial 10/31/24 15:54 Sample Site Radial, right 10/31/24 15:54 ABG pH 7.43 (7.35-7.45) 10/31/24 15:54 ABG pCO2 41.3 mmHg (35-45) 10/31/24 15:54 ABG pO2 81.3 mmHg (80.0-100.0) 10/31/24 15:54 ABG PO2/FiO2 Ratio 254 10/31/24 15:54 ABG HCO3 27.5 mmol/L (22-26) H 10/31/24 15:54 ABG O2 Saturation 97.0 10/31/24 15:54 ABG Base Excess 2.9 mmol/L (-2.0-2.0) H 10/31/24 15:54 Karan Test Pos 10/31/24 15:54 A-a O2 Gradient 12.2 mmHg (5-10) H 10/31/24 15:54 Hematocrit 35.2 % (37-47) L 10/31/24 15:54 Hgb O2 Saturation 95.8 % (95-100) 10/31/24 15:54 Carboxyhemoglobin 1.6 %THgb (0.4-20.1) 10/31/24 15:54 Methemoglobin < 0.0 % (0.4-1.5) L 10/31/24 15:54 Total Hemoglobin 11.5 g/dL (12-16) L 10/31/24 15:54 Sodium 149.0 mmol/L (131-143) H 10/31/24 15:54 Potassium 3.7 mmol/L (3.5-5.0) 10/31/24 15:54 Glucose 99.0 mg/dL (70-115) 10/31/24 15:54 Ionized Calcium 1.2 mmol/L (1.1-1.4) 10/31/24 15:54 O2 Delivery Device Nc 10/31/24 15:54 O2 Liters/Min 3.0 % 10/31/24 15:54 FiO2 32.0 % 10/31/24 15:54 Water Valve Mechanic ID glc 10/31/24 15:54 Sodium 146 mmol/L (136-145) H 10/31/24 16:17 Potassium 3.9 mmol/L (3.5-5.1) 10/31/24 16:17 Chloride 108 mmol/L (98-107) H 10/31/24 16:17 Carbon Dioxide 28 mmol/L (22-29) 10/31/24 16:17 Anion Gap 13.9 (5-19) 10/31/24 16:17 BUN 18 mg/dL (8-23) 10/31/24 16:17 Creatinine 1.0 mg/dL (0.5-0.9) H 10/31/24 16:17 GFR Calculation Not Reportable 10/31/24 16:17 Glucose 90 mg/dL (65-115) 10/31/24 16:17 Calculated Osmolality 303 mOsm/kg (285-295) H 10/31/24 16:17 Lactic Acid 1.3 mmol/L (0.5-2.2) 10/31/24 16:17 Calcium 8.8 mg/dL (8.5-10.5) 10/31/24 16:17 Total Bilirubin 0.7 mg/dL (0.15-1.2) 10/31/24 16:17 AST 13 U/L (0-32) 10/31/24 16:17 ALT 7 U/L (0-33) 10/31/24 16:17 Alkaline Phosphatase 66 U/L (35-105) 10/31/24 16:17 Troponin T Baseline 24 ng/L (0-10) H 10/31/24 16:17 NT-Pro-B Natriuret Pep 99963 pg/mL (0-450) H 10/31/24 16:17 Total Protein 6.7 g/dL (6.6-8.7) 10/31/24 16:17 Albumin 3.8 g/dL (3.5-5.2) 10/31/24 16:17 Globulin 2.9 g/dL (1.3-4.6) 10/31/24 16:17 Triglycerides 73 mg/dL (0-150) 10/31/24 16:17 Cholesterol 130 mg/dL (0-200) 10/31/24 16:17 LDL Cholesterol, Calc 76 mg/dL (50-129) 10/31/24 16:17 HDL Cholesterol 39 mg/dL (60-100) L 10/31/24 16:17 LDL/HDL Ratio 1.95 RATIO (0.00-3.22) 10/31/24 16:17 Cholesterol/HDL Ratio 3.33 mg/dL (0.0-4.40) 10/31/24 16:17 TSH 4.46 uIU/mL (0.27-4.20) H 10/31/24 16:17 Influenza A (PCR) Negative (Negative) 10/31/24 15:31 Influenza Type B (PCR) Negative (Negative) 10/31/24 15:31 RSV (PCR) Negative (Negative) 10/31/24 15:31 SARS-CoV-2 (PCR) Negative (Negative) 10/31/24 15:31 All radiology interpretation(s) finalized by discharge Discharge Plan Discharge Patient Disposition: Admitted As Inpatient Admit Provider: Blayne Camacho Clinical Impression: Congestive heart failure, Hypoxemia, Edema Condition: Stable Coding Level of Care Code ED Wood Borer for Alyse Espinosa
[2024-10-31 16:06] LABS: ABG PCO2 41.3 mmHg (35-45); ABG PH Result 7.43 (7.35-7.45); Alveolar-Arterial Oxygen Gradi 12.2 mmHg (5-10); Arterial Blood Gas Hematocrit 35.2 % (37-47); Blood Gas Allen Test Pos; Blood Gas LPM 3.0 %; Blood Gas Operator Identificat glc; Blood Gas Sample Site Radial, right; Blood Gas Sample Type Arterial; Carboxyhemoglobin 1.6 %THgb (0.4-20.1); Glucose Level-ABG 99.0 mg/dL (70-115); HCO3 ABG 27.5 mmol/L (22-26); Ionized Calcium Level - ABG 1.2 mmol/L (1.1-1.4); Methemoglobin < 0.0 % (0.4-1.5); Oxygen Saturation ABG 97.0; PO2 ABG 81.3 mmHg (80.0-100.0); PO2 FiO2 Ratio Arterial Blood 254; Potassium Level - ABG 3.7 mmol/L (3.5-5.0); Sodium Level - ABG 149.0 mmol/L (131-143)
[2024-10-31 16:37] LABS: Respiratory Syncytial Virus Ce NEGATIVE (Negative); SARS-CoV-2 PCR NEGATIVE (Negative)
[2024-10-31 16:49] LABS: Hematocrit 36.0 % (36-47); Hemoglobin 10.70 g/dL (11.27-16.99); Mean Corpuscular HGB Conc 29.7 g/dL (30-55); Mean Corpuscular Hemoglobin 27.7 pg (27-33); Mean Corpuscular Volume 93.3 fl (85-98); Nucleated Red Blood Cells % 0 %; Platelet Count 142 10^3/cmm (157-399); Red Blood Count 3.86 10^6/uL (3.85-5.65); White Blood Count 5.98 10^3/uL (3.29-11.43)
[2024-10-31 17:12] LABS: Lactic Sepsis W/Reflex 1.3 mmol/L (0.5-2.2)
[2024-10-31 17:21] LABS: Troponin(5th) Baseline 24 ng/L (0-10)
[2024-10-31 17:33] LABS: Alanine Aminotransferase 7 U/L (0-33); Albumin Level 3.8 g/dL (3.5-5.2); Alkaline Phosphatase 66 U/L (35-105); Anion Gap 13.9 (5-19); Aspartate Amino Transferase 13 U/L (0-32); Blood Urea Nitrogen 18 mg/dL (8-23); Calcium 8.8 mg/dL (8.5-10.5); Carbon Dioxide 28 mmol/L (22-29); Chloride 108 mmol/L (98-107); Globulin 2.9 g/dL (1.3-4.6); Glucose 90 mg/dL (65-115); NT Pro B Type Natriuretic Pept 15520 pg/mL (0-450); Osmolality Calculated 303 mOsm/kg (285-295); Potassium 3.9 mmol/L (3.5-5.1); Sodium 146 mmol/L (136-145); Total Protein 6.7 g/dL (6.6-8.7)
--- NOTE | 2024-10-31 18:19 | ECG_ITS ---
[facility] Test Date: 2024-10-31 Pat Name: Kay Perez Department: Room: Gender: Female Special Events Driver: : 1950 Requested By: Mariah Mcmillan Order Number: [id number] Rebel MD: Andrew Gonzalez M.D. Measurements Intervals [place] Rate: 91 P: 38 UT: 145 QRS: -53 QRSD: 112 T: 88 QT: 397 QTc: 490 Interpretive Statements SINUS RHYTHM WITH FREQUENT VENTRICULAR PREMATURE COMPLEXES LEFT AXIS DEVIATION [QRS AXIS < -30] POSSIBLE ANTERIOR MYOCARDIAL INFARCTION , PROBABLY OLD [30 ms Q WAVE IN V3/V4, OR R < 0.2 mV IN V4] Compared to ECG 10/31/2024 15:36:12 Left-axis deviation now present Myocardial infarct finding still present Electronically Signed On 10-31-2024 20:24:47 CDT by Andrew Gonzalez M.D. [email or web address] [id number]
[2024-10-31] MEDS: FUROsemide 10 mg/mL SDV 10mL 80 MG IVP (18:42)
--- NOTE | 2024-10-31 18:45 | PM.HP ---
Providers/Chief Complaint Primary Care Provider: Eduardo Flynn MD Chief Complaint: low O2, sob, urgent care sent History of Present Illness Kay Perez is a 74 year old female with a past medical history of CHF, hypertension, hypothyroidism, who presents to [facility] for shortness of breath, orthopnea, paroxysmal nocturnal dyspnea, bilateral lower extremity edema. Currently patient is alert oriented x 3 comfortable commands, she is sitting up in the gurney as she is quite short of breath reports increased lower extremity edema, no chest pain, no palpitations, shortness of breath with minimal exertion, orthopnea, paroxysmal nocturnal dyspnea, shortness of breath with a few words, currently 2 L Review of Systems Const: Denies: fever(s) or chills Card: Denies: chest pain Resp: Reports: dyspnea Medications/Allergies Home Medications ?Medication ?Instructions ?Recorded ?Confirmed ?Last Taken ?Type paroxetine HCl 10 mg tablet 10 mg PO DAILY 11/08/21 09/29/24 02/14/24 History albuterol sulfate 90 mcg/actuation 1 inh inhalation Q6H PRN shortness 11/12/21 09/29/24 Unknown Rx aerosol inhaler of breath or wheezing #8.5 grams furosemide 40 mg tablet (Lasix) 40 mg PO DAILY 02/14/22 09/29/24 02/14/24 History irbesartan 300 mg tablet 300 mg PO DAILY 09/29/24 09/29/24 Unknown History levothyroxine 25 mcg tablet 75 mcg PO DAILY 09/29/24 09/29/24 Unknown History potassium chloride 10 mEq 10 meq PO DAILY 09/29/24 09/29/24 Unknown History tablet,extended release (Klor-Con) vit C 250 mg-vit E 90 mg-zinc 40 1 tab PO BID 09/29/24 09/29/24 Unknown History mg-copper 1 [id number] capsule ([facility] AREDS-2) Allergies Allergy/AdvReac Type Severity Reaction Status Date / Time amlodipine Allergy Unknown Unknown Verified 09/29/24 13:43 isosorbide Allergy Unknown Unknown Verified 09/29/24 13:43 cephalexin (From Keflex) Allergy ALGY-Hives Verified 09/29/24 13:43 PFSH Acute PFSH: Medical History Obesity Hypertension 4 para 4 Angina of effort Told that she had angina in her 30s but it resolved and has not been a recurrent problem Hypothyroidism Peripheral arterial disease Lymphedema BMI 60.0-69.9, adult Surgical History History of hysterectomy Family History Grandfather CAD (coronary artery disease) Grandmother Stroke Father Alcoholism Social History Smoking and tobacco/nicotine status: former use of tobacco/nicotine Alcohol intake: never Substance/Drug Use: never Household members: family Vitals/I&O/Wt Last Vital Signs Temp 97.7 F 10/31/24 15:03 Pulse 91 10/31/24 18:39 Resp 18 10/31/24 18:39 BP 176/84 10/31/24 18:39 Pulse Ox 96 10/31/24 18:39 O2 Del Method Room Air 10/31/24 17:31 O2 Flow Rate 3 10/31/24 17:13 Physical Exam Const: COMMON NORMALS: no acute distress and patient oriented x3 Eye: COMMON NORMALS: Equal, round and reactive pupils present Resp: AUSCULTATION: crackles and wheezes OTHER: She is short of breath after a few words, nasal flaring, tachypnea, suprasternal, intercostal retractions Cardio: COMMON NORMALS: regular rate, regular rhythm, S1 normal heart sound present and S2 normal heart sound present RATE: regular rate RHYTHM: regular rhythm HEART SOUNDS: S1 normal heart sound present and S2 normal heart sound present GI: COMMON NORMALS: Normal to inspection, nondistended, normoactive bowel sounds present, Soft to palpation and non-tender Extremity: COMMON NORMALS: no calf tenderness NARRATIVE EXTREMITY EXAM: Bilateral 2+ pitting edema Neuro: COMMON NORMALS: patient oriented x3, CN's II-XII intact bilaterally and moves all extremities Psych: COMMON NORMALS: mental status grossly normal Data 10/31/24 16:17 10/31/24 16:17 Micro: Microbiology 10/31/24 16:17 Blood Culture - Preliminary Blood SPECIMEN COLLECTED 10/31/24 15:55 Blood Culture - Preliminary Blood SPECIMEN COLLECTED A&P Assessment and plan 1. Acute hypoxic respiratory failure: 2. CHF exacerbation: Plan: Acute hypoxic respiratory failure - Secondary to diastolic CHF -With evidence of mild to moderate respiratory distress with a few words Plan - Fluid restrictions of 1000 cc - Lasix 40 IV twice daily -Potassium replacement therapy - Monitor creatinine - Monitor urine output - Full code - Lovenox for DVT prophylaxis PDMP PDMP Reviewed: Not Reviewed Attestations Medical Necessity Statement*: Patient requires hospitalization, inpatient, greater than 2 midnights, for acute CHF exacerbation Diagnoses Acute hypoxic respiratory failure J96.01 CHF exacerbation I50.9
[2024-10-31 20:31] LABS: Cholesterol 130 mg/dL (0-200); HDL Cholesterol 39 mg/dL (60-100); Thyroid Stimulating Hormone 4.46 uIU/mL (0.27-4.20); Triglycerides 73 mg/dL (0-150)
--- NOTE | 2024-10-31 21:12 | ECG_ITS ---
[facility] Test Date: 2024-10-31 Pat Name: Kay Perez Department: Room: 102 Gender: Female Field Crew Chief: : 1950 Requested By: Mariah Mcmillan Order Number: [id number] Rebel MD: Jose Angel Renteria M.D. Measurements Intervals [place] Rate: 77 P: 60 SC: 145 QRS: -43 QRSD: 113 T: 92 QT: 415 QTc: 472 Interpretive Statements SINUS RHYTHM WITH OCCASIONAL VENTRICULAR PREMATURE COMPLEXES LEFT AXIS DEVIATION [QRS AXIS < -30] POSSIBLE ANTERIOR MYOCARDIAL INFARCTION , PROBABLY OLD [30 ms Q WAVE IN V3/V4, OR R < 0.2 mV IN V4] Compared to ECG 10/31/2024 18:19:37 No significant changes Electronically Signed On 11-02-2024 21:38:41 CDT by Jose Angel Renteria M.D. [email or web address] [id number]
[2024-10-31] MEDS: pneumococcal (23 valent) SDV 0.5 mL IM (21:52)
[2024-10-31 21:59] LABS: Troponin 5 2HR 22.43 ng/L (0-10)
[2024-10-31 22:02] LABS: Troponin 5 2HR Delta -1.57 ABS# (0-10)
[2024-10-31 22:14] LABS: Glucose Urine UA Negative (Normal); Nitrate Urine Negative (Negative); Specific Gravity, Urine 1.006 (1.005-1.030)
[2024-10-31 22:19] LABS: Add Urine Microscopic? YES
--- NOTE | 2024-10-31 22:52 | PC.NURSE ---
Patient and daughter concerned about redness and warmth of left foot. Per patient she had an opened wound in between great toe and second toe that has scabbed over but now foot is turning red. This nurse marked redness with skin marker and notified Dr. Concepcion that family is concerned and requesting abx. Per Dr. Concepcion pass along to day shift team.
[2024-11-01] VITALS (9 sets, daily range): BP systolic 136–171; BP diastolic 52–72; PULSE 66–75; RESP 18–27; TEMP 36.5–36.8; O2SAT 93–96
[2024-11-01 00:14] LABS: Troponin 5 6HR 22.11 ng/L (0-10)
[2024-11-01 00:15] LABS: Troponin 5 6HR Delta -1.89 ng/L (0-12)
[2024-11-01 00:35] LABS: Estmated Average Glucose 128; Hemoglobin A1C 6.1 % (4.0-6.0)
[2024-11-01 03:49] LABS: Hematocrit 35.1 % (36-47); Hemoglobin 10.70 g/dL (11.27-16.99); Mean Corpuscular HGB Conc 30.5 g/dL (30-55); Mean Corpuscular Hemoglobin 28.4 pg (27-33); Mean Corpuscular Volume 93.1 fl (85-98); Nucleated Red Blood Cells % 0 %; Platelet Count 127 10^3/cmm (157-399); Red Blood Count 3.77 10^6/uL (3.85-5.65); White Blood Count 5.11 10^3/uL (3.29-11.43)
[2024-11-01] MEDS: FUROsemide 10 mg/mL SDV 4mL 40 MG IVP ×2 (03:54→15:29)
[2024-11-01 04:14] LABS: Alanine Aminotransferase 6 U/L (0-33); Albumin Level 3.5 g/dL (3.5-5.2); Alkaline Phosphatase 64 U/L (35-105); Anion Gap 13.9 (5-19); Aspartate Amino Transferase 14 U/L (0-32); Blood Urea Nitrogen 16 mg/dL (8-23); Calcium 8.6 mg/dL (8.5-10.5); Carbon Dioxide 28 mmol/L (22-29); Chloride 109 mmol/L (98-107); Creatinine Clr Calc Pharmacy 62.7523; Globulin 3.3 g/dL (1.3-4.6); Glucose 95 mg/dL (65-115); Osmolality Calculated 305 mOsm/kg (285-295); Potassium 3.9 mmol/L (3.5-5.1); Sodium 147 mmol/L (136-145); Total Protein 6.8 g/dL (6.6-8.7)
[2024-11-01 04:21] LABS: NT Pro B Type Natriuretic Pept 19059 pg/mL (0-450)
--- NOTE | 2024-11-01 10:52 | PC.CHAP ---
Pastoral Care Encounter/Spiritual Assessment Type of Contact [] Declined cigarette inspector visit [] Patient/Family/Request visit [] Outpatient visit [] Follow-up visit [] Physician referral [] Code/Alert [] Routine visit [] Staff referral [] Actively dying [] Patient sleeping [] Family support [] [] Out of room [] Palliative care [] [] Receiving care in room [] Pre-surgical visit [] Trauma [] Long length of stay [] ICU visit [] Other: Relational/Emotional Strength [] Patient feels connected with others/family/visitors/staff [] Distress [] Loneliness/isolation [] Abandonment Spirituality of Patient [x] Person of Renetta [] Attends Latter Day of their Renetta [x] Believes in Prayer [] Reads Bible or Baptism materials [] There are Spiritual issues to be addressed Public Address Technician Interventions [x] Prayer [x] Active listening [x] Non-anxious presence [x] Spiritual/emotional support [] Crisis/trauma care [] Spiritual counseling [] Bereavement support [] Provided bereavement packet [] Provided Bible/devotional materials [] Provided toy/stuffed animal, coloring book to patient or family member [] Provided Communion [] Anointing/[place] [] Salvation [x] Completed spiritual assessment [] Other: Impact on Illness or Injury [] Angry [] Fearful [] Anxious [] Often cries [] Exhaustion [] Unable to work [] Unable to attend gnosticism [] Unable to walk/stand [] Unable to read [] Unable to drive [] Unable to eat/drink [] Unable to sleep [] Unable to be with family [] Patient intubated [] Other: Summary Time spent with patient 5 min
--- NOTE | 2024-11-01 15:40 | P.PN_ITS ---
Subjective 2 Subjective: Patient was seen this morning, currently alert oriented x 3, follow commands, tells me that her erythema, swelling, tenderness of her first 2 digits left foot persists, she is worried about cellulitis, denies any fevers, chills, her edema is improving, shortness of breath is improving Vitals/I&O/Wt Last Vital Signs Temp 97.7 F 11/01/24 09:31 Pulse 72 11/01/24 12:47 Resp 22 H 11/01/24 12:47 BP 171/67 11/01/24 12:47 Pulse Ox 93 11/01/24 12:47 O2 Del Method Nasal Cannula 11/01/24 09:31 O2 Flow Rate 2 11/01/24 09:31 11/01/24 11/01/24 11/01/24 06:59 14:59 22:59 Intake Total 300 / 300 Output Total 2100 / 3100 850 / 850 Balance -1800 / -2800 -850 / -850 Weight last 48 hrs Weight 142.836 kg Weight 144.515 kg Physical Exam 2 Const: COMMON NORMALS: no acute distress and patient oriented x3 Resp: COMMON NORMALS: normal respiratory effort, No retractions, No use of accessory muscles and clear to auscultation bilaterally AUSCULTATION: clear to auscultation bilaterally Cardio: COMMON NORMALS: regular rate, regular rhythm, S1 normal heart sound present and S2 normal heart sound present RATE: regular rate RHYTHM: r egular rhythm HEART SOUNDS: S1 normal heart sound present and S2 normal heart sound present GI: COMMON NORMALS: Normal to inspection, nondistended, normoactive bowel sounds present and non-tender Extremity: COMMON NORMALS: no pedal edema Neuro: COMMON NORMALS: patient oriented x3 Psych: COMMON NORMALS: mental status grossly normal Skin: NARRATIVE SKIN EXAM: Left lower extremity, first 2 digits with erythema, swelling, tenderness Urinary Catheter Management: Rodriguez: Cath Placed During This Visit: yes Reason for Continuing Indwelling Catheter: Accurate Measurement of Urinary Output in Critically Ill Patients Urinary Catheter Date of Insertion: 10/31/24 Urinary Catheter Time of Insertion: 20:31 Data 11/01/24 03:19 11/01/24 03:19 Micro: Microbiology 10/31/24 16:17 Blood Culture - Preliminary Blood SPECIMEN COLLECTED 10/31/24 15:55 Blood Culture - Preliminary Blood SPECIMEN COLLECTED A&P Assessment and plan 1. Acute hypoxic respiratory failure: 2. CHF exacerbation: Plan: Acute hypoxic respiratory failure - Secondary to diastolic CHF -With evidence of mild to moderate respiratory distress with a few words Plan - Fluid restrictions of 1000 cc - Lasix 40 IV twice daily -Potassium replacement therapy - Monitor creatinine - Monitor urine output - Full code - Lovenox for DVT prophylaxis Left lower extremity cellulitis ? Prior cultures have grown MRSA, Pseudomonas - Start vancomycin - Start Zosyn - Clinically monitor PDMP PDMP Reviewed: Not Reviewed Attestations 2 Medical Necessity Statement*: Patient requires hospitalization for left lower extremity cellulitis, acute hypoxic respiratory failure secondary to diastolic CHF requiring IV diuresis Diagnoses Acute hypoxic respiratory failure J96.01 CHF exacerbation I50.9
[2024-11-01] MEDS: piperacillin-tazobactam 3.375 GM in sodium chloride 0.9% (plus) 50 ML IV (19:27)
[2024-11-02] VITALS (10 sets, daily range): BP systolic 108–140; BP diastolic 58–82; PULSE 62–77; RESP 16–26; TEMP 36.4–37.1; O2SAT 91–96
[2024-11-02] MEDS: piperacillin-tazobactam 3.375 GM in sodium chloride 0.9% (plus) 50 ML IV ×4 (01:01→23:49)
[2024-11-02 03:40] LABS: Hematocrit 33.9 % (36-47); Hemoglobin 10.20 g/dL (11.27-16.99); Mean Corpuscular HGB Conc 30.1 g/dL (30-55); Mean Corpuscular Hemoglobin 27.8 pg (27-33); Mean Corpuscular Volume 92.4 fl (85-98); Nucleated Red Blood Cells % 0 %; Platelet Count 144 10^3/cmm (157-399); Red Blood Count 3.67 10^6/uL (3.85-5.65); White Blood Count 5.48 10^3/uL (3.29-11.43)
[2024-11-02 03:59] LABS: Alanine Aminotransferase 6 U/L (0-33); Albumin Level 3.3 g/dL (3.5-5.2); Alkaline Phosphatase 59 U/L (35-105); Anion Gap 17.2 (5-19); Aspartate Amino Transferase 13 U/L (0-32); Blood Urea Nitrogen 21 mg/dL (8-23); Calcium 8.4 mg/dL (8.5-10.5); Carbon Dioxide 27 mmol/L (22-29); Chloride 106 mmol/L (98-107); Creatinine Clr Calc Pharmacy 53.0981; Globulin 3.2 g/dL (1.3-4.6); Glucose 99 mg/dL (65-115); Osmolality Calculated 305 mOsm/kg (285-295); Potassium 4.2 mmol/L (3.5-5.1); Sodium 146 mmol/L (136-145); Total Protein 6.5 g/dL (6.6-8.7)
[2024-11-02] MEDS: FUROsemide 10 mg/mL SDV 4mL 40 MG IVP ×2 (04:57→16:37)
--- NOTE | 2024-11-02 07:12 | PHA.VACGOAL ---
Vancomycin Goal - Goal Vancomycin Goal:: 15-20 mg/L - Therapy Current therapy:: Pip/Tazo Day of therpy:: Day []of [] . Actual body weight (kg): 314 lb 14.4 oz - Data Labs: WBC 5.48 10^3/uL (3.29-11.43) 11/02/24 03:07 RBC 3.67 10^6/uL (3.85-5.65) L 11/02/24 03:07 Hgb 10.20 g/dL (11.27-16.99) L 11/02/24 03:07 Hct 33.9 % (36-47) L 11/02/24 03:07 MCV 92.4 fl (85-98) 11/02/24 03:07 MCH 27.8 pg (27-33) 11/02/24 03:07 MCHC 30.1 g/dL (30-55) 11/02/24 03:07 RDW 17.3 % (12.1-15.1) H 11/02/24 03:07 Sodium 146 mmol/L (136-145) H 11/02/24 03:07 Potassium 4.2 mmol/L (3.5-5.1) 11/02/24 03:07 Chloride 106 mmol/L (98-107) 11/02/24 03:07 Carbon Dioxide 27 mmol/L (22-29) 11/02/24 03:07 Anion Gap 17.2 (5-19) 11/02/24 03:07 BUN 21 mg/dL (8-23) 11/02/24 03:07 Creatinine 1.3 mg/dL (0.5-0.9) H 11/02/24 03:07 GFR Calculation Not Reportable 11/02/24 03:07 Last dialysis session:: N/A Treatment plan:: new consult Regimen:: LOADING DOSE OF 2000 MG X 1 GIVEN PER DOSING PROTOCOL MAINTENANCE DOSE OF 1500 MG Q12H STARTED Follow up:: SCr HAS INCREASED SINCE INITIAL DOSING. PLAN TO OBTRAIN AN EARLY TROUGH PRIOR TO NEXT DOSE TO MAKE SURE DOSE IS NOT SUPRATHERAPEUTIC
--- NOTE | 2024-11-02 09:33 | PC.SOCIAL ---
IMM Updated Updated pt on IMM. No questions voiced. Provided pt a copy. Initialed, dated, & timed a copy & placed in chart.
--- NOTE | 2024-11-02 12:05 | P.PN_ITS ---
Subjective 2 Subjective: Patient was seen this morning, currently alert oriented x 3, following all commands, no fevers, chills, no cough, her erythema of her left foot is improving with IV antibiotics Vitals/I&O/Wt Last Vital Signs Temp 98.0 F 11/02/24 11:22 Pulse 65 11/02/24 11:22 Resp 24 H 11/02/24 11:22 BP 122/82 11/02/24 11:22 Pulse Ox 92 11/02/24 11:22 O2 Del Method Nasal Cannula 11/02/24 07:39 O2 Flow Rate 2 11/02/24 07:39 11/01/24 11/02/24 11/02/24 22:59 06:59 14:59 Intake Total 690 / 690 950 / 1640 120 / 120 Output Total 850 / 1700 350 / 2050 850 / 850 Balance -160 / -1010 600 / -410 -730 / -730 Weight last 48 hrs Weight 142.836 kg Weight 144.515 kg Physical Exam 2 Const: COMMON NORMALS: no acute distress and patient oriented x3 Resp: COMMON NORMALS: normal respiratory effort, No retractions, No use of accessory muscles and clear to auscultation bilaterally AUSCULTATION: clear to auscultation bilaterally Cardio: COMMON NORMALS: regular rate, regular rhythm, S1 normal heart sound present and S2 normal heart sound present RATE: regular rate RHYTHM: r egular rhythm HEART SOUNDS: S1 normal heart sound present and S2 normal heart sound present GI: COMMON NORMALS: Normal to inspection, nondistended, normoactive bowel sounds present and non-tender Extremity: COMMON NORMALS: no calf tenderness and no pedal edema NARRATIVE EXTREMITY EXAM: 1+ edema Left foot, first 2 digits, erythema, swelling, tenderness improved Neuro: COMMON NORMALS: patient oriented x3 Psych: COMMON NORMALS: mental status grossly normal Urinary Catheter Management: Rodriguez: Cath Placed During This Visit: yes Reason for Continuing Indwelling Catheter: Accurate Measurement of Urinary Output in Critically Ill Patients Urinary Catheter Date of Insertion: 10/31/24 Urinary Catheter Time of Insertion: 20:31 Data 11/02/24 03:07 11/02/24 03:07 Micro: Microbiology 10/31/24 16:17 Blood Culture - Preliminary Blood NEGATIVE TO DATE 10/31/24 15:55 Blood Culture - Preliminary Blood NEGATIVE TO DATE A&P Assessment and plan 1. Acute hypoxic respiratory failure: 2. CHF exacerbation: 3. Cellulitis: Plan: Acute hypoxic respiratory failure - Secondary to diastolic CHF -With evidence of mild to moderate respiratory distress with a few words Plan - Fluid restrictions of 1000 cc - Lasix 40 IV twice daily -Potassium replacement therapy - Monitor creatinine - Monitor urine output - Full code - Lovenox for DVT prophylaxis Left lower extremity cellulitis ? Prior cultures have grown MRSA, Pseudomonas - IV vancomycin - iv Zosyn - Clinically monitor PDMP PDMP Reviewed: Not Reviewed Attestations 2 Medical Necessity Statement*: Patient requires hospitalization for acute hypoxic respiratory failure, CHF, cellulitis Diagnoses Acute hypoxic respiratory failure J96.01 CHF exacerbation I50.9 Cellulitis L03.90
--- NOTE | 2024-11-02 14:17 | PC.NURSE ---
patient ambulated approximately 25 feet in the hallway with walker. Tolerated: fair.
[2024-11-02 15:46] LABS: Anion Gap 14.1 (5-19); Blood Urea Nitrogen 22 mg/dL (8-23); Calcium 8.5 mg/dL (8.5-10.5); Carbon Dioxide 28 mmol/L (22-29); Chloride 106 mmol/L (98-107); Creatinine Clr Calc Pharmacy 49.3054; Glucose 116 mg/dL (65-115); Osmolality Calculated 302 mOsm/kg (285-295); Potassium 4.1 mmol/L (3.5-5.1); Sodium 144 mmol/L (136-145)
[2024-11-03] VITALS (7 sets, daily range): BP systolic 96–130; BP diastolic 54–78; PULSE 71–80; RESP 9–26; TEMP 36.2–36.8; O2SAT 88–97
[2024-11-03] MEDS: FUROsemide 10 mg/mL SDV 4mL 40 MG IVP ×2 (03:11→19:16)
[2024-11-03 04:33] LABS: Hematocrit 34.3 % (36-47); Hemoglobin 10.30 g/dL (11.27-16.99); Mean Corpuscular HGB Conc 30.0 g/dL (30-55); Mean Corpuscular Hemoglobin 27.8 pg (27-33); Mean Corpuscular Volume 92.5 fl (85-98); Nucleated Red Blood Cells % 0 %; Platelet Count 152 10^3/cmm (157-399); Red Blood Count 3.71 10^6/uL (3.85-5.65); White Blood Count 5.42 10^3/uL (3.29-11.43)
[2024-11-03 05:00] LABS: Alanine Aminotransferase 6 U/L (0-33); Albumin Level 3.3 g/dL (3.5-5.2); Alkaline Phosphatase 51 U/L (35-105); Blood Urea Nitrogen 23 mg/dL (8-23); Calcium 8.0 mg/dL (8.5-10.5); Carbon Dioxide 28 mmol/L (22-29); Chloride 104 mmol/L (98-107); Creatinine Clr Calc Pharmacy 53.0981; Globulin 2.6 g/dL (1.3-4.6); Glucose 92 mg/dL (65-115); Osmolality Calculated 303 mOsm/kg (285-295); Sodium 145 mmol/L (136-145); Total Protein 5.9 g/dL (6.6-8.7)
[2024-11-03 05:03] LABS: Anion Gap 17.5 (5-19); Aspartate Amino Transferase 15 U/L (0-32); Potassium 4.5 mmol/L (3.5-5.1)
--- NOTE | 2024-11-03 08:18 | PC.NURSE ---
Provider verified that he does want her to have her scheduled potassium 20 meq this morning.
--- NOTE | 2024-11-03 09:11 | PICC.NOTE ---
Referal to vascular access nurse for poor peripheral access. 20 gauge peripheral IV started to right forearm with US guidance. Good blood return noted and flushed without difficulty. Report given to THERESE Pérez.
[2024-11-03] MEDS: piperacillin-tazobactam 3.375 GM in sodium chloride 0.9% (plus) 50 ML IV ×2 (10:34→17:58)
--- NOTE | 2024-11-03 11:50 | USCV_ITS ---
Kay Perez Age: 74 Gender: F : 1950 Exam Date: 11/03/2024 14:10 Ordering Phys: Blayne Camacho MD Technologist: AIDEE Exam Location: [facility] [place] Indication: LE Pain HISTORY: Lower extremity swelling. PROCEDURES: Venous duplex imaging was performed in bilateral lower extremities. The following venous structures were evaluated: common femoral vein, profunda vein, proximal portion of the greater saphenous vein, superficial femoral vein, and the popliteal vein. In addition, the posterior tibial and peroneal trunk were evaluated. Serial compression, augmentation maneuvers, and spectral Doppler flow evaluation were performed. FINDINGS: No evidence of DVT seen in any vessel visualized at this time. CONCLUSIONS No evidence of right lower extremity DVT. No evidence of left lower extremity DVT. Cory Peña MD (Electronically Signed) Final Date: 03 November 2024 15:29 S
--- NOTE | 2024-11-03 12:28 | P.PN_ITS ---
Subjective 2 Subjective: patient was seen this morning she has edema in both legs, does report persistent shortness of breath with exertion, during our conversation her O2 sat on the monitor droop into the high 80's, improve with rest Vitals/I&O/Wt Last Vital Signs Temp 97.2 F L 11/03/24 03:06 Pulse 72 11/03/24 08:00 Resp 26 H 11/03/24 08:00 BP 112/68 11/03/24 08:21 Pulse Ox 92 11/03/24 09:07 O2 Del Method Room Air 11/03/24 09:07 O2 Flow Rate 1 11/03/24 03:06 11/02/24 11/03/24 11/03/24 22:59 06:59 14:59 Intake Total 480 / 890 100 / 990 420.000 / 420.000 Output Total 600 / 1450 1150 / 2600 1650 / 1650 Balance -120 / -560 -1050 / -1610 -1230.000 / -1230.000 Weight last 48 hrs Weight 138.998 kg Physical Exam 2 Const: COMMON NORMALS: no acute distress and patient oriented x3 Resp: COMMON NORMALS: normal respiratory effort, No retractions and No use of accessory muscles AUSCULTATION: crackles Cardio: COMMON NORMALS: regular rate, regular rhythm, S1 normal heart sound present and S2 normal heart sound present RATE: regular rate RHYTHM: r egular rhythm HEART SOUNDS: S1 normal heart sound present and S2 normal heart sound present GI: COMMON NORMALS: Normal to inspection, nondistended, normoactive bowel sounds present and non-tender Extremity: NARRATIVE EXTREMITY EXAM: 1+edema Neuro: COMMON NORMALS: patient oriented x3 Psych: COMMON NORMALS: mental status grossly normal Urinary Catheter Management: Rodriguez: Cath Placed During This Visit: yes Reason for Continuing Indwelling Catheter: Accurate Measurement of Urinary Output in Critically Ill Patients Urinary Catheter Date of Insertion: 10/31/24 Urinary Catheter Time of Insertion: 20:31 Data 11/03/24 03:28 11/03/24 03:28 A&P Assessment and plan 1. Acute hypoxic respiratory failure: 2. CHF exacerbation: 3. Cellulitis: Plan: Acute hypoxic respiratory failure - Secondary to diastolic CHF -With evidence of mild to moderate respiratory distress with a few words Plan - Fluid restrictions of 1000 cc - Lasix 40 IV twice daily -Potassium replacement therapy - Monitor creatinine - Monitor urine output - Full code - Lovenox for DVT prophylaxis Left lower extremity cellulitis ? Prior cultures have grown MRSA, Pseudomonas - IV vancomycin - iv Zosyn - Clinically monitor plan for today coutinue to diureses, IV abx, venous ultrasound PDMP PDMP Reviewed: Not Reviewed Attestations 2 Medical Necessity Statement*: patient requires hospitalization for chf, fluid overload, cellulitis, Diagnoses Acute hypoxic respiratory failure J96.01 CHF exacerbation I50.9 Cellulitis L03.90
--- NOTE | 2024-11-03 15:46 | PC.NURSE ---
Order is clarified with provider, Kay Perez, just checking if you want her to have both metolazone 5mg PO and lasix 40mg IVP now? they are both on her MAR. Provider decided to retime the lasix.
[2024-11-03 17:37] LABS: Anion Gap 14.1 (5-19); Blood Urea Nitrogen 23 mg/dL (8-23); Calcium 8.3 mg/dL (8.5-10.5); Carbon Dioxide 31 mmol/L (22-29); Chloride 102 mmol/L (98-107); Creatinine Clr Calc Pharmacy 48.4639; Glucose 96 mg/dL (65-115); Osmolality Calculated 300 mOsm/kg (285-295); Potassium 4.1 mmol/L (3.5-5.1); Sodium 143 mmol/L (136-145)
[2024-11-04] VITALS (8 sets, daily range): BP systolic 110–138; BP diastolic 62–82; PULSE 63–79; RESP 9–23; TEMP 36.4–36.7; O2SAT 91–94
[2024-11-04 02:58] LABS: Hematocrit 33.6 % (36-47); Hemoglobin 10.00 g/dL (11.27-16.99); Mean Corpuscular HGB Conc 29.8 g/dL (30-55); Mean Corpuscular Hemoglobin 27.5 pg (27-33); Mean Corpuscular Volume 92.3 fl (85-98); Nucleated Red Blood Cells % 0 %; Platelet Count 148 10^3/cmm (157-399); Red Blood Count 3.64 10^6/uL (3.85-5.65); White Blood Count 5.35 10^3/uL (3.29-11.43)
[2024-11-04 03:17] LABS: Anion Gap 10.4 (5-19); Blood Urea Nitrogen 23 mg/dL (8-23); Calcium 8.4 mg/dL (8.5-10.5); Carbon Dioxide 36 mmol/L (22-29); Chloride 103 mmol/L (98-107); Creatinine Clr Calc Pharmacy 42.4059; Glucose 108 mg/dL (65-115); Osmolality Calculated 304 mOsm/kg (285-295); Potassium 4.4 mmol/L (3.5-5.1); Sodium 145 mmol/L (136-145)
[2024-11-04] MEDS: piperacillin-tazobactam 3.375 GM in sodium chloride 0.9% (plus) 50 ML IV ×2 (03:32→10:27)
--- NOTE | 2024-11-04 09:25 | PC.NURSE ---
Provider asked nursing to enter BMP order at 1100. Order has been entered.
[2024-11-04 11:40] LABS: Anion Gap 15.0 (5-19); Blood Urea Nitrogen 22 mg/dL (8-23); Calcium 8.9 mg/dL (8.5-10.5); Carbon Dioxide 31 mmol/L (22-29); Chloride 100 mmol/L (98-107); Creatinine Clr Calc Pharmacy 44.9428; Glucose 93 mg/dL (65-115); Osmolality Calculated 297 mOsm/kg (285-295); Potassium 4.0 mmol/L (3.5-5.1); Sodium 142 mmol/L (136-145)
--- NOTE | 2024-11-04 12:51 | P.DS_ITS ---
Discharge Providers Date of Admission: 10/31/24 18:46 Date of Discharge: November 04, 2024 Attending Provider at Admission: Blayne Camacho MD Attending Provider at Discharge: Blayne Camacho MD Primary Care Provider: Eduardo Flynn MD Diagnoses at Discharge Discharge Diagnosis 1. Acute hypoxic respiratory failure: 2. CHF exacerbation: 3. Cellulitis of right lower extremity: Reason for Visit Reason for Visit: low O2, sob, urgent care sent Hospital Course Hospital Course Kay Perez is a 74 year old female with a past medical history of CHF, hypertension, hypothyroidism, who presents to [facility] for shortness of breath, orthopnea, paroxysmal nocturnal dyspnea, bilateral lower extremity edema. Currently patient is alert oriented x 3 comfortable commands, she is sitting up in the gurney as she is quite short of breath reports increased lower extremity edema, no chest pain, no palpitations, shortness of breath with minimal exertion, orthopnea, paroxysmal nocturnal dyspnea, shortness of breath with a few words, currently 2 L Patient was admitted to [facility] for acute hypoxic respiratory failure, secondary to diastolic CHF exacerbation, required inpatient IV diuresis, diuresed over 12 L negative, overall clinically improved, edema improving, orthopnea/paroxysmal nocturnal dyspnea improving, will be discharged on 40 mg p.o. Lasix with potassium replacement therapy with close follow-up with primary care provider as outpatient For left lower extremity cellulitis, venous ultrasound negative for DVT, managed with IV antibiotics, overall clinically improved, discharged on p.o. antibiotics Physical Exam Const: COMMON NORMALS: no acute distress and patient oriented x3 Resp: COMMON NORMALS: normal respiratory effort, No retractions, No use of accessory muscles and clear to auscultation bilaterally AUSCULTATION: clear to auscultation bilaterally Cardio: COMMON NORMALS: regular rate, regular rhythm, S1 normal heart sound present and S2 normal heart sound present RATE: regular rate RHYTHM: regular rhythm HEART SOUNDS: S1 normal heart sound present and S2 normal heart sound present GI: COMMON NORMALS: Normal to inspection, nondistended, normoactive bowel sounds present and non-tender Extremity: COMMON NORMALS: no calf tenderness and no pedal edema Neuro: COMMON NORMALS: patient oriented x3 Psych: COMMON NORMALS: mental status grossly normal Urinary Catheter Management: Rodriguez: Cath Placed During This Visit: yes, but has since been removed by the nurse Reason for Continuing Indwelling Catheter: Accurate Measurement of Urinary Output in Critically Ill Patients Urinary Catheter Date of Insertion: 10/31/24 Urinary Catheter Time of Insertion: 20:31 Date Urinary Catheter Removed: 11/04/24 Time Urinary Catheter Discontinued: 10:07 Discharge Data Studies Completed and Pending Completed Studies During Hospitalization Category Date Time Status XR chest 1V portable [id number] Stat Exams 10/31/24 15:12 [place] [id number] Routine Ultrasound 11/03/24 11:50 Completed Pending at discharge Category Date Time Status Basic Metabolic Panel AM LABS Lab 11/05/24 04:00 Ordered Basic Metabolic Panel AM LABS Lab 11/06/24 04:00 Ordered Blood Culture Stat Lab 10/31/24 16:17 Results Complete Blood Count w/Auto AM LABS Lab 11/05/24 04:00 Ordered Complete Blood Count w/Auto AM LABS Lab 11/06/24 04:00 Ordered Vancomycin Random Timed Lab 11/04/24 19:00 Ordered Radiology Impressions Chest X-Ray 10/31/24 15:12 IMPRESSION: 1. No acute cardiopulmonary finding. Laboratory Results WBC 5.35 10^3/uL (3.29-11.43) 11/04/24 02:45 RBC 3.64 10^6/uL (3.85-5.65) L 11/04/24 02:45 Hgb 10.00 g/dL (11.27-16.99) L 11/04/24 02:45 Hct 33.6 % (36-47) L 11/04/24 02:45 MCV 92.3 fl (85-98) 11/04/24 02:45 MCH 27.5 pg (27-33) 11/04/24 02:45 MCHC 29.8 g/dL (30-55) L 11/04/24 02:45 RDW 17.1 % (12.1-15.1) H 11/04/24 02:45 Plt Count 148 10^3/cmm (157-399) L 11/04/24 02:45 MPV 9.8 fL (7.4-10.4) 11/04/24 02:45 Neut % (Auto) 36.3 % 11/04/24 02:45 Lymph % (Auto) 46.7 % 11/04/24 02:45 Clarke % (Auto) 12.0 % 11/04/24 02:45 Eos % (Auto) 4.3 % 11/04/24 02:45 Baso % (Auto) 0.7 % 11/04/24 02:45 Neut # (Auto) 1.94 10^3/uL (1.8-7.7) 11/04/24 02:45 Lymph # (Auto) 2.5 10^3/uL (0.8-4.8) 11/04/24 02:45 Clarke # (Auto) 0.6 10^3/uL (0.2-0.9) 11/04/24 02:45 Eos # (Auto) 0.2 10^3/uL (0.0-0.8) 11/04/24 02:45 Baso # (Auto) 0.0 10^3/uL (0.0-0.1) 11/04/24 02:45 Nucleated RBC % (auto) 0 % 11/04/24 02:45 Nucleated RBCs # 0.0 /100WBC 11/04/24 02:45 Specimen Type Arterial 10/31/24 15:54 Sample Site Radial, right 10/31/24 15:54 ABG pH 7.43 (7.35-7.45) 10/31/24 15:54 ABG pCO2 41.3 mmHg (35-45) 10/31/24 15:54 ABG pO2 81.3 mmHg (80.0-100.0) 10/31/24 15:54 ABG PO2/FiO2 Ratio 254 10/31/24 15:54 ABG HCO3 27.5 mmol/L (22-26) H 10/31/24 15:54 ABG O2 Saturation 97.0 10/31/24 15:54 ABG Base Excess 2.9 mmol/L (-2.0-2.0) H 10/31/24 15:54 Karan Test Pos 10/31/24 15:54 A-a O2 Gradient 12.2 mmHg (5-10) H 10/31/24 15:54 Hematocrit 35.2 % (37-47) L 10/31/24 15:54 Hgb O2 Saturation 95.8 % (95-100) 10/31/24 15:54 Carboxyhemoglobin 1.6 %THgb (0.4-20.1) 10/31/24 15:54 Methemoglobin < 0.0 % (0.4-1.5) L 10/31/24 15:54 Total Hemoglobin 11.5 g/dL (12-16) L 10/31/24 15:54 Sodium 149.0 mmol/L (131-143) H 10/31/24 15:54 Potassium 3.7 mmol/L (3.5-5.0) 10/31/24 15:54 Glucose 99.0 mg/dL (70-115) 10/31/24 15:54 Ionized Calcium 1.2 mmol/L (1.1-1.4) 10/31/24 15:54 O2 Delivery Device Nc 10/31/24 15:54 O2 Liters/Min 3.0 % 10/31/24 15:54 FiO2 32.0 % 10/31/24 15:54 Career Specialist ID glc 10/31/24 15:54 Sodium 142 mmol/L (136-145) 11/04/24 11:13 Potassium 4.0 mmol/L (3.5-5.1) 11/04/24 11:13 Chloride 100 mmol/L (98-107) 11/04/24 11:13 Carbon Dioxide 31 mmol/L (22-29) H 11/04/24 11:13 Anion Gap 15.0 (5-19) 11/04/24 11:13 BUN 22 mg/dL (8-23) 11/04/24 11:13 Creatinine 1.5 mg/dL (0.5-0.9) H 11/04/24 11:13 GFR Calculation Not Reportable 11/04/24 11:13 Glucose 93 mg/dL (65-115) 11/04/24 11:13 Estimat Average Glucose 128 10/31/24 16:17 Hemoglobin A1c 6.1 % (4.0-6.0) H 10/31/24 16:17 Calculated Osmolality 297 mOsm/kg (285-295) H 11/04/24 11:13 Lactic Acid 1.3 mmol/L (0.5-2.2) 10/31/24 16:17 Calcium 8.9 mg/dL (8.5-10.5) 11/04/24 11:13 Total Bilirubin 0.6 mg/dL (0.15-1.2) 11/03/24 03:28 AST 15 U/L (0-32) 11/03/24 03:28 ALT 6 U/L (0-33) 11/03/24 03:28 Alkaline Phosphatase 51 U/L (35-105) 11/03/24 03:28 Troponin T Baseline 24 ng/L (0-10) H 10/31/24 16:17 Troponin T 120 Minute 22.43 ng/L (0-10) H 10/31/24 21:05 Delta Troponin T -1.57 ABS# (0-10) L 10/31/24 21:05 Troponin T Hi Sens 6Hr 22.11 ng/L (0-10) H 10/31/24 23:15 Troponin T Hi Sens 6Hr Delta -1.89 ng/L (0-12) L 10/31/24 23:15 NT-Pro-B Natriuret Pep 77662 pg/mL (0-450) H 11/01/24 03:19 Total Protein 5.9 g/dL (6.6-8.7) L 11/03/24 03:28 Albumin 3.3 g/dL (3.5-5.2) L 11/03/24 03:28 Globulin 2.6 g/dL (1.3-4.6) 11/03/24 03:28 Triglycerides 73 mg/dL (0-150) 10/31/24 16:17 Cholesterol 130 mg/dL (0-200) 10/31/24 16:17 LDL Cholesterol, Calc 76 mg/dL (50-129) 10/31/24 16:17 HDL Cholesterol 39 mg/dL (60-100) L 10/31/24 16:17 LDL/HDL Ratio 1.95 RATIO (0.00-3.22) 10/31/24 16:17 Cholesterol/HDL Ratio 3.33 mg/dL (0.0-4.40) 10/31/24 16:17 TSH 4.46 uIU/mL (0.27-4.20) H 10/31/24 16:17 Urine Color Yellow (Yellow) 10/31/24 20:45 Urine Appearance Clear (CLEAR) 10/31/24 20:45 Urine pH 5.5 (5-7) 10/31/24 20:45 Ur Specific [place] 1.006 (1.005-1.030) 10/31/24 20:45 Urine Protein Negative (Negative) 10/31/24 20:45 Urine Glucose (UA) Negative (Normal) 10/31/24 20:45 Urine Ketones Negative (Negative) 10/31/24 20:45 Urine Blood Negative (Negative) 10/31/24 20:45 Urine Nitrate Negative (Negative) 10/31/24 20:45 Urine Bilirubin Negative (Negative) 10/31/24 20:45 Urine Urobilinogen 0.2 mg/dL (Negative) 10/31/24 20:45 Ur Leukocyte Esterase Negative (Negative) 10/31/24 20:45 Urine RBC 0-2 /hpf (0-2) 10/31/24 20:45 Urine WBC 0-5 /hpf (0-5) 10/31/24 20:45 Ur Squamous Epith Cells 0-5 /hpf (0-5) 10/31/24 20:45 Amorphous Sediment Not Reportable 10/31/24 20:45 Urine Bacteria None seen /hpf (NONE) 10/31/24 20:45 Hyaline Casts 0.40 /lpf 10/31/24 20:45 Vancomycin Trough 23.9 ug/mL (10-15) H 11/02/24 14:46 Random Vancomycin 21.5 ug/mL (20.0-40.0) 11/04/24 08:03 Influenza A (PCR) Negative (Negative) 10/31/24 15:31 Influenza Type B (PCR) Negative (Negative) 10/31/24 15:31 RSV (PCR) Negative (Negative) 10/31/24 15:31 SARS-CoV-2 (PCR) Negative (Negative) 10/31/24 15:31 Vitals Last Vital Signs Temp 97.6 F 11/04/24 12:00 Pulse 79 11/04/24 12:00 Resp 23 H 11/04/24 12:00 BP 110/82 11/04/24 12:00 Pulse Ox 93 11/04/24 12:00 O2 Del Method Nasal Cannula 11/04/24 12:00 O2 Flow Rate 1 11/03/24 16:52 Discharge Plan Discharge Patient Disposition: Home Condition: Stable Prescriptions: New doxycycline hyclate 100 mg tablet 100 mg PO BID 7 Days Qty: 14 0RF Continued [facility] AREDS-2 250-90-40-1 mg capsule 1 tab PO DAILY paroxetine HCl 10 mg Tablet 20 mg PO DAILY albuterol sulfate 90 mcg/actuation HFA aerosol inhaler 1 inh inhalation Q6H PRN (Reason: shortness of breath or wheezing) Qty: 8.5 0RF levothyroxine 25 mcg tablet 75 mcg PO DAILY metronidazole 0.75 % gel 1 applic TOPICAL BID fluticasone propionate 50 mcg/actuation spray,suspension 1 spray INTRANASAL PRN Changed furosemide 40 mg tablet 40 mg PO DAILY 30 Days Qty: 30 0RF potassium chloride [Klor-Con 10] 10 mEq tablet extended release 20 meq PO DAILY 30 Days Qty: 60 0RF irbesartan 300 mg tablet 150 mg PO DAILY 30 Days Qty: 30 0RF Discharge Order = DC NOW: Discharge Order (Routine); Ordered 11/04/24 Ordered By: Blayne Camacho Referrals: Eduardo Flynn MD [Primary Care Provider, [facility]] - 11/08/24 1:30 pm Wai Ibrahim DPM [Physician, Podiatry] - 1 week Discharge Diet: Cardiac Discharge Activity: Resume usual activity Patient Instructions: Cellulitis (GEN), Chronic Respiratory Failure (DC), CHF Stoplight, Opioid Safety, Patient Portal & [place] Instructions Activity Restrictions/Additional Instructions: - Please start Lasix 40 mg daily with potassium replacement therapy 20 mEq equivalents - If you gain more than 3 pounds or continues to be short of breath, or develop edema - Then you can increase Lasix to 40 mg twice daily with potassium 20 mEq twice daily - I would do this for 3 days in a row - Then go back to Lasix 40 mg once daily with potassium 20 mEq once daily - However after 3 days if you continue to have shortness of breath or edema or weight gain then go to the emergency room -Please limit your fluid intake, drink between 1 to 1.5 L of fluid a day - Please see your primary care provider next week to recheck your kidney function, your creatinine on discharge is 1.5 - Please follow-up with Dr. Ibrahim - You will need to see your primary care provider about your obstructive sleep apnea, you need to have a sleep study - If you have any chest pain or sudden onset shortness of breath go to the emergency room Discharge Attestations Time Spent in Discharge Care*: greater than 30 min Quality Metrics Clinical Quality Measures [ No reported AMI, CVA or VTE this stay] Coding Level of Care Code 75567 Total time (in minutes) for Discharge: 45 Diagnoses Acute hypoxic respiratory failure J96.01 CHF exacerbation I50.9 Cellulitis of right lower extremity L03.115 Laterality: right Site of cellulitis: extremity Site of cellulitis of extremity: lower extremity
--- NOTE | 2024-11-04 12:54 | PC.NURSE ---
Patient has ambulated in the hallway for 94 feet. Vital remained stable.
== END 2024-11-04 13:45 | disposition home or self-care (01) | DRG 291 ==
LOC: ER 18:23 → CSU 18:47
PROVIDERS: Admitting Provider Family Medicine; Emergency Provider Emergency Medicine; PCP Family Medicine; Visit Provider Family Medicine
DX: I11.0 Hypertensive heart disease with heart failure (principal); I50.33 Acute on chronic diastolic (congestive) heart failure; J96.01 Acute respiratory failure with hypoxia; L03.116 Cellulitis of left lower limb; Z68.43 Body mass index [BMI] 50.0-59.9, adult; E03.9 Hypothyroidism, unspecified; E66.9 Obesity, unspecified; Z90.710 Acquired absence of both cervix and uterus; I73.9 Peripheral vascular disease, unspecified; Z87.891 Personal history of nicotine dependence; Z79.890 Hormone replacement therapy; Z79.51 Long term (current) use of inhaled steroids
CPT/HCPCS: 36415; 36600; 51702; 71045; 80048; 80051; 80053; 80061; 80202; 81001; 82330; 82805; 83036; 83605; 83880; 84443; 84484; 85025; 87040; 87637; 90471; 90732; 93005; 93970; 94664; 96372; 96374; 99285; J1650; J1938; J2543; J3372; J3373; J9999

== ENCOUNTER 2024-12-12 09:57 | Outpatient (CLI) | payer MEDICARE, SELFPAY ==
--- NOTE | 2024-12-12 10:08 | USCV_ITS ---
Kay Perez Age: 74 Gender: F : 1950 Exam Date: 12/12/2024 10:27 Ordering Phys: Eduardo Flynn MD Technologist: AIDEE [place] [facility] [place]: CHF BP: 160 / 78 HR: 47 Rhythm: Sinus Technical Quality: Adequate MEASUREMENTS (Male / Female) Normal Values 2D ECHO LV Diastolic Diameter PLAX 6.7 cm 4.2 - 5.9 / 3.9 - 5.3 cm IVS Diastolic Thickness 0.9 cm 0.6 - 1.0 / 0.6 - 0.9 cm IVS Systolic Thickness 1.0 cm LVPW Diastolic Thickness 0.9 cm 0.6 - 1.0 / 0.6 - 0.9 cm LVPW Systolic Thickness 1.1 cm LVOT Diameter 2.0 cm LV Ejection Fraction 2D Teich 25.8 % LV Ejection Fraction MOD 4C 30.0 % LV Ejection Fraction MOD 2C 39.9 % LV Ejection Fraction 2C AL 38.2 % LA Diameter 4.5 cm RA Systolic Volume 4C AL 69.7 ml RA Systolic Volume 4C MOD 66.3 ml LA Sys Volume AL 85.0 cm cubed Aorta at Sinotubular Diameter 2.6 cm IVC Diameter 1.8 cm M-MODE LA Ao Ratio MM 1.4 AV Cusp Separation MM 1.5 cm DOPPLER AV Peak Velocity 158.0 cm/s LVOT Peak Velocity 87.0 cm/s AV Area Cont Eq vti 1.5 cm squared AV Area Cont Eq pk 1.7 cm squared MV Peak Velocity 88.0 cm/s MV Area PHT 4.6 cm squared Mitral E to A Ratio 1.1 TV Peak Velocity 292.0 cm/s TR Peak Velocity 444.0 cm/s TR Peak Gradient 78.9 mmHg TV Peak E Velocity 79.0 cm/s PV Peak Velocity 95.0 cm/s FINDINGS Left Ventricle Diffuse hypokinesis of the left ventricle with an ejection fraction of 38%.mildly increased left ventricular cavity size. Right Ventricle Normal right ventricular size and systolic function. Right Atrium Mildly increased right atrial size. Left Atrium Mildly increased left atrial size. IA Septum Appears to be intact Mitral Valve Thickened mitral valve. Trace mitral valve regurgitation. Aortic Valve No gross abnormalities noted Tricuspid Valve Trace tricuspid valve regurgitation. Severe pulmonary hypertension with estimated pulmonary artery peak systolic pressure of 82 mmHg Pulmonic Valve Trace to mildpulmonary valve regurgitation. Pericardium No pericardial effusion. Aorta Normal aortic annulus size. IVC Inferior vena cava not visualized. CONCLUSIONS Diffuse hypokinesis of the left ventricle with an ejection fraction of 38%.mildly increased left ventricular cavity size. Mild biatrial enlargement. Thickened mitral valve. Trace mitral valve regurgitation. Trace tricuspid valve regurgitation. Severe pulmonary hypertension with estimated pulmonary artery peak systolic pressure of 82 mmHg There is no pericardial effusion. There are no intracardiac masses. Compared to the study from 08/19/2021, there is a significant drop in the LV ejection fraction. Dr Andrew Gonzalez MD [facility] (Electronically Signed) Final Date: 14 December 2024 19:17 S
== END 2024-12-12 09:58 | disposition home or self-care (01) ==
LOC: RAD 10:00
PROVIDERS: PCP Family Medicine; Visit Provider Family Medicine
DX: I50.9 Heart failure, unspecified (principal); I27.0 Primary pulmonary hypertension; I51.7 Cardiomegaly; I50.22 Chronic systolic (congestive) heart failure; I51.89 Other ill-defined heart diseases; I05.9 Rheumatic mitral valve disease, unspecified; I37.1 Nonrheumatic pulmonary valve insufficiency
CPT/HCPCS: 93306

== ENCOUNTER → 2024-12-15 07:33 | Outpatient (BNVA) | payer MEDICARE, SELFPAY | PROVIDERS: PCP Family Medicine; Visit Provider Podiatrist Foot & Ankle Surgery | DX: I73.9 Peripheral vascular disease, unspecified (principal); L60.3 Nail dystrophy; L60.0 Ingrowing nail; L03.116 Cellulitis of left lower limb | CPT/HCPCS: 11721; 99204 ==

== ENCOUNTER → 2024-12-19 10:10 | Outpatient (BNVA) | payer MEDICARE, SELFPAY | PROVIDERS: PCP Family Medicine; Visit Provider Nurse Practitioner Family | DX: L71.8 Other rosacea (principal); L82.1 Other seborrheic keratosis; D18.01 Hemangioma of skin and subcutaneous tissue; L81.4 Other melanin hyperpigmentation; L57.8 Other skin changes due to chronic exposure to nonionizing radiation; D48.5 Neoplasm of uncertain behavior of skin; L57.0 Actinic keratosis | CPT/HCPCS: 11102; 17000; 99214 ==

== ENCOUNTER 2024-12-21 20:15 | Outpatient (CLI) | payer MEDICARE, SELFPAY | END 2024-12-21 20:16 | disposition home or self-care (01) | LOC: SLEEP 20:17 | PROVIDERS: PCP Family Medicine; Referring Provider Family Medicine; Visit Provider Internal Medicine Pulmonary Disease | DX: G47.33 Obstructive sleep apnea (adult) (pediatric) (principal); R09.02 Hypoxemia | CPT/HCPCS: 95810 ==

== ENCOUNTER → 2025-01-11 14:58 | Outpatient (BNVA) | payer MEDICARE, SELFPAY | PROVIDERS: PCP Family Medicine; Visit Provider Dermatology | DX: D03.61 Melanoma in situ of right upper limb, including shoulder (principal) | CPT/HCPCS: 11603; 12032 ==

== ENCOUNTER → 2025-01-12 08:55 | Outpatient (BNVA) | payer MEDICARE, SELFPAY | PROVIDERS: PCP Family Medicine; Visit Provider Podiatrist Foot & Ankle Surgery | DX: I73.9 Peripheral vascular disease, unspecified (principal); L60.3 Nail dystrophy; L60.0 Ingrowing nail | CPT/HCPCS: 99213 ==